=== PATIENT | male | born 1935 | race Caucasian/White ===

== ENCOUNTER 2018-01-20 11:18 | Day surgery (SDC) | payer OTHER ==
[2018-01-13 11:23] LABS: Absolute Lymphocytes (CBC) 0.8 K/uL (0.7-4.9); Absolute Monocytes 0.4 K/uL (0.1-1.3); Absolute Neutrophil 3.4 K/uL (1.8-8.0); Basophils % 1.1 % (0-1.3); Hematocrit 41.6 % (39.6-49.0); Lymphocytes % 16.8 % (15.3-44.8); MCH 29.8 pg (27.0-35.0); MCV 89.5 fL (80-100); MPV 10.2 fL (7.6-11.3); Monocytes % 8.8 % (3.3-12.3); RBC Red Blood Cell Count 4.65 M/uL (4.33-5.43)
[2018-01-13 11:36] LABS: Protime INR 1.69; Urine Appearance CLOUDY; Urine Bilirubin NEGATIVE (NEG); Urine Blood NEGATIVE (NEG); Urine Color YELLOW; Urine Glucose NEGATIVE (NEG); Urine Protein NEGATIVE (NEG); Urine Urobilinogen 0.2 mg/dL (0.2-1.0); Urine pH 7.5 (5.0-7.0)
[2018-01-13 11:42] LABS: Potassium 4.1 mmol/L (3.5-5.1)
--- NOTE | 2018-01-13 11:44 | EKG ---
Test Date: 2018-01-13 Test Time: 11:16:09 Injection Press Operator: DESI MEASUREMENT RESULTS: Intervals: Rate: 60 OH: 132 QRSD: 176 QT: 490 QTc: 490 [place]: P: 75 OH: 132 QRS: -85 T: 74 INTERPRETIVE STATEMENTS: Atrial-Ventricular Dual-Paced rhythmr Abnormal ECG Compared to ECG 12/12/2014 13:46:13 Atrial-sensed ventricular-paced complex(es) or rhythm no longer present Sinus rhythm no longer present Electronically Signed On 01-13-18 11:43:50 TRIPOLER by uLis Paz
[2018-01-13 11:45] LABS: Urine Microscopic Reflex ORDER UMIC
[2018-01-13 12:10] LABS: Urine Bacteria <20 /HPF (NONE SEEN); Urine RBC <5 /HPF (NONE SEEN)
[2018-01-13 12:11] LABS: Urine Amorphous Sediment 2+ /HPF (NONE SEEN); Urine Culture Reflex Order NOT NEEDED
--- NOTE | 2018-01-13 13:24 | RAD REPORT ---
EXAM DESCRIPTION: Barbara Trujillo (2 Views)01/13/2018 11:12 am CLINICAL HISTORY: Coronary artery disease. Preop for prostate surgery. COMPARISON: 2012 FINDINGS: Eventration left hemidiaphragm. Lungs appear clear of acute infiltrate. Lungs are hyperaerated. Pacemaker leads in place. Postsurgica l changes involve the chest. Heart is normal size IMPRESSION: No acute abnormalities displayed
[2018-01-20] MEDS ORDERED: GENTAMICIN 100 MG/100 ML BAG 100 MG/100 ML BAG IV ONE (11:45)
[2018-01-20] MEDS ORDERED: Ringers Lactate 1,000 ML IV ONE (11:45)
[2018-01-20 12:12] LABS: Protime INR 1.34
[2018-01-20] MEDS ORDERED: FENTANYL CITR 100 MCG/2 ML ONE (13:06)
[2018-01-20] MEDS ORDERED: PROPOFOL 200 MG/20 ML VIAL IV ONE (13:07)
[2018-01-20] MEDS ORDERED: MIDAZOLAM HCL 2 MG/2 ML INJ ONE (13:07)
[2018-01-20] MEDS ORDERED: LIDOCAINE 2% MPF 5 ML VIAL ONE (13:07)
[2018-01-20] MEDS ORDERED: EPHEDRINE SULF 50 MG/10 ML SYR ONE (14:22)
[2018-01-20 16:53] VITALS: BP 150/72; TEMP 97.3; O2SAT 97
== END 2018-01-20 16:45 | disposition home or self-care (01) ==
LOC: OR 11:18
PROVIDERS: ATTEND Urology
PROC: 0TCB8ZZ Extirpation of Matter from Bladder, Via Natural or Artificial Opening Endoscopic (ICD-10-PCS; 2018-01-20)
PROC: 0VT08ZZ Resection of Prostate, Via Natural or Artificial Opening Endoscopic (ICD-10-PCS; principal; 2018-01-20 13:00)
DX: N40.0 Benign prostatic hyperplasia without lower urinary tract symptoms (principal); N21.0 Calculus in bladder; I10 Essential (primary) hypertension; I25.10 Atherosclerotic heart disease of native coronary artery without angina pectoris; E78.00 Pure hypercholesterolemia, unspecified; E78.5 Hyperlipidemia, unspecified; Z95.0 Presence of cardiac pacemaker; Z79.01 Long term (current) use of anticoagulants; Z95.1 Presence of aortocoronary bypass graft; Z87.891 Personal history of nicotine dependence
CPT/HCPCS: 36415 ×2; 52318; 52601; 71046; 80048; 82360; 85025; 85610 ×2; 85730 ×2; 87088; 88300; 88305; 93005; J1580; J2704; J3010; 81003; 81015; 87086; J2250

== ENCOUNTER 2018-02-18 15:41 | Observation (INO) | payer OTHER ==
--- OUTSIDE RECORDS SUMMARY | 2018-02-18 15:43 | XMS REPORT ---
:1935 [facility] Address [address] [place] [address] Dr. Chung [address] [place] [id number] Care Team Providers Name Role Phone Unavailable Unavailable Unavailable Problems This patient has no known problems. Allergies, Adverse Reactions, Alerts This patient has no known allergies or adverse reactions. Medications This patient has no known medications.
[2018-02-18 16:27] LABS: Absolute Lymphocytes (CBC) 0.4 K/uL (0.7-4.9); Absolute Monocytes 0.8 K/uL (0.1-1.3); Absolute Neutrophil 6.6 K/uL (1.8-8.0); Basophils % 0.6 % (0-1.3); Eosinophils % 0.9 % (0-4.4); Hematocrit 35.8 % (39.6-49.0); Lymphocytes % 5.6 % (15.3-44.8); MPV 11.3 fL (7.6-11.3); Monocytes % 9.6 % (3.3-12.3); RBC Red Blood Cell Count 4.01 M/uL (4.33-5.43)
[2018-02-18 16:32] LABS: Protime INR 1.99
--- NOTE | 2018-02-18 16:32 | RAD REPORT ---
EXAM DESCRIPTION: CT - Head Brain Wo Cont - 02/18/2018 4:18 pm CLINICAL HISTORY: Alteration of awareness/confusion COMPARISON: June 2016 TECHNIQUE: Computed axial tomography of the head was obtained. IV contrast was not requested. All CT scans are performed using dose optimization technique as appropriate and may include automated exposure control or mA/KV adjustment according to patient size. FINDINGS: An intracranial bleed is not seen . The ventricles are normal in caliber. No extra-axial fluid collection is noted. Mild low-density areas within periventricular, deep and sub cortical white matter likely represent ischemic changes secondary to small vessel disease. Fluid within the sinuses/ mastoids is not seen. IMPRESSION: No acute intracranial abnormality is seen. If patient's symptoms persist MRI of the bra in would be recommended.
--- NOTE | 2018-02-18 16:39 | RAD REPORT ---
EXAM DESCRIPTION: Barbara Single View02/18/2018 4:26 pm CLINICAL HISTORY: Hypertension COMPARISON: December 2017 FINDINGS: Elevation left hemidiaphragm is unchanged Postsurgical changes involve the chest The lungs appear clear of acute infiltrate. The heart is mildly enlarged. Pacemaker leads are in brian ce. IMPRESSION: No acute abnormalities displayed
[2018-02-18 16:48] LABS: Albumin 3.7 g/dL (3.4-5.0); Bilirubin Direct 0.2 mg/dL (0-0.2); Bilirubin Total 0.6 mg/dL (0.2-1.0); Magnesium 2.1 mg/dL (1.8-2.4); Protein, Total 6.8 g/dL (6.4-8.2); Troponin (Emerg Dept Use Only) 0.02 ng/mL (0.0-0.045)
[2018-02-18] MEDS ORDERED: NA CHLORIDE 0.9% 500 ML ONE (16:48)
[2018-02-18 17:21] LABS: Urine Amorphous Sediment 2+ /HPF (NONE SEEN); Urine Bacteria <20 /HPF (NONE SEEN); Urine Culture Reflex Order REFLEXED
--- NOTE | 2018-02-18 19:05 | RAD REPORT ---
EXAM DESCRIPTION: CT - Angio Aorta For Dissection - 02/18/2018 6:39 pm CLINICAL HISTORY: . Chest and abdominal pain. Hypotension COMPARISON: 2014 TECHNIQUE: Computed tomography angiography of the chest, abdomen pelvis were obtained. 100 cc Isovue 370 was administered intravenously. Coronal and sagittal reconstruction were performed. MIP 3D reconstruction was performed All CT scans are performed using dose optimization technique as appropriate and may include automated exposure control or mA/KV adjustment according to patient size. FINDINGS: An aortic dissection is not seen. An aortic aneurysm is not displayed. 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 , SMA and RACHEAL are patent . Chronic elevation left hemidiaphragm. Mild left basilar atelectasis. A pericardial effusion is not se en. A pleural effusion is not noted. A 5 millimeter right middle lobe nodule The liver,spleen, pancreas adrenals kidneys demonstrate no significant abnormality. The appendix is normal. There no evidence diverticulitis. No ascites is noted. Prostate gland markedly enlarged. TURP Gallstones without gallbladder wall thickening Moderate amount of stool is present in the colon IMPRESSION: Negative for an aortic dissection. 5 mm right lung nodule. Per Fleischner guidelines if patient is high risk followup CT in 1 year would be recommended
--- NOTE | 2018-02-18 19:56 | ER ---
Nurse's Notes [facility] Name: Tong Norton Age: 82 yrs Sex: Male : 1935 Arrival Date: 02/18/2018 Time: 15:42 Bed 4 Private MD: Diagnosis: Hypotension;Altered mental status, unspecified Presentation: 02/18 15:42 Presenting complaint: EMS states: Son called EMS for altered mental status, reports pt hb seemed confused after lunch, was talking to people that weren't there, thought he was in a foreign country. Upon arrival pt was AOx2-3. 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 Pt is 6 weeks s/p TURP. Transition of care: patient was not received from another setting of care. Onset of symptoms was February 18, 2018. Risk Assessment: Do you want to hurt yourself or someone else? Patient reports no desire to harm self or others. Care prior to arrival: Medication(s) given: Tylenol, 1000 mg, IV initiated. 20 GA, in the left antecubital area, Glucose check: 131. 15:42 Method Of Arrival: EMS: [facility] hb 15:42 Acuity: DOMENICO 2 hb 16:00 Initial Sepsis Screen: Does the patient meet any 2 criteria? Mean Arterial Pressure jl7 (MAP) < 65. Altered Mental Status. Yes Does the patient have a suspected source of infection? No. Patient's initial sepsis screen is negative. Historical: - Allergies: 15:46 No Known Allergies; hb - Home Meds: 21:23 zinc sulfate 220 (50) mg Oral cap EOD [Active]; copper gluconate 2 mg oral cap daily aa1 [Active]; Flomax 0.4 mg Oral cp24 1 cap once daily [Active]; tramadol 50 mg Oral tab 1 tab every 6 hours [Active]; Vitamin B-12 5000 mcg Oral daily [Active]; Vitamin D3 5,000 unit oral tab EOD [Active]; Lofibra 134 mg oral cap 1 cap once daily [Active]; benzonatate 100 mg oral cap 1 cap 3 times per day [Active]; gabapentin 100 mg oral cap 1 cap in am and 2 caps in pm [Active]; sotalol 80 mg Oral tab 0.5 tab 2 times per day [Active]; Zocor 40 mg Oral tab 1 tab once daily [Active]; Xarelto 20 mg oral tab 1 tab once daily [Active]; - PMHx: 15:46 Gout; Hyperlipidemia; Hypertension; hb - PSHx: 15:46 PACEMAKER; CABG; TURP; hb - Immunization history:: Adult Immunizations up to date. - Social history:: Smoking status: Patient/guardian denies using tobacco. - Ebola Screening: : No symptoms or risks identified at this time. Screenin:47 Abuse screen: Denies threats or abuse. Denies injuries from another. Nutritional hb screening: No deficits noted. Tuberculosis screening: No symptoms or risk factors identified. Fall Risk Total Gómez Fall Scale indicates High Risk Score (45 or more points). Fall prevention measures have been instituted. Side Rails Up X 2 Frequent Obs/Assessments Occuring As available patient and family educated on Fall Prevention Program and Strategies. Assessment: 15:56 General: Appears in no apparent distress. uncomfortable, Behavior is calm, cooperative, jl7 appropriate for age. Pain: Denies pain. Neuro: Level of Consciousness is awake, alert, obeys commands, Oriented to person, place, time, situation, Appropriate for age pt reports "I woke up this morning and was confused. I thought I was going to get my son but he's in [place]. I couldn't find a phone number to call and I just couldn't think straight." . Cardiovascular: Heart tones S1 S2 present Patient's skin is warm and dry. Respiratory: Airway is patent Respiratory effort is even, unlabored, Respiratory pattern is regular, symmetrical, Breath sounds are clear in right upper lobe, left upper lobe, left posterior upper lobe and right posterior upper lobe Breath sounds with crackles in left lower lobe and left posterior lower lobe. GI: No signs and/or symptoms were reported involving the gastrointestinal system. Patient currently denies diarrhea, nausea, vomiting. : No signs and/or symptoms were reported regarding the genitourinary system. Denies burning with urination. EENT: No signs and/or symptoms were reported regarding the EENT system. Derm: Skin is pink, warm \\T\\ dry. Musculoskeletal: No signs and/or symptoms reported regarding the musculoskeletal system. 16:41 Reassessment: ERP notified of decreased BP, ordered 500 mL NS bolus at this time. jl7 17:45 Reassessment: Patient appears in no apparent distress at this time. No changes from jl7 previously documented assessment. Patient and/or family updated on plan of care and expected duration. Pain level reassessed. Patient is alert, oriented x 3, equal unlabored respirations, skin warm/dry/pink. 19:16 Reassessment: Patient appears in no apparent distress at this time. Patient states lp1 feeling better. Patient states symptoms have improved. Neuro: Level of Consciousness is awake, alert, obeys commands, Oriented to person, place, time, situation. Respiratory: Respiratory effort is even, unlabored. Derm: Skin is pink, warm \\T\\ dry. 20:30 Reassessment: Patient appears in no apparent distress at this time. Patient and/or lp1 family updated on plan of care and expected duration. Pain level reassessed. Patient aware of pending admission. 21:30 Reassessment: Patient appears in no apparent distress at this time. No changes from lp1 previously documented assessment. 22:30 Reassessment: Patient appears in no apparent distress at this time. Patient and/or lp1 family updated on plan of care and expected duration. Pain level reassessed. Patient is alert, oriented x 3, equal unlabored respirations, skin warm/dry/pink. Patient denies pain at this time. Vital Signs: 15:47 BP 120 / 70; Pulse 84; Resp 16; Temp 100.2; Pulse Ox 100% on R/A; Pain 0/10; hb 16:37 BP 87 / 61; Pulse 71; Resp 16 S; Pulse Ox 95% on R/A; jl7 17:00 BP 87 / 55; Pulse 63; Resp 16 S; Pulse Ox 94% on R/A; jl7 17:30 BP 89 / 60; Pulse 72; Resp 16 S; Pulse Ox 94% on R/A; jl7 18:20 BP 76 / 51 RA; Pulse 74; Resp 16 S; Pulse Ox 96% on R/A; jl7 18:24 BP 107 / 70 LA; Pulse 68; Resp 16 S; Pulse Ox 96% on R/A; jl7 18:37 Temp 98.7(O); jl7 19:17 BP 101 / 53; Pulse 72; Resp 16; Pulse Ox 96% on R/A; lp1 19:59 BP 100 / 70 LA (man/); lp1 19:59 BP 110 / 65 RA (man/); lp1 20:30 BP 96 / 59; Pulse 72; Resp 21; Pulse Ox 97% on R/A; lp1 21:44 BP 101 / 54; Pulse 74; Resp 20; Temp 98.2(O); Pulse Ox 96% on R/A; lp1 22:30 BP 91 / 57; Pulse 69; Resp 20; Pulse Ox 96% on R/A; lp1 ED Course: 15:42 Patient arrived in ED. hb 15:45 Triage completed. hb 15:45 Arm band placed on. hb 15:47 Patient has correct armband on for positive identification. Placed in gown. Bed in low hb position. Call light in reach. Side rails up X2. under sheriff on. Pulse ox on. NIBP on. 15:49 Rod Oneill PA is PHCP. [facility] 15:49 Alan Orellana MD is Attending Physician. [facility] 15:56 Ismael Vail, ULYSSES is Primary Nurse. jl7 15:56 Maintain EMS IV. Dressing intact. Good blood return noted. Site clean \\T\\ dry. Gauge \\T\\ jl 7 site: 20 L AC. 16:[address] nj 16:06 EKG done, by nurse tech. reviewed by Rod FERNANDEZ. 3 16:17 CT completed. Patient tolerated procedure well. Patient moved back from CT. 2 16:19 CT Head Brain wo Cont In Process Unspecified. EDMS 16:24 XRAY Chest (1 view) In Process Unspecified. EDMS 16:24 Urine collected: clean catch specimen, cloudy. 3 18:[address] nj 18:33 CT completed. Patient tolerated procedure well. Patient moved back from CT. 2 18:39 CT Aorta for Dissection In Process Unspecified. EDMS 19:06 Primary Nurse role handed off by Ismael Vail, ULYSSES jl7 19:15 Caro Porras, ULYSSES is Primary Nurse. 1 19:16 No provider procedures requiring assistance completed. 1 19:55 Kirill Jaime MD is Hospitalizing Provider. [facility] 20:01 Patient admitted, IV remains in place. 1 Administered Medications: 16:45 Drug: NS 0.9% 500 ml Route: IV; Rate: bolus; Site: right forearm; jl7 17:15 Follow up: Response: No adverse reaction; IV Status: Completed infusion 17:45 Drug: NS 0.9% 500 ml Route: IV; Rate: bolus; Site: right forearm; jl7 18:15 Follow up: Response: No adverse reaction; IV Status: Completed infusion 7 Outcome: 19:56 Decision to Hospitalize by Provider. [facility] 20:02 Condition: stable lp1 20:02 Instructed on the need for admit. 22:49 Admitted to Med/surg accompanied by tech, via wheelchair, room 203, with chart, Report lp1 called to ULYSSES Duran 22:57 Patient left the ED. lp1 Signatures: Dispatcher [employer] EDMS Christina Robins RN RN aa1 Rod Oneill PA PA jmm Pena, Laura RN RN lp1 Silvana Gutierrez RN RN hb Jordan, Nathan nj Leal, Jahala, RN RN jl7 Rocio Deras 2 Mimi Hernandez 3 Kerry Reveles 3 Corrections: (The following items were deleted from the chart) 15:46 15:42 Presenting complaint: EMS states: Son called EMS for altered mental status, hb reports pt seemed confused after lunch, was talking to people that weren't there, thought he was in a foreign country. Upon arrival pt was alert and answering questions appropriately. 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 hb 15:47 15:42 Presenting complaint: EMS states: Son called EMS for altered mental status, hb reports pt seemed confused after lunch, was talking to people that weren't there, thought he was in a [place]. Upon arrival pt was AOx2-3. 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 hb 18:26 18:15 Response: No adverse reaction; IV Status: Completed infusion jl7 18:27 18:25 Response: No adverse reaction; IV Status: Completed infusion jl7 18:29 18:15 Response: No adverse reaction; IV Status: Completed infusion jl7 jl7 21:46 21:44 BP 101 / 54; Pulse 74bpm; Resp 20bpm; Pulse Ox 96% RA; lp1 lp1
--- NOTE | 2018-02-18 19:57 | EDPHYS ---
Physician Documentation [facility] Name: Tong Norton Age: 82 yrs Sex: Male : 1935 Arrival Date: 02/18/2018 Time: 15:42 Bed 4 Private MD: ED Physician Alan Orellana HPI: 02/18 16:09 This 82 yrs old Male presents to ER via EMS with complaints of Altered Mental [facility] Status, Fever. 16:09 The patient presents with confusion. Onset: The symptoms/episode began/occurred this jmm morning. Possible causes: unknown. Associated signs and symptoms: Pertinent positives: cough. Current symptoms: In the emergency department the patient's symptoms have resolved. This is an 82 year old male with no chronic medical conditions that presents to the ED with complaints of impaired memory this morning beginning around 0900 according to the patient. Patient also complains of a mild cough. Denies chest pain, shortness of breath, weakness. . Historical: - Allergies: 15:46 No Known Allergies; hb - Home Meds: 21:23 zinc sulfate 220 (50) mg Oral cap EOD [Active]; copper gluconate 2 mg oral cap daily aa1 [Active]; Flomax 0.4 mg Oral cp24 1 cap once daily [Active]; tramadol 50 mg Oral tab 1 tab every 6 hours [Active]; Vitamin B-12 5000 mcg Oral daily [Active]; Vitamin D3 5,000 unit oral tab EOD [Active]; Lofibra 134 mg oral cap 1 cap once daily [Active]; benzonatate 100 mg oral cap 1 cap 3 times per day [Active]; gabapentin 100 mg oral cap 1 cap in am and 2 caps in pm [Active]; sotalol 80 mg Oral tab 0.5 tab 2 times per day [Active]; Zocor 40 mg Oral tab 1 tab once daily [Active]; Xarelto 20 mg oral tab 1 tab once daily [Active]; - PMHx: 15:46 Gout; Hyperlipidemia; Hypertension; hb - PSHx: 15:46 PACEMAKER; CABG; TURP; hb - Immunization history:: Adult Immunizations up to date. - Social history:: Smoking status: Patient/guardian denies using tobacco. - Ebola Screening: : No symptoms or risks identified at this time. ROS: 16:09 Constitutional: Negative for fever, chills, and weight loss, Cardiovascular: Negative jmm for chest pain, palpitations, and edema, Respiratory: Negative for shortness of breath, cough, wheezing, and pleuritic chest pain. 16:09 Neuro: Positive for altered mental status. 16:09 All other systems are negative. Exam: 16:09 Constitutional: This is a well developed, well nourished patient who is awake, alert, jmm and in no acute distress. Head/Face: atraumatic. Eyes: EOMI, no conjunctival erythema appreciated ENT: Moist Mucus Membranes Neck: Trachea midline, Supple Chest/axilla: Normal chest wall appearance and motion. Cardiovascular: Regular rate and rhythm. No edema appreciated Respiratory: Normal respirations, no respiratory distress appreciated Abdomen/GI: Non distended, soft Back: Normal ROM Skin: General appearance color normal MS/ Extremity: Moves all extremities, no obvious deformities appreciated, no edema noted to the lower extremities 16:09 Neuro: Orientation: is normal, Mentation: is normal, Memory: is normal, Cerebellar function: normal finger to nose testing, Motor: is normal, strength is 5/5 in all extremities, Sensation: is normal. 16:09 Psych: Behavior/mood is pleasant, cooperative. Vital Signs: 15:47 BP 120 / 70; Pulse 84; Resp 16; Temp 100.2; Pulse Ox 100% on R/A; Pain 0/10; hb 16:37 BP 87 / 61; Pulse 71; Resp 16 S; Pulse Ox 95% on R/A; jl7 17:00 BP 87 / 55; Pulse 63; Resp 16 S; Pulse Ox 94% on R/A; jl7 17:30 BP 89 / 60; Pulse 72; Resp 16 S; Pulse Ox 94% on R/A; jl7 18:20 BP 76 / 51 RA; Pulse 74; Resp 16 S; Pulse Ox 96% on R/A; jl7 18:24 BP 107 / 70 LA; Pulse 68; Resp 16 S; Pulse Ox 96% on R/A; jl7 18:37 Temp 98.7(O); jl7 19:17 BP 101 / 53; Pulse 72; Resp 16; Pulse Ox 96% on R/A; lp1 19:59 BP 100 / 70 LA (man/); lp1 19:59 BP 110 / 65 RA (man/); lp1 20:30 BP 96 / 59; Pulse 72; Resp 21; Pulse Ox 97% on R/A; lp1 21:44 BP 101 / 54; Pulse 74; Resp 20; Temp 98.2(O); Pulse Ox 96% on R/A; lp1 22:30 BP 91 / 57; Pulse 69; Resp 20; Pulse Ox 96% on R/A; lp1 MDM: 15:50 Patient medically screened. [facility] 19:52 Data reviewed: vital signs, nurses notes. Counseling: I had a detailed discussion with aiden the patient and/or guardian regarding: the historical points, exam findings, and any diagnostic results supporting the discharge/admit diagnosis, lab results, radiology results, the need for further work-up and treatment in the hospital. ED course: I discussed the patient with Dr. Jaime whom accepted admission. . 02/18 16:00 Order name: Basic Metabolic Panel; Complete Time: 16:49 [facility] 02/18 16:00 Order name: CBC with Diff; Complete Time: 16:48 [facility] 02/18 16:00 Order name: LFT's; Complete Time: 16:49 [facility] 02/18 16:00 Order name: Magnesium; Complete Time: 16:49 [facility] 02/18 16:00 Order name: NT PRO-BNP; Complete Time: 16:49 [facility] 02/18 16:00 Order name: PT-INR; Complete Time: 16:48 [facility] 02/18 16:00 Order name: Troponin (emerg Dept Use Only); Complete Time: 16:49 [facility] 02/18 16:00 Order name: Flu; Complete Time: 17:23 [facility] 02/18 16:06 Order name: Blood Culture Adult (2) [facility] 02/18 16:26 Order name: Urine Microscopic Only; Complete Time: 17:23 3 02/18 16:26 Order name: Urine Culture 3 02/18 16:33 Order name: Urine Dipstick--Ancillary (enter results); Complete Time: 21:01 ag 02/18 17:04 Order name: Lactate; Complete Time: 18:30 hb 02/18 17:04 Order name: Procalcitonin; Complete Time: 18:30 hb 02/18 16:00 Order name: XRAY Chest (1 view); Complete Time: 16:48 [facility] 02/18 16:00 Order name: EKG; Complete Time: 16:01 [facility] 02/18 16:00 Order name: Cardiac monitoring; Complete Time: 16:06 [facility] 02/18 16:00 Order name: EKG - Nurse/Tech; Complete Time: 16:06 [facility] 02/18 16:00 Order name: IV Saline Lock; Complete Time: 16:20 [facility] 02/18 16:00 Order name: Labs collected and sent; Complete Time: 16:20 [facility] 02/18 16:00 Order name: O2 Per Protocol; Complete Time: 16:06 [facility] 02/18 16:00 Order name: O2 Sat Monitoring; Complete Time: 16:06 [facility] 02/18 16:01 Order name: Urine Dipstick-Ancillary (obtain specimen); Complete Time: 16:21 [facility] 02/18 16:01 Order name: CT Head Brain wo Cont; Complete Time: 16:48 [facility] 02/18 18:24 Order name: CT Aorta for Dissection; Complete Time: 19:10 [facility] 02/18 18:35 Order name: Diet Soft; Complete Time: 18:36 [facility] Administered Medications: 16:45 Drug: NS 0.9% 500 ml Route: IV; Rate: bolus; Site: right forearm; jl7 17:15 Follow up: Response: No adverse reaction; IV Status: Completed infusion jl7 17:45 Drug: NS 0.9% 500 ml Route: IV; Rate: bolus; Site: right forearm; jl7 18:15 Follow up: Response: No adverse reaction; IV Status: Completed infusion jl7 Disposition: 02/19 07:14 Co-signature as Attending Physician, Alan Orellana MD I agree with the assessment and kdr plan of care. Disposition: 02/18/18 19:56 Hospitalization ordered by Kirill Jaime for Observation. Preliminary diagnosis are Hypotension, Altered mental status, unspecified. - Bed requested for Telemetry/MedSurg (observation). - Status is Observation. lp1 - Condition is Stable. - Problem is new. - Symptoms have improved. UTI on Admission? Yes Signatures: Dispatcher [employer] EDMS Christina Robins RN RN aa1 Alan Orellana MD MD [facility] Rod Oneill PA PA jmm Pena, Laura, RN RN lp1 Tia Davis RN RN Silvana Gutierrez RN RN Ismael Vail RN RN jl7 Corrections: (The following items were deleted from the chart) 02/18 22:15 19:56 Hospitalization Ordered by Kirill Jaime MD for Observation. Preliminary cg diagnosis is Hypotension; Altered mental status, unspecified. Bed requested for Telemetry/MedSurg (observation). Status is Observation. Condition is Stable. Problem is new. Symptoms have improved. UTI on Admission? Yes. [facility] 22:57 22:15 02/18/2018 19:56 Hospitalization Ordered by Kirill Jaime MD for Observation. lp1 Preliminary diagnosis is Hypotension; Altered mental status, unspecified. Bed requested for Telemetry/MedSurg (observation). Status is Observation. Condition is Stable. Problem is new. Symptoms have improved. UTI on Admission? Yes. cg
[2018-02-18 20:49] LABS: Urine Blood 2+ (NEG); Urine Glucose NEGATIVE (NEG); Urine Protein NEGATIVE (NEG); Urine Specific Gravity 1.015 (1.005-1.030); Urine pH 8.5 (5.0-7.0)
--- NOTE | 2018-02-18 21:24 | P.HP ---
Certification for Inpatient Patient admitted to: Observation With expected LOS: <2 Midnights Practitioner: I am a practitioner with admitting privileges, knowledge of patient current condition, hospital course, and medical plan of care. Services: Services provided to patient in accordance with Admission requirements found in Title 42 Section 412.3 of the Code of Federal Regulations Patient History Date of Service: 02/18/18 Reason for admission: acute encephalopathy History of Present Illness: Mr Norton is an 82 years old male with history of HTN, CAD, dyslipidemia, who was talking to the phone with one of his kid when he was noted to start speaking nonsense. He was disoriented and confused. The patient actually remember been confused. He denied any weakness or numbness. No history of fever or chills, however, he is febrile in ED, 100.[address] head shows no acute abnormalities. Lab work remarkable for normal WBC count, normal lactate and procalcitonin. UA is abnormal consistent with UTI. His BP at arrival was 120/70 , however, during his stay in ER, BP drop to 70's/40's. At my encounter the patient was alert and oriented, according to his son, it is almost at his baseline. Allergies No Known Allergies Allergy (Verified 01/13/18 10:44) Home medications list reviewed: Yes Home Medications: Diphenhydramine [Benadryl Tab/Cap] 25 mg PO PRN PRN 12/12/14 Fenofibrate [Tricor] 145 mg PO DAILY 12/12/14 Gabapentin [Neurontin] 100 mg PO DAILY WITH BREAKFAST 12/12/14 Rivaroxaban [Xarelto] 20 mg PO DAILY 12/12/14 Simvastatin [Zocor] 40 mg PO BEDTIME 12/12/14 Sotalol HCl [Betapace] 40 mg PO BID 12/12/14 Tamsulosin [Flomax] 0.4 mg PO BEDTIME 12/12/14 - Past Medical/Surgical History -: gout -: hyperlipidemia -: HTN -: CAD -: pacemaker placement -: CABG -: TURP - Social History Smoking Status: Former smoker Alcohol use: No CD- Drugs: No Place of Residence: Home Review of Systems 10-point ROS is otherwise unremarkable Physical Examination - Physical Exam General: Alert, In no apparent distress, Oriented x3 (at my encounter) HEENT: Atraumatic, PERRLA, Mucous membr. moist/pink, EOMI, Sclerae nonicteric Neck: Supple, 2+ carotid pulse no bruit, No LAD, Without JVD or thyroid abnormality Respiratory: Clear to auscultation bilaterally, Normal air movement Cardiovascular: Regular rate/rhythm, Normal S1 S2 Gastrointestinal: Normal bowel sounds, No tenderness Musculoskeletal: No tenderness Integumentary: No rashes Neurological: Normal speech, Normal strength at 5/5 x4 extr, Normal tone, Normal affect Lymphatics: No axilla or inguinal lymphadenopathy - Studies Laboratory Data (last 24 hrs) 02/18/18 16:15: PT 23.7 H, INR 1.99 02/18/18 16:15: WBC 7.9, Hgb 12.2 L, Hct 35.8 L, Plt Count 108 L 02/18/18 16:15: Sodium 137, Potassium 4.0, BUN 21 H, Creatinine 1.23, Glucose 113 H, Magnesium 2.1, Total Bilirubin 0.6, AST 22, ALT 18, Alkaline Phosphatase 45 Microbiology Data (last 24 hrs): 02/18/18 16:15 Nasopharnyx Influenza Type A Antigen Screen - Final 02/18/18 16:15 Nasopharnyx Influenza Type B Antigen Screen - Final Assessment and Plan - Problems (Diagnosis) (1) Acute encephalopathy Current Visit: Yes Status: Acute (2) HTN (hypertension) Current Visit: Yes Status: Acute Qualifiers: Hypertension type: essential hypertension Qualified Code(s): I10 - Essential (primary) hypertension (3) CAD (coronary artery disease) Current Visit: Yes Status: Acute Qualifiers: Coronary Disease-Associated Artery/Lesion type: bypass graft [place] vs. transplanted heart: [place] heart Associated angina: without angina Qualified Code(s): I25.810 - Atherosclerosis of coronary artery bypass graft(s) without angina pectoris (4) Dyslipidemia Current Visit: Yes Status: Acute (5) UTI (urinary tract infection) Current Visit: Yes Status: Acute Qualifiers: Urinary tract infection type: acute cystitis Hematuria presence: without hematuria Qualified Code(s): N30.00 - Acute cystitis without hematuria - Plan The patient will be admitted to the hospital due to acute encephalopathy. His mentation already came back tho his normal baseline. Differential diagnosis include, TIA, also early sepsis, he is hypotensive, and has UTI. Will order IV fluids, empiric antibiotics. Blood and urine culture in process. No able to do MRI since the patient has a pacemaker. - Advance Directives Does patient have a Living Will: No Does patient have a Durable POA for Healthcare: No - Code Status/Comfort Care Code Status Assessed: Yes Code Status: Full Code
[2018-02-18] MEDS ORDERED: CEFTRIAXONE 1 GM/NS 50 ML 1 GM/50 ML BAG IV SCH (23:00)
[2018-02-18] MEDS ORDERED: ONDANSETRON 4 MG/2 ML VIAL IV PRN (23:17)
[2018-02-18] MEDS ORDERED: ACETAMINOPHEN 500 MG TAB PO PRN (23:17)
[2018-02-18 23:25] VITALS: O2SAT 96
[2018-02-18] MEDS: NA CHLORIDE 0.9% 1,000 ML IV SCH (23:47)
[2018-02-19 00:02] VITALS: BMI 21.7
[2018-02-19] MEDS ORDERED: CEFTRIAXONE/SWI 1gm 1 GM/10 ML SYR ONE (00:08)
[2018-02-19 06:27] LABS: Absolute Lymphocytes (CBC) 0.6 K/uL (0.7-4.9); Absolute Monocytes 0.6 K/uL (0.1-1.3); Absolute Neutrophil 4.7 K/uL (1.8-8.0); Basophils % 0.6 % (0-1.3); Hematocrit 31.3 % (39.6-49.0); Lymphocytes % 10.6 % (15.3-44.8); MPV 11.2 fL (7.6-11.3); Monocytes % 10.6 % (3.3-12.3); RBC Red Blood Cell Count 3.56 M/uL (4.33-5.43)
[2018-02-19 06:47] LABS: Potassium 3.8 mmol/L (3.5-5.1)
--- NOTE | 2018-02-19 07:48 | EKG ---
Test Date: 2018-02-18 Test Time: 15:49:37 Airplane Rental Clerk: ELIZABETH MEASUREMENT RESULTS: Intervals: Rate: 74 [place]: QRSD: 162 QT: 442 QTc: 490 [place]: P: 85 [place]: QRS: -86 T: 77 INTERPRETIVE STATEMENTS: Ventricular-paced rhythm Abnormal ECG Compared to ECG 01/13/2018 11:16:09 AV dual-paced complex(es) or rhythm no longer present Electronically Signed On 02-19-18 07:46:04 MANAGER [employer]MENT[employer] HE[employer] AND SAFETY by Zhen Freemna
[2018-02-19 08:12] VITALS: BP 106/57; TEMP 98.9
[2018-02-19] MEDS: NA CHLORIDE 0.9% 1,000 ML IV SCH (08:53)
[2018-02-19] MEDS ORDERED: CEFTRIAXONE/SWI 1gm 1 GM/10 ML SYR IV SCH (09:00)
[2018-02-19] MEDS ORDERED: POTASSIUM CL SA 10 MEQ TAB PO ONE (09:00)
[2018-02-19] MEDS ORDERED: ENOXAPARIN 40 MG/0.4 ML SQ SCH (09:00)
[2018-02-19] MEDS ORDERED: CEFTRIAXONE 1 GM/NS 50 ML 1 GM/50 ML BAG IV SCH (09:00)
--- NOTE | 2018-02-19 14:29 | P.SSS ---
Patient History Date of Service: 02/19/18 Reason for admission: acute encephalopathy History of Present Illness: Mr Norton is an 82 years old male with history of HTN, CAD, dyslipidemia, who was talking to the phone with one of his kid when he was noted to start speaking nonsense. He was disoriented and confused. The patient actually remember been confused. He denied any weakness or numbness. No history of fever or chills, however, he is febrile in ED, 100.[address] head shows no acute abnormalities. Lab work remarkable for normal WBC count, normal lactate and procalcitonin. UA is abnormal consistent with UTI. His BP at arrival was 120/70 , however, during his stay in ER, BP drop to 70's/40's. At my encounter the patient was alert and oriented, according to his son, it is almost at his baseline. Allergies No Known Allergies Allergy (Verified 01/13/18 10:44) Home Medications: Cephalexin [Keflex*] 500 mg PO Q6HR #28 cap 02/19/18 Cholecalciferol (Vitamin D3) [Vitamin D3] 2,000 unit PO DAILY 02/19/18 Copper Gluconate [Copper] 2 mg PO DAILY 02/19/18 Cyanocobalamin (Vitamin B-12) [Vitamin B-12] 5,000 mcg PO DAILY 02/19/18 Gabapentin 100 mg PO DAILY 02/19/18 Gabapentin 200 mg PO BEDTIME 02/19/18 Pyridoxine HCl [Vitamin B-6] 25 mg PO DAILY 02/19/18 Rivaroxaban [Xarelto] 20 mg PO DAILY 02/19/18 Simvastatin 40 mg PO DAILY 02/19/18 Simvastatin [Zocor] 40 mg PO DAILY 02/19/18 Sotalol HCl [Betapace*] 40 mg PO BID 02/19/18 Tamsulosin HCl 0.4 mg PO DAILY 02/19/18 Tramadol HCl [Ultram] 50 mg PO Q6H PRN 02/19/18 Zinc Sulfate [Zinc Sulfate*] 220 mg PO DIRECTED 02/19/18 - Past Medical/Surgical History Has patient received pneumonia vaccine in the past: Yes Diabetic: No -: gout -: hyperlipidemia -: HTN -: CAD -: pacemaker placement -: CABG -: TURP -: cataract sx - Social History Smoking Status: Former smoker Alcohol use: No CD- Drugs: No Place of Residence: Home Review of Systems 10-point ROS is otherwise unremarkable Physical Examination - Vital Signs Temperature: 98.9 F Blood Pressure: 106/57 Pulse: 60 Respirations: 18 Pulse Ox (%): 96 - Physical Exam General: Alert, In no apparent distress, Oriented x3 HEENT: Atraumatic, PERRLA, Mucous membr. moist/pink, EOMI, Sclerae nonicteric Neck: Supple, 2+ carotid pulse no bruit, No LAD, Without JVD or thyroid abnormality Respiratory: Clear to auscultation bilaterally, Normal air movement Cardiovascular: Regular rate/rhythm, Normal S1 S2 Gastrointestinal: Normal bowel sounds, No tenderness Musculoskeletal: No tenderness Integumentary: No rashes Neurological: Normal gait, Normal speech, Normal strength at 5/5 x4 extr, Normal tone, Normal affect Lymphatics: No axilla or inguinal lymphadenopathy - Studies Laboratory Data (last 24 hrs) 02/18/18 16:15: PT 23.7 H, INR 1.99 02/18/18 16:15: WBC 7.9, Hgb 12.2 L, Hct 35.8 L, Plt Count 108 L 02/18/18 16:15: Sodium 137, Potassium 4.0, BUN 21 H, Creatinine 1.23, Glucose 113 H, Magnesium 2.1, Total Bilirubin 0.6, AST 22, ALT 18, Alkaline Phosphatase 45 Microbiology Data (last 24 hrs): 02/18/18 16:15 Nasopharnyx Influenza Type A Antigen Screen - Final 02/18/18 16:15 Nasopharnyx Influenza Type B Antigen Screen - Final Treatment Summary: The patient will be admitted to the hospital due to acute encephalopathy. His mentation already came back to his normal baseline. Differential diagnosis include, TIA, also early sepsis, he is hypotensive, and has UTI. He was given IV fluids, his blood pressure responded well. His urine culture was negative for bacteria but since patient had a recent prostate surgery, will treat with po antibiotics. We were not able to do MRI because of his pacemaker. At the time of discharge, patient had returned to baseline, Physical exam was normal, Vital signs were stable. He will follow up with his PCP in 1 week and his triple valve tester in 2 weeks. - Disposition Condition: GOOD Patient Discharge Instructions: Please follow up with your primary care physician in 1-2 weeks. Please follow up with your triple valve tester in 2 weeks. New medication: Cephalexin, antibiotic for urinary tract infection. Please return to the Emergency room for worsening symptoms. Diet: AHA Activity: Ad froylan Physician Review: Patient Assessed, Agree with Above Assessment and Plan Time Spent Managing Pts Care (In Minutes): 55
[2018-02-19] MEDS ORDERED: SOTALOL HCL 80 MG TAB PO SCH (21:00)
[2018-02-19] MEDS ORDERED: GABAPENTIN 100 MG CAP PO SCH (21:00)
[2018-02-19] MEDS ORDERED: ATORVASTATIN 20 MG TAB PO SCH (21:00)
[2018-02-20] MEDS ORDERED: HOME MED 1 EA UNK (Simvastatin [Simvastatin] 40 MG) PO SCH (09:00)
[2018-02-20] MEDS ORDERED: CYANOCOBALAMIN 1,000 MCG TAB PO SCH (09:00)
[2018-02-20] MEDS ORDERED: VITAMIN D 1000 UNIT TAB PO SCH (09:00)
[2018-02-20] MEDS ORDERED: ZINC SULFATE 220 MG CAP PO SCH (09:00)
[2018-02-20] MEDS ORDERED: GABAPENTIN 100 MG CAP PO SCH (09:00)
[2018-02-20] MEDS ORDERED: TAMSULOSIN 0.4 MG SR CAP PO SCH (09:00)
[2018-02-20] MEDS ORDERED: COPPER GLUCONATE 2 MG PO SCH (09:00)
[2018-02-20] MEDS ORDERED: PYRIDOXINE (VIT B6) 50 MG TAB PO SCH (09:00)
[2018-02-20] MEDS ORDERED: RIVAROXABAN 20 MG TABLET PO SCH (17:00)
== END 2018-02-19 13:09 | disposition home or self-care (01) ==
LOC: ER 15:41 → ERHOLD 21:20 → 2ND 22:47
PROVIDERS: ADMIT Internal Medicine; ATTEND Internal Medicine
DX: N39.0 Urinary tract infection, site not specified (principal); G93.40 Encephalopathy, unspecified; I25.10 Atherosclerotic heart disease of native coronary artery without angina pectoris; I10 Essential (primary) hypertension; E78.5 Hyperlipidemia, unspecified; Z95.0 Presence of cardiac pacemaker; Z95.1 Presence of aortocoronary bypass graft; Z87.891 Personal history of nicotine dependence
CPT/HCPCS: 36415; 70450; 71045; 71275; 74175; 80048; 80076; 81003; 81015; 83605; 83735; 83880; 84145; 84484; 85025; 85610; 87040; 87086; 87088; 87804; 93005; 96360; 99285; G0378; J0696; J1650; J7030; Q9967

== ENCOUNTER 2019-01-13 06:20 | Emergency (ER) | payer OTHER ==
--- OUTSIDE RECORDS SUMMARY | 2019-01-13 06:22 | XMS REPORT | Summary of Care ---
:1935 Author Organization [facility] Address [address] [place] [id number] Care Team Providers Name Role Phone Loan Camacho MD Primary Care Provider Reason for Visit Reason Comments Refill Request Gabapentin Encounter Details Date Type Department Care Team Description 10/16/2018 Refill [facility] Pediatric Loan Camacho Refill Request and Adult Primary Care- MD Bel (Gabapentin ) [address] [facility] [address] [place] [address] [place] [id number] Allergies No Known Allergiesdocumented as of this encounter (statuses as of 10/20/2018) Medications Medication Sig Dispensed Refills Start Date End Date Status rivaroxaban Take 20 mg by 0 Active (XARELTO) 20 mg Tab mouth every tablet evening. sotalol (BETAPACE) Take 40 mg by 0 11/27/2015 Active 80 mg tablet mouth 2 (two) times daily. cyanocobalamin, Place 5,000 0 Active vitamin B-12, mcg under the (VITAMIN B-12) 5,000 tongue daily. mcg Subl Take daily under the tongue Pyridoxine HCl 200 Take 20 mg by 0 Active mg TbSR mouth daily. Take 20 mg oral daily. Cholecalciferol, Take 1 0 Active Vitamin D3, capsule by (DIALYVITE VITAMIN mouth daily. D) 5,000 unit Take 1 5000 capsule mcg capsule daily traMADOL 50 mg Take 1 tablet 30 tablet 2 09/04/2017 Active tabletIndications: by mouth Chronic midline low every 6 (six) back pain without hours as sciatica needed for Pain (scale 4-6). simvastatin 40 mg Take 1 tablet 180 tablet 1 12/21/2017 Active tabletIndications: by mouth Mixed hyperlipidemia daily. COPPER ORAL Take by 0 Active mouth daily. ZINC ACETATE ORAL Take by 0 Active mouth daily. levothyroxine 25 mcg Take 1 tablet 90 tablet 3 03/25/2018 Active tabletIndications: by mouth Memory loss, short every term morning. FENOFIBRATE TAKE 1 90 capsule 3 06/03/2018 Active MICRONIZED 134 mg CAPSULE DAILY capsuleIndications: Hyperlipidemia TAMSULOSIN 0.4 mg 24 TAKE 1 90 capsule 3 07/14/2018 Active hr CAPSULE DAILY capsuleIndications: Benign prostatic hyperplasia without lower urinary tract symptoms gabapentin 100 mg Take 1 tab po 270 capsule 0 10/20/2018 Active capsuleIndications: qam and 2 Chronic midline low tabs po qpm back pain without sciatica gabapentin 100 mg Take 1 tab po 270 capsule 3 09/04/2017 Discontinued capsuleIndications: qam and 2 9 Chronic midline low tabs po qpm back pain without sciatica documented as of this encounter (statuses as of 10/20/2018) Active Problems Problem Noted Date BPH (benign prostatic hyperplasia) 05/17/2014 Mixed hyperlipidemia 05/15/2014 Peripheral neuropathy 05/15/2014 Vitamin D deficiency 05/15/2014 Overview: ICD10 Diagnosis Term Test Preparation Tutor Utility Neuropathy 05/15/2014 Gout 05/15/2014 Hypertension CAD (coronary artery disease) Pacemaker Diaphragmatic paralysis documented as of this encounter (statuses as of 10/20/2018) Immunizations Name Administration Dates Next Due Influenza High Dose 11/25/2017, 11/17/2016, 01/13/2016 Influenza Virus Vaccine Quad IM 11/20/2014 Multi-dose 6+ MO Pneumococcal 13 Conjugate, PCV13 (Prevnar 09/04/2016 13) Pneumococcal Polysaccharide, PPSV23 11/30/2015 (PNEUMOVAX) Td 11/21/2015 Zoster(Zostavax)(Shingles) 11/12/2010 documented as of this encounter Social History Tobacco Use Types Packs/Day Years Used Date Former Smoker 27 Smokeless Tobacco: Never Used Comments: Quit approx. 40 years ago Alcohol Use Drinks/Week oz/Week Comments Yes 0 Standard drinks or equivalent 0.0 Occasional Drinker Sex Assigned at Date Recorded Not on file Job Start Date Occupation Industry Not on file Not on file Not on file Travel History Travel Start Travel End No recent travel history available. documented as of this encounter Last Filed Vital Signs Not on filedocumented in this encounter Plan of Treatment Date Type Specialty Care Team Description 11/19/2018 Office Visit Internal Medicine Loan Camacho MD [address] [place] [address] Dr Das [address] [place] [phone] 05/09/2019 Office Visit Internal Medicine Loan Camacho MD [address] [place] [address] Dr Das [address] [place] [address] [phone] Health Maintenance Due Date Last Done Comments Medicare Wellness Visit 2001 INFLUENZA VACCINE (#1) 2018 11/25/2017, 11/17/2016, 01/13/2016, Additional history exists Zoster Recombinant Vaccine 12/10/2018 11/12/2010 Postponed from (SHINGRIX) (2 of 3) 01/07/2011 (Insurance / Financial) DTaP,Tdap,and Td Vaccines 12/08/2025 11/21/2015 Postponed from (1 - Tdap) 11/22/2015 (Not Indicated) PNEUMOCOCCAL VACCINES 65+ Completed 09/04/2016, 11/30/2015 documented as of this encounter Implants Implanted Type Area Mobile Equipment Mechanic Device Shelf Model / Serial Identifier Expiration / Lot Date Adc Lens, Murali #[id number] 24.0d - [id number] LENS Right: Murali 2020 [id number] 24.0D / Implanted: Qty: 1 on 12/05/2015 by Jack Helm MD at [facility] Eye [id number] / [id number] Adc Lens, Murali #[id number] 24.0d - [id number] LENS Left: Eye Murali 2019 [id number] 24.0D / Implanted: Qty: 1 on 12/19/2015 by Jack Helm MD at [facility] [id number] / [id number] documented as of this encounter Results Not on filedocumented in this encounter Visit Diagnoses Diagnosis Chronic midline low back pain without sciatica documented in this encounter Insurance Payer Benefit Plan Subscriber ID Effective Phone Address Type / Group Dates MEDICARE MEDICARE PART xxxxxxxxxxx 2001-Christi [phone] Medicare [address] [employer] [id number] [place] [phone] FOR [id number] 2015-Pres Medicare LIFE ent Supplement documented as of this encounter
--- OUTSIDE RECORDS SUMMARY | 2019-01-13 06:22 | XMS REPORT ---
:1935 Author Organization [facility] Address [address] [place] [address] Dr. Chung [address] [place] [id number] Care Team Providers Name Role Phone Unavailable Unavailable Unavailable Problems This patient has no known problems. Allergies, Adverse Reactions, Alerts This patient has no known allergies or adverse reactions. Medications This patient has no known medications.
[2019-01-13 07:25] LABS: Absolute Lymphocytes (CBC) 0.9 K/uL (0.7-4.9); Basophils % 1.2 % (0-1.3); Hematocrit 35.4 % (39.6-49.0); Lymphocytes % 23.3 % (15.3-44.8); MPV 10.2 fL (7.6-11.3); RBC Red Blood Cell Count 3.99 M/uL (4.33-5.43)
[2019-01-13 07:42] LABS: Albumin 3.5 g/dL (3.4-5.0); Bilirubin Direct 0.2 mg/dL (0-0.2); Bilirubin Total 0.4 mg/dL (0.2-1.0); Potassium 3.9 mmol/L (3.5-5.1); Protein, Total 6.4 g/dL (6.4-8.2)
--- NOTE | 2019-01-13 08:35 | RAD REPORT ---
EXAM DESCRIPTION: CT - Abdomen Pelvis W Contrast - 01/13/2019 8:10 am CLINICAL HISTORY: Abdominal pain/hematuria COMPARISON: none. TECHNIQUE: Computed axial tomography of the abdomen pelvis was obtained. 100 cc Isovue-300 was admin istered intravenously. Oral contrast was not requested which limits evaluation of bowel. All CT scans are performed using dose optimization technique as appropriate and may include automated exposure control or mA/KV adjustment according to patient size. FINDINGS: The liver, spleen, pancreas, adrenal and right kidney appear unremarkable. An 18 millimete r left renal cyst is present There is no evidence of diverticulitis. Normal appendix The prostate gland is markedly enlarged. There is a trace amount of free fluid in the pelvis . TURP Mild tree-in-bud opacities right middle lobe. Gallstones without gallbladder wall thickening IMPRESSION: Cholelithiasis Mild tree-in-bud opacities right middle lobe may indicate an atypical infection
--- NOTE | 2019-01-13 09:01 | ER ---
Nurse's Notes [facility] Name: Tong Norton Age: 83 yrs Sex: Male : 1935 Arrival Date: 01/13/2019 Time: 06:23 Bed 8 Private MD: Diagnosis: Hematuria Presentation: 01/13 06:40 Presenting complaint: Patient states: he got up this morning and when he urinated the bb toilet was full of blood. Transition of care: patient was not received from another setting of care. Onset of symptoms was January 13, 2019. Risk Assessment: Do you want to hurt yourself or someone else? Patient reports no desire to harm self or others. Initial Sepsis Screen: Does the patient meet any 2 criteria? No. Patient's initial sepsis screen is negative. Does the patient have a suspected source of infection? No. Patient's initial sepsis screen is negative. Care prior to arrival: None. 06:40 Method Of Arrival: Ambulatory bb 06:40 Acuity: DOMENICO 3 bb Historical: - Allergies: 06:47 No Known Allergies; bb - Home Meds: 06:47 Flomax 0.4 mg Oral cp24 1 cap once daily [Active]; tramadol 50 mg Oral tab 1 tab every bb 6 hours [Active]; Xarelto 20 mg Oral tab 1 tab once daily [Active]; zinc acetate oral oral [Active]; sotalol 80 mg Oral tab 0.5 tab 2 times per day [Active]; Vitamin B-12 Oral [Active]; gabapentin 100 mg Oral cap 1 cap in am and 2 caps in pm [Active]; Dialyvite vit D [Active]; fenofibrate oral 134 mg daily oral [Active]; levothyroxine 25 mcg tab 1 tab once daily [Active]; Pyridium 200 mg Oral tab 1 tab daily [Active]; simvastatin 40 mg Oral tab 1 tab once daily [Active]; - PMHx: 06:47 Gout; Hyperlipidemia; Hypertension; CAD; BPH; bb - PSHx: 06:47 CABG; pacemaker; TURP; bb - Immunization history:: Adult Immunizations up to date, Flu vaccine is up to date. - Social history:: Smoking status: Patient/guardian denies using tobacco. - Ebola Screening: : No symptoms or risks identified at this time. Screenin:02 Abuse screen: Denies threats or abuse. Nutritional screening: No deficits noted. tw2 Tuberculosis screening: No symptoms or risk factors identified. Fall Risk None identified. Assessment: 07:00 Reassessment: report received from Christina RN, Regino RN. pt is drinking water to sg provide a urine sample at this time, awaiting orders, will continue to monitor. 07:08 General: Appears in no apparent distress. slender, well groomed, Behavior is calm, tw2 cooperative, appropriate for age. Pain: Denies pain. Neuro: Level of Consciousness is awake, alert, obeys commands, Oriented to person, place, time, situation. Cardiovascular: Heart tones S1 S2 Patient's skin is warm and dry. Respiratory: Airway is patent Respiratory effort is even, unlabored, Respiratory pattern is regular, symmetrical, Breath sounds are clear bilaterally. GI: No signs and/or symptoms were reported involving the gastrointestinal system. Abdomen is flat, Bowel sounds present X 4 quads. : Reports blood in urine this morning, denies pain. EENT: No signs and/or symptoms were reported regarding the EENT system. Derm: No signs and/or symptoms reported regarding the dermatologic system. Musculoskeletal: Range of motion: intact in all extremities. 07:30 Reassessment: Patient appears in no apparent distress at this time. No changes from tw2 previously documented assessment. Patient is alert, oriented x 3, equal unlabored respirations, skin warm/dry/pink. 08:30 Reassessment: Patient appears in no apparent distress at this time. No changes from tw2 previously documented assessment. Patient is alert, oriented x 3, equal unlabored respirations, skin warm/dry/pink. 09:23 Reassessment: Patient appears in no apparent distress at this time. No changes from tw2 previously documented assessment. Patient is alert, oriented x 3, equal unlabored respirations, skin warm/dry/pink. Vital Signs: 06:47 BP 142 / 85; Pulse 60; Resp 16 S; Temp 97.4(O); Pulse Ox 99% on R/A; Weight 65.32 kg bb (R); Height 5 ft. 8 in. (172.72 cm) (R); Pain 0/10; 07:31 BP 122 / 74; Pulse 60; Resp 17; Pulse Ox 99% on R/A; tw2 08:30 BP 116 / 77; Pulse 62; Resp 17; Pulse Ox 100% on R/A; tw2 09:23 BP 120 / 71; Pulse 60; Resp 16; Pulse Ox 97% on R/A; tw2 06:47 Body Mass Index 21.89 (65.32 kg, 172.72 cm) ED Course: 06:23 Patient arrived in ED. cl3 06:31 Regino Hansen RN is Primary Nurse. tr5 06:37 Adam Aldana PA is PHCP. jr8 06:37 Williams Elkins MD is Attending Physician. jr8 06:41 Triage completed. bb 06:47 Arm band placed on Patient placed in an exam room, on a stretcher, on pulse oximetry. bb 07:02 Primary Nurse role handed off by Regino Hansen RN tw2 07:02 Odette Islas RN is Primary Nurse. tw2 07:02 Call light in reach. tw2 07:08 Inserted saline lock: 22 gauge in right forearm, using aseptic technique. Blood tw2 collected. 08:10 CT completed. Patient tolerated procedure well. Patient moved back from CT. mw3 08:10 CT Abd/Pelvis - IV Contrast Only In Process Unspecified. EDMS 08:45 Urine collected: clean catch specimen, cloudy, blood tinged. jb1 08:50 called and left message with the cardiology answering service to please call Adam mayberry for patient consultation. 09:00 Osvaldo Metzger MD is Referral Physician. jr8 09:00 Luis Paz MD is Referral Physician. jr8 09:24 No provider procedures requiring assistance completed. IV discontinued, intact, tw2 bleeding controlled, No redness/swelling at site. Pressure dressing applied. Administered Medications: No medications were administered Outcome: 09:00 Discharge ordered by . jr8 09:24 Discharged to home ambulatory, with significant other. tw2 09:24 Condition: stable 09:24 Discharge instructions given to patient, significant other, Instructed on discharge instructions, follow up and referral plans. medication usage, Demonstrated understanding of instructions, follow-up care, medications, Prescriptions given X 1. 09:25 Patient left the ED. tw2 Signatures: Dispatcher [employer] EDMS Virgilio Ellis jb1 Eyal Kathleen RN RN Iram Moise RN RN Adam Goldsmith PA PA jr8 Odette Islas RN RN tw2 Loan Ko Michelle mw3 Regino Hansen RN RN tr5 Gurjit Park cl3
--- NOTE | 2019-01-13 09:02 | EDPHYS ---
Physician Documentation [facility] Name: Tong Norton Age: 83 yrs Sex: Male : 1935 Arrival Date: 01/13/2019 Time: 06:23 Bed 8 Private MD: ED Physician Williams Elkins HPI: 01/13 06:56 This 83 yrs old Male presents to ER via Ambulatory with complaints of Urinary jr8 Problem. 06:56 The patient presents with urinary symptoms, hematuria. Onset: The symptoms/episode jr8 began/occurred acutely, this morning, today. Modifying factors: The symptoms are alleviated by nothing, the symptoms are aggravated by nothing. Associated signs and symptoms: The patient has no apparent associated signs or symptoms. Severity of symptoms: At their worst the symptoms were mild, in the emergency department the symptoms have resolved. The patient has not experienced similar symptoms in the past. The patient has not recently seen a physician. 06:56 History of partial prostatectomy in past. Denies any abdominal or back pain. New onset jr8 gross hematuria this AM. Historical: - Allergies: 06:47 No Known Allergies; bb - Home Meds: 06:47 Flomax 0.4 mg Oral cp24 1 cap once daily [Active]; tramadol 50 mg Oral tab 1 tab every bb 6 hours [Active]; Xarelto 20 mg Oral tab 1 tab once daily [Active]; zinc acetate oral oral [Active]; sotalol 80 mg Oral tab 0.5 tab 2 times per day [Active]; Vitamin B-12 Oral [Active]; gabapentin 100 mg Oral cap 1 cap in am and 2 caps in pm [Active]; Dialyvite vit D [Active]; fenofibrate oral 134 mg daily oral [Active]; levothyroxine 25 mcg tab 1 tab once daily [Active]; Pyridium 200 mg Oral tab 1 tab daily [Active]; simvastatin 40 mg Oral tab 1 tab once daily [Active]; - PMHx: 06:47 Gout; Hyperlipidemia; Hypertension; CAD; BPH; bb - PSHx: 06:47 CABG; pacemaker; TURP; bb - Immunization history:: Adult Immunizations up to date, Flu vaccine is up to date. - Social history:: Smoking status: Patient/guardian denies using tobacco. - Ebola Screening: : No symptoms or risks identified at this time. ROS: 06:56 Constitutional: Negative for fever, chills, and weight loss. jr8 06:56 : Positive for hematuria, Negative for flank pain, burning with urination, penile discharge, penile pain, testicular pain 06:56 All other systems are negative. Exam: 06:56 Eyes: Pupils equal round and reactive to light, extra-ocular motions intact. Lids and jr8 lashes normal. Conjunctiva and sclera are non-icteric and not injected. Cornea within normal limits. Periorbital areas with no swelling, redness, or edema. ENT: Nares patent. No nasal discharge, no septal abnormalities noted. Tympanic membranes are normal and external auditory canals are clear. Oropharynx with no redness, swelling, or masses, exudates, or evidence of obstruction, uvula midline. Mucous membranes moist. Neck: Trachea midline, no thyromegaly or masses palpated, and no cervical lymphadenopathy. Supple, full range of motion without nuchal rigidity, or vertebral point tenderness. No Meningismus. Cardiovascular: Regular rate and rhythm with a normal S1 and S2. No gallops, murmurs, or rubs. Normal PMI, no JVD. No pulse deficits. Respiratory: Lungs have equal breath sounds bilaterally, clear to auscultation and percussion. No rales, rhonchi or wheezes noted. No increased work of breathing, no retractions or nasal flaring. Abdomen/GI: Soft, non-tender, with normal bowel sounds. No distension or tympany. No guarding or rebound. No evidence of tenderness throughout. Back: No spinal tenderness. No costovertebral tenderness. Full range of motion. Skin: Warm, dry with normal turgor. Normal color with no rashes, no lesions, and no evidence of cellulitis. MS/ Extremity: Pulses equal, no cyanosis. Neurovascular intact. Full, normal range of motion. Neuro: Awake and alert, GCS 15, oriented to person, place, time, and situation. Cranial nerves II-XII grossly intact. Motor strength 5/5 in all extremities. Sensory grossly intact. Cerebellar exam normal. Normal gait. Vital Signs: 06:47 BP 142 / 85; Pulse 60; Resp 16 S; Temp 97.4(O); Pulse Ox 99% on R/A; Weight 65.32 kg bb (R); Height 5 ft. 8 in. (172.72 cm) (R); Pain 0/10; 07:31 BP 122 / 74; Pulse 60; Resp 17; Pulse Ox 99% on R/A; tw2 08:30 BP 116 / 77; Pulse 62; Resp 17; Pulse Ox 100% on R/A; tw2 09:23 BP 120 / 71; Pulse 60; Resp 16; Pulse Ox 97% on R/A; tw2 06:47 Body Mass Index 21.89 (65.32 kg, 172.72 cm) bb MDM: 06:37 Patient medically screened. jr8 08:59 Data reviewed: vital signs, nurses notes, lab test result(s), radiologic studies, CT jr8 scan. Data interpreted: Pulse oximetry: on room air is 99 %. Interpretation: normal. Counseling: I had a detailed discussion with the patient and/or guardian regarding: the historical points, exam findings, and any diagnostic results supporting the discharge/admit diagnosis, lab results, radiology results, the need for outpatient follow up, a physical aerodynamicist, a urologist, to return to the emergency department if symptoms worsen or persist or if there are any questions or concerns that arise at home. ED course: Discussed with patient that his hematuria is most likely related to prostatic inflammation. Patient on xarelto. Dr. Paz consulted and said it was ok to stop the xarelto for now. Will have him f/u with cardiology and urology after the weekend. If worse to come back to ED . 01/13 06:45 Order name: Urine Microscopic Only; Complete Time: 09:10 01/13 06:58 Order name: Basic Metabolic Panel; Complete Time: 07:43 01/13 06:58 Order name: CBC with Diff; Complete Time: 07:43 01/13 06:58 Order name: Creatinine for Radiology; Complete Time: 07:43 01/13 06:58 Order name: Hepatic Function; Complete Time: 07:43 01/13 08:26 Order name: Urine Dipstick--Ancillary (enter results) eb 01/13 06:45 Order name: Urine Dipstick-Ancillary (obtain specimen); Complete Time: 08:45 01/13 06:58 Order name: IV Saline Lock; Complete Time: 07:12 01/13 06:58 Order name: Labs collected and sent; Complete Time: 07:12 jr8 01/13 07:43 Order name: CT Abd/Pelvis - IV Contrast Only; Complete Time: 08:37 jr8 Administered Medications: No medications were administered Disposition: 01/13/19 09:00 Discharged to Home. Impression: Hematuria. - Condition is Stable. - Discharge Instructions: Hematuria, Adult. - Prescriptions for Augmentin 875- 125 mg Oral Tablet - take 1 tablet by ORAL route every 12 hours for 7 days; 14 tablet. - Medication Reconciliation Form, Thank You Letter, Antibiotic Education, Prescription Opioid Use form. - Follow up: Osvaldo Metzger MD; When: 2 - 3 days; Reason: Recheck today's complaints, Continuance of care, Re-evaluation by your physician. Follow up: Luis Paz MD; When: 2 - 3 days; Reason: Recheck today's complaints, Continuance of care, Re-evaluation by your physician. - Problem is new. - Symptoms have improved. Addendum: 01/17/2019 06:55 Co-signature as Attending Physician, Williams Elkins MD I agree with the assessment and t w4 plan of care. Signatures: Dispatcher [employer] EDMS Iram Keller RN RN bb Adam Aldana PA PA jr8 Odette Islas RN RN tw2 Williams Elkins MD MD tw4 Corrections: (The following items were deleted from the chart) 01/13 09:25 09:00 01/13/2019 09:00 Discharged to Home. Impression: Hematuria. Condition is Stable. tw2 Forms are Medication Reconciliation Form, Thank You Letter, Antibiotic Education, Prescription Opioid Use. Follow up: Osvaldo Metzger; When: 2 - 3 days; Reason: Recheck today's complaints, Continuance of care, Re-evaluation by your physician. Follow up: Luis Paz; When: 2 - 3 days; Reason: Recheck today's complaints, Continuance of care, Re-evaluation by your physician. Problem is new. Symptoms have improved. jr8
[2019-01-13 09:06] LABS: Urine Bacteria 20-50 /HPF (NONE SEEN); Urine Culture Reflex Order REFLEXED; Urine RBC TNTC /HPF (NONE SEEN)
[2019-01-13 09:54] VITALS: TEMP 97.4
[2019-01-13 09:57] VITALS: BP 120/71; O2SAT 97
[2019-01-13 10:20] LABS: Urine Blood 3+ (NEG); Urine Glucose NEGATIVE (NEG); Urine Protein 3+ (NEG); Urine Specific Gravity 1.015 (1.005-1.030); Urine pH 7.5 (5.0-7.0)
== END 2019-01-13 09:25 | disposition home or self-care (01) ==
LOC: ER 06:20
DX: R31.9 Hematuria, unspecified (principal); I10 Essential (primary) hypertension; E78.5 Hyperlipidemia, unspecified; Z95.1 Presence of aortocoronary bypass graft; Z95.0 Presence of cardiac pacemaker; Z79.01 Long term (current) use of anticoagulants
CPT/HCPCS: 87088; 85025; 87086; 80048; 36415; 80076; 74177; 99284; Q9967; 81003; 81015

== ENCOUNTER 2020-07-06 11:36 | Emergency (ER) | payer OTHER ==
--- OUTSIDE RECORDS SUMMARY | 2020-07-06 11:39 | XMS REPORT | Continuity of Care Document ---
:1935 Author Organization [facility] t Address [address] [place] [address] [address] [place] [address] Care Team Providers Name Role Phone Janice VALDERRAMA, A Primary Care Physician Lele VALDERRAMA Attending Clinician Lele VALDERRAMA Attending Clinician Janice VALDERRAMA, A Attending Clinician Shan VALDERRAMA Attending Clinician LELE Admitting Clinician Unavailable Payers Payer Name Policy Type Policy Effective Date Expiration Date Sour ce Number MEDICAREMEDICARE PART [id number] 2001 [place] [employer] AND 00:00:00 Tenriism [id number] 2001[place] [id number] 2020 [place] LIFE MCR 00:00:00 Tenriism [id number] -PaddyMilita ry Problems Condition Condition Condition Status Onset Resolution Last Treating Co mments Source Name Details Category Date Date Treatment Clinician Date Pacemaker Pacemaker Disease Active Ricky ston at end of at end of 4-26 Meth lópez battery battery 00:00: st life life 00 Allergies, Adverse Reactions, Alerts This patient has no known allergies or adverse reactions. Social History Social Habit Start Date Stop Date Quantity Comments Source Exposure to Not sure Andre Metho dist SARS-CoV-2 (event) Alcohol intake 2020-06-22 2020-06-22 Ex-drinker Andre Beverly thodist 00:00:00 00:00:00 (finding) Tobacco use and 2020-06-22 2020-06-22 Former user Powell Tenriism exposure 00:00:00 00:00:00 Sex [birth year] At [birth year] Andre Arciniega ethodist 00:00:00 00:00:00 Smoking Status Start Date Stop Date Source Former smoker 2020-06-22 00:00:00 2020-06-22 00:00:00 Andre Hoffmanist Medications Ordered Filled Start Stop Current Ordering Indication Dosage Frequency Signature Comments Components Source Medication Medication Date Date Medication? Clinician (SIG) Name Name levothyroxi Yes 50ug QD Take 50 Ricky ston ne 4-26 mcg by Methodi (SYNTHROID) 19:09: mouth st 50 mcg 13 daily. tablet sotaloL Yes 40mg Q.5D Take 40 mg [place] (BETAPACE) 4-26 by mouth 2 Met hodi 80 MG 19:09: (two) st tablet 13 times a day. Taking 1/2 tablet twice a day rivaroxaban Yes 20mg QD Take 20 mg Powell (XARELTO) 4-26 by mouth Method i 20 mg 19:09: daily. st tablet 13 fenofibrate Yes 134mg QD Take 134 [place] micronized 4-26 mg by [facility] (LOFIBRA) 19:09: mouth st 134 MG 13 daily capsule before breakfast. cholecalcif Yes 5000U Q2D Take 5,000 Powell red, 4-26 Units by [facility] vitamin D3, 19:09: mouth st 125 mcg 13 every (5,000 other day. unit) tablet simvastatin Yes 40mg QD Take 40 mg Powell (ZOCOR) 40 4-26 by mouth Metho di mg tablet 19:09: nightly. st 13 gabapentin Yes Take by [place] (NEURONTIN) 4-26 mouth. 1 Meth lópez 100 mg 19:09: capsule st capsule 13 each morning and 2 Capsules at bedtime cyanocobala Yes 5000ug QD Take 5,000 Powell min, 4-26 mcg by [facility] vitamin 19:09: mouth st B-12, 13 daily. (VITAMIN B-12 ORAL) copper Yes 1{capsu QD Take 1 [place] gluconate 4-26 le} capsule by Meth lópez (COPPER 19:09: mouth st CAPS) 2 mg 13 daily. capsule pyridoxal Yes 50mg QD Take 50 mg [place] phosphate 4-26 by mouth Method i (VB6 P5P 19:09: daily. st ORAL) 13 prasterone, Yes QD Take by Ricky ston dhea, 4-26 mouth Methodi (DHEA) 25 19:09: daily. st mg capsule 13 traMADoL Yes acute pain 50mg Q6H Take 50 mg Powell (ULTRAM) 50 -26 by mouth Meth lópez mg tablet 19:09: every 6 st 13 (six) hours as needed for moderate pain .acute pain. Will take after procedure minocycline Yes 100mg Q.5D Take 100 [place] (MINOCIN) 4-26 mg by Method[facility] 100 MG 19:09: mouth 2 st capsule 13 (two) times a day. Will take after procedure Vital Signs Vital Name Observation Time Observation Value Comments Source Heart rate 2020-06-11 19:00:00 62 /min Andre Gamez Oxygen saturation in 2020-06-11 19:00:00 97 /min Andre Gamez Arterial blood by Pulse oximetry Respiratory rate 2020-06-11 18:45:00 18 /min Griffin Gamez Systolic blood 2020-06-11 18:30:00 155 mm[Hg] Griffinto n Tenriism pressure Diastolic blood 2020-06-11 18:30:00 76 mm[Hg] Earnest on Tenriism pressure Body temperature 2020-06-11 17:58:00 36.11 Melvi Griffin Gamez Body height 2020-06-11 11:26:00 172.7 cm Andre Gamez Body weight 2020-06-11 11:26:00 60.601 kg Andre Gamez BMI 2020-06-11 11:26:00 20.31 kg/m2 Andre Gamez Procedures Procedure Date / Time Performed Performing Clinician Sour e EP PPI GENERATOR CHANGE 2020-06-11 17:40:00 Espinoza Royal ECG PRE/POST OP 2020-06-11 11:20:08 Lele, Espinoza Andre sales COVID-19 QUALITATIVE PCR 2020-06-07 09:47:00 Lele, Espinoza Ricky paramjose david Gamez PROTHROMBIN TIME WITH INR 2020-06-07 09:47:00 Lele, Espinoza Gamez MAGNESIUM LEVEL 2020-06-07 09:47:00 Lele, Randykathi sales HC COMPLETE BLD COUNT 2020-06-07 09:47:00 Lele, Espinoza Gamez W/AUTO DIFF COMPREHENSIVE METABOLIC 2020-06-07 09:47:00 Lele, Espinoza Gamez PANEL ESTIMATED GFR 2020-06-07 09:47:00 Lele, Randykathi sales Plan of Care Planned Activity Planned Date Details Comments Source Future Scheduled 2020-09-16 INFLUENZA VACCINE Wili Gamez Test 00:00:00 [code = INFLUENZA VACCINE] Future Scheduled 2011-01-12 SHINGLES VACCINES Wili Gamez Test 00:00:00 (#2) [code = SHINGLES VACCINES (#2)] Encounters Start End Encounter Admission Attending Care Care Encounter Source Date/Time Date/Time Type Type Clinicians Facility Department ID 2020-06-11 2020-06-11 Outpatient LELE, [facility] 013 [id number] [place] 00:00:00 00:00:00 NADIM [address] 2020-06-07 2020-06-07 Outpatient LELE, [facility] [id number] [place] 00:00:00 00:00:00 NADIM [address] 2020-05-23 2020-05-23 Refill [facility] [id number] 00:00:00 00:00:00 [facility] [id number] [place] [phone] 2020-03-21 2020-03-21 [facility] [id number] 00:00:00 00:00:00 [facility] [employer] [id number] [place] [id number] Professio [phone] [facility] 044 [facility] 2020-03-21 2020-03-21 Telephone [facility] [id number] 00:00:00 00:00:00 [facility] [employer] [id number] [place] [phone] 2020-03-10 2020-03-10 Refill [facility] [id number] 00:00:00 00:00:00 [employer] [id number] [place] [phone] 2020-03-09 2020-03-09 [facility] [id number] 15:09:42 16:30:34 Visit [place] [facility] [id number] [place] [id number] [facility] [phone] [address] Results Test Description Test Test Results Result Source Time Comments Comments Electrophysiology 2020-06 TITLE OF [place] procedure -06 PROCEDURE:Dual-chamber [facility] 17:43:2 pacemaker generator 8 change out.PREOPERATIVE DIAGNOSES:1. Permanent pacemaker battery exhaustion.2. Complete heart block.3. Remote bypass surgery.POSTOPERATIVE DIAGNOSES:1. Permanent pacemaker battery exhaustion.2. Complete heart block.3. Remote bypass surgery.PROCEDURES PERFORMED:Dual chamber pacemaker generator change out.BRIEF HISTORY AND CLINICAL BACKGROUND:This is an 84-year-old man who has the aforementioned problems. His pacemakerreached elective replacement indicators in mid March. He comes for generatorchange.PROCEDURE :The patient was taken to the EP laboratory in the fasting, nonsedated, drug-freestate. Informed consent was previously obtained and reconfirmed. Intravenousantibiotics were infused as appropriate. The patient was placed supine on thefluoroscopy table and the position of the R2 pads was verified. The preexisting device was interrogated and reprogrammed as needed. The patientwas prepped and draped in the usual sterile fashion. Fluoroscopy was performedto identify the location of the device and the leads respective to one anotherand local anesthesia was achieved with 1% Xylocaine solution. Thereafter, utilizing a sharp knife, cautery, and blunt dissection, thepreexisting device was explanted. Scar tissue was removed from the leads andthe pocket was enlarged and revised as needed. The set screws were loosened and the leads were then tested for chronic pacingand sensing thresholds. After these thresholds were judged to be acceptable,the pocket which was revised as needed, was visually, manually, andradiographically inspected to ensure there were no gauze or sponges in thepocket. It was then washed with copious amounts of antibiotic-impregnatedsal ine. Thereafter, the new device was connected to the leads and the setscrews were tightened and the device was placed back into the pocket. Thepocket was closed in layers using Vicryl. Thereafter, ana and skin adhesivewere used. COMPLICATIONS:None. FINDINGS:1. The explanted pacemaker is a Guidant model S606, serial #[id number], date ofinsertion July 10, 2011.2. The chronic atrial lead is a 4135, serial #[id number]. Measured P-wave 1.7,pacing threshold 1 volt at 0.4, current 1.9 mA, impedance 539 ohms.3. The RV lead is a model 4137, serial #[id number]. Measured R-wave, nointrinsic R waves, pacing threshold 1.1 volt at 0.4 milliseconds, current 2.0mA, impedance 566 ohms.4. The new pacemaker is a [employer] Accolade, model L311, serial#[id number]. CONCLUSIONS:Successful dual-chamber pacemaker change out. RECOMMENDATIONS:Return to AOD recovery and discharge home in several hours when dischargecriteria are met.ESTIMATED BLOOD LOSS:5 mLA Medtronic Tyrx pouch reference [id number], lot [id number] was utilized. ECG Pre/Post Op 2020-06-11 21:48:45 Test Item Value Reference Range Interpretation Comme nts Ventricular rate (test code = 253) 62 Atrial rate (test code = 255) 535 [place] interval (test code = 266) 176 QRSD interval (test code = 260) 174 QT interval (test code = 264) 482 QTC interval (test code = 265) 489 QRS axis 1 (test code = 268) -86 T wave axis (test code = 270) 71 EKG impression (test code = 273) AV dual-paced rhythm-Abnormal ECG- In automated comparison with ECG of 11-JUL-2011 09:23,-No significant change was found- Andre GamezCOVID-19 qualitative [id number] 15:48:51 Test Item Value Reference Range Interpretation Comments Interpretation (test Negative results do code = 0440778) not preclude 2019-nCoV infection and should not be used as the sole basis for treatment or other patient management decisions. Negative results must be combined with clinical observations, patient history, and epidemiological information. COVID-19 qualitative Not-Detected Not-Detected PCR result (test code = 45282-0) COVID-19 qualitative See link below for C ase Number: PCR (test code = PDF Lab Report [id number]) Andre Gamez
--- NOTE | 2020-07-06 11:46 | RAD REPORT ---
EXAM DESCRIPTION: CT - Head Brain Wo Cont - 07/06/2020 11:40 am CLINICAL HISTORY: TRAUMA Trauma, headache, head injury COMPARISON: Head Brain Wo Cont dated 02/18/2018 TECHNIQUE: All CT scans are performed using dose optimization technique as appropriate and may inclu de automated exposure control or mA/KV adjustment according to patient size. FINDINGS: No intracranial hemorrhage, hydrocephalus or extra-axial fluid collection.Mild brain atrop hy.No areas of brain edema or evidence of midline shift. The paranasal sinuses and mastoids are clear. The calvarium is intact. IMPRESSION: No acute intracranial abnormality.
[2020-07-06] MEDS ORDERED: LIDOCAINE 2% MPF 5 ML VIAL ONE (12:05)
[2020-07-06] MEDS ORDERED: SILVER NITRATE 1 APPL TOP ONE (12:13)
--- NOTE | 2020-07-06 12:17 | ER ---
Nurse's Notes [facility] Name: Tong Nortno Age: 85 yrs Sex: Male : 1935 Arrival Date: 07/06/2020 Time: 11:36 Bed 23 Private MD: Diagnosis: Laceration without foreign body of scalp Presentation: 07/06 11:37 Chief complaint: EMS states: Fall from standing onto concrete, denies LOC, denies jl7 dizziness, takes Xarelto. Care prior to arrival: Bleeding of injury controlled. Mechanism of Injury: Fall from standing position. Trauma event details: Injury occurred in the [facility], Injury occurred: at home. Injury occurred: July 06, 2020 Injury occurred at: 11:05. 11:37 Acuity: DOMENICO 2 jl7 11:37 Method Of Arrival: EMS: [facility] jl7 11:43 Coronavirus screen: Client denies travel out of the [place] in the last 14 days. At this jl7 time, the client does not indicate any symptoms associated with coronavirus-19. Ebola Screen: No symptoms or risks identified at this time. Initial Sepsis Screen: Does the patient meet any 2 criteria? No. Patient's initial sepsis screen is negative. Does the patient have a suspected source of infection? No. Patient's initial sepsis screen is negative. Risk Assessment: Do you want to hurt yourself or someone else? Patient reports no desire to harm self or others. Onset of symptoms was July 06, 2020. Trauma Activation: Alert Physician: ED Physician; Name: JIM Aldana; Notified At: 11:30; Arrived At: 11:30 Physician: General Surgeon; Name: ; Notified At: 11:30; Arrived At: Physician: Radiology; Name: Debra; Notified At: 11:30; Arrived At: 11:32 Physician: Respiratory; Name: ; Notified At: 11:30; Arrived At: Physician: Lab; Name: ; Notified At: 11:30; Arrived At: Historical: - Allergies: 11:44 No Known Allergies; jl7 - Home Meds: 11:44 sotalol 80 mg Oral tab 0.5 tab 2 times per day [Active]; Xarelto 20 mg Oral tab 1 tab jl7 once daily [Active]; - PMHx: 11:44 BPH; CAD; Gout; Hyperlipidemia; Hypertension; jl7 - PSHx: 11:44 pacemaker; CABG; TURP; jl7 - Immunization history: Last tetanus immunization: unknown. - Social history:: Smoking status: Patient denies any tobacco usage or history of. Screenin:37 Abuse screen: Denies threats or abuse. Denies injuries from another. Tuberculosis jl7 screening: No symptoms or risk factors identified. 11:55 Nutritional screening: No deficits noted. Fall Risk Fall in past 12 months (25 points). jl7 Total Gómez Fall Scale indicates Low Risk Score (25-44 pts). Fall prevention measures have been instituted. Side Rails Up X 2 Placed close to Nursing Station Frequent Obs/Assesments occuring As available Patient and Family Educated on Fall Prevention Program and strategies. Primary Survey: 11:37 NO uncontrolled hemorrhage observed. Breathing/Chest: Respiratory pattern: regular, jl7 Respiratory effort: spontaneous, unlabored, Breath sounds: clear, Chest inspection: symmetrical rise and fall of the chest. Circulation: Heart tones present. Pulses: palpable right femoral artery, left femoral artery, left carotid pulse and right carotid pulse. Skin color: pink, Skin temperature: warm. Disability Alert. Exposure/Environment: All clothing and personal items were removed. Forensic evidence collection is not deemed to be indicated at this time. Items placed in patient belonging bag. There is no evidence of uncontrolled external bleeding. Obvious injury(ies) are noted at this time: laceration above right eyebrow A warming method has been applied: A warm blanket has been provided to the patient. 12:00 Reassessment Airway Airway Patent Breathing/Chest Respiratory pattern Regular jl7 Respiratory effort Spontaneous Unlabored Chest inspection Symmetrical Circulation Color [place] Disability Alert. Secondary Survey: 11:51 HEENT: Head No injury/deformity Face Other Laceration to above right eyebrown Eyes: No jl7 injury or deformity noted. to bilateral eyes. Ears: clear bilaterally. Nose: clear to bilateral nares. Throat: No injury or deformity noted. Gastrointestinal: No deficits noted. : No deficits noted. Musculoskeletal: No deficits noted. Injury Description: Burn Laceration sustained to forehead is full thickness, 2.6 to 7.5 cm long, was sustained less than 30 minutes ago. Assessment: 11:37 General: Appears in no apparent distress. uncomfortable, Behavior is calm, cooperative, jl7 appropriate for age. Pain: Complains of pain in forehead just above right eye. Neuro: Level of Consciousness is awake, alert, obeys commands, Oriented to person, place, time, situation, Track Laying Supervisor are equal bilaterally Moves all extremities. Full function Speech is normal, Facial symmetry appears normal, Denies weakness blurred vision dizziness, headache. Cardiovascular: Denies chest pain, Patient's skin is warm and dry. Respiratory: Airway is patent Respiratory effort is even, unlabored, Respiratory pattern is regular, symmetrical, Denies shortness of breath. Derm: Skin is pink, warm \T\ dry. Injury Description: Laceration sustained to just above right eyebrow is full thickness, 2.6 to 7.5 cm long, was sustained less than 30 minutes ago. a small amount of bleeding noted at this time. Vital Signs: 11:37 BP 163 / 93; Pulse 60; Resp 15; Temp 98.4; Pulse Ox 99% ; Weight 58.97 kg; Height 5 ft. jl7 8 in. (172.72 cm); Pain 5/10; 12:00 BP 145 / 78; Pulse 60; Resp 17; Pulse Ox 98% ; jl7 11:37 Body Mass Index 19.77 (58.97 kg, 172.72 cm) jl7 Rhina Coma Score: 11:37 Eye Response: spontaneous(4). Verbal Response: oriented(5). Motor Response: obeys jl7 commands(6). Total: 15. 12:00 Eye Response: spontaneous(4). Verbal Response: oriented(5). Motor Response: obeys jl7 commands(6). Total: 15. Trauma Score (Adult): 11:37 Eye Response: spontaneous(1); Verbal Response: oriented(1); Motor Response: obeys jl7 commands(2); Systolic BP: > 89 mm Hg(4); Respiratory Rate: 10 to 29 per min(4); Rhina Score: 15; Trauma Score: 12 ED Course: 11:36 Patient arrived in ED. jl7 11:36 Adam Aldana PA is PHCP. jr8 11:36 Alna Orellana MD is Attending Physician. jr8 11:37 Placed in gown. Bed in low position. Call light in reach. Side rails up X2. jl7 11:37 school lunch monitor on. Pulse ox on. NIBP on. Warm blanket given. jl7 11:37 Patient maintains SpO2 saturation greater than 95% on room air. Thermoregulation: warm jl7 blanket given to patient. 11:38 Triage completed. jl7 11:40 CT Head Brain wo Cont In Process Unspecified. EDMS 11:44 Arm band placed on right wrist. jl7 11:54 Assist provider with laceration repair on forehead that was between 2.6 to 7.5 cm using jl7 sutures. Set up tray. Performed by Adam FERNANDEZ Dressed with Neosporin, Patient tolerated well. 11:56 Ismael Vail, RN is Primary Nurse. jl7 12:20 Patient did not have IV access during this emergency room visit. jl7 Administered Medications: 11:51 Drug: Lidocaine (2 %) Syringe 100 mg {Note: administered by ERP.} Volume: 5 ml; Route: jl7 Infiltration; 11:55 Follow up: Response: No adverse reaction jl7 Intake: 12:27 PO: 0ml; IV: 0ml; Tubes: 0ml (); Total: 0ml. jl7 Output: 12:27 Urine: 0ml; Gastric: 0ml; Stool: 0; EBL: 0ml; Drainage: 0ml; Other: 0; Total: 0ml. jl7 Outcome: 12:16 Discharge ordered by . jr8 12:20 Discharged to home ambulatory, with significant other. jl7 12:20 Condition: stable 12:20 Discharge instructions given to patient, significant other, Instructed on discharge instructions, follow up and referral plans. Demonstrated understanding of instructions, follow-up care. 12:27 Patient's length of stay was not longer than 2 hours. jl7 12:28 Patient left the ED. jl7 Signatures: Dispatcher [employer] Adam Barnes PA PA jr8 Leal, Jahala, RN RN jl7
--- NOTE | 2020-07-06 12:17 | EDPHYS ---
Physician Documentation [facility] Name: Tong Norton Age: 85 yrs Sex: Male : 1935 Arrival Date: 07/06/2020 Time: 11:36 Bed 23 Private MD: ED Physician Alan Orellana HPI: 07/06 12:14 This 85 yrs old Male presents to ER via EMS with complaints of Fall Injury. jr8 12:14 Details of fall: The patient fell from an upright position, while standing. Onset: The jr8 symptoms/episode began/occurred acutely, today. Associated injuries: The patient sustained injury to the head, laceration, 3 cm(s), of the forehead. Severity of symptoms: At their worst the symptoms were moderate, in the emergency department the symptoms have improved. The patient has not experienced similar symptoms in the past. The patient has not recently seen a physician. Stated that he hit a crack in cement causing him to fall and hit head. Denies LOC. Denies pain other then to right side of head. Historical: - Allergies: 11:44 No Known Allergies; jl7 - Home Meds: 11:44 sotalol 80 mg Oral tab 0.5 tab 2 times per day [Active]; Xarelto 20 mg Oral tab 1 tab jl7 once daily [Active]; - PMHx: 11:44 BPH; CAD; Gout; Hyperlipidemia; Hypertension; jl7 - PSHx: 11:44 pacemaker; CABG; TURP; jl7 - Immunization history: Last tetanus immunization: unknown. - Social history:: Smoking status: Patient denies any tobacco usage or history of. ROS: 12:14 Eyes: Negative for injury, pain, redness, and discharge, ENT: Negative for injury, jr8 pain, and discharge, Neck: Negative for injury, pain, and swelling, Cardiovascular: Negative for chest pain, palpitations, and edema, Respiratory: Negative for shortness of breath, cough, wheezing, and pleuritic chest pain, Abdomen/GI: Negative for abdominal pain, nausea, vomiting, diarrhea, and constipation, Back: Negative for injury and pain, MS/Extremity: Negative for injury and deformity, Neuro: Negative for headache, weakness, numbness, tingling, and seizure. 12:14 Skin: Positive for laceration(s), of the forehead. Exam: 12:14 Eyes: Pupils equal round and reactive to light, extra-ocular motions intact. Lids and jr8 lashes normal. Conjunctiva and sclera are non-icteric and not injected. Cornea within normal limits. Periorbital areas with no swelling, redness, or edema. ENT: Nares patent. No nasal discharge, no septal abnormalities noted. Tympanic membranes are normal and external auditory canals are clear. Oropharynx with no redness, swelling, or masses, exudates, or evidence of obstruction, uvula midline. Mucous membranes moist. Neck: Trachea midline, no thyromegaly or masses palpated, and no cervical lymphadenopathy. Supple, full range of motion without nuchal rigidity, or vertebral point tenderness. No Meningismus. Chest/axilla: Normal chest wall appearance and motion. Nontender with no deformity. No lesions are appreciated. Cardiovascular: Regular rate and rhythm with a normal S1 and S2. No gallops, murmurs, or rubs. Normal PMI, no JVD. No pulse deficits. Respiratory: Lungs have equal breath sounds bilaterally, clear to auscultation and percussion. No rales, rhonchi or wheezes noted. No increased work of breathing, no retractions or nasal flaring. Abdomen/GI: Soft, non-tender, with normal bowel sounds. No distension or tympany. No guarding or rebound. No evidence of tenderness throughout. Back: No spinal tenderness. No costovertebral tenderness. Full range of motion. Skin: Warm, dry with normal turgor. Normal color with no rashes, no lesions, and no evidence of cellulitis. MS/ Extremity: Pulses equal, no cyanosis. Neurovascular intact. Full, normal range of motion. Neuro: Awake and alert, GCS 15, oriented to person, place, time, and situation. Cranial nerves II-XII grossly intact. Motor strength 5/5 in all extremities. Sensory grossly intact. 12:14 Head/face: Noted is a laceration(s), that is deep, that is jagged, 3 cm(s), of the right side of forehead . Vital Signs: 11:37 BP 163 / 93; Pulse 60; Resp 15; Temp 98.4; Pulse Ox 99% ; Weight 58.97 kg; Height 5 ft. jl7 8 in. (172.72 cm); Pain 5/10; 12:00 BP 145 / 78; Pulse 60; Resp 17; Pulse Ox 98% ; jl7 11:37 Body Mass Index 19.77 (58.97 kg, 172.72 cm) jl7 Rhina Coma Score: 11:37 Eye Response: spontaneous(4). Verbal Response: oriented(5). Motor Response: obeys jl7 commands(6). Total: 15. 12:00 Eye Response: spontaneous(4). Verbal Response: oriented(5). Motor Response: obeys jl7 commands(6). Total: 15. Trauma Score (Adult): 11:37 Eye Response: spontaneous(1); Verbal Response: oriented(1); Motor Response: obeys jl7 commands(2); Systolic BP: > 89 mm Hg(4); Respiratory Rate: 10 to 29 per min(4); Rhina Score: 15; Trauma Score: 12 Laceration: 12:13 Wound Repair of 3cm ( 1.2in ) subcutaneous laceration to forehead. Irregularly shaped.. jr8 Arterial bleeding noted.. Distal neuro/vascular/tendon intact. Anesthesia: Local anesthetic administered with 3 mls of 1% lidocaine. Wound prep: Extensive cleansing with hibiclenz, Wound irrigation with saline, Wound explored extensively. Artery closed with 1 5-0 chromic using interrupted sutures and sterile technique. Skin closed with 3 4-0 Prolene using interrupted sutures and sterile technique. Patient tolerated well. MDM: 11:36 Patient medically screened. jr8 12:16 Data reviewed: vital signs, nurses notes, radiologic studies, CT scan. Data jr8 interpreted: Pulse oximetry: on room air is 99 %. Interpretation: normal. Counseling: I had a detailed discussion with the patient and/or guardian regarding: the historical points, exam findings, and any diagnostic results supporting the discharge/admit diagnosis, radiology results, the need for outpatient follow up, a family practitioner, to return to the emergency department if symptoms worsen or persist or if there are any questions or concerns that arise at home. 07/06 11:37 Order name: CT Head Brain wo Cont; Complete Time: 12:13 jr8 07/06 11:50 Order name: Prolene, Sutures; Complete Time: 11:50 jl7 07/06 11:50 Order name: Dressing - Wound; Complete Time: 11:50 jl7 07/06 11:50 Order name: Gloves, Sterile; Complete Time: 11:50 jl7 07/06 11:50 Order name: Setup Suture Tray; Complete Time: 11:50 jl7 Administered Medications: 11:51 Drug: Lidocaine (2 %) Syringe 100 mg {Note: administered by ERP.} Volume: 5 ml; Route: jl7 Infiltration; 11:55 Follow up: Response: No adverse reaction jl7 Disposition: 13:07 Co-signature as Attending Physician, Alan Orellana MD I agree with the assessment and kdr plan of care. Chart complete. Disposition: 07/06/20 12:16 Discharged to Home. Impression: Laceration without foreign body of scalp. - Condition is Stable. - Discharge Instructions: Head Injury, Adult, Laceration Care, Adult. - Medication Reconciliation Form, Thank You Letter, Antibiotic Education, Prescription Opioid Use form. - Follow up: Private Physician; When: 1 week; Reason: Wound Recheck, Recheck today's complaints, Continuance of care, Staple/Suture removal, Re-evaluation by your physician. - Problem is new. - Symptoms have improved. Signatures: Dispatcher [employer] EDAR Alan Orellana MD MD [facility] Adam Aldana PA PA jr8 Ismael Vail RN RN jl7 Corrections: (The following items were deleted from the chart) 12:28 12:16 07/06/2020 12:16 Discharged to Home. Impression: Laceration without foreign body jl7 of scalp. Condition is Stable. Forms are Medication Reconciliation Form, Thank You Letter, Antibiotic Education, Prescription Opioid Use. Follow up: Private Physician; When: 1 week; Reason: Wound Recheck, Recheck today's complaints, Continuance of care, Staple/Suture removal, Re-evaluation by your physician. Problem is new. Symptoms have improved. jr8
[2020-07-06 12:38] VITALS: TEMP 98.4
[2020-07-06 12:40] VITALS: BP 145/78; O2SAT 98
== END 2020-07-06 12:28 | disposition home or self-care (01) ==
LOC: ER 11:36
PROC: 0JQ10ZZ Repair Face Subcutaneous Tissue and Fascia, Open Approach (ICD-10-PCS; principal; 2020-07-06)
DX: S01.81XA Laceration without foreign body of other part of head, initial encounter (principal); W18.30XA Fall on same level, unspecified, initial encounter; I10 Essential (primary) hypertension; E78.5 Hyperlipidemia, unspecified; I25.10 Atherosclerotic heart disease of native coronary artery without angina pectoris; Z79.01 Long term (current) use of anticoagulants; Z95.1 Presence of aortocoronary bypass graft; Z95.0 Presence of cardiac pacemaker
CPT/HCPCS: 70450; 99285; G0390

== ENCOUNTER 2020-10-24 21:39 | Emergency (ER) | payer OTHER ==
--- OUTSIDE RECORDS SUMMARY | 2020-10-24 21:42 | XMS REPORT | Continuity of Care Document ---
:1935 Author Organization [facility] t Address [address] [place] [address] Dr. Das. [address] [place] [address] Care Team Providers Name Role Phone Janice VALDERRAMA, A Primary Care Physician [facility] Attending Clinician Unavailable Lele VALDERRAMA Attending Clinician Lele VALDERRAMA Attending Clinician MD LELE Attending Clinician Unavailable Janice VALDERRAMA, A Attending Clinician Shan VALDERRAMA Attending Clinician Bel Camacho Admitting Clinician Unavailable LELE Admitting Clinician Unavailable MD LELE Admitting Clinician Unavailable Payers Payer Name Policy Type Policy Number Effective Date Expiration Date S ource Problems Condition Condition Condition Status Onset Resolution Last Treating Co mments Source Name Details Category Date Date Treatment Clinician Date Pacemaker Pacemaker Disease Active Met hodi at end of at end of 06-11 st battery battery 00:00: Hospita life life 00 l Allergies, Adverse Reactions, Alerts This patient has no known allergies or adverse reactions. Social History Social Habit Start Date Stop Date Quantity Comments Source Alcohol intake 2020-06-22 2020-06-22 Ex-drinker [employer] 00:00:00 00:00:00 (finding) Hospital Tobacco use and 2020-06-22 2020-06-22 Former user [facility] t exposure 00:00:00 00:00:00 Hospital Sex Assigned At [birth year] [employer]ational 00:00:00 00:00:00 Hospital Smoking Status Start Date Stop Date Source Former smoker 2020-06-22 00:00:00 2020-06-22 00:00:00 [facility] Medications Ordered Filled Start Stop Current Ordering Indication Dosage Frequency Signature Comments Components Source Medication Medication Date Date Medication? Clinician (SIG) Name Name levothyroxi Yes 50ug QD Take 50 Met hodi ne 4-[address] (SYNTHROID) 00:09: mouth Hospi ta 50 mcg 13 daily. l tablet sotaloL Yes 40mg Q.5D Take 40 mg Meth lópez (BETAPACE) 4-[address] 80 MG 00:09: (two) Hospita tablet 13 times a l day. Taking 1/2 tablet twice a day rivaroxaban Yes 20mg QD Take 20 mg [facility] (XARELTO) 4-[address] 20 mg 00:09: daily. Hospita tablet 13 l fenofibrate Yes 134mg QD Take 134 M ethodi micronized 4-[address] (LOFIBRA) 00:09: mouth Hospita 134 MG 13 daily l capsule before breakfast. cholecalcif Yes 5000U Q2D Take 5,000 [facility] red, 4-[address] vitamin D3, 00:09: mouth Hospi ta 125 mcg 13 every l (5,000 other day. unit) tablet simvastatin Yes 40mg QD Take 40 mg [facility] (ZOCOR) 40 4-[address] mg tablet 00:09: nightly. Hosp franci 13 l gabapentin Yes Take by Meth lópez (NEURONTIN) 4-[address] 100 mg 00:09: capsule Hospita capsule 13 each l morning and 2 Capsules at bedtime cyanocobala Yes 5000ug QD Take 5,000 [facility] min, 4-[address] vitamin 00:09: mouth Hospita B-12, 13 daily. l (VITAMIN B-12 ORAL) copper Yes 1{capsu QD Take 1 Method i gluconate 4-27 le} capsule by st (COPPER 00:09: mouth Hospita CAPS) 2 mg 13 daily. l capsule pyridoxal Yes 50mg QD Take 50 mg Me thodi phosphate 4-[address] (VB6 P5P 00:09: daily. Hospita ORAL) 13 l prasterone, Yes QD Take by Met hodi dhea, 4-[address] (DHEA) 25 00:09: daily. Hospit a mg capsule 13 [place]AD[place] 36299 50mg Q6H Take 50 mg Me thodi (ULTRAM) 50 4-[address] mg tablet 00:09: every 6 Hospi ta 13 (six) l hours as needed for moderate pain .acute pain. Will take after procedure minocycline Yes 100mg Q.5D Take 100 M ethodi (MINOCIN) 4-[address] 100 MG 00:09: mouth 2 Hospita capsule 13 (two) l times a day. Will take after procedure Vital Signs Vital Name Observation Time Observation Value Comments Source Heart rate 2020-06-12 00:00:00 62 /min [facility] Oxygen saturation in 2020-06-12 00:00:00 97 /min [facility] Arterial blood by Pulse oximetry Respiratory rate 2020-06-11 23:45:00 18 /min [facility] Systolic blood 2020-06-11 23:30:00 155 mm[Hg] Method [facility] pressure Diastolic blood 2020-06-11 23:30:00 76 mm[Hg] [facility] pressure Body temperature 2020-06-11 22:58:00 36.11 Melvi [facility] Body height 2020-06-11 16:26:00 172.7 cm [facility] Body weight 2020-06-11 16:26:00 60.601 kg [facility] BMI 2020-06-11 16:26:00 20.31 kg/m2 [facility] Procedures Procedure Date / Time Performing Clinician Source Performed EP PPI GENERATOR CHANGE 2020-06-11 22:40:00 [facility] ECG PRE/POST OP 2020-06-11 16:20:08 Lele [facility] Ho spital COVID-19 QUALITATIVE 2020-06-07 14:47:00 Lele, [facility] RT-PCR PROTHROMBIN TIME WITH INR 2020-06-07 14:47:00 Lele, Nadim [facility] MAGNESIUM LEVEL 2020-06-07 14:47:00 Lele, Nadim [facility] spital HC COMPLETE BLD COUNT 2020-06-07 14:47:00 [facility] DIFF COMPREHENSIVE METABOLIC 2020-06-07 14:47:00 Lele, Nadim [facility] PANEL ESTIMATED GFR 2020-06-07 14:47:00 Lele, [facility] spital Plan of Care Planned Activity Planned Date Details Comments Source Future Scheduled Test SHINGLES VACCINES (#2) [facility] [code = SHINGLES VACCINES (#2)] Future Scheduled Test INFLUENZA VACCINE [facility] [code = INFLUENZA VACCINE] Encounters Start End Encounter Admission Attending Care Care Encounter Source Date/Time Date/Time Type Type Clinicians Facility Department ID 2020-08-29 Inpatient VIJAY LeonCL OUTD [id number] [facility] 07:30:00 Vega [id number] [facility] 2020-08-27 Inpatient VIJAY LeonCL OUTD [id number] [facility] 10:30:00 Vega [id number] [facility] 2020-06-11 2020-06-11 Hospital Lele, 1.2.840.1 [id number] [facility] 11:01:00 19:08:00 Encounter Espinoza [id number] 3.430.2.7 Hospit a .3.226282 l .8 2020-06-11 2020-06-11 Surgery Lele, 1.2.840.1 [id number] [facility] 15:43:00 17:13:[address] 3.430.2.7 Hospit a .3.848685 l .8 2020-06-11 2020-06-11 Outpatient [facility] [id number] [place] [address] 00:00:00 00:00:00 NADIM [address] 2020-06-11 2020-06-11 Travel 1.2.840.1 1.2.002.290 [id number] [facility] 00:00:00 00:00:[address] 3.430.2.7 0.2.7.3.698 Ho spita .3.169789 084.8 l .8 2020-06-07 2020-06-07 [facility] [place] 1.2.840.1 [id number] [facility] 09:15:23 09:20:23 Lele, Nadim 46215.1.[address] 3.430.2.7 Hospit a .3.241226 l .8 2020-06-07 2020-06-07 Outpatient LELE [facility] [id number] [address] [place] [address] 00:00:00 00:00:00 NADIM [address] 2020-06-07 2020-06-07 [facility] Lele, 1.2.840.1 [id number] [facility] 00:00:00 00:00:00 Orders Nadim 62001.1.[address] 3.430.2.7 Hospit a .3.965222 l .8 2020-06-07 2020-06-07 Travel 1.2.840.1 1.2.864.233 [id number] [facility] 00:00:00 00:00:[address] 3.430.2.7 0.2.7.3.698 Ho spita .3.060636 084.8 l .8 2020-05-23 2020-05-23 [facility] 1.2.840.114 [id number] 00:00:00 00:00:00 [employer] 350.1.13.10 [place] 4.2.7.2.686 Professio [phone] [address] 2020-03-21 2020-03-21 Telephone Janice [facility] 1.2.840.114 [id number] 00:00:00 00:00:00 [employer] 350.1.13.10 [place] 4.2.7.2.686 Professio [phone] 2020-03-21 2020-03-21 [address].840.114 8 [id number] 00:00:00 00:00:00 [employer] 350.1.13.10 [place] 4.2.7.2.686 Professio [phone] [address] 2020-03-10 2020-03-10 [facility] 12.840.114 [id number] 00:00:00 00:00:00 [employer] 350.1.13.10 [place] 4.2.7.2.686 Professio [phone] [address] 2020-03-09 2020-03-09 [place] 926[address].840.114 [id number] 15:09:42 16:30:34 Visit [place] [employer] 350.1.13.10 [place] 4.2.7.2.686 Professio [phone] [address] Results Test Description Test Test Results Result Source Time Comments Comments Electrophysiology 2020-06 TITLE OF Nawaf witt procedure -06 PROCEDURE:Dual-chamber Ho spital 22:43:2 pacemaker generator 8 change out.PREOPERATIVE DIAGNOSES:1. Permanent [...] pacemaker is a Guidant model S606, serial #[id number], date ofinsertion July 10, 2011.2. The chronic atrial lead is a 4135, serial #[id number]. Measured P-wave 1.7,pacing threshold 1 volt at 0.4, current 1.9 mA, impedance 539 ohms.3. The RV lead is a model 4137, serial #[id number]. Measured R-wave, nointrinsic R waves, pacing threshold 1.1 volt at 0.4 milliseconds, current 2.0mA, impedance 566 ohms.4. The new pacemaker is a [employer] Accolade, model L311, serial#[id number]. CONCLUSIONS:Successful dual-chamber pacemaker change out. RECOMMENDATIONS:Return to AOD recovery and discharge home in several hours when dischargecriteria are met.ESTIMATED BLOOD LOSS:5 mLA Titt[employer]onic Tyrx pouch reference [id number], lot [id number] was utilized. ECG Pre/Post Op 2020-06-12 02:48:45 Test Item Value Reference Range Interpretation Comme nts Ventricular rate (test code = 253) Atrial rate (test code = 255) WA interval (test code = 266) QRSD interval (test code = 260) QT interval (test code = 264) QTC interval (test code = 265) QRS axis 1 (test code = 268) T wave axis (test code = 270) EKG impression (test code = 273) AV dual-paced rhythm-Abnormal ECG- In automated comparison with ECG of 11-JUL-2011 09:23,-No significant change was found- Franco RojasCOVID-19 qualitative [id number] 20:48:51 Test Item Value Reference Range Interpretation Comments Interpretation (test Negative results do code = 6804230) not preclude 2019-nCoV infection and should not be used as the sole basis for treatment or other patient management decisions. Negative results must be combined with clinical observations, patient history, and epidemiological information. COVID-19 qualitative Not-Detected Not-Detected RT-PCR result (test code = 03104-6) COVID-19 qualitative See link below for C ase Number: RT-PCR (test code = PDF Lab Report [id number]) Franco WeiARS-CoV-2 (COVID-19) RNA [Presence] in Respiratory specimen by PRAMOD with probe [id number] 15:48:09 Test Item Value Reference Range Interpretation Comments SARS-CoV-2 (COVID-19) RNA Not detected Not-Detected [Presence] in Respiratory specimen by PRAMOD with probe detection (test code = 91999-6) Whether patient is employed in a healthcare setting (test code = 72954-8) Whether the patient has symptoms related to condition of interest (test code = 06499-4) Patient was hospitalized because of this condition (test code = 60528-7) Whether the patient was admitted to intensive care unit (ICU) for condition of interest (test code = 94918-4) Whether patient resides in a congregate care setting (test code = 14970-4)
[2020-10-24] MEDS ORDERED: SILVER NITRATE 1 APPL TOP ONE ×2 (22:57→23:28)
--- NOTE | 2020-10-25 01:03 | ER ---
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 Coronavirus screen: Vaccine status: Patient reports receiving the 2nd dose of the covid vaccine. Date March 30, 2020 Patient reports receiving the 1st dose of the Covid vaccine. Date March 09, 2020 At this time, the client does not indicate any symptoms associated with coronavirus-19. Ebola Screen: No symptoms or risks identified at this time. Initial Sepsis Screen: Does the patient meet any 2 criteria? Does the patient have a suspected source of infection? No. Patient's initial sepsis screen is negative. Risk Assessment: Do you want to hurt yourself or someone else? Patient reports no desire to harm self or others. Onset of symptoms was October 24, 2020. Care prior to arrival: Bleeding of injury controlled. 21:45 Method Of Arrival: EMS: [facility] bs2 21:45 Acuity: DOMENICO 4 bs2 Triage Assessment: 21:45 General: Appears in no apparent distress. slender, Behavior is calm, cooperative, bs2 appropriate for age. Pain: Complains of pain in right ear Pain currently is 3 out of 10 on a pain scale. Historical: - Allergies: 10/25 00:24 No Known Allergies; bs2 - Home Meds: 00:24 tramadol 50 mg Oral tab 1 tab twice a day [Active]; fenofibrate 134 mg daily Oral 1 cap bs2 once daily [Active]; levothyroxine 50 mcg oral tab 1 tab once daily [Active]; simvastatin 40 mg Oral tab 1 tab once daily [Active]; gabapentin 100 mg Oral cap 1 cap 1 cap in am and 2 caps in pm [Active]; copper gluconate oral [Active]; zinc acetate Oral 1 cap daily [Active]; Dialyvite vit D 5,000 unit 1 cap daily [Active]; Vitamin B-12 Oral daily [Active]; pyridoxine (vitamin B6) 200 mg Oral TbER daily [Active]; sotalol 80 mg Oral tab 1 tab 2 times per day [Active]; Xarelto 20 mg Oral tab 1 tab once daily [Active]; - PMHx: 00:24 BPH; CAD; Gout; Hyperlipidemia; Hypertension; bs2 - Immunization history:: Adult Immunizations up to date, . - Social history:: Smoking status: unknown. - Family history:: not pertinent. - Hospitalizations: : No recent hospitalization is reported. Screenin/08 21:45 Abuse screen: Denies threats or abuse. Denies injuries from another. Nutritional bs2 screening: No deficits noted. Tuberculosis screening: No symptoms or risk factors identified. Fall Risk None identified. Assessment: 21:45 General: Appears in no apparent distress. comfortable, slender, Behavior is calm, bs2 cooperative, appropriate for age. Pain: Complains of pain in pinna of right ear Pain currently is 3 out of 10 on a pain scale. Neuro: No deficits noted. Cardiovascular: No deficits noted. Respiratory: No deficits noted. GI: No signs and/or symptoms were reported involving the gastrointestinal system. : No signs and/or symptoms were reported regarding the genitourinary system. EENT: Pinna bleeding from tumor removal sight, stitches present. 23:00 Reassessment: Reassessment: ear started bleeding again Dr kilgore notified and more bs2 surgiseal along with nitrite sticks used to stop bleeding nitrite did not work surgiseal was aplied using pressure and nose bleed clamp. Vital Signs: 21:45 BP 150 / 80 RA Sitting (auto/reg); Pulse 61 MON; Resp 16 S; Temp 98.4(O); Pulse Ox 99% bs2 on R/A; Weight 59.87 kg (R); Height 5 ft. 8 in. (172.72 cm) (R); Pain 3/10; 10/25 07:14 BP 164 / 84; Pulse 62; Resp 16; Temp 97.6; Pulse Ox 100% ; Pain 3/10; bs2 10/24 21:45 Body Mass Index 20.07 (59.87 kg, 172.72 cm) bs2 ED Course: 10/24 21:41 Patient arrived in ED. mw2 21:45 Arm band placed on left wrist. bs2 21:45 Patient has correct armband on for positive identification. Placed in gown. Bed in low bs2 position. Call light in reach. Side rails up X 1. Pulse ox on. NIBP on. Warm blanket given. 21:45 bleeding surgical sight. bs2 21:49 Mark Kilgore MD is Attending Physician. rn 22:14 Lala Frank, RN is Primary Nurse. bs2 10/25 00:24 Triage completed. bs2 07:13 Patient did not have IV access during this emergency room visit. bs2 Administered Medications: No medications were administered Outcome: 01:03 Discharge ordered by . rn 07:13 Discharged to home ambulatory. bs2 07:13 Condition: improved 07:13 Discharge instructions given to patient, Instructed on discharge instructions, follow up and referral plans. medication usage, wound care, Demonstrated understanding of instructions, follow-up care, wound care. 07:17 Patient left the ED. bs2 Signatures: Mark Kilgore MD MD rn [place], MyKena mw2 Lala Frank, RN RN bs2 Corrections: (The following items were deleted from the chart) 00:35 00:24 Immunization history: Adult Immunizations up to date, bs2 bs2 00:35 00:24 Social history: Smoking status: unknown bs2 bs2 00:41 00:38 Reassessment: bs2 bs2
--- NOTE | 2020-10-25 01:03 | EDPHYS ---
Physician Documentation [facility] Name: Tnog Norton Age: 85 yrs Sex: Male : 1935 Arrival Date: 10/24/2020 Time: 21:41 Bed 14 Private MD: ED Physician Mark Kilgore HPI: 10/24 22:21 This 85 yrs old Male presents to ER via Unassigned with complaints of Ear rn bleeding. 22:21 The patient presents with Bleeding. The complaints affect the right ear. Onset: The rn symptoms/episode began/occurred today. Modifying factors: The symptoms are alleviated by nothing, the symptoms are aggravated by nothing. Associated signs and symptoms: Pertinent negatives: fever. Associated signs and symptoms: Pertinent negatives: shortness of breath. Severity of symptoms: At their worst the symptoms were mild in the emergency department the symptoms are unchanged. The patient has not experienced similar symptoms in the past. The patient has been recently seen by a physician:. 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 Takes Xarelto and told did not need to hold it. States after the surgery he began to bleed slowly but not stopping. Denies shortness of breath or lightheadedness.. Historical: - Allergies: 10/25 00:24 No Known Allergies; bs2 - Home Meds: 00:24 tramadol 50 mg Oral tab 1 tab twice a day [Active]; fenofibrate 134 mg daily Oral 1 cap bs2 once daily [Active]; levothyroxine 50 mcg oral tab 1 tab once daily [Active]; simvastatin 40 mg Oral tab 1 tab once daily [Active]; gabapentin 100 mg Oral cap 1 cap 1 cap in am and 2 caps in pm [Active]; copper gluconate oral [Active]; zinc acetate Oral 1 cap daily [Active]; Dialyvite vit D 5,000 unit 1 cap daily [Active]; Vitamin B-12 Oral daily [Active]; pyridoxine (vitamin B6) 200 mg Oral TbER daily [Active]; sotalol 80 mg Oral tab 1 tab 2 times per day [Active]; Xarelto 20 mg Oral tab 1 tab once daily [Active]; - PMHx: 00:24 BPH; CAD; Gout; Hyperlipidemia; Hypertension; bs2 - Immunization history:: Adult Immunizations up to date, . - Social history:: Smoking status: unknown. - Family history:: not pertinent. - Hospitalizations: : No recent hospitalization is reported. ROS: 10/24 22:21 Constitutional: Negative for fever, chills, and weight loss, ENT: Positive for right rn ear bleeding Cardiovascular: Negative for chest pain, palpitations Respiratory: Negative for shortness of breath Exam: 22:21 Constitutional: This is a well developed, well nourished patient who is awake, alert, rn and in no acute distress. Head/Face: Normocephalic, atraumatic. ENT: Right ear with postsurgical changes and suture along superior margin of ear and posterior ear with small amount of venous bleeding. Vital Signs: 21:45 BP 150 / 80 RA Sitting (auto/reg); Pulse 61 MON; Resp 16 S; Temp 98.4(O); Pulse Ox 99% bs2 on R/A; Weight 59.87 kg (R); Height 5 ft. 8 in. (172.72 cm) (R); Pain 3/10; 10/25 07:14 BP 164 / 84; Pulse 62; Resp 16; Temp 97.6; Pulse Ox 100% ; Pain 3/10; bs2 10/24 21:45 Body Mass Index 20.07 (59.87 kg, 172.72 cm) bs2 Procedures: 10/24 23:32 Performed Surgicel applied to the right ear with direct pressure applied for 20 rn minutes, hemostasis achieved with no longer bleeding.. 10/25 00:58 Performed Silver nitrate cauterization. 3 swabs used for cauterization, helped, and in rn combination with surgicel achieved hemostasis. . MDM: 10/24 21:49 Patient medically screened. rn 10/25 00:59 Differential diagnosis: surgical wound bleeding. Data reviewed: vital signs, nurses rn notes, and as a result, I will discharge patient. Counseling: I had a detailed discussion with the patient and/or guardian regarding: the historical points, exam findings, and any diagnostic results supporting the discharge/admit diagnosis, the need for outpatient follow up, to return to the emergency department if symptoms worsen or persist or if there are any questions or concerns that arise at home. Response to treatment: the patient's symptoms have resolved after treatment, and as a result, I will discharge patient. Special discussion: I discussed with the patient/guardian in detail that at this point there is no indication for admission to the hospital. It is understood, however, that if the symptoms persist or worsen the patient needs to return immediately for re-evaluation. ED course: Patient observed in the ER for 3 hours, no longer bleeding, chemical cauterization and Surgicel stopped the bleeding. Stable vital signs. Patient feels fine asking for food. Will DC home with follow-up with his surgeon.. 04:52 ED course: Patient went to bathroom and removed his dressing. Began to bleed again. rn Again cauterized with silver nitrate and Surgicel dressing.. Administered Medications: No medications were administered Disposition Summary: 10/25/20 01:03 Discharge Ordered Location: Home rn Problem: new rn Symptoms: have improved rn Condition: Stable rn Diagnosis - Surgical procedure, unspecified as the cause of abnormal reaction of the patient, rn or of later complication, without mention of misadventure at the time of the procedure - Bleeding from right ear excisional wound Followup: rn - With: Private Physician - When: As needed - Reason: Recheck today's complaints, Re-evaluation by your physician Discharge Instructions: - Discharge Summary Sheet rn - Sutured internship - Uncontrolled Wound Bleeding rn Forms: - Medication Reconciliation Form rn - Thank You Letter rn - Antibiotic horn player - Prescription Opioid Use rn Signatures: Mark Kilgore MD MD rn Smith, Bridget, RN RN bs2 Corrections: (The following items were deleted from the chart) 00:35 00:24 Immunization history: Adult Immunizations up to date, bs2 bs2 00:35 00:24 Social history: Smoking status: unknown bs2 bs2 01:00 00:58 Performed Silver nitrate cauterization. rn rn
[2020-10-25] MEDS ORDERED: SILVER NITRATE 1 APPL TOP ONE (04:49)
[2020-10-25 07:23] VITALS: BP 164/84; TEMP 97.6; O2SAT 100
== END 2020-10-25 07:17 | disposition home or self-care (01) ==
LOC: ER 21:39
PROC: 093K7ZZ Control Bleeding in Nasal Mucosa and Soft Tissue, Via Natural or Artificial Opening (ICD-10-PCS; principal; 2020-10-24)
DX: H95.42 Postprocedural hemorrhage of ear and mastoid process following other procedure (principal); Y83.9 Surgical procedure, unspecified as the cause of abnormal reaction of the patient, or of later complication, without mention of misadventure at the time of the procedure; I10 Essential (primary) hypertension; I25.10 Atherosclerotic heart disease of native coronary artery without angina pectoris; E78.5 Hyperlipidemia, unspecified; M10.9 Gout, unspecified; N40.0 Benign prostatic hyperplasia without lower urinary tract symptoms; Z79.01 Long term (current) use of anticoagulants
CPT/HCPCS: 99283

== ENCOUNTER 2022-06-14 18:24 | Observation (INO) | payer OTHER ==
--- OUTSIDE RECORDS SUMMARY | 2022-06-14 18:28 | XMS REPORT | Continuity of Care Document ---
:1935 Author Organization [facility] t Address [address] [place] [address] [place] [id number] Care Team Providers Name Role Phone Loan Camacho MD Primary Care Physician [phone] [place] Attending Clinician Unavailable Sergio Torrez MD Attending Clinician LOAN CAMACHO Attending Clinician Unavailable Loan Camacho MD Attending Clinician [phone] [facility] Attending Clinician Unavailable Doctor Unassigned, [place] Attending Clinician Unavailable NICANOR CASTRO Attending Clinician Unavailable Sabra New Attending Clinician SABRA ROSS Attending Clinician Unavailable SERGIO TORREZ Attending Clinician Unavailable Bartolome Royal MD Attending Clinician Carrington Royal MD Attending Clinician ELLIS AHUJA Attending Clinician Unavailable Pob, [facility] Attending Clinician Unavailable Loan Camacho Admitting Clinician Unavailable BARTOLOME ROYAL Admitting Clinician Unavailable Payers Payer Name Policy Type Policy Number Effective Date Expiration Date S ource Problems Condition Condition Condition Status Onset Resolution Last Treating Co mments Source Name Details Category Date Date Treatment Clinician Date Pacemaker Pacemaker Disease Active [facility] at end of at end of 06-11 st battery battery 00:00: [facility] life life 00 l Memory Memory Disease Active Univers loss, loss, 03-09 [place] of [place] [facility] Hypothyroi Hypothyroi Disease Active U nivers dism, dism, 03-09 ity of unspecifie [place] type d type 00 [facility] Muscle Muscle Disease Active Univers tightness tightness 03-09 ity of 00:00: [place] 00 [facility] Branch Chronic Chronic Disease Active Univers right right 03-09 ity of shoulder shoulder 00:00: [place] pain pain Medical Branch Chronic Chronic Disease Active Univers midline midline 03-09 ity of low back low back 00:00: [place] pain pain 00 Medical without without Branch sciatica sciatica BPH BPH Disease Active Univers (benign (benign 05-17 ity of prostatic prostatic 00:[place] hyperplasi hyperplasi 00 Me dical a) a) Branch Mixed Mixed Disease Active Univers hyperlipid hyperlipid 3-30 it y of emia emia 00:00: [place] [facility] Peripheral Peripheral Disease Active U nivers neuropathy neuropathy 3-30 it y of 00:00: [place] 00 Medical Branch Neuropathy Neuropathy Disease Active U nivers 3-30 ity of 00:00: [place] 00 Medical Branch Gout Gout Disease Active Univers 3-30 ity of 00:00: [place] 00 Medical Branch CAD CAD Disease Active Univers (coronary (coronary ity of artery artery [place] disease) disease) Medica l Branch Pacemaker Pacemaker Disease Active Uni vers ity of [facility] Branch 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 [facility] [place] Essential Essential Disease Active Uni vers hypertensi hypertensi it y of on on [place] [facility] Allergies, Adverse Reactions, Alerts Allergy Allergy Status Severity Reaction(s) Onset Inactive Treating Comm ents Source Name Type Date Date Clinician NO KNOWN Drug Active Univers ALLERGIE Class ity of [facility] Social History Social Habit Start Date Stop Date Quantity Comments Source History of tobacco Cigarette Smoker University use [facility] Gender identity [facility] Alcohol intake 2020-06-22 2020-06-22 Ex-drinker [facility] (finding[facility] Tobacco use and 2020-06-11 2020-06-11 Former smokeless [facility] exposure 00:00:00 00:00:00 tobacco user Hospital Sex Assigned At [birth year] [facility] Smoking Status Start Date Stop Date Source Ex-smoker 2020-09-06 00:00:00 2020-09[facility] Medications Ordered Filled Start Stop Current Ordering Indication Dosage Frequency Signature Comments Components Source Medication Medication Date Date Medication? Clinician (SIG) Name Name FENOFIBRATE 2021-02 Yes [id number] TAKE 1 Univers MICRONIZED 0-07 CAPSULE ity of 134 mg 00:00: DAILY [place] capsule 00 Medical Branch fenofibrate Yes [id number] 134mg Take 1 Univers micronized 7-06 capsule by ity of 134 mg 00:00: mouth [place] capsule 00 daily. Medical Branch fenofibrate 2021- No [id number] 134mg Take 1 Univers micronized 7-06 10-07 capsule by it y of 134 mg 00:00: 00:00 mouth [place] capsule 00 :00 daily. Medical Branch Pyridoxine 2021- No 20mg Take 20 mg Univers HCl 200 mg -07-29 by mouth ity of TbSR 11:19: 00:00 daily. [place] 43 :00 Take 20 mg Medical oral Branch daily. Pyridoxine 2021- No 20mg Take 20 mg Univers HCl 200 mg -29 07-13 by mouth ity of TbSR 11:19: 00:00 daily. [place] 43 :00 Take 20 mg Medical oral Branch daily. cyanocobala Yes 5000ug Place Uni vers min, 6-13 5,000 mcg ity of vitamin 11:19: under the [place] B-12, 25 tongue Medical (VITAMIN daily. Branch B-12) 5,000 Take daily mcg Subl under the tongue cyanocobala Yes 5000ug Place Uni vers min, 6-13 5,000 mcg ity of vitamin 11:19: under the [place] B-12, 25 tongue Medical (VITAMIN daily. [place] B12) 5,000 Take daily mcg Subl under the tongue cyanocobala Yes 5000ug Place Uni vers min, 6-13 5,000 mcg ity of vitamin 11:19: under the [place] B-, tongue Medical ([facility] daily. [place] [facility] 5,[facility] Take daily mcg Subl under the tongue cyanocobala Yes 5000ug Place Uni vers min, 6-13 5,000 mcg ity of vitamin 11:19: under the [place] B- tongue Medical (VITAMIN daily. [place] [facility] 5,000 Take daily mcg Subl under the tongue Cholecalcif Yes 1{capsu Take 1 U nivers red, 6-13 le} capsule by ity of Vitamin D3, 11:19: mouth [place] (DIALYVITE 24 daily. Medical VITAMIN D) Take 1 Branch 5,000 unit 5000 mcg capsule capsule daily Cholecalcif Yes 1{capsu Take 1 U nivers red, 6-13 le} capsule by ity of Vitamin D3, 11:19: mouth [place] (DIALYVITE 24 daily. Medical VITAMIN D) Take 1 Branch 5,000 unit 5000 mcg capsule capsule daily Cholecalcif 0 Yes 1{capsu Take 1 U nivers red, 6-13 le} capsule by ity of Vitamin D3, 11:19: mouth [place] (DIALYVITE 24 daily. Medical VITAMIN D) Take 1 Branch 5,000 unit 5000 mcg capsule capsule daily Cholecalcif 0 Yes 1{capsu Take 1 U nivers red, 6-13 le} capsule by ity of Vitamin D3, 11:19: mouth [place] (DIALYVITE 24 daily. Medical VITAMIN D) Take 1 Branch 5,000 unit 5000 mcg capsule capsule daily COPPER ORAL Yes Take by Uni vers 6-13 mouth ity of 11:19: daily. [address] ZINC 0 Yes Take by Univers ACETATE 6-13 mouth ity of ORAL 11:19: daily. [place] [address] Medical Branch COPPER ORAL Yes Take by Uni vers 6-13 mouth ity of 11:19: daily. [address] Branch ZINC Yes Take by Univers ACETATE 6-13 mouth ity of ORAL 11:19: daily. [address] Branch COPPER ORAL Yes Take by Uni vers 6-13 mouth ity of 11:19: daily. [address] Branch ZINC Yes Take by Univers ACETATE 6-13 mouth ity of ORAL 11:19: daily. [address] Branch COPPER ORAL Yes Take by Uni vers 6-13 mouth ity of 11:19: daily. [address] Branch ZINC Yes Take by Univers ACETATE 6-13 mouth ity of ORAL 11:19: daily. [address] Branch rivaroxaban Yes 20mg Take 20 mg Univers (XARELTO) 6-13 by mouth ity of 20 mg Tab 11:17: every [place] tablet [address] [facility] Branch rivaroxaban Yes 20mg Take 20 mg Univers (XARELTO) 6-13 by mouth ity of 20 mg Tab 11:17: every [place] tablet [address] [facility] Branch rivaroxaban Yes 20mg Take 20 mg Univers (XARELTO) 6-13 by mouth ity of 20 mg Tab 11:17: every [place] tablet [address] [facility] Branch rivaroxaban Yes 20mg Take 20 mg Univers (XARELTO) 6-13 by mouth ity of 20 mg Tab 11:17: every [place] tablet 13 evening. Medical Branch fenofibrate Yes [id number] TAKE 1 Univers micronized 5-16 CAPSULE ity of 134 mg 00:00: DAILY [place] capsule [address] [facility] Branch fenofibrate 0 Yes [id number] TAKE 1 Univers micronized 5-16 CAPSULE ity of 134 mg 00:00: DAILY [place] capsule 00 Medical Branch fenofibrate 2021- No [id number] TAKE 1 Univers micronized 5-16 07-06 CAPSULE ity o f 134 mg 00:00: 00:00 DAILY [place] capsule 00 :00 Medical Branch traMADoL 50 2020-02 Yes [id number] 50mg Take 1 Univ ers mg tablet 1-29 tablet by ity o f 00:00: mouth 2 [place] 00 (two) Medical times Branch daily as needed (for breakthrou [place].on Xarelto,un abletotake NSAIDs). Indication s: chronic pain simvastatin 2020-02 Yes [id number] 40mg Take 1 Univers 40 mg 1-29 tablet by ity of tablet 00:00: mouth [place] 00 daily. Medical Branch gabapentin 2020-02 Yes [id number] Take 1 tab Univers 100 mg 1-29 po qam and ity of capsule 00:00: 2 tabs po [place] 00 qpm Medical Branch levothyroxi 2020-02 Yes [id number] TAKE 1 Univers ne 50 mcg 1-29 TABLET ity of tablet 00:00: EVERY [place] 00 MORNING, Medical TAKE ON AN Branch EMPTY STOMACH AND WAIT 30 MINUTES BEFORE TAKING MEDICATION S OR EATING traMADoL 50 2020-02 Yes [id number] 50mg Take 1 Univ ers mg tablet 1-29 tablet by ity o f 00:00: mouth 2 [place] 00 (two) Medical times Branch daily as needed (for breakthrou gh lowbackpai n.on Xarelto,un abletotake NSAIDs). Indication s: chronic pain simvastatin 2020-02 Yes [id number] 40mg Take 1 Univers 40 mg 1-29 tablet by ity of tablet 00:00: mouth [place] 00 daily. Medical Branch gabapentin 2020-02 Yes [id number] Take 1 tab Univers 100 mg 1-29 po qam and ity of capsule 00:00: 2 tabs po [place] 00 qpm Medical Branch levothyroxi 2020-02 Yes [id number] TAKE 1 Univers ne 50 mcg 1-29 TABLET ity of tablet 00:00: EVERY [place] 00 MORNING, Medical TAKE ON AN Branch EMPTY STOMACH AND WAIT 30 MINUTES BEFORE TAKING MEDICATION S OR EATING traMADoL 50 2020-02 Yes [id number] 50mg Take 1 Univ ers mg tablet 1-29 tablet by ity o f 00:00: mouth 2 [place] 00 (two) Medical times Branch daily as needed (for breakthrou gh lowbackpai n.on Xarelto,un abletotake NSAIDs). Indication s: chronic pain simvastatin 2020-02 Yes [id number] 40mg Take 1 Univers 40 mg 1-29 tablet by ity of tablet 00:00: mouth [place] 00 daily. Medical Branch gabapentin 2020-02 Yes [id number] Take 1 tab Univers 100 mg 1-29 po qam and ity of capsule 00:00: 2 tabs po 00 qpm Medical Branch levothyroxi 2020-02 Yes [id number] TAKE 1 Univers ne 50 mcg 1-29 TABLET ity of tablet 00:00: EVERY [place] MORNING, Medical TAKE ON AN Branch EMPTY STOMACH AND WAIT 30 MINUTES BEFORE TAKING MEDICATION S OR EATING traMADoL 50 2020-02 Yes [id number] 50mg Take 1 Univ ers mg tablet 1-29 tablet by ity o f 00:00: mouth 2 00 (two) Medical times Branch daily as needed (for breakthrou gh lowbackpai n.on Xarelto,un abletotake NSAIDs). Indication s: chronic pain simvastatin 2020-02 Yes [id number] 40mg Take 1 Univers 40 mg 1-29 tablet by ity of tablet 00:00: mouth 00 daily. Medical Branch gabapentin 2020-02 Yes [id number] Take 1 tab Univers 100 mg 1-29 po qam and ity of capsule 00:00: 2 tabs po 00 qpm Medical Branch levothyroxi 2020-02 Yes [id number] TAKE 1 Univers ne 50 mcg 1-29 TABLET ity of tablet 00:00: EVERY [place] MORNING, Medical TAKE ON AN Branch EMPTY STOMACH AND WAIT 30 MINUTES BEFORE TAKING MEDICATION S OR EATING levothyroxi Yes 50ug QD Take 50 Met [...] QD Take 40 mg Methodi (ZOCOR) 40 -[address] mg tablet 00:09: nightly. Hosp franc[facility] 13 l gabapentin Yes Take by Meth lópez (NEURONTIN) -[address] 100 mg 00:09: capsule Hospita capsule 13 each l morning and 2 Capsules at bedtime cyanocobala Yes 5000ug QD Take 5,000 Methodi min, 4-[address] vitamin 00:09: mouth Hospita B-12, 13 daily. l (VITAMIN B-12 ORAL) copper Yes 1{capsu QD Take 1 Method i gluconate - le} capsule by st (COPPER 00:09: mouth Hospita CAPS) 2 mg 13 daily. l capsule pyridoxal Yes 50mg QD Take 50 mg Me thodi phosphate [address] (VB6 P5P 00:09: daily. Hospita ORAL) 13 l prasterone, Yes QD Take by Met hodi dhea, [address] (DHEA) 25 00:09: daily. Hospit a mg capsule 13 l traMADoL Yes [id number] 50mg Q6H Take 50 mg Me thodi (ULTRAM) 50 -[address] mg tablet 00:09: every 6 Hospi ta 13 (six) l hours as needed for moderate pain .acute pain. Will take after procedure minocycline Yes 100mg Q.5D Take 100 M ethodi (MINOCIN) 4-[address] 100 MG 00:09: mouth 2 Hospita capsule 13 (two) l times a day. Will take after procedure levothyroxi Yes 50ug QD Take 50 Met hodi ne 4-[address] (SYNTHROID) 19:09: mouth Hospi ta 50 mcg 13 daily. l tablet sotaloL Yes 40mg Q.5D Take 40 mg Meth lópez (BETAPACE) 4-[address] 80 MG 19:09: (two) Hospita tablet 13 times a l day. Taking 1/2 tablet twice a day rivaroxaban Yes 20mg QD Take 20 mg Methodi (XARELTO) 4-[address] 20 mg 19:09: daily. Hospita tablet 13 l fenofibrate Yes 134mg QD Take 134 M ethodi micronized 4-[address] (LOFIBRA) 19:09: mouth Hospita 134 MG 13 daily l capsule before breakfast. cholecalcif 0 Yes 5000U Q2D Take 5,000 Methodi red, 4-[address] vitamin D3, 19:09: mouth Hospi ta 125 mcg 13 every l (5,000 other day. unit) tablet simvastatin Yes 40mg QD Take 40 mg Methodi (ZOCOR) 40 4-[address] mg tablet 19:09: nightly. Hosp franci 13 l gabapentin Yes Take by Meth lópez (NEURONTIN) 4-[address] 100 mg 19:09: capsule Hospita capsule 13 each l morning and 2 Capsules at bedtime cyanocobala Yes 5000ug QD Take 5,000 Methodi min, 4-[address] vitamin 19:09: mouth Hospita B-12, 13 daily. l (VITAMIN B-12 ORAL) copper Yes 1{capsu QD Take 1 Method i gluconate -26 le} capsule by st (COPPER 19:09: mouth Hospita CAPS) 2 mg 13 daily. l capsule pyridoxal Yes 50mg QD Take 50 mg Me thodi phosphate 4-[address] (VB6 P5P 19:09: daily. Hospita ORAL) 13 l prasterone, 0 Yes QD Take by Met hodi dhea, 4-[address] (DHEA) 25 19:09: daily. Hospit a mg capsule 13 l traMADoL 0 Yes [id number] 50mg Q6H Take 50 mg Me thodi (ULTRAM) 50 4-[address] mg tablet 19:09: every 6 Hospi ta 13 (six) l hours as needed for moderate pain .acute pain. Will take after procedure minocycline 0 Yes 100mg Q.5D Take 100 M ethodi (MINOCIN) 4-[address] 100 MG 19:09: mouth 2 Hospita capsule 13 (two) l times a day. Will take after procedure traMADoL 2020-0 Yes [id number] 50mg Q6H Take 50 mg Me thodi (ULTRAM) 50 4-[address] mg tablet 19:09: every 6 Hospi ta 13 (six) l hours as needed for moderate pain .acute pain. Will take after procedure minocycline 0 Yes 100mg Q.5D Take 100 M ethodi (MINOCIN) 4-[address] 100 MG 19:09: mouth 2 Hospita capsule 13 (two) l times a day. Will take after procedure levothyroxi 0 Yes 50ug QD Take 50 Met hodi ne 4-[address] (SYNTHROID) 19:09: mouth Hospi ta 50 mcg 13 daily. l tablet sotaloL 0 Yes 40mg Q.5D Take 40 mg Meth lópez (BETAPACE) 4-[address] 80 MG 19:09: (two) Hospita tablet 13 times a l day. Taking 1/2 tablet twice a day rivaroxaban Yes 20mg QD Take 20 mg Methodi (XARELTO) 4-[address] 20 mg 19:09: daily. Hospita tablet 13 l fenofibrate Yes 134mg QD Take 134 M ethodi micronized 4-[address] (LOFIBRA) 19:09: mouth Hospita 134 MG 13 daily l capsule before breakfast. cholecalcif 0 Yes 5000U Q2D Take 5,000 Methodi red, 4-26 Units by vitamin D3, 19:09: mouth Hospi ta 125 mcg 13 every l (5,000 other day. unit) tablet simvastatin Yes 40mg QD Take 40 mg Methodi (ZOCOR) 40 4-[address] mg tablet 19:09: nightly. Hosp franci 13 l gabapentin 0 Yes Take by Meth lópez (NEURONTIN) 4-[address] 100 mg 19:09: capsule Hospita capsule 13 each l morning and 2 Capsules at bedtime cyanocobala 0 Yes 5000ug QD Take 5,000 Methodi min, 4-[address] vitamin 19:09: mouth Hospita B-12, 13 daily. l (VITAMIN B-12 ORAL) copper 0 Yes 1{capsu QD Take 1 Method i gluconate 4-26 le} capsule by (COPPER 19:09: mouth Hospita CAPS) 2 mg 13 daily. l capsule pyridoxal 2021-0 Yes 50mg QD Take 50 mg Me thodi phosphate 4-[address] (VB6 P5P 19:09: daily. Hospita ORAL) 13 l prasterone, 0 Yes QD Take by Met hodi dhea, 4-[address] (DHEA) 25 19:09: daily. Hospit a mg capsule 13 l traMADoL Yes [id number] 50mg Q6H Take 50 mg Me thodi (ULTRAM) 50 4-[address] mg tablet 19:09: every 6 Hospi ta 13 (six) l hours as needed for moderate pain .acute pain. Will take after procedure minocycline Yes 100mg Q.5D Take 100 M ethodi (MINOCIN) 4-[address] 100 MG 19:09: mouth 2 Hospita capsule 13 (two) l times a day. Will take after procedure levothyroxi Yes 50ug QD Take 50 Met hodi ne 4-[address] (SYNTHROID) 19:09: mouth Hospi ta 50 mcg 13 daily. l tablet sotaloL Yes 40mg Q.5D Take 40 mg Meth lópez (BETAPACE) 4-[address] 80 MG 19:09: (two) Hospita tablet 13 times a l day. Taking 1/2 tablet twice a day rivaroxaban Yes 20mg QD Take 20 mg Methodi (XARELTO) 4-[address] 20 mg 19:09: daily. Hospita tablet 13 l fenofibrate Yes 134mg QD Take 134 M ethodi micronized 4-[address] (LOFIBRA) 19:09: mouth Hospita 134 MG 13 daily l capsule before breakfast. cholecalcif Yes 5000U Q2D Take 5,000 Methodi red, 4-[address] vitamin D3, 19:09: mouth Hospi ta 125 mcg 13 every l (5,000 other day. unit) tablet simvastatin Yes 40mg QD Take 40 mg Methodi (ZOCOR) 40 4-[address] mg tablet 19:09: nightly. Hosp franci 13 l gabapentin Yes Take by Meth lópez (NEURONTIN) 4-[address] 100 mg 19:09: capsule Hospita capsule 13 each l morning and 2 Capsules at bedtime cyanocobala Yes 5000ug QD Take 5,000 Methodi min, 4-[address] vitamin 19:09: mouth Hospita B-12, 13 daily. l (VITAMIN B-12 ORAL) copper Yes 1{capsu QD Take 1 Method i gluconate - le} capsule by st (COPPER 19:09: mouth Hospita CAPS) 2 mg 13 daily. l capsule pyridoxal Yes 50mg QD Take 50 mg Me [facility] phosphate [address] (VB6 P5P 19:09: daily. Hospita ORAL) 13 l prasterone, Yes QD Take by Met hodi dhea, - mouth st (DHEA) 25 19:09: daily. Hospit a mg capsule 13 l sotalol 2015-02 Yes 40mg Take 40 mg Univ ers (BETAPACE) 0-11 by mouth 2 ity of 80 mg 00:00: (two) [place] tablet 00 times Medical daily. [place] sotalol 2015-02 Yes 40mg Take 40 mg Univ ers (BETAPACE) 0-11 by mouth 2 ity of 80 mg 00:00: (two) [place] tablet 00 times Medical daily. [place] sotalol 2015-02 Yes 40mg Take 40 mg Univ ers (BETAPACE) 0-11 by mouth 2 ity of 80 mg 00:00: (two) [place] tablet 00 times Medical daily. [place] sotalol 2015-02 Yes 40mg Take 40 mg Univ ers (BETAPACE) 0-11 by mouth 2 ity of 80 mg 00:00: (two) [place] tablet 00 times Medical daily. [place] Immunizations Ordered Filled Immunization Date Status Comments [facility] Immunization Name Name Influenza High Dose 2020-10-31 Completed Unive rsity of 00:00:00 [facility] Influenza High Dose 2020-10-31 Completed Unive rsity of 00:00:00 [facility] Influenza High Dose 2020-10-31 Completed Unive rsity of 00:00:00 [facility] Influenza High Dose 2020-10-31 Completed Unive rsity of 00:00:00 [facility] SARS-COV-2 COVID-19 2020-03-30 Completed Unive rsity of PFIZER VACCINE 00:00:00 [facility] [place] SARS-COV-2 COVID-19 2020-03-30 Completed Unive rsity of PFIZER VACCINE 00:00:00 [facility] [place] SARS-COV-2 COVID-19 2020-03-30 Completed Unive rsity of PFIZER VACCINE 00:00:00 [facility] [place] SARS-COV-2 COVID-19 2020-03-30 Completed Unive rsity of PFIZER VACCINE 00:00:00 [facility] [place] SARS-COV-2 COVID-19 2020-03-09 Completed Unive rsity of PFIZER VACCINE 00:00:00 [facility] [place] SARS-COV-2 COVID-19 2020-03-09 Completed Unive rsity of PFIZER VACCINE 00:00:00 [facility] [place] SARS-COV-2 COVID-19 2020-03-09 Completed Unive rsity of PFIZER VACCINE 00:00:00 [facility] [place] SARS-COV-2 COVID-19 2020-03-09 Completed Unive rsity of PFIZER VACCINE 00:00:00 [facility] [place] Influenza High Dose 2018-11-16 Completed Unive rsity of 00:00:00 [facility] Influenza High Dose 2018-11-16 Completed Unive rsity of 00:00:00 [facility] Influenza High Dose 2018-11-16 Completed Unive rsity of 00:00:00 [facility] Influenza High Dose 2018-11-16 Completed Unive rsity of 00:00:00 [facility] Influenza High Dose 2017-11-25 Completed Unive rsity of 00:00:00 [facility] Influenza High Dose 2017-11-25 Completed Unive rsity of 00:00:00 [facility] Influenza High Dose 2017-11-25 Completed Unive rsity of 00:00:00 [facility] Influenza High Dose 2017-11-25 Completed Unive rsity of 00:00:00 [facility] Influenza High Dose 2016-11-17 Completed Unive rsity of 00:00:00 [facility] Influenza High Dose 2016-11-17 Completed Unive rsity of 00:00:00 [facility] Influenza High Dose 2016-11-17 Completed Unive rsity of 00:00:00 [facility] Influenza High Dose 2016-11-17 Completed Unive rsity of 00:00:00 [facility] Pneumococcal 13 2016-09-04 Completed Universit y of Conjugate, PCV13 00:00:00 [place] Me dical (Prevnar 13) Branch Pneumococcal 13 2016-09-04 Completed Universit y of Conjugate, PCV13 00:00:00 [facility] dical (Prevnar 13) Branch Pneumococcal 13 2016-09-04 Completed Universit y of Conjugate, PCV13 00:00:00 [facility] dical (Prevnar 13) Branch Pneumococcal 13 2016-09-04 Completed Universit y of Conjugate, PCV13 00:00:00 [facility] dical (Prevnar 13) Branch Influenza High Dose 2016-01-13 Completed Unive rsity of 00:00:00 [facility] Influenza High Dose 2016-01-13 Completed Unive rsity of 00:00:00 [facility] Influenza High Dose 2016-01-13 Completed Unive rsity of 00:00:00 [facility] Influenza High Dose 2016-01-13 Completed Unive rsity of 00:00:00 [facility] Pneumococcal 2015-11-30 Completed University o f Polysaccharide, 00:00:00 [place] Med ical PPSV23 (PNEUMOVAX) Branch Pneumococcal 2015-11-30 Completed University o f Polysaccharide, 00:00:00 [place] Med ical PPSV23 (PNEUMOVAX) Branch Pneumococcal 2015-11-30 Completed University o f Polysaccharide, 00:00:00 [place] Med ical PPSV23 (PNEUMOVAX) Branch Pneumococcal 2015-11-30 Completed University o f Polysaccharide, 00:00:00 [place] Med ical PPSV23 (PNEUMOVAX) Branch Td 2015-11-21 Completed University of 00:00:00 [facility] Td 2015-11-21 Completed University of 00:00:00 [facility] Td 2015-11-21 Completed University of 00:00:00 [facility] Td 2015-11-21 Completed University of 00:00:00 [facility] Influenza Virus 2014-11-20 Completed Universit y of Vaccine Quad IM 00:00:00 [place] Med ical Multi-dose 6+ MO Branch Influenza Virus 2014-11-20 Completed Universit y of Vaccine Quad IM 00:00:00 [place] Med ical Multi-dose 6+ MO Branch Influenza Virus 2014-11-20 Completed Universit y of Vaccine Quad IM 00:00:00 [place] Med ical Multi-dose 6+ MO Branch Influenza Virus 2014-11-20 Completed Universit y of Vaccine Quad IM 00:00:00 [place] Med ical Multi-dose 6+ MO Branch Zoster(Zostavax)( 2010-11-12 Completed Unive rsity of ingles) 00:00:00 [facility] Zoster(Zostavax)( 2010-11-12 Completed Unive rsity of ingles) 00:00:00 [facility] Zoster(Zostavax)( 2010-11-12 Completed Unive rsity of ingles) 00:00:00 [facility] Zoster(Zostavax)( 2010-11-12 Completed Unive rsity of ingles) 00:00:00 [facility] Vital Signs Vital Name Observation Time Observation Value Comments Source Systolic blood 2021-07-29 15:09:00 122 mm[Hg] Univer sity of pressure [facility] Diastolic blood 2021-07-29 15:09:00 72 mm[Hg] Unive rsity of pressure [facility] Heart rate 2021-07-29 15:09:00 66 /min [facility] Body temperature 2021-07-29 15:09:00 36.67 Melvi [facility] Respiratory rate 2021-07-29 15:09:00 18 /min [facility] Body height 2021-07-29 15:09:00 172.7 cm [facility] Body weight 2021-07-29 15:09:00 63.504 kg [facility] BMI 2021-07-29 15:09:00 21.29 kg/m2 [facility] Oxygen saturation in 2021-07-29 15:09:00 96 /min [facility] Arterial blood by [facility] Pulse oximetry Branch Heart rate 2020-06-12 00:00:00 62 /min [facility] Oxygen saturation in 2020-06-12 00:00:00 97 /min [facility] Arterial blood by Pulse oximetry Respiratory rate 2020-06-11 23:45:00 18 /min [facility] Systolic blood 2020-06-11 23:30:00 155 mm[Hg] [facility] pressure Diastolic blood 2020-06-11 23:30:00 76 mm[Hg] [facility] pressure Body temperature 2020-06-11 22:58:[address] [facility] Body height 2020-06-11 16:26:[address] [facility] Body weight 2020-06-11 16:26:[address] [facility] BMI 2020-06-11 16:26:00 20.31 kg/m2 [facility] Procedures Procedure Date / Time Performing Clinician Source Performed EP PPI GENERATOR CHANGE 2020-06-11 22:40:00 [facility] ECG PRE/POST OP 2020-06-11 16:20:08 [facility], [facility] spital COVID-19 QUALITATIVE 2020-06-07 14:47:00 [facility] RT-PCR PROTHROMBIN TIME WITH INR 2020-06-07 14:47:00 [facility] MAGNESIUM LEVEL 2020-06-07 14:47:00 [facility], [facility] spital HC COMPLETE BLD COUNT 2020-06-07 14:47:00 [facility] W/AUTO DIFF COMPREHENSIVE METABOLIC 2020-06-07 14:47:00 [facility] PANEL ESTIMATED GFR 2020-06-07 14:47:00 [facility], [facility] spital Plan of Care Planned Activity Planned Date Details Comments Source Future Scheduled 2022-05-21 SHINGLES VACCINES [facility] Test 19:41:01 (2 of 3) [code = SHINGLES VACCINES (2 of 3)] Future Scheduled 2022-05-21 COVID-19 VACCINE (3 [facility] Test 19:41:01 - Booster for Pfizer series) [code = COVID-19 VACCINE (3 - Booster for Pfizer series)] Future Scheduled 2022-05-21 INFLUENZA VACCINE [facility] Test 19:41:01 [code = INFLUENZA VACCINE] Future Scheduled 2022-05-21 SHINGLES VACCINES [facility] Test 19:41:01 (2 of 3) [code = SHINGLES VACCINES (2 of 3)] Future Scheduled 2022-05-21 COVID-19 VACCINE (3 [facility] Test 19:41:01 - Booster for Pfizer series) [code = COVID-19 VACCINE (3 - Booster for Pfizer series)] Future Scheduled 2022-05-21 [facility]ACCINE [facility] 19:41:01 [code = INFLUENZA VACCINE] Future Scheduled 2021-11-06 [facility] Test 19:29:34 VACCINES (1 of 3 - 3-dose series) [code = HEPATITIS B VACCINES (1 of 3 - 3-dose series)] Future Scheduled 2021-11-06 SHINGLES VACCINES [facility] Test 19:29:34 (2 of 3) [code = SHINGLES VACCINES (2 of 3)] Future Scheduled 2021-11-06 COVID-19 VACCINE (3 [facility] Test 19:29:34 - Booster for Pfizer series) [code = COVID-19 VACCINE (3 - Booster for Pfizer series)] Future Scheduled 2021-11-06 INFLUENZA VACCINE [facility] 19:29:34 [code = INFLUENZA VACCINE] Future Scheduled SHINGLES VACCINES [facility] (#2) [code = SHINGLES VACCINES (#2)] Future Scheduled INFLUENZA VACCINE [facility] Test [code = INFLUENZA VACCINE] Encounters Start End Encounter Admission Attending Care Care Encounter Source Date/Time Date/Time Type Type Clinicians Facility Department ID 2020-08-27 Inpatient VIJAY Leon OUTD [id number] [facility] 10:30:00 Vega [facility] 2021-11-22 2021-11-22 [facility] 1.2.840.114 [id number] Univers 00:00:00 00:00:00 Sergio RICHARDSON 350.1.13.10 [facility] 4.2.7.2.686 Donnell PATTERSON [phone] [address] 2021-10-29 2021-10-29 Outpatient R [facility] [id number] Univers 14:20:00 14:20:00 LOAN xiong [facility] 2021-08-20 2021-08-20 Refcorrine [facility] 1.2.840.114 [id number] Univers 00:00:00 00:00:00 Loan RICHARDSON 350.1.13.10 inga [facility] 4.2.7.2.686 [place] PATTERSON [phone] [address] 2021-07-29 2021-07-29 Office [facility] 1.2.840.114 [id number] Univers 10:00:00 11:27:23 Visit Loan RICHARDSON 350.1.13.10 ity of [place] [phone] [address] 2021-07-29 2021-07-29 Outpatient R [facility] [id number] Univers 10:00:00 11:27:23 [facility] 2021-07-29 2021-07-29 Outpatient R [facility] [id number] Univers 10:00:00 10:00:[address] [facility] 2021-07-29 2021-07-29 Outpatient R [facility] [id number] Univers 10:00:00 10:00:[address] [facility] 2021-06-30 2021-06-30 Refill [facility] 1.2.840.114 [id number] [facility] 00:00:00 00:00:00 Loan RICHARDSON 350.1.13.10 ity of [facility] [place] [phone] [address] 2021-03-28 2021-03-28 [facility] 1.2.840.114 [id number] Univers 00:00:00 00:00:00 Loan RICHARDSON 350.1.13.10 ity of [place] [phone] Oh dical [address] 2021-01-14 2021-01-14 Steam Roller Operator 2, Adc Lab [facility] 1.2.840.114 [id number] [facility] 11:17:30 11:32:30 Visit Loan Camacho 350.1. 13.10 it[place] of [place] [phone] Me dical NAL [address] [facility] 2021-01-14 2021-01-14 Outpatient R [facility] [id number] Univers 10:00:00 11:17:[address] [facility] 2021-01-14 2021-01-14 Office [facility] 1.2.840.114 [id number] Univers 10:00:00 11:17:39 Visit Loan RICHARDSON 350.1.13.10 ity of [facility] 4.2.[place] [phone] [facility] [address] [facility] 2021-01-14 2021-01-14 Outpatient [facility] [id number] [facility] 10:00:00 11:17:[address] [facility] 2020-12-25 2020-12-25 Refill [facility] 1.2.840.114 [id number] Univers 00:00:00 00:00:00 Loan RICHARDSON 350.1.13.10 ity of [facility] [place] [phone] [address] 2020-09-06 2020-09-06 Steam Roller Operator 2, Adc Lab [facility] 1.2.840.114 [id number] Univers 10:16:09 10:31:09 Visit Loan Camacho 350.1. 13.10 ity of [place] [phone] Oh dical [address] 2020-09-06 2020-09-06 Office [facility] 1.2.840.114 [id number] Univers 08:34:04 10:10:54 Visit Loan Richardson 350.1.13.10 it[place] of [place] [phone] [address] 2020-09-06 2020-09-06 Outpatient R [facility] [id number] Univers 08:40:00 08:40:00 LONA xiong [facility] 2020-09-06 2020-09-06 Telephone [facility] 1.2.840.114 [id number] Univers 00:00:00 00:00:00 Loan Staples Black 350.1.13.10 ity of [place] [phone] [address] 2020-09-06 2020-09-06 Orders Doctor LAKISHA 1.2.840.114 [id number] Univers 00:00:00 00:00:00 Only Unassigned, AKOSUA 350.1.13.10 ity of [place] [facility] 4.2.7.2.686 Rcistopher as [phone] [address] 2020-08-16 2020-08-16 Outpatient R [facility] [id number] [facility] 09:40:00 09:40:00 NICANOR [facility] 2020-08-08 2020-08-[address] [facility] 1.2.840.114 [id number] [facility] 13:45:03 14:30:34 Visit Sabra Richardson 350.1.13.10 it[place] of [place] [phone] [address] 2020-08-08 2020-08-08 Outpatient R [facility] [id number] Univers 14:00:00 14:00:00 SABRA xiong o f [facility] 2020-08-07 2020-08-07 Outpatient R [facility] [id number] Univers 16:00:00 16:00:00 SERGIO xiong [facility] 2020-07-20 2020-07-20 Office [facility] 1.2.840.114 [id number] Univers 14:28:53 14:29:03 Visit Sergio Richardson 350.1.13.10 i ty of [place] [phone] Oh dic[address] 2020-07-20 2020-07-20 Office [facility] 1.2.840.114 [id number] Univers 12:52:03 14:26:15 Visit Sergio Richardson 350.1.13.10 i ty of [place] [phone] Oh dic[address] 2020-07-20 2020-07-20 Outpatient [facility] [id number] Univers 13:00:00 13:00:00 SERGIO inga [facility] 2020-07-20 2020-07-20 Orders Doctor LAKISHA 1.2.840.114 [id number] Univers 00:00:00 00:00:00 Only Unassigned, AKOSUA 350.1.13.10 ity of [place] [facility] 4.2.7.2.686 Cristopher as [phone] [address] 2020-07-13 2020-07-13 Office [facility] 1.2.840.114 [id number] Univers 08:55:28 09:52:53 Visit Sergio Richardson 350.1.13.10 i ty of [place] [phone] [address] 2020-07-13 2020-07-13 Outpatient R [facility] [id number] Univers 09:20:00 09:20:00 SERGIO xiong [facility] 2020-07-09 2020-07-[address] [facility] 1.2.840.114 [id number] [facility] 10:03:52 11:08:06 Visit Sabra Richardson 350.1.13.10 ity of [place] [phone] [address] 2020-07-09 2020-07-09 Outpatient R [facility] [id number] Univers 10:30:00 10:30:00 SABRA heard [facility] 2020-07-06 2020-07-06 Outpatient R [facility] [id number] [facility] 17:00:00 17:00:00 LOAN itjessica of [facility] 2020-07-06 2020-07-06 Telemedici [facility] 1.2.840.114 [id number] [facility] 15:32:07 15:52:07 ne Visit Loan Richardson 350.1.13.10 ity of [place] [phone] [address] 2020-07-06 2020-07-06 Telephone [facility] 1.2.840.114 [id number] [facility] 00:00:00 00:00:00 Loan Richardson 350.1.13.10 ity of [place] [phone] [address] 2020-06-11 2020-06-11 Hospital Lele, 1.2.840.1 [id number] Methodi 11:01:00 19:08:00 Encounter Nadkathi 38874.1.[address] 3.430.2.7 Hospit a .3.520595 l .8 2020-06-11 2020-06-11 Surgery Lele, 1.2.840.1 [id number] Methodi 15:43:00 17:13:[address] 3.430.2.7 Hospit a .3.115914 l .8 2020-06-11 2020-06-11 Travel 1.2.840.1 1.2.628.307 [id number] Methodi 00:00:00 00:00:[address] 3.430.2.7 0.2.7.3.698 Ho spita .3.015148 084.8 l .8 2020-06-07 2020-06-07 Lab [facility] 1.2.840.1 [id number] Methodi 09:15:23 09:20:23 Lele, Nadim 86252.1.[address] 3.430.2.7 Hospit a .3.951217 l .8 2020-06-07 2020-06-07 Community Lele, 1.2.840.1 [id number] Methodi 00:00:00 00:00:00 Orders Nadim 45998.1.[address] 3.430.2.7 Hospit a .3.595177 l .8 2020-06-07 2020-06-07 Travel 1.2.840.1 1.2.220.717 [id number] Methodi 00:00:00 00:00:[address] 3.430.2.7 0.2.7.3.698 Ho spita .3.401371 084.8 l .8 2020-05-23 2020-05-23 [facility] 1.2.840.114 [id number] Univers 00:00:00 00:00:00 Loan A Lenora 350.1.13.10 ity of [place] [phone] [address] 2020-05-23 2020-05-23 [facility] 1.2.840.114 [id number] 00:00:00 00:00:00 Loan A Lenora 350.1.13.10 [place] 4.2.7.2.686 Professio [phone] [address] 2020-03-30 2020-03-30 Outpatient R [facility] [id number] Univers 09:20:00 09:20:00 ELLIS ity of [facility] 2020-03-21 2020-03-21 [place] [facility] 1.2.840.114 [id number] Univers 00:00:00 00:00:00 Loan A Lenora 350.1.13.10 ity of [place] [phone] [address] 2020-03-21 2020-03-[address] [facility] 1.2.840.114 [id number] Univers 00:00:00 00:00:00 Loan Richardson 350.1.13.10 ity of [place] [phone] [facility] [address] [facility] 2020-03-21 2020-03-21 Telephone [facility] 1.2.840.114 [id number] 00:00:00 00:00:00 Lona Richardson 350.1.13.10 [place] 4.2.7.2.686 Professio [phone] [address] 2020-03-21 2020-03-[address] [facility] 1.2.840.114 [id number] 00:00:00 00:00:00 Loan Richardson 350.1.13.10 [place] 4.2.7.2.686 Professio [phone] [address] 2020-03-10 2020-03-10 Steam Roller Operator Kwame, Josy Lab Main [facility] 1.2.8 40.114 [id number] Univers 08:04:07 08:19:07 Visit Loan Camacho 350.1. 13.10 ity of [place] [phone] [facility] [address] [facility] 2020-03-10 2020-03-10 Outpatient R [facility] [id number] Univers 08:15:00 08:15:00 LOAN ity of [facility] 2020-03-10 2020-03-10 Orders Doctor LAKISHA 1.2.840.114 [id number] Univers 00:00:00 00:00:00 Only Unassigned, AKOSUA 350.1.13.10 ity of [place] [facility] 4.2.7.2.686 Cristopher as [phone] [address] 2020-03-10 2020-03-10 Refill Janice [facility] 1.2.840.114 [id number] Univers 00:00:00 00:00:00 Loan Richardson 350.1.13.10 ity of [place] [phone] [facility] [address] [facility] 2020-03-10 2020-03-10 Refill [facility] 1.2.840.114 [id number] 00:00:00 00:00:00 Loan Richardson 350.1.13.10 [place] 4.2.7.2.686 Professio [phone] [address] 2020-03-09 2020-03-09 Steam Roller Operator Kwame, [facility] Lab Main [facility] 1.2.8 40.114 [id number] Univers 17:20:41 17:35:41 Visit Loan Camacho 350.1. 13.10 ity of [place] [phone] Oh [facility] [address] [facility] 2020-03-09 2020-03-09 Office [facility] 1.2.840.114 [id number] Univers 15:09:42 16:30:34 Visit Sergio Richardson 350.1.13.10 i ty of [place] [phone] Oh [facility] 044 [facility] 2020-03-09 2020-03-09 Office [facility] 1.2.840.114 [id number] 15:09:42 16:30:34 Visit Sergio Richardson 350.1.13.10 [place] 4.2.7.2.686 Professio [phone] [address] 2020-03-09 2020-03-09 Outpatient R [facility] [id number] Univers 15:20:00 15:20:00 SERGIO day [facility] 2019-10-31 2019-10-31 Refill [facility] 1.2.840.114 [id number] Univers 00:00:00 00:00:00 Loan Richardson 350.1.13.10 ity of [place] [phone] [facility] 0[address] [facility] 2019-10-31 2019-10-31 Refill [facility] 1.2.840.114 [id number] Univers 00:00:00 00:00:00 Loan A Lenora 350.1.13.10 ity of [place] [phone] [address] 2019-10-28 2019-10-28 Outpatient R [facility] [id number] Univers 14:20:00 14:20:00 LOAN ity [facility] 2019-10-10 2019[facility]10-10 [facility] 1.2.840.114 [id number] Univers 00:00:00 00:00:00 Loan A Lenora 350.1.13.10 ity of [place] [phone] [address] 2019-09-16 2019-09-16 [facility] [id number] Univers 15:20:00 15:20:00 LONA ity [facility] 2019-09-02 2019-09-02 Outpatient R [facility] [id number] Univers 08:00:00 08:00:00 ity [facility] 2019-08-23 2019-08-23 [facility] 1.2.840.114 [id number] Univers 00:00:00 00:00:00 Loan A Lenora 350.1.13.10 ity of [place] [phone] [facility] [address] [facility] 2019-08-17 2019-08-17 Telephone [facility] 1.2.840.114 [id number] Univers 00:00:00 00:00:00 Loan A Lenora 350.1.13.10 ity of [place] [phone] [address] 2019-08-15 2019-08-15 Office [facility] 1.2.840.114 [id number] [facility] 12:06:38 13:52:58 Visit Loan Cyrus Black 350.1.13.10 ity of [place] [phone] [address] 2019-08-15 2019-08-15 Outpatient R [facility] [id number] [facility] 13:40:00 13:40:00 LOAN ity of [facility] 2019-06-08 2019-06-08 Telephone [facility] 1.2.840.114 [id number] Univers 00:00:00 00:00:00 Loan A PRIMARY 350.1.13.10 ity of [place] [phone] [address] 2019-05-29 2019-05-29 Refill Camacho, [facility] 1.2.840.114 [id number] Univers 00:00:00 00:00:00 Loan Cyrus MoralesLenora 350.1.13.10 ity of [place] [phone] [address] 2019-05-26 2019-05-26 [place] [facility] 1.2.840.114 [id number] Univers 00:00:00 00:00:00 Loan A PRIMARY 350.1.13.10 ity of [place] [phone] [address] 2019-05-23 2019-05-23 [facility] Camacho, [facility] 1.2.840.114 [id number] Univers 00:00:00 00:00:00 Loan A PRIMARY 350.1.13.10 ity of [place] [phone] [address] 2019-04-14 2019-04-14 Office Janice [facility] 1.2.840.114 [id number] Univers 11:40:01 13:05:13 Visit Loan Richardson 350.1.13.10 ity of [place] [phone] [facility] [address] [facility] 2019-04-14 2019-04-14 Outpatient R [facility] [id number] Univers 12:00:00 12:00:00 LOAN xiong [facility] 2019-04-14 2019-04-14 Orders Doctor LAKISHA 1.2.840.114 [id number] Univers 00:00:00 00:00:00 Only Unassigned, AKOSUA 350.1.13.10 ity of [place] [facility] 4.2.7.2.686 Cristopher as [phone] [address] 2019-03-10 2019-03-10 Steam Roller Operator Kwame, Adc Lab Main [facility] 1.2.8 40.114 [id number] Univers 07:11:10 07:26:10 Visit Loan Camacho 350.1. 13.10 ity of [place] [phone] Oh [facility] [address] [facility] 2019-03-10 2019-03-10 Orders Doctor LAKISHA 1.2.840.114 [id number] Univers 00:00:00 00:00:00 Only Unassigned, AKOSUA 350.1.13.10 ity of [place] [facility] 4.2.7.2.686 Cristopher as [phone] [address] 2018-10-16 2018-10-16 Refill [facility] 1.2.840.114 [id number] Univers 00:00:00 00:00:00 Loan Richardson 350.1.13.10 ity of [place] [phone] [facility] [address] [facility] Results Test Description Test Test Results Result [...] pacemaker is a Guidant model S606, serial #[id number], date ofinsertion July 10, 2011.2. The chronic atrial lead is a 4135, serial #[id number]. Measured P-wave 1.7,pacing threshold 1 volt at 0.4, current 1.9 mA, impedance 539 ohms.3. The RV lead is a model 4137, serial #[id number]. Measured R-wave, nointrinsic R waves, pacing threshold 1.1 volt at 0.4 milliseconds, current 2.0mA, impedance 566 ohms.4. The new pacemaker is a [place] [employer] Accolade, model L311, serial#[id number]. CONCLUSIONS:Successful dual-chamber pacemaker change out. RECOMMENDATIONS:Return to AOD recovery and discharge home in several hours when dischargecriteria are met.ESTIMATED BLOOD LOSS:5 mLA Medtronic Tyrx pouch reference [id number], lot [id number] was utilized. ECG Pre/Post Op 2020-06-12 02:48:45 Test Item Value Reference Range Interpretation Comme nts Ventricular rate (test code = 253) Atrial rate (test code = 255) MA interval (test code = 266) QRSD interval (test code = 260) QT interval (test code = 264) QTC interval (test code = 265) QRS axis 1 (test code = 268) T wave axis (test code = 270) EKG impression (test code = 273) AV dual-paced rhythm-Abnormal ECG- In automated comparison with ECG of 11-JUL-2011 09:23,-No significant change was found- [facility] [id number] 20:48:51 Test Item Value Reference Range Interpretation Comments Interpretation (test Negative results do code = 8752558) not preclude 2019-nCoV infection and should not be used as the sole basis for treatment or other patient management decisions. Negative results must be combined with clinical observations, patient history, and epidemiological information. COVID-19 qualitative Not-Detected Not-Detected RT-PCR result (test code = 00245-4) COVID-19 qualitative See link below for C ase Number: RT-PCR (test code = PDF Lab Report [id number]) [facility]
[2022-06-14 19:16] LABS: Protime INR 2.69
[2022-06-14 19:21] LABS: Absolute Lymphocytes (CBC) 0.9 K/uL (0.7-4.9); Hematocrit 36.9 % (39.6-49.0); Lymphocytes % 25.4 % (15.3-44.8); MCV 85.2 fL (80-100); MPV 10.2 fL (7.6-11.3); RBC Red Blood Cell Count 4.33 M/uL (4.33-5.43)
[2022-06-14 19:26] LABS: ALT/SGPT 31 U/L (16-61); AST/SGOT 36 U/L (15-37); Albumin 3.5 g/dL (3.4-5.0); Alkaline Phosphatase 44 U/L (45-117); BUN Blood Urea Nitrogen 26 mg/dL (7-18); Bicarbonate 27 mEq/L (21-32); Bilirubin Direct 0.2 mg/dL (0-0.2); Bilirubin Total 0.3 mg/dL (0.2-1.0); Glomerular Filtration Rate 60 ml/min (=/>90); Glucose Level 99 mg/dL (74-106); Protein, Total 6.8 g/dL (6.4-8.2); Sodium Level 142 mEq/L (136-145)
[2022-06-14 19:39] LABS: SARS-CoV-2 Antigen Rapid Res Negative (Negative)
--- NOTE | 2022-06-14 20:58 | RAD REPORT ---
EXAM DESCRIPTION: CT - CTHCSPWOC - 06/14/2022 8:38 pm CLINICAL HISTORY: fall COMPARISON: Head Brain Wo Cont dated 11/22/2021 TECHNIQUE: Axial thin cut noncontrast CT images of the head were obtained. Axial thin cut noncontrast CT images of the cervical spine were obtained. Multiplanar reformatted images were generated and reviewed. All CT scans are performed using dose optimization technique as appropriate and may include automated exposure control or mA/KV adjustment according to patient size. FINDINGS: CT HEAD WITHOUT CONTRAST: No acute hemorrhage, hydrocephalus or extra-axial collection is identified.Mild diffuse parenchymal v olume loss. Ventricular caliber stable. Mild periventricular white matter hypodensities, nonspecific, most suggestive of chronic small vessel ischemic changes. Partially empty sella again noted.No areas of brain edema or midline shift. The paranasal show mild scattered inflammatory mucosal thickening. Mastoid air cells are clear. The c alvarium is intact. CT CERVICAL SPINE WITHOUT CONTRAST: No fracture or subluxation.No prevertebral soft tissues swelling is identified. Stable multilevel de generative changes with degrees of disc height loss and neural foraminal stenosis, generally worse on the left. IMPRESSION: No acute traumatic intracranial or cervical spine findings. Stable chronic findings as above.
[2022-06-14] MEDS ORDERED: WATER FOR INJ,STERILE 10 ML ONE (21:14)
[2022-06-14] MEDS ORDERED: ZIPRASIDONE MESYLA 20 MG/VIAL IM ONE (21:14)
[2022-06-14] MEDS ORDERED: LORazepam 2 MG/ML VIAL ONE (22:15)
--- NOTE | 2022-06-14 23:31 | P.CNS ---
Date of Consult: 06/14/22 Reason for Consult: Medical management Requesting Physician: Jas Gay Chief Complaint: Possible accidental overdose History of Present Illness: 86-year-old male with history of atrial fibrillation on chronic anticoagulation, dementia, hypothyroidism, GERD presents to the emergency department with chief complaint of possible medication overdoseaccidental. Family reports they refilled his pill container in the morning for 3 days and when they checked it again later in the day the pills were gone, cannot be confirmed whether he took the medications. Dosages listed in EMR but the medications are as follows famotidine, gabapentin, levothyroxine, Xarelto, sotalol. He presented to the emergency department at 1825, latest ingestion possible would have been 1800, no family currently at bedside for interview patient is oriented x1-2 at baseline therefore not a good historian. He was evaluated in the emergency department his labs were significant for negative acetaminophen level platelets 114 INR 2.[address] head/C-spine which was negative for acute findings. I personally discussed the case with poison control [facility] Case #[id number], they suggested the patient should be observed for 12 hours from ingestion, the latest this could possibly be is 6 AM on 06/15/2022, patient asymptomatic at this time his INR was similarly elevated earlier this month, EKG is the same/slightly improved in regards to QRS duration, QT/QTc from EKG on 05/23/2022. Patient is agitated in ED, received Tessie Thompson. Plan is for observation in ED overnight with discharge at 6 AM assuming patient is asymptomatic. We will continue to monitor closely, hospitalist team consulting for now. Allergies No Known Allergies Allergy (Verified 01/13/18 10:44) Home Medications: Cephalexin [Keflex*] 500 mg PO Q6HR #28 cap 02/19/18 Cholecalciferol (Vitamin D3) [Vitamin D3] 2,000 unit PO DAILY 02/19/18 Copper Gluconate [Copper] 2 mg PO DAILY 02/19/18 Cyanocobalamin (Vitamin B-12) [Vitamin B-12] 5,000 mcg PO DAILY 02/19/18 Gabapentin 100 mg PO DAILY 02/19/18 Gabapentin 200 mg PO BEDTIME 02/19/18 Pyridoxine HCl [Vitamin B-6] 25 mg PO DAILY 02/19/18 Rivaroxaban [Xarelto] 20 mg PO DAILY 02/19/18 Simvastatin 40 mg PO DAILY 02/19/18 Simvastatin [Zocor] 40 mg PO DAILY 02/19/18 Sotalol HCl [Betapace*] 40 mg PO BID 02/19/18 Tamsulosin HCl 0.4 mg PO DAILY 02/19/18 Tramadol HCl [Ultram] 50 mg PO Q6H PRN 02/19/18 Zinc Sulfate [Zinc Sulfate*] 220 mg PO DIRECTED 02/19/18 - Past Medical/Surgical History Diabetic: No -: gout -: hyperlipidemia -: HTN -: CAD -: A-fib on chronic anticoagulation -: Hypothyroidism -: pacemaker placement -: CABG -: TURP -: cataract sx Psychosocial/ Personal History: Lives at home with family - Social History Smoking Status: Unknown if ever smoked Alcohol use: No CD- Drugs: No Place of Residence: Home Review of Systems is unable to be obtained Physical Examination General: Alert, In no apparent distress, Oriented x2 HEENT: Atraumatic, PERRLA, Mucous membr. moist/pink, EOMI, Sclerae nonicteric Neck: Supple, 2+ carotid pulse no bruit, No LAD, Without JVD or thyroid abnormality Respiratory: Clear to auscultation bilaterally, Normal air movement Cardiovascular: Regular rate/rhythm, Normal S1 S2 Gastrointestinal: Normal bowel sounds, No tenderness Musculoskeletal: No tenderness Integumentary: No rashes Neurological: Normal gait, Normal speech, Normal tone, Normal affect Lymphatics: No axilla or inguinal lymphadenopathy Laboratory Data (last 24 hrs) 06/14/22 18:37: PT 29.6 H, INR 2.69, APTT 51.6 H 06/14/22 18:37: WBC 3.60 L, Hgb 12.3 L, Hct 36.9 L, Plt Count 114 L 06/14/22 18:37: Sodium 142, Potassium 4.0, BUN 26 H, Creatinine 1.19, Glucose 99, Total Bilirubin 0.3, AST 36, ALT 31, Alkaline Phosphatase 44 L Conclusions/Impression: Assessment: Possible accidental overdose Atrial fibrillation on chronic anticoagulation Hypothyroidism GERD Hyperlipidemia Plan: Possible accidental overdose Atrial fibrillation on chronic anticoagulation Hypothyroidism GERD Hyperlipidemia Case was discussed with poison control recommend 12-hour observation post ingestion, the latest possible ingestion was 1800 therefore patient is asymptomatic he can be discharged the morning of 06/15/2022 at 6 AM. We will hold his home medications given he may have taken 3 days worth of them last night. Primary concerns in regards to this ingestion would be prolonged QT/QTc/QRS given sotalol ingestion. DVT PPX: Lovenox Code status: Full Critical Care: No Time Spent Managing Pts care (In Minutes): 35
--- NOTE | 2022-06-15 00:42 | EDPHYS ---
Physician Documentation [facility] Name: Tong Norton Age: 86 yrs Sex: Male : 1935 Arrival Date: 06/14/2022 Time: 18:24 Bed 5 Private MD: ED Physician Jas Gay HPI: 06/14 20:08 This 86 yrs old Male presents to ER via Ambulatory with complaints of Possible Overdose.ms3 20:08 86-year-old male with past medical history of dementia and atrial fibrillation presents ms3 via [facility] for possible overdose. Patient possibly took 3 days worth of medication. EMS states on Thursday patient was noticed to be restless. EMS notes patient had a fall on . Patient denies pain or symptoms at this time. Historical: - Home Meds: 18:50 famotidine 40 mg Oral tablet once [Active]; fenofibrate oral 134mg once [Active]; aa5 gabapentin 100 mg oral capsule take 2 capsules every morning and 1 capsule at bedtime [Active]; levothyroxine 50 mcg tablet once [Active]; Namenda 5 mg oral tablet 2 times per day [Active]; ondansetron HCl 4 mg Oral tablet 2 times per day [Active]; Sotalol 40mg Oral 2 times per day [Active]; tadalafil 5 mg oral tablet daily [Active]; Xarelto 20 mg oral tablet daily [Active]; - PMHx: 18:25 Dementia; aa5 18:50 Atrial fibrillation; aa5 - Immunization history:: Adult Immunizations unknown. - Social history:: Smoking status: unknown. - Family history:: not pertinent. ROS: 20:08 Constitutional: Negative for fever, and chills. ENT: Negative for injury, pain, and ms3 discharge, Neck: Negative for injury, pain, and swelling, Cardiovascular: Negative for chest pain, and palpitations. Respiratory: Negative for shortness of breath, cough, wheezing, and pleuritic chest pain, Abdomen/GI: Negative for abdominal pain, nausea, vomiting, diarrhea, and constipation, : Negative for injury, bleeding, discharge, and swelling, MS/Extremity: Negative for injury and deformity, Skin: Negative for injury, rash, and discoloration. 20:08 All other systems are negative. Exam: 20:08 Constitutional: This is a well developed, well nourished patient who is awake, alert, ms3 and in no acute distress. Head/Face: Normocephalic, atraumatic. ENT: Nares patent. No nasal discharge, no septal abnormalities noted. Tympanic membranes are normal and external auditory canals are clear. Oropharynx with no redness, swelling, or masses, exudates, or evidence of obstruction, uvula midline. Mucous membranes moist. Neck: Trachea midline, no cervical lymphadenopathy. Supple, full range of motion without nuchal rigidity, or vertebral point tenderness. No Meningismus. Chest/axilla: Normal chest wall appearance and motion. Nontender with no deformity. Cardiovascular: Regular rate and rhythm with a normal S1 and S2. No gallops, murmurs, or rubs. Normal PMI, no JVD. No pulse deficits. Respiratory: Lungs have equal breath sounds bilaterally, clear to auscultation and percussion. No rales, rhonchi or wheezes noted. No increased work of breathing, no retractions or nasal flaring. Abdomen/GI: Soft, non-tender, with normal bowel sounds. No distension or tympany. No guarding or rebound. No evidence of tenderness throughout. Skin: Warm, dry with normal turgor. Normal color with no rashes, no lesions, and no evidence of cellulitis. MS/ Extremity: Pulses equal, no cyanosis. Neurovascular intact. Full, normal range of motion. 20:21 ECG was reviewed by the Attending Physician. EKG time 1917 , a paced rhythm at the sp4 rate of 60, ventricular paced rhythm Vital Signs: 18:25 BP 157 / 72; Pulse 59; Resp 16 S; Temp 98(TE); Pulse Ox 97% on R/A; aa5 19:00 BP 116 / 72; Pulse 60; Resp 20; Temp 98; Pulse Ox 98% on R/A; Pain 0/10; pf1 20:00 BP 113 / 69; Pulse 62; Resp 18; Pulse Ox 99% on R/A; pf1 21:00 BP 116 / 71; Pulse 60; Resp 16; Pulse Ox 99% on R/A; pf1 22:00 BP 115 / 70; Pulse 61; Resp 16; Pulse Ox 99% on 2 lpm NC; pf1 23:00 BP 118 / 69; Pulse 63; Resp 16; Pulse Ox 99% on 3 lpm NC; Pain 0/10; pf1 06/15 00:00 BP 118 / 64; Pulse 66; Resp 17; Pulse Ox 99% on 2 lpm NC; jb4 01:00 BP 119 / 68; Pulse 61; Resp 16; Pulse Ox 99% on 2 lpm NC; Pain 0/10; pf1 19:00 Pain Scale: Adult pf1 23:00 Pain Scale: Adult pf1 01:00 Pain Scale: Adult pf1 MDM: 06/14 18:26 Patient medically screened. ms3 19:07 Transition of care: After a detail discussion of the patient's case, care is ms3 transferred to Jas Gay MD. 20:08 Differential diagnosis: over medication, closed head injury, intracranial hemorrhage. ms3 20:21 Data reviewed: vital signs, nurses notes, EMS record, old medical records, lab test sp4 result(s), EKG, radiologic studies, CT scan. ED course: Patient's care assumed from daytime provider at 7 PM. Patient is very pleasant 86-year-old male with baseline dementia who presents with EMS after he reportedly took 3 days worth of his medication at home. . 20:21 ED course: At home patient takes fenofibrate, gabapentin, Xarelto 20 mg p.o. daily, sp4 simvastatin, sotalol 40 mg p.o. twice daily, tamsulosin, Synthroid, Namenda, Tadafil and he has history of atrial fibrillation, coronary artery disease, hypertension, dyslipidemia. Patient himself could not tell me why he is in the hospital or how much medicine he took at home. Vital signs are stable at this time, chemistry panel essentially normal, CBC reveals mild leukopenia with a white cell 3.6 otherwise normal, alcohol screen is negative, acetaminophen screen is negative, PT 29.6, INR 2.69 consistent with Xarelto, PTT 51.6 and COVID screen is negative. Vital signs are stable patient presumably needs a monitor for the next 24 hours secondary to unknown ingestion of home medications at unknown time. . 20:30 ED course: Patient has exhibited some restlessness in ER family requested patient sp4 receive something to help him sleep and relax, at this time will order Geodon intramuscular to help patient relax and get some sleep. . 21:48 ED course: Discussed case with poison control [facility] case number [id number]. Provided medications/doses including maximum possible amount of three days of each med including xarelto, sotalol, levothyroxine, gabapentin. Labs and EKG reviewed. Patient had EKG and labs performed on 05/23/2022 without significant change in QT/QTC/QRS duration, INR also similar. Poison control recommends 12 hour observation from time of possible ingestion which will be at 0600 on 06/15/2022. Patient will be observed in the ED overnight. . 21:52 ED course: CT head without contrast revealed no acute hemorrhage, hydrocephalus, or sp4 extra-axial collection normal ventricles, partially empty sella, no area of brain edema midline shift. No acute intracranial abnormality. CT cervical spine revealed no acute traumatic intracranial or cervical spine findings, stable chronic findings as above.. 22:41 Consideration of Admission/Observation Patient was admitted/placed on observation. sp4 Escalation of care including admission/observation considered. ED course: Poison control advised monitoring until 6 AM, patient developed some psychomotor agitation and had to be given IV Ativan for psychomotor agitation associated with dementia. ED course: This time we will continue monitoring in the emergency department until 6 AM and then will reevaluate the patient. . 22:42 ED course: CT head and cervical spine revealed no acute traumatic intracranial or sp4 cervical spine findings, stable chronic findings as above. 06/14 18:27 Order name: Acetaminophen; Complete Time: 20:09 3 06/14 18:27 Order name: BMP; Complete Time: 20:09 ms3 06/14 18:27 Order name: CBC with Diff; Complete Time: 20:09 3 06/14 18:27 Order name: Ethanol; Complete Time: 20:09 ms3 06/14 18:27 Order name: Hepatic Function; Complete Time: 20:09 ms3 06/14 18:27 Order name: Protime (+inr); Complete Time: 20:09 ms3 06/14 18:27 Order name: Ptt, Activated; Complete Time: 20: ms3 06/14 18:27 Order name: SARS-COV-2 Antigen Rapid; Complete Time: 20:09 ms3 06/14 18:27 Order name: Salicylate; Complete Time: 20:30 ms3 06/14 18:27 Order name: Urine Drug Screen 06/15 00:49 Order name: Basic Metabolic Panel EDMS 06/15 00:49 Order name: Basic Metabolic Panel; Complete Time: 13:53 EDMS 06/15 00:49 Order name: CBC with Automated Diff EDMS 06/15 00:49 Order name: CBC with Automated Diff; Complete Time: 13:53 EDMS 06/15 00:49 Order name: Magnesium EDMS 06/15 00:49 Order name: Magnesium; Complete Time: 13:53 EDMS 06/15 00:49 Order name: Protime (+INR) EDMS 06/15 00:49 Order name: Protime (+INR); Complete Time: 13:53 EDMS 06/14 20:09 Order name: CT Head C Spine; Complete Time: 21:32 ms3 06/14 18:27 Order name: EKG; Complete Time: 18:28 ms3 06/15 00:49 Order name: Heart Healthy EDMS 06/15 00:49 Order name: EKG Electrocardiogram EDMS 06/14 18:27 Order name: EKG - Nurse/Tech; Complete Time: 20:03 ms3 06/14 18:27 Order name: IV Saline Lock; Complete Time: 18:58 ms3 06/14 18:27 Order name: Labs collected and sent; Complete Time: 18:58 ms3 06/14 18:27 Order name: O2 Per Protocol; Complete Time: 18:58 ms3 06/14 18:27 Order name: O2 Sat Monitoring; Complete Time: 18:58 ms3 EC:21 Rate is 60 beats/min. Rhythm is regular, Paced. sp4 Administered Medications: 21:25 Drug: Geodon IM 20 mg Route: IM; Site: right gluteus; pf1 22:44 Drug: Ativan IVP 2 mg {Note: Administered by Samantha, RN.} Route: IVP; Site: right forearm; jb4 22:45 Not Given (Duplicate Order): LORazepam IM 2 mg IM once jb4 06/15 03:57 Drug: Ativan IVP 1 mg Route: IVP; Site: right forearm; kl Disposition: 00:39 Co-signature as Attending Physician, Jas Gay MD I agree with the assessment sp4 and plan of care. Disposition Summary: 06/15/22 00:42 Hospitalization Ordered Hospitalization Status: Observation sp4 Provider: Micah Kilgore sp4 Condition: Stable sp4 Problem: new sp4 Symptoms: have improved sp4 Bed/Room Type: Standard sp4 Location: [facility] ER HOLD(06/15/22 01:13) cg Room Assignment: ERHOLD-(06/15/22 01:13) cg Diagnosis - Overdose sotalol. Acute medication overdose, agitation requiring sedation sp4 Forms: - Medication Reconciliation Form sp4 - SBAR form sp4 Signatures: Dispatcher [employer] EDMckenna Gutierrez RN RN Constanza Barrientos RN RN aa5 Shyam Menendez, RETORT SETTER-C RETORT SETTER-Cla1 Tia Davis RN RN cg Papo Galloway RN RN jb4 Dayne Mandel DO DO ms3 Teo Goddard MD MD [id number] Alisa suggs RN RN pf1 Jas Gay MD MD sp4 Corrections: (The following items were deleted from the chart) 06/14 18:59 18:27 Suicide Screening ([place]) ordered. ms3 aa5 19:16 18:25 Allergies: Unable to obtain; aa5 aa5 06/15 01:13 00:42 Telemetry/MedSurg (observation) sp4 cg 01:13 00:42 sp4 cg
--- NOTE | 2022-06-15 00:42 | ER ---
Nurse's Notes [facility] Name: Tong Norton Age: 86 yrs Sex: Male : 1935 Arrival Date: 06/14/2022 Time: 18:24 Bed 5 Private MD: Diagnosis: Overdose sotalol. Acute medication overdose, agitation requiring sedation Presentation: 06/14 18:25 Chief complaint: EMS states: sent here for possible accidental overdose, missing 3 day aa5 worth of home medications (Xarelto, pepcid, gabapentin, levothyroxine). Pt states "I just feel like my top half is coming apart from my bottom half, my legs were shaking earlier". Pt has hx of Dementia and is currently A\\T\\O x person and time. EMS also reports family reported restlessness since Thursday and witnessed fall on without head injury. 18:25 Coronavirus screen: At this time, the client does not indicate any symptoms associated aa5 with coronavirus-19. Ebola Screen: Patient denies travel to an Ebola-affected area in the 21 days before illness onset. Initial Sepsis Screen: Does the patient meet any 2 criteria? No. Patient's initial sepsis screen is negative. Does the patient have a suspected source of infection? No. Patient's initial sepsis screen is negative. Risk Assessment: Do you want to hurt yourself or someone else? Unable to obtain. Onset of symptoms was June 14, 2022. 18:25 Acuity: DOMENICO 3 aa5 18:25 Method Of Arrival: Ambulatory aa5 18:25 Care prior to arrival: IV initiated. 20 GA, in the right forearm. aa5 Historical: - Home Meds: 18:50 famotidine 40 mg Oral tablet once [Active]; fenofibrate oral 134mg once [Active]; aa5 gabapentin 100 mg oral capsule take 2 capsules every morning and 1 capsule at bedtime [Active]; levothyroxine 50 mcg tablet once [Active]; Namenda 5 mg oral tablet 2 times per day [Active]; ondansetron HCl 4 mg Oral tablet 2 times per day [Active]; Sotalol 40mg Oral 2 times per day [Active]; tadalafil 5 mg oral tablet daily [Active]; Xarelto 20 mg oral tablet daily [Active]; - PMHx: 18:25 Dementia; aa5 18:50 Atrial fibrillation; aa5 - Immunization history:: Adult Immunizations unknown. - Social history:: Smoking status: unknown. - Family history:: not pertinent. Screenin:00 [facility] ED Fall Risk Assessment (Adult) History of falling in the last 3 months, jb4 including since admission No falls in past 3 months (0 pts) Confusion or Disorientation Yes (5 pts) Score/Fall Risk Level 3 or more points = High Risk Oriented to surroundings, Maintained a safe environment, Educated pt \\T\\ family on fall prevention, incl call for assistance when getting out of bed, Assessed \\T\\ reinforced patient's understanding of fall precautions. Abuse screen: Denies threats or abuse. Nutritional screening: No deficits noted. Tuberculosis screening: No symptoms or risk factors identified. Assessment: 18:25 General: Appears comfortable, Behavior is calm, cooperative. Pain: Denies pain. Neuro: aa5 Level of Consciousness is awake, obeys commands, confused, Oriented to person, time, Interactive Media Marketing Strategist are equal bilaterally Moves all extremities. Speech is normal, Facial symmetry appears normal. Cardiovascular: Patient's skin is warm and dry. Respiratory: Airway is patent Respiratory effort is even, unlabored, Respiratory pattern is regular, symmetrical. GI: Abdomen is round non-distended, Bowel sounds present X 4 quads. Abd is soft and non tender X 4 quads. Patient currently denies nausea, vomiting. : No signs and/or symptoms were reported regarding the genitourinary system. EENT: Eyes with exudate noted from left eye Sclera/Cornea are reddened in left eye. Derm: Skin is pink, warm \\T\\ dry. Musculoskeletal: Range of motion: intact in all extremities. 18:40 Reassessment: Pt's family at bedside. Pt's family states "he's not been sleeping at all aa5 and today I refilled his pill container this morning for 3 days and when I checked it again all the pills were gone so I am not sure if he took them" . 19:45 Reassessment: Pt is trying to pull out his IV. Pt assisted back to bed. jb4 20:30 Reassessment: Patient appears in no apparent distress at this time. No changes from pf1 previously documented assessment. Patient and/or family updated on plan of care and expected duration. Pain level reassessed. Patient states symptoms have improved. 21:30 Reassessment: Patient appears in no apparent distress at this time. No changes from pf1 previously documented assessment. Patient and/or family updated on plan of care and expected duration. Pain level reassessed. Patient states symptoms have improved. 22:30 Reassessment: Patient appears in no apparent distress at this time. No changes from pf1 previously documented assessment. Patient and/or family updated on plan of care and expected duration. Pain level reassessed. Patient states symptoms have improved. 23:30 Reassessment: Patient appears in no apparent distress at this time. No changes from pf1 previously documented assessment. 06/15 00:08 Reassessment: Patient appears in no apparent distress at this time. Patient and/or jb4 family updated on plan of care and expected duration. Pain level reassessed. Pt is resting in bed with eyes closed, respirations are even and unlabored with no s/s of pain or distress noted. 00:30 Reassessment: Patient appears in no apparent distress at this time. No changes from pf1 previously documented assessment. Patient denies pain at this time. 01:00 Reassessment: Patient appears in no apparent distress at this time. No changes from jb4 previously documented assessment. Patient and/or family updated on plan of care and expected duration. Pain level reassessed. 02:00 Reassessment: Patient appears in no apparent distress at this time. No changes from jb4 previously documented assessment. Patient and/or family updated on plan of care and expected duration. Pain level reassessed. Vital Signs: 06/14 18:25 BP 157 / 72; Pulse 59; Resp 16 S; Temp 98(TE); Pulse Ox 97% on R/A; aa5 19:00 BP 116 / 72; Pulse 60; Resp 20; Temp 98; Pulse Ox 98% on R/A; Pain 0/10; pf1 20:00 BP 113 / 69; Pulse 62; Resp 18; Pulse Ox 99% on R/A; pf1 21:00 BP 116 / 71; Pulse 60; Resp 16; Pulse Ox 99% on R/A; pf1 22:00 BP 115 / 70; Pulse 61; Resp 16; Pulse Ox 99% on 2 lpm NC; pf1 23:00 BP 118 / 69; Pulse 63; Resp 16; Pulse Ox 99% on 3 lpm NC; Pain 0/10; pf1 0430 00:00 BP 118 / 64; Pulse 66; Resp 17; Pulse Ox 99% on 2 lpm NC; jb4 01:00 BP 119 / 68; Pulse 61; Resp 16; Pulse Ox 99% on 2 lpm NC; Pain 0/10; pf1 19:00 Pain Scale: Adult pf1 23:00 Pain Scale: Adult pf1 01:00 Pain Scale: Adult pf1 ED Course: 06/14 18:25 Patient arrived in ED. eb 18:25 Arm band placed on. aa5 18:25 Patient has correct armband on for positive identification. Bed in low position. Call aa5 light in reach. Side rails up X 1. 18:26 Dayne Mandel DO is Attending Physician. ms3 18:37 Initial lab(s) drawn, by me, sent to lab. aa5 18:58 Constanza Barrientos RN is Primary Nurse. aa5 19:04 Attending Physician role handed off by Dayne Mandel DO sp4 19:04 Jas Gay MD is Attending Physician. sp4 19:05 Report given to ULYSSES Singh. aa5 19:20 Triage completed. aa5 20:40 CT Head C Spine In Process Unspecified. EDMS 22:30 Inserted saline lock: 22 gauge in right forearm, using aseptic technique. By GEORGE Paula Chandan tech'. 06/15 00:40 Micah Kilgore MD is Hospitalizing Provider. sp4 01:00 No provider procedures requiring assistance completed. pf1 01:13 Patient admitted, IV remains in place. pf1 Administered Medications: 06/14 21:25 Drug: Geodon IM 20 mg Route: IM; Site: right gluteus; pf1 22:44 Drug: Ativan IVP 2 mg {Note: Administered by ULYSSES Singh.} Route: IVP; Site: right forearm; jb4 22:45 Not Given (Duplicate Order): LORazepam IM 2 mg IM once jb4 06/15 03:57 Drug: Ativan IVP 1 mg Route: IVP; Site: right forearm; kl Medication: 01:13 VIS not applicable for this client. pf1 Outcome: 00:42 Decision to Hospitalize by Provider. sp4 01:13 Admitted to ER Hold. Please see [facility] for further documentation. pf1 01:13 Condition: stable pf1 01:13 Instructed on the need for admit, Demonstrated understanding of instructions. 17:44 Patient left the ED. bp Signatures: Dispatcher [employer] EDMckenna Gutierrez, RN RN Constanza Marrero RN RN aa5 Papo Galloway RN RN jb4 Cristian Leo RN RN Loan Earl Marcus, DO DO ms3 Alisa suggs RN RN pf1 Jas Gay MD MD sp4 Corrections: (The following items were deleted from the chart) 06/14 19:16 18:25 Allergies: Unable to obtain; aa5 aa5
[2022-06-15 03:03] LABS: Absolute Lymphocytes (CBC) 0.7 K/uL (0.7-4.9); Hematocrit 40.3 % (39.6-49.0); Lymphocytes % 17.7 % (15.3-44.8); MCV 86.1 fL (80-100); MPV 9.6 fL (7.6-11.3); RBC Red Blood Cell Count 4.68 M/uL (4.33-5.43)
[2022-06-15] MEDS: NA CHLORIDE 0.9% 1,000 ML IV SCH ×2 (03:04→11:00)
[2022-06-15 03:07] LABS: Protime INR 1.65
[2022-06-15 03:19] LABS: Potassium 4.1 mEq/L (3.5-5.1)
[2022-06-15] MEDS ORDERED: NA CHLORIDE 0.9% 1,000 ML ONE (03:21)
[2022-06-15] MEDS ORDERED: LORazepam 2 MG/ML VIAL ONE (04:00)
[2022-06-15 06:11] VITALS: BMI 22.5
[2022-06-15 06:16] VITALS: TEMP 98.2
[2022-06-15 08:25] VITALS: BP 118/78
[2022-06-15 17:52] LABS: Barbiturates NEGATIVE (NEGATIVE); Benzodiazepines NEGATIVE (NEGATIVE); Cocaine NEGATIVE (NEGATIVE); METHAMPHETAM NEGATIVE (NEGATIVE); Methadone NEGATIVE (NEGATIVE); Opiates NEGATIVE (NEGATIVE); Phencyclidine NEGATIVE (NEGATIVE); THC Cannibis NEGATIVE (NEGATIVE)
[2022-06-15 18:08] VITALS: O2SAT 99
--- NOTE | 2022-06-16 06:57 | P.DS ---
Admission Date: 06/15/22 Discharge Date: 06/15/22 Disposition: ROUTINE DISCHARGE Discharge Condition: GOOD Reason for Admission: Possible accidental overdose Brief History of Present Illness: 86yo M, PMH: atrial fibrillation on chronic anticoagulation, dementia, hypothyroidism, GERD Patient presents to the emergency department with chief complaint of possible medication overdoseaccidental. Family reports they refilled his pill container in the morning for 3 days and when they checked it again later in the day the pills were gone, cannot be confirmed whether he took the medications. Dosages listed in EMR but the medications are as follows famotidine, gabapentin, levothyroxine, Xarelto, sotalol. He presented to the emergency department at 1825, latest ingestion possible would have been 1800, no family currently at bedside for interview patient is oriented x1-2 at baseline therefore not a good historian. He was evaluated in the emergency department his labs were significant for negative acetaminophen level platelets 114 INR 2.[address] head/C-spine which was negative for acute findings. I personally discussed the case with poison control [place] location Case #[id number], they suggested the patient should be observed for 12 hours from ingestion, the latest this could possibly be is 6 AM on 06/15/2022, patient asymptomatic at this time his INR was similarly elevated earlier this month, EKG is the same/slightly improved in regards to QRS duration, QT/QTc from EKG on 05/23/2022. Patient is agitated in ED, received Tessie Thompson. Plan is for observation in ED overnight with discharge at 6 AM assuming patient is asymptomatic. We will continue to monitor closely, hospitalist team consulting for now. Hospital Course: Problem List: Possible accidental overdose Atrial fibrillation on chronic anticoagulation Hypothyroidism GERD Hyperlipidemia Physical Exam: GEN: Alert, oriented, NAD HEENT: Normal conjunctiva, sclera anicteric CV: Regular rate and rhythm, no edema Pulm: Nonlabored respirations on room air ABD: Soft, nontender, nondistended MSK: No joint tenderness Integumentary: No rashes Neuro: Normal speech, normal affect Vital Signs/Physical Exam: Temp Pulse Resp BP Pulse Ox 98.2 F 60 16 118/78 98 06/15/22 04:00 06/15/22 08:00 06/15/22 08:00 06/15/22 08:00 06/15/22 08:00 Laboratory Data at Discharge: WBC 4.20 thou/uL (4.3-10.9) L 06/15/22 02:50 Hgb 13.2 g/dL (13.6-17.9) L 06/15/22 02:50 Hct 40.3 % (39.6-49.0) 06/15/22 02:50 Plt Count 113 thou/uL (152-406) L 06/15/22 02:50 PT 18.2 SECONDS (9.5-12.5) H 06/15/22 02:50 INR 1.65 06/15/22 02:50 APTT 51.6 SECONDS (24.3-36.9) H 06/14/22 18:37 Sodium 142 mEq/L (136-145) 06/15/22 02:50 Potassium 4.1 mEq/L (3.5-5.1) 06/15/22 02:50 BUN 25 mg/dL (7-18) H 06/15/22 02:50 Creatinine 1.25 mg/dL (0.70-1.30) 06/15/22 02:50 Glucose 107 mg/dL (74-106) H 06/15/22 02:50 Magnesium 2.0 mg/dL (1.6-2.4) 06/15/22 02:50 Total Bilirubin 0.3 mg/dL (0.2-1.0) 06/14/22 18:37 AST 36 U/L (15-37) 06/14/22 18:37 ALT 31 U/L (16-61) 06/14/22 18:37 Alkaline Phosphatase 44 U/L (45-117) L 06/14/22 18:37 Home Medications: Cephalexin [Keflex*] 500 mg PO Q6HR #28 cap 02/19/18 Cholecalciferol (Vitamin D3) [Vitamin D3] 2,000 unit PO DAILY 02/19/18 Copper Gluconate [Copper] 2 mg PO DAILY 02/19/18 Cyanocobalamin (Vitamin B-12) [Vitamin B-12] 5,000 mcg PO DAILY 02/19/18 Gabapentin 100 mg PO DAILY 02/19/18 Gabapentin 200 mg PO BEDTIME 02/19/18 Pyridoxine HCl [Vitamin B-6] 25 mg PO DAILY 02/19/18 Rivaroxaban [Xarelto] 20 mg PO DAILY 02/19/18 Simvastatin 40 mg PO DAILY 02/19/18 Simvastatin [Zocor] 40 mg PO DAILY 02/19/18 Sotalol HCl [Betapace*] 40 mg PO BID 02/19/18 Tamsulosin HCl 0.4 mg PO DAILY 02/19/18 Tramadol HCl [Ultram] 50 mg PO Q6H PRN 02/19/18 Zinc Sulfate [Zinc Sulfate*] 220 mg PO DIRECTED 02/19/18 Time spent managing pt's care (in minutes): 45
--- NOTE | 2022-06-16 12:41 | EKG ---
Test Date: 2022-06-14 Test Time: 19:18:16 Acid Washer Operator: MEASUREMENT RESULTS: Intervals: Rate: 60 SC: QRSD: 180 QT: 518 QTc: 518 [place]: P: SC: QRS: -85 T: 78 INTERPRETIVE STATEMENTS: Wide QRS rhythm Left axis deviation Right bundle branch block Inferior infarct, age undetermined Abnormal ECG Compared to ECG 05/23/2022 20:36:23 Uncertain supraventricular rhythm now present Left-axis deviation now present Sinus rhythm no longer present Myocardial infarct finding still present Electronically Signed On 06-16-22 12:37:26 CDT by Zhen Freeman
--- NOTE | 2022-06-17 08:13 | EKG ---
Test Date: 2022-06-15 Test Time: 05:30:58 Bottom Steep Tender: ROHAN MEASUREMENT RESULTS: Intervals: Rate: 61 CA: 184 QRSD: 174 QT: 498 QTc: 501 [place]: P: 61 CA: 184 QRS: -88 T: 79 INTERPRETIVE STATEMENTS: AV dual-paced rhythm Abnormal ECG Compared to ECG 06/14/2022 19:18:16 Uncertain supraventricular rhythm no longer present Left-axis deviation no longer present Right bundle-branch block no longer present Myocardial infarct finding no longer present Electronically Signed On 06-17-22 08:11:08 CDT by Zhen Freeman
== END 2022-06-15 17:44 | disposition home or self-care (01) ==
LOC: ER 18:24 → ERHOLD 06-15 00:45
PROVIDERS: ADMIT Hospitalist; ATTEND Hospitalist
DX: T45.511A Poisoning by anticoagulants, accidental (unintentional), initial encounter (principal); T42.6X1A Poisoning by other antiepileptic and sedative-hypnotic drugs, accidental (unintentional), initial encounter; T38.1X1A Poisoning by thyroid hormones and substitutes, accidental (unintentional), initial encounter; T47.0X1A Poisoning by histamine H2-receptor blockers, accidental (unintentional), initial encounter; Y92.019 Unspecified place in single-family (private) house as the place of occurrence of the external cause; I48.11 Longstanding persistent atrial fibrillation; Z79.01 Long term (current) use of anticoagulants; E03.9 Hypothyroidism, unspecified; K21.9 Gastro-esophageal reflux disease without esophagitis; E78.5 Hyperlipidemia, unspecified; Z20.822 Contact with and (suspected) exposure to COVID-19
CPT/HCPCS: 93005 ×2; 85025 ×2; 80048 ×2; 36415; 83735; 85610 ×2; 80076; 85730; 80307; 70450; 72125; 96372; 96374; 99285; 87811; J3486; J7030; G0378 ×2; G0480 ×3

== ENCOUNTER 2022-07-11 08:44 | Emergency (ER) | payer OTHER ==
--- OUTSIDE RECORDS SUMMARY | 2022-07-11 08:51 | XMS REPORT | Continuity of Care Document ---
:1935 Author Organization [facility] t Address [address] [place] [address] [place] [id number] Care Team Providers Name Role Phone Loan Camacho MD Primary Care Physician [phone] Vega Villegas Attending Clinician Unavailable Maite Mackenzie RN Attending Clinician Unavailable AVTAR GALLO Attending Clinician Unavailable Jack Mancilla MD Attending Clinician Doroteo Pendleton MD Attending Clinician Abrahan John MD Attending Clinician Avtar Gallo DO Attending Clinician Sergio Torrez MD Attending Clinician LOAN CAMACHO Attending Clinician Unavailable Loan Camacho MD Attending Clinician [phone], [facility] Attending Clinician Unavailable Doctor Unassigned, [place] Attending Clinician Unavailable NICANOR CASTRO Attending Clinician Unavailable Sabra New Attending Clinician SABRA ROSS Attending Clinician Unavailable SERGIO TORREZ Attending Clinician Unavailable Bartolome Royal MD Attending Clinician Carrington Royal MD Attending Clinician ELLIS AHUJA Attending Clinician Unavailable Pob, [facility] Main Attending Clinician Unavailable Loan Camacho Admitting Clinician Unavailable ATVAR GALLO Admitting Clinician Unavailable Avtar Gallo DO Admitting Clinician BARTOLOME ROYAL Admitting Clinician Unavailable Payers Payer Name Policy Type Policy Number Effective Date Expiration Date [place] kate MEDICARE PART A [id number] 2001 AND B 00:00:00 Problems Condition Condition Condition Status Onset Resolution Last Treating Co mments Source Name Details Category Date Date Treatment Clinician Date Altered Altered Disease Active Univers mental mental 30 ity of status, status, 00:00: [place] unspecifie unspecifie 00 Me dical d altered d altered Bran ch mental mental status status type type Pacemaker Pacemaker Disease Active Met hodi at end of at end of 06-11 st battery battery 00:00: [facility] life life 00 l Memory Memory Disease Active Univers loss, loss, 03-09 ity of short term [place] term 00:00: [place] 00 [place] Branch Hypothyroi Hypothyroi Disease Active U nivers dism, dism, - ity of unspecifie unspecifie 00:[place] d type d type 00 Medical Branch Muscle Muscle Disease Active Univers tightness tightness - ity of 00:00: [place] 00 Medical Branch Chronic Chronic Disease Active Univers right right - ity of shoulder shoulder 00:00: [place] pain pain 00 Medical Branch Chronic Chronic Disease Active Univers midline midline - ity of low back low back 00:00: [place] pain pain 00 Medical without without Branch sciatica sciatica BPH BPH Disease Active Univers (benign (benign 05-17 ity of prostatic prostatic 00:00: [place] hyperplasi hyperplasi 00 Me dical a) a) Branch Mixed Mixed Disease Active Univers hyperlipid hyperlipid 3-30 it y of emia emia 00:00: [place] 00 Medical Branch Peripheral Peripheral Disease Active U nivers neuropathy neuropathy 3-30 it y of 00:00: [place] [facility] Neuropathy Neuropathy Disease Active U nivers 3-30 ity of 00:00: [place] 00 Medical Branch Gout Gout Disease Active Univers 3-30 ity of 00:00: [place] 00 Medical Branch CAD CAD Disease Active Univers (coronary (coronary ity of artery artery [place] disease) disease) Medica l Branch Pacemaker Pacemaker Disease Active Uni vers ity of [facility] Branch 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 [facility] Medical Branch Essential Essential Disease Active Uni vers hypertensi hypertensi it y of on on [facility] Branch Allergies, Adverse Reactions, Alerts Allergy Allergy Status Severity Reaction(s) Onset Inactive Treating Comm ents Source Name Type Date Date Clinician NO KNOWN Drug Active Univers ALLERGIE Class ity of S [place] [facility] Social History Social Habit Start Date Stop Date Quantity Comments Source History of tobacco Cigarette Smoker University of use [place] [facility] History SDOH University o f Alcohol Std Drinks [place] [facility] History SDOH University o f Alcohol Binge [place] Medic al Branch History SDOH Social Unive rsity of Connections Get [place] Med ical Together Branch History SDOH Social Unive rsity of Connections [facility] Medical Branch History SDOH Social Unive rsity of Connections [place] Medical Membership Branch History SDOH Social Unive rsity of Connections [place] Medical Meetings Branch Sexual orientation [facility] Exposure to 2022-06-07 2022-06-17 Unable to assess Univers ity of SARS-CoV-2 (event) 00:00:00 21:34:00 [place] [facility] History SDOH 2022-06-16 2022-06-16 1 University o f Alcohol Frequency 00:00:00 00:00:00 [facility] edical Branch History SDOH Social 2022-06-16 2022-06-16 1 Unive rsity of Connections Phone 00:00:00 00:00:00 [place] M edical Branch History SDOH Social 2022-06-16 2022-06-16 4 Unive rsity of Connections Living 00:00:00 00:00:00 [place] [facility] History SDOH 2022-06-16 2022-06-16 0 University o f Physical Activity 00:00:00 00:00:00 [place] M edical DPW Branch History SDNH 2022-06-16 2022-06-16 0 University o f Physical Activity 00:00:00 00:00:00 [place] M edical MPS Branch History SDOH 2022-06-16 2022-06-16 5 University o f Financial 00:00:00 00:00:00 [place] [facility] History SDOH Food 2022-06-16 2022-06-16 1 Univers ity of Worry 00:00:00 00:00:00 [place] [facility] History SDOH Food 2022-06-16 2022-06-16 1 Univers ity of Scarcity 00:00:00 00:00:00 [place] [facility] History SDOH 2022-06-16 2022-06-16 2 University o f Transport Med 00:00:00 00:00:00 [place] Medic al Branch History SDOH 2022-06-16 2022-06-16 2 University o f Transport Non-Med 00:00:00 00:00:00 [place] M edical Branch History SDOH 2022-06-16 2022-06-16 2 University o f Housing Unable to 00:00:00 00:00:00 [place] M edical Pay Branch History SDNH 2022-06-16 2022-06-16 1 University o f Housing Places 00:00:00 00:00:00 [place] Medi maritza Lived Branch History SDOH 2022-06-16 2022-06-16 2 University o f Housing Homeless 00:00:00 00:00:00 [facility] dical Last Year Branch Alcohol intake 2020-06-22 2020-06-22 Ex-drinker [facility] 00:00:00 00:00:00 (finding) Hospital History of Social 2020-06-22 2020-06-[address] function 00:00:00 00:00:00 Hospital Tobacco use and 2020-06-11 2020-06-11 Former smokeless Met hodist exposure 00:00:00 00:00:00 tobacco user Hospital Sex Assigned At [birth year] [facility] 00:00:00 00:00:00 Hospital Smoking Status Start Date Stop Date Source Ex-smoker 2020-09-06 00:00:00 2020-09-06 00:00:00 [facility] Medical Branch Medications Ordered Filled Start Stop Current Ordering Indication Dosage Frequency Signature Comments Components Source Medication Medication Date Date Medication? Clinician (SIG) Name Name risperiDONE 2022- Yes [id number] 1mg Take 1 Univers 1 mg tablet 5-16 06-16 tablet by it y of 00:00: 04:59 mouth [place] 00 :00 every Medical morning Branch for 30 days. risperiDONE 2022- Yes [id number] 1mg Take 1 Univers 1 mg tablet 5-16 -16 tablet by it y of 00:00: 04:59 mouth [place] 00 :00 every Medical morning Branch for [address] Yes [address] Uni vers min, 5-15 5,000 mcg ity of vitamin 18:38: under the [place] [id number], 30 tongue Medical ([facility]. [facility] 5,000 Take daily mcg Subl under the tongue Cholecalcif Yes 1{capsu Take 1 U nivers red, 5-15 le} capsule by ity of Vitamin D3, 18:38: mouth [place] (DIALYVITE 30 daily. Medical VITAMIN D) Take 1 Branch 5,000 unit 5000 mcg capsule capsule daily COPPER ORAL Yes Take by Uni vers 5-15 mouth ity of 18:38: daily. [address] cyanocobala Yes 5000[address] Place Uni vers min, 5-15 5,000 mcg ity of vitamin 18:38: under the [place] B-12, 30 tongue Medical (VITAMIN daily. Branch B-12) 5,000 Take daily mcg Subl under the tongue Cholecalcif Yes 1{capsu Take 1 U nivers red, 5-15 le} capsule by ity of Vitamin D3, 18:38: mouth [place] (DIALYVITE 30 daily. Medical VITAMIN D) Take 1 Branch 5,000 unit 5000 mcg capsule capsule daily COPPER ORAL Yes Take by Uni vers 5-15 mouth ity of 18:38: daily. [address] risperiDONE 2022- Yes [id number] 3mg Take 1 Univers 3 mg tablet 5-15 06-15 tablet by it y of 00:00: 04:59 mouth [place] 00 :00 every Medical evening Branch for 30 days. risperiDONE 2022- Yes [id number] 3mg Take 1 Univers 3 mg tablet 06-30 06-15 tablet by it y of 00:00: 04:59 mouth [place] 00 :00 every Medical evening Branch for 30 days. OLANZapine 2022-0 Yes 5mg 5 mg, Univer s (ZYPREXA) 5-14 Intramuscu ity of injection 5 18:49: lar, [place] mg 03 BIDPRN, Medical Starting Branch on Thu06/29/22 at 1349, Until Discontinu ed, Routine, severe agitation KCL 20 2022-0 Yes 40meq 40 mEq, Univers mEq/15 mL 5-14 Oral, ity of solution 40 00:00: DAILY, [place] mEq 00 First dose Medical (after Branch last modificati on) on Thu06/28/22 at 1900, Until Discontinu ed, Routine OLANZapine 2022- No 10mg 10 mg, Univ ers (ZYPREXA) 06-28-13 Intramuscu ity of injection 04:45: 03:59 lar, ONCE, [place] 10 mg 00 :00 1 dose, On Medical Fri Branch 06/27/22 at 2345, Routine risperiDONE 2022-0 Yes 3mg 3 mg, Unive rs (RISPERDAL) 5-12 Oral, QPM, it y of tablet 3 mg 22:00: First dose 00 (after Medical last Branch modificati on) on Thu06/27/22 at 1700, Until Discontinu ed, Routine risperiDONE 2022-0 Yes 1mg 1 mg, Unive rs (RISPERDAL) 5-12 Oral, QAM, it y of tablet 1 mg 14:00: First dose [place] 00 (after Medical last Branch modificati on) on Thu06/27/22 at 0900, Until Discontinu ed, Routine OLANZapine 0 2022- No 5mg 5 mg, Unive rs (ZYPREXA) 06-27-12 Intramuscu ity of injection 5 09:00: 08:18 lar, ONCE, [place] mg 00 :00 1 dose, On Medical Fri Branch 06/27/22 at 0400, Routine haloperidol 2022-0 2022- No 5mg 5 mg, Univ ers lactate 06-27-12 Intramuscu ity o f (HALDOL) 09:00: 08:18 lar, ONCE, [place] injection 5 00 :00 1 dose, On Me dical mg Fri Branch 06/27/22 at 0400, Routine OLANZapine 2022- No 5mg 5 mg, Unive rs (ZYPREXA) 06-27 Intramuscu ity of injection 5 06:30: 05:46 lar, ONCE, [place] mg 00 :00 1 dose, On [facility] 06/27/22 at 0130, Routine risperiDONE 2022- No 1mg 1 mg, Univ ers (RISPERDAL) 06-27 Oral, ity of tablet 1 mg 03:00: 02:07 ONCE, 1 [place] 00 :00 dose, On [facility] 06/26/22 at 2200, Routine risperiDONE 2022- No 2mg 2 mg, Univ ers (RISPERDAL) 06-26 Oral, QPM, i ty of tablet 2 mg 22:00: 01:48 First dose [place] 00 :41 on [facility] 06/26/22 at Branch 1700, Until Discontinu ed, Routine risperiDONE 2022- No 2mg 2 mg, Univ ers (RISPERDAL) 06-26 Oral, QAM, i ty of tablet 2 mg 14:00: 01:48 First dose [place] 00 :41 (after Medical last Branch modificati on) on [facility] 06/26/22 at 0900, Until Discontinu ed, Routine OLANZapine 2022- No 2.5mg 2.5 mg, Un jordon (ZYPREXA) 06-26 Intramuscu ity of injection 11:15: 10:36 lar, ONCE, [place] 2.5 mg 00 :00 1 dose, On [facility] 06/26/22 at 0615, Routine haloperidol 2022- No 5mg 5 mg, Univ ers lactate 06-26 Intramuscu ity o f (HALDOL) 10:21: 05:23 lar, PRN, Cristopher as injection 5 16 :00 1 dose, Medic al mg Starting Branch on [facility] 06/26/22 at 0521, Until Discontinu ed, Routine, Psychosis OLANZapine 2023-0 2023- No 2.5mg 2.5 mg, Un jordon (ZYPREXA) 06-26 Intramuscu ity of injection 05:52: 10:22 lar, PRN, [place] 2.5 mg 54 :30 2 doses, Medical Starting Branch on Thu06/26/22 at 0052, Until Thu06/26/22 at 0522, Routine, agitation OLANZapine 2022- No 5mg 5 mg, Unive rs (ZYPREXA) 06-25 Intramuscu ity of injection 5 06:08: 04:41 lar, [place] mg 29 :00 Q1HPRN, 1 Medical dose, Branch Starting on Thu06/25/22 at 0108, Until Discontinu ed, Routine, agitation haloperidol 2022- No 5mg 5 mg, Univ ers lactate 06-25 Intramuscu ity o f (HALDOL) 05:49: 06:01 lar, PRN, [place] as injection 5 06 :00 1 dose, Medic al mg Starting Branch on Thu06/25/22 at 0049, Until Discontinu ed, Routine, Psychosis OLANZapine 2022- No 2.5mg 2.5 mg, Un jordon (ZYPREXA) 06-25 Intramuscu ity of injection 05:48: 06:00 lar, PRN, [place] 2.5 mg 05 :00 2 doses, Medical Starting Branch on Thu06/25/22 at 0048, Until Discontinu ed, Routine, agitation NaCl 0.9% 2022- No 500mL at 999 Univ ers (NS) bolus 06-24-09 mL/hr, 500 it y of infusion 21:45: 23:16 mL, IV [place] 500 mL 00 :00 Piggyback, Medical ONCE, 1 Branch dose, On Thu06/24/22 at 1645, STAT haloperidol 2022- No 5mg 5 mg, Univ ers lactate 06-24 Intramuscu ity o f (HALDOL) 20:15: 05:03 lar, ONCE, [place] injection 5 00 :00 1 dose, On Me dical mg Thu06/24/22 Branch at 1515, Routine NaCl 0.9% 2022- No 500mL at 999 Univ ers (NS) bolus 06-24- mL/hr, 500 it y of infusion 18:00: 20:02 mL, IV [place] 500 mL 00 :00 [facility] ONCE, 1 Branch dose, On Thu06/24/22 at 1300, STAT levothyroxi 2022- Yes [id number] 75ug Take 1 Univers ne 75 mcg 06-24 tablet by ity of tablet 00:00: 04:59 mouth [place] 00 :00 every Medical morning Branch for 30 days. levothyroxi 0 2022- Yes [id number] 75ug Take 1 Univers ne 75 mcg 06-24- tablet by ity of tablet 00:00: 04:59 mouth [place] 00 :00 every Medical morning Branch for 30 days. rivaroxaban 2022-0 2022- No 20mg Take 20 mg Univers (XARELTO) 06-23 05-08 by mouth ity o f 20 mg Tab 10:49: 00:00 every [place] tablet 51 :00 evening. Medical Branch ZINC 0 2022- No Take by Univers ACETATE 06-23 05-08 mouth ity of ORAL 10:49: 00:00 daily. [place] 51 :00 Medical Branch aspirin 81 2022-0 Yes [id number] 81mg Take 1 U nivers mg chewable 5-08 tablet by ity of tablet 00:00: mouth in [place] 00 the Medical morning. Branch docusate Yes [id number] 100mg Take 1 Un jordon 100 mg 5-08 capsule by ity of capsule 00:00: mouth in [place] 00 the Medical morning Branch and 1 capsule in the evening. erythromyci 0 Yes .5[in_u Place 0.5 Univers n 5 mg/gram 5-08 s] Inches in ity of (0.5 %) 00:00: both eyes [place] ophthalmic 00 4 (four) Medic al ointment times Branch daily. KCL 20 mEq 0 Yes 40meq Take 2 Univ ers tablet 5-08 tablets by ity of 00:00: mouth in [place] 00 the Medical morning. Branch melatonin 3 0 Yes [id number] 3mg Take 1 Univers mg tablet 5-08 tablet by ity o f 00:00: mouth at [place] 00 bedtime. Medical Branch polyethylen 2023-0 Yes 17g Take 1 Univ ers e glycol 5-08 Packet by ity of 3350 17 00:00: mouth in [place] gram powder 00 the Medical morning. Branch aspirin 81 2022-0 Yes [id number] 81mg Take 1 U nivers mg chewable 5-08 tablet by ity of tablet 00:00: mouth in [place] 00 the Medical morning. Branch docusate 2022-0 Yes [id number] 100mg Take 1 Un jordon 100 mg 5-08 capsule by ity of capsule 00:00: mouth in [place] 00 the Medical morning Branch and 1 capsule in the evening. erythromyci 2022-0 Yes .5[in_u Place 0.5 Univers n 5 mg/gram 5-08 s] Inches in ity of (0.5 %) 00:00: both eyes [place] ophthalmic 00 4 (four) Medic al ointment times Branch daily. KCL 20 mEq 0 Yes 40meq Take 2 Univ ers tablet 5-08 tablets by ity of 00:00: mouth in [place] 00 the Medical morning. Branch melatonin 3 0 Yes [id number] 3mg Take 1 Univers mg tablet 5-08 tablet by ity o f 00:00: mouth at [place] 00 bedtime. Medical Branch polyethylen 0 Yes 17g Take 1 Univ ers e glycol 5-08 Packet by ity of 3350 17 00:00: mouth in [place] gram powder 00 the morning. Branch amLODIPine 2022-0 2022- Yes [id number] 10mg Take 1 Univers 10 mg 5-08 06-08 tablet by ity of tablet 00:00: 04:59 mouth in [place] 00 :00 the Medical morning Branch for 30 days. donepeziL 5 2022-2022- Yes [id number] 5mg Take 1 Univers mg tablet 5-08 06-08 tablet by ity of 00:00: 04:59 mouth in [place] 00 :00 the Medical morning Branch for 30 days. lisinopriL 2022-0 2022- Yes [id number] 5mg Take 1 Univers 5 mg tablet 5-08 06-08 tablet by it y of 00:00: 04:59 mouth in [place] 00 :00 the Medical morning Branch and 1 tablet in the evening. Do all this for 30 days. memantine 5 2022-0 2022- Yes [id number] 5mg Take 1 Univers mg tablet 06-23-08 tablet by ity of 00:00: 04:59 mouth in [place] 00 :00 the Medical morning Branch for 30 days. tamsulosin 2022- Yes [id number] .4mg Take 1 Univers 0.4 mg 24 06-23- capsule by ity of hr capsule 00:00: 04:59 mouth in [facility] 00 :00 the Medical morning Branch for 30 days. amLODIPine 2022- Yes [id number] 10mg Take 1 Univers 10 mg 06-23- tablet by ity of tablet 00:00: 04:59 mouth in [place] 00 :00 the Medical morning Branch for 30 days. donepeziL 5 2022- Yes [id number] 5mg Take 1 Univers mg tablet 06-23- tablet by ity of 00:00: 04:59 mouth in [place] 00 :00 the Medical morning Branch for 30 days. lisinopriL 2022- Yes [id number] 5mg Take 1 Univers 5 mg tablet 06-23-08 tablet by it y of 00:00: 04:59 mouth in [place] 00 :00 the Medical morning Branch and 1 tablet in the evening. Do all this for 30 days. memantine 5 2022- Yes [id number] 5mg Take 1 Univers mg tablet 06-23- tablet by ity of 00:00: 04:59 mouth in [place] 00 :00 the Medical morning Branch for 30 days. tamsulosin 2022- Yes [id number] .4mg Take 1 Univers 0.4 mg 24 06-23 capsule by ity of hr capsule 00:00: 04:59 mouth [place] 00 :00 the Medical morning Branch for 30 days. risperiDONE 2022- No 2mg Take 1 Uni vers 2 mg tablet 06-23 tablet by it y of 00:00: 00:00 mouth in [place] 00 :00 the Medical morning Branch and 1 tablet in the evening. KCL 20 2022- No 40meq 40 mEq, Univer s mEq/15 mL 06-22- Oral, ity of solution 40 18:45: 23:48 DAILY, Crist[place] as mEq 00 :51 First dose Medical on [facility] 06/22/22 at 1345, Until Discontinu ed, Routine LORazepam 2022-0 202- No .5mg 0.5 mg, Univ ers (ATIVAN) 06-22 Intravenou ity of injection 08:30: 08:24 s, ONCE, 1 [place] 0.5 mg 00 :00 dose, On [facility] 06/22/22 Branch at 0330, Routine docusate 0 Yes 100mg 100 mg, Unive rs (COLACE) 06-22 Oral, BID, ity o f capsule 100 01:00: First dose [place] mg 00 on [facility] 06/21/22 at Branch 1999, Until Discontinu ed, Routine lisinopriL 0 Yes 5mg 5 mg, Univer s (PRINIVIL,Z 06-22 Oral, BID, it y of ESTRIL) 01:00: First dose [place] tablet 5 mg 00 (after Medica l last Branch modificati on) on [facility] 06/21/22 at 1999, Until Discontinu ed, Routine risperiDONE 2022- No 2mg 2 mg, Univ ers (RISPERDAL) 06-22 Oral, BID, i ty of tablet 2 mg 01:00: 10:25 First dose [place] 00 :45 on [facility] 06/21/22 at Branch 1999, Until Discontinu ed, Routine polyethylen 0 Yes 17g 17 g, Unive rs e glycol 06-22 Oral, ity of 3350 powder 00:15: DAILY, [place] 17 g 00 First dose Medical on [facility] 06/21/22 at 1915, Until Discontinu ed, Routine lactulose 0 Yes 30mL 30 mL, Univer s (CEPHULAC) 06-22 Oral, ity of solution 30 00:07: BIDPRN, [place] as mL 04 Starting Medical on [facility] 06/21/22 at 1907, Until Discontinu ed, Routine, Constipati on memantine 2022-0 Yes 5mg 5 mg, Univers (NAMENDA) 06-21 Oral, ity of tablet 5 mg 18:15: DAILY, [place] 00 First dose Medical on [facility] 06/21/22 at 1315, Until Discontinu ed, Routine
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 Restricted medication : ABRAHAN JOHN donepeziL Yes 5mg 5 mg, Univers (ARICEPT) 06-21 Oral, ity of tablet 5 mg 18:15: DAILY, [place] 00 First dose Medical on [facility] Branch 06/21/22 at 1315, Until Discontinu ed, Routine haloperidoL 2022- No 2mg 2 mg, Univ ers (HALDOL) 06-2106 Oral, BID, ity of tablet 2 mg 01:00: 18:01 First dose [place] 00 :05 on Thu [facility] 06/20/22 at Branch 2000, Until Discontinu ed, Routine KCL 20 2022- No 40meq 40 mEq, Univer s mEq/15 mL 06-20 Oral, ity of solution 40 15:45: 16:15 ONCE, 1 [place] mEq 00 :00 dose, On Medical Thu06/20/22 Branch at 1045, Routine sennosides- 2022- No 1{tbl} 1 tablet, [facility] docusate 06-20 Oral, ity of sodium 14:00: 00:07 DAILY, [place] (SENOKOT-S) 00 :37 First dose Me dical 8.6-50 mg on Thu Branch per tablet 06/20/22 at 1 tablet 0900, Until Discontinu ed, Routine melatonin Yes 3mg 3 mg, Univers (MELATIN) 06-20 Oral, QHS, ity of tablet 3 mg 02:00: First dose [place] 00 on [facility] 06/19/22 at Branch 2100, Until Discontinu ed, Routine amLODIPine Yes 10mg 10 mg, Unive rs (NORVASC) 06-19 Oral, ity of tablet 10 19:30: DAILY, [place] mg 00 First dose Medical on [facility] 06/19/22 at 1430, Until Discontinu ed, Routine erythromyci Yes .5[in_u 0.5 Inch, Univers n 06-19 s] Both Eyes, ity of (ILOTYCIN) 17:00: QID, First [place] 5 mg/gram 00 dose on Medical (0.5 %) [facility] 06/19/22 Branch ophthalmic at 1200, ointment Until 0.5 Inch Discontinu ed, Routine OLANZapine 2022- No 5mg 5 mg, Unive rs (ZyPREXA) 06-19 Oral, BID, ity of tablet 5 mg 13:00: 15:51 First dose [place] 00 :20 on [facility] 06/19/22 at Branch 0800, Until Discontinu ed, Routine rivaroxaban 2022- No 20mg 20 mg, Uni vers (XARELTO) 06-19 Oral, QAM ity of tablet 20 13:00: 14:49 WITH [place] mg 00 :08 BREAKFAST, Medical First dose Branch on Thu06/19/22 at 0800, Until Discontinu ed, Routine LORazepam 2022- No 1mg 1 mg, Slow U nivers (ATIVAN) 06-19 IV Push, ity of injection 1 04:30: 04:13 ONCE, 1 [place] mg 00 :00 dose, On Thu06/18/22 Branch at 2330, Routine OLANZapine 2022- No 5mg 5 mg, Unive rs (ZyPREXA) 06-18 Oral, ity of tablet 5 mg 22:30: 21:49 ONCE, 1 [place] 00 :00 dose, On Medical Thu06/18/22 Branch at 1730, Routine OLANZapine 2022- No 10mg 10 mg, Univ ers (ZYPREXA) 06-18-05 Intramuscu ity of injection 21:15: 15:51 lar, [place] 10 mg 00 :20 BIDPRN, Medical Starting Branch on Thu06/18/22 at 1615, Until Thu06/20/22 at 1051, Routine, Agitation OLANZapine 2022- No 10mg 10 mg, Univ ers (ZYPREXA) 06-18- Intramuscu ity of injection 16:30: 21:16 lar, BID, [place] 10 mg 00 :14 First dose Medical on Thu Branch 06/18/22 at 1130, Until Discontinu ed, Routine LORazepam 2022- No 1mg 1 mg, Slow U nivers (ATIVAN) 06-18 IV Push, ity of injection 1 12:45: 11:51 ONCE, 1 [place] mg 00 :00 dose, On Medical Thu06/18/22 Branch at 0745, Routine QUEtiapine 2022- No 50mg 50 mg, Univ ers (SEROQUEL) 06-18 05-03 Oral, QHS, it y of tablet 50 02:00: 16:22 First dose [place] mg 00 :06 (after Medical last Branch modificati on) on Thu06/17/22 at 2100, Until Discontinu ed, Routine acetaminoph Yes 650mg 650 mg, Un jordon en 03 Oral, TID, ity of (TYLENOL) 01:00: First dose [place] tablet 650 00 on Thu Medical mg 06/17/22 at Branch 2000, Until Discontinu ed, Routine D5W 0.9% 2022- No 1000mL at 50 Univ rs NaCl (NS) 06-17 05-14 mL/hr, ity of IV infusion 21:30: 00:29 1,000 mL, [place] 1,000 mL 00 :30 IV Medical Infusion, Branch CONTINUOUS , Starting on Thu06/17/22 at 1630, Until 06/28/22 at 1929, Routine NaCl 0.9% 2022- No 500mL at 999 [facility] ers (NS) bolus 06-17 05-02 mL/hr, 500 it y of infusion 14:15: 15:41 mL, IV [place] 500 mL 00 :00 Piggyback, Medical ONCE, 1 Branch dose, On Thu06/17/22 at 0915, STAT aspirin Yes 81mg 81 mg, Univers chewable 06-17 Oral, ity of tablet 81 14:00: DAILY, [place] mg 00 First dose Medical on Thu06/17/22 at 0900, Until Discontinu ed, Routine simvastatin 0 2022- No 40mg 40 mg, Uni vers (ZOCOR) 06-17-03 Oral, ity of tablet 40 14:00: 21:27 DAILY, [place] mg 00 :17 First dose Medical on Thu06/17/22 at 0900, Until Discontinu ed, Routine levothyroxi Yes 75ug 75 mcg, Uni vers ne 06-17 Oral, ity of (SYNTHROID) 11:00: QAM-0600, [place] tablet 75 00 First dose Medi maritza mcg on Thu06/17/22 at 0600, Until Discontinu ed, Routine sotaloL Yes 40mg 40 mg, Univers (BETAPACE) 06-17 Oral, BID, ity of tablet 40 01:00: First dose [place] mg 00 on Thu [facility] 06/16/22 at [place] 1999, Until Discontinu ed, Routine
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 Restricted medication : MEGANY QUEtiapine 2022- No 25mg 25 mg, Univ ers (SEROQUEL) 06-17 05 Oral, BID, it y of tablet 25 01:00: 19:46 First dose [place] mg 00 :04 on [facility] 06/16/22 at [place] 1999, Until Discontinu ed, Routine dexMEDEtomi 2022- No .2ug/kg 0.2-1.5 Univers dine 400 06-16 05-05 /h mcg/kg/hr ity o f mcg in 0.9 23:04: 13:41 ?68 kg [place] % NaCl 100 20 :41 (3.4-25.5 Medi maritza mL mL/hr), IV Branch (PRECEDEX) Infusion, RTU IV TITRATE, infusion Starting on Thu06/16/22 at 1804, Until Thu06/20/22 at 0841, Routine NaCl 0.9% No 250mL at 999 Univ ers (NS) bolus 06-16 05 mL/hr, 250 it y of infusion 21:45: 22:20 mL, IV [place] 250 mL 00 :38 Piggyback, Medical ONCE, 1 Branch dose, On Thu06/16/22 at 1645, STAT dexMEDEtomi 2022- No .2ug/kg 0.2-1.5 Univers dine 200 06-16 05-01 /h mcg/kg/hr ity o f mcg in 0.9 20:35: 22:06 ?68 kg [place] % NaCl 50 12 :14 (3.4-25.5 Medic al mL mL/hr), IV Branch (PRECEDEX) Infusion, RTU IV TITRATE, infusion Sedation-R ASS score (0 to -1), Starting on Thu06/16/22 at 1535
In itiate infusion at 0.2 mcg/kg/hr and titrate by 0.1 mcg/kg/hr every 30 minutes to goal sedation score. Maximum dose = 1.5 mcg/kg/hr. If goal not maintained at maximum allowed dose, contact prescriber .
tamsulosin Yes .4mg 0.4 mg, [facility] ers (FLOMAX) 06-16 Oral, ity of capsule 0.4 19:45: DAILY, [place] 00 First dose Medical on Thu Branch 06/16/22 at 1445, Until Discontinu ed, Routine ziprasidone 2022- No 10mg 10 mg, Uni vers (GEODON) 06-16 Intramuscu ity of injection 17:00: 16:31 lar, ONCE, [place] 10 mg 00 :00 1 dose, On Medical Thu06/16/22 Branch at 1200, Routine nitroglycer Yes .4mg 0.4 mg, Uni vers in 06-16 Sublingual ity of (NITROSTAT) 16:17: , Q5MIN Cristopher as sublingual 03 PRN, Medical tablet 0.4 Starting Branc h mg on Thu06/16/22 at 1117, Until Discontinu ed, Routine, Chest pain enoxaparin 2022- No 1mg/kg 70 mg Uni vers (LOVENOX) 06-16 (rounded ity o f injection 13:00: 21:19 from 68 mg [place] 70 mg 00 :00 = 1 mg/kg Medical ?68 kg), Branch [facility], Q12H, First dose on Thu06/16/22 at 0800, Until Discontinu ed, Routine OLANZapine 2022- No 10mg 10 mg, [facility] ers (ZYPREXA) 06-16 Intramuscu ity of injection 12:30: 14:01 lar, ONCE, [place] 10 mg 00 :00 1 dose, On Medical Thu06/16/22 Branch at 0730, Routine LORazepam 2022- No 2mg 2 mg, Slow U nivers (ATIVAN) 06-16 IV Push, ity of injection 2 09:15: 08:26 ONCE, 1 [place] mg 00 :00 dose, On Medical Thu06/16/22 Branch at 0415, Routine haloperidol No 5mg 5 mg, Univ ers lactate 06-16 Intramuscu ity o f (HALDOL) 09:15: 08:30 [place], ONCE, [place] injection 5 00 :00 1 dose, On Me dical mg [facility] 06/16/22 Branch at 0415, Routine hydralAZINE No 10mg 10 mg, Uni vers (APRESOLINE 06-16 Slow IV ity of ) injection 08:38: 18:40 Push, [place] 10 mg 04 :40 Q4HPRN, Medical Starting Branch on [facility] 06/16/22 at 0338, Until Thu06/22/22 at 1340, Routine, DBP=&g t;100; SBP=>180 haloperidol No 2.5mg 2.5 mg, U nivers lactate 06-16 Intravenou ity o f (HALDOL) 04:30: 04:01 s, ONCE, 1 [place] injection 00 :00 dose, On Medica l 2.5 mg [facility] 06/15/22 at 2330, STAT haloperidol No 2.5mg 2.5 mg, U nivers lactate 06-16 Intravenou ity o f (HALDOL) 04:00: 03:47 s, ONCE, 1 [place] injection 00 :00 dose, On Medica l 2.5 mg [facility] 06/15/22 at 2300, STAT ondansetron Yes 4mg 4 mg, Slow Univers (ZOFRAN 06-16 IV Push, ity of (PF)) 03:32: Q6HPRN, [place] injection 4 27 Starting Medi maritza mg on [facility] 06/15/22 at 2232, Until Discontinu ed, Routine, Nausea and Vomiting (N/V) acetaminoph No 650mg 650 mg, U nivers en 06-16 Oral, ity of (TYLENOL) 03:32: 20:10 Q6HPRN, [place] tablet 650 18 :15 Starting Medic al mg on [facility] 06/15/22 at 2232, Until Tu06/17/22 at 1510, Routine, Pain (scale 1-3), Temp > 38 C FENOFIBRATE 2021-02 Yes [id number] TAKE 1 Univers MICRONIZED 0-07 CAPSULE ity of 134 mg 00:00: DAILY [place] capsule 00 Medical Branch FENOFIBRATE 2021-02- No [id number] TAKE 1 Univers MICRONIZED 0-07 05-08 CAPSULE ity o f 134 mg 00:00: 00:00 DAILY [place] capsule 00 :00 Medical Branch fenofibrate Yes [id number] 134mg Take 1 Univers micronized 7-06 capsule by ity of 134 mg 00:00: mouth [place] capsule 00 daily. Medical Branch fenofibrate 2021- No [id number] 134mg Take 1 Univers micronized 7-06 10-07 capsule by it y of 134 mg 00:00: 00:00 mouth [place] capsule 00 :00 daily. Medical Branch Pyridoxine 2021- No 20mg Take 20 mg Univers HCl 200 mg 07-29-13 by mouth ity of TbSR 11:19: 00:00 daily. [place] 43 :00 Take 20 mg Medical oral Branch daily. Pyridoxine 2021- No 20mg Take 20 mg Univers HCl 200 mg 07-29-13 by mouth ity of TbSR 11:19: 00:00 daily. [place] 43 :00 Take 20 mg Medical oral Branch daily. cyanocobala Yes 5000ug Place Uni vers min, 6-13 5,000 mcg ity of vitamin 11:19: under the [place] B-12, 25 tongue Medical (VITAMIN daily. Branch B-12) 5,000 Take daily mcg Subl under the tongue cyanocobala Yes 5000ug Place Uni vers min, 6-13 5,000 mcg ity of vitamin 11:19: under the [place] B-12, 25 tongue Medical (VITAMIN daily. Branch B-12) 5,000 Take daily mcg Subl under the tongue cyanocobala Yes 5000ug Place Uni vers min, 6-13 5,000 mcg ity of vitamin 11:19: under the [place] B-12, 25 tongue Medical (VITAMIN daily. Branch B-12) 5,000 Take daily mcg Subl under the tongue cyanocobala Yes 5000ug Place Uni vers min, 6-13 5,000 mcg ity of vitamin 11:19: under the [place] B-12, 25 tongue Medical (VITAMIN daily. Branch B-12) 5,000 Take daily mcg Subl under the tongue Cholecalcif 0 Yes 1{capsu Take 1 U [...] vers 6-13 mouth ity of 11:19: daily. [address] ZINC Yes Take by Univers ACETATE 6-13 mouth ity of ORAL 11:19: daily. [address] COPPER ORAL Yes Take by Uni vers 6-13 mouth ity of 11:19: daily. [address] ZINC 0 Yes Take by Univers ACETATE 6-13 mouth ity of ORAL 11:19: daily. [address] COPPER ORAL 0 Yes Take by Uni vers 6-13 mouth ity of 11:19: daily. [address] ZINC 0 Yes Take by Univers ACETATE 6-13 mouth ity of ORAL 11:19: daily. [address] COPPER ORAL 0 Yes Take by Uni vers 6-13 mouth ity of 11:19: daily. [address] ZINC 0 Yes Take by Univers ACETATE 6-13 mouth ity of ORAL 11:19: daily. [place] 14 Medical Branch rivaroxaban Yes 20mg Take 20 mg Univers (XARELTO) 6-13 by mouth ity of 20 mg Tab 11:17: every [place] tablet 13 evening. Medical Branch rivaroxaban Yes 20mg Take 20 mg Univers (XARELTO) 6-13 by mouth ity of 20 mg Tab 11:17: every [place] tablet 13 evening. Medical Branch rivaroxaban Yes 20mg Take 20 mg Univers (XARELTO) 6-13 by mouth ity of 20 mg Tab 11:17: every [place] tablet 13 evening. Medical Branch rivaroxaban Yes 20mg Take 20 mg Univers (XARELTO) 6-13 by mouth ity of 20 mg Tab 11:17: every [place] tablet 13 evening. Medical Branch fenofibrate Yes [id number] TAKE 1 Univers micronized 5-16 CAPSULE ity of 134 mg 00:00: DAILY [place] capsule 00 Medical Branch fenofibrate Yes [id number] TAKE 1 Univers micronized 5-16 CAPSULE ity of 134 mg 00:00: DAILY [place] capsule 00 Medical Branch fenofibrate 2021- No [id number] TAKE 1 Univers micronized 5-16 07-06 CAPSULE ity o f 134 mg 00:00: 00:00 DAILY [place] capsule 00 :00 Medical Branch traMADoL 50 2020-02 Yes [id number] 50mg Take 1 Univ ers mg tablet 1-29 tablet by ity o f 00:00: mouth 2 [place] 00 (two) Medical times Branch daily as needed (for yeimy patel nMarianaon Xarelto,un abletotake NSAIDs). Indication s: chronic pain simvastatin 2020-02 Yes [id number] 40mg Take 1 Univers 40 mg 1-29 tablet by ity of tablet 00:00: mouth [place] 00 daily. Medical Branch gabapentin 2020-02 Yes [id number] Take 1 tab Univers 100 mg 1-29 po qam and ity of capsule 00:00: 2 tabs po [place] 00 qpm Medical Branch levothyroxi 2020-02 Yes [id number] TAKE 1 Univers ne 50 mcg 1-29 TABLET ity of tablet 00:00: EVERY [place] 00 MORNING, Medical TAKE ON AN Branch EMPTY STOMACH AND WAIT 30 MINUTES BEFORE TAKING MEDICATION S OR EATING traMADoL 50 2020-02 Yes [id number] 50mg Take 1 Univ ers mg tablet 1-29 tablet by ity o f 00:00: mouth 2 (two) Medical times Branch daily as needed (for breakthrou gh lowbackpai n.on Xarelto,un abletotake NSAIDs). Indication s: chronic pain simvastatin 2020-02 Yes [id number] 40mg Take 1 Univers 40 mg 1-29 tablet by ity of tablet 00:00: mouth [place] 00 daily. Medical Branch gabapentin 2020-02 Yes [id number] Take 1 tab Univers 100 mg 1-29 po qam and ity of capsule 00:00: 2 tabs po [place] 00 qpm Medical Branch levothyroxi 2020-02 Yes [id number] TAKE 1 Univers ne 50 mcg 1-29 TABLET ity of tablet 00:00: EVERY [place] 00 MORNING, Medical TAKE ON AN Branch EMPTY STOMACH AND WAIT 30 MINUTES BEFORE TAKING MEDICATION S OR EATING traMADoL 50 2020-02 Yes [id number] 50mg Take 1 Univ ers mg tablet 1-29 tablet by ity o f 00:00: mouth 2 (two) Medical times Branch daily as needed (for breakthrou gh lowbackpai n.on Xarelto,un abletotake NSAIDs). Indication s: chronic pain simvastatin 2020-02 Yes [id number] 40mg Take 1 Univers 40 mg 1-29 tablet by ity of tablet 00:00: mouth [place] 00 daily. Medical Branch gabapentin 2020-02 Yes [id number] Take 1 tab Univers 100 mg 1-29 po qam and ity of capsule 00:00: 2 tabs po [place] 00 qpm Medical Branch levothyroxi 2020-02 Yes [id number] TAKE 1 Univers ne 50 mcg 1-29 TABLET ity of tablet 00:00: EVERY [place] 00 MORNING, Medical TAKE ON AN Branch EMPTY STOMACH AND WAIT 30 MINUTES BEFORE TAKING MEDICATION S OR EATING traMADoL 50 2020-02 Yes [id number] 50mg Take 1 Univ ers mg tablet 1-29 tablet by ity o f 00:00: mouth 2 (two) Medical times Branch daily as needed (for breakthrou gh lowbackpai n.on Xarelto,un abletotake NSAIDs). Indication s: chronic pain simvastatin 2020-02 Yes [id number] 40mg Take 1 Univers 40 mg 1-29 tablet by ity of tablet 00:00: mouth [place] 00 daily. Medical Branch gabapentin 2020-02 Yes [id number] Take 1 tab Univers 100 mg 03-16 po qam and ity of capsule 00:00: 2 tabs po [place] 00 qpm Medical Branch levothyroxi 2020-02 Yes [id number] TAKE 1 Univers ne 50 mcg 03-16 TABLET ity of tablet 00:00: EVERY 00 MORNING, Medical TAKE ON AN Branch EMPTY STOMACH AND WAIT 30 MINUTES BEFORE TAKING MEDICATION S OR EATING traMADoL 50 2020-02- No [id number] 50mg Take 1 Uni vers mg tablet 03-1608 tablet by ity of 00:00: 00:00 mouth 2 [place] 00 :00 (two) Medical times Branch daily as needed (for yeimy patel nMarianaon Xarelto,un abletotake NSAIDs). Indication s: chronic pain simvastatin 2020-02- No [id number] 40mg Take 1 Univers 40 mg 03-16- tablet by ity of tablet 00:00: 00:00 mouth [place] 00 :00 daily. Medical Branch gabapentin 2020-02- No [id number] Take 1 tab Univers 100 mg 03-16-08 po qam and ity of capsule 00:00: 00:00 2 tabs po [place] 00 :00 qpm Medical Branch levothyroxi 2020-02- No [id number] TAKE 1 Univers ne 50 mcg 03-16-08 TABLET ity of tablet 00:00: 00:00 EVERY [place] 00 :00 MORNING, Medical TAKE ON AN Branch EMPTY [...] a mg capsule 13 l traMADoL [place] [id number] 50mg Q6H Take 50 mg Me thodi [...] Will take after procedure traMADoL 2020-0 Yes [id number] 50mg Q6H Take 50 mg Me thodi [...] 19:09: daily. Hospita ORAL) 13 l prasterone, 2020-0 Yes QD Take by Met hodi dhea, 4-[address] (DHEA) 25 19:09: daily. Hospit a mg capsule 13 l traMADoL Yes [id number] 50mg Q6H Take 50 mg Me thodi [...] Method i gluconate 4-26 le} capsule by st (COPPER 19:09: mouth Hospita CAPS) 2 mg 13 daily. l capsule pyridoxal Yes 50mg QD Take 50 mg Me thodi phosphate 4-[address] (VB6 P5P 19:09: daily. Hospita ORAL) 13 l prasterone, 0 Yes QD Take by Met hodi dhea, 4-[address] (DHEA) 25 19:09: daily. Hospit a mg capsule 13 l traMADoL Yes [id number] 50mg Q6H Take 50 mg Me thodi (ULTRAM) 50 4-[address] mg tablet 19:09: every 6 Hospi ta 13 (six) l hours as needed for moderate pain .acute pain. Will take after procedure levothyroxi Yes 50ug QD Take 50 Met hodi ne 4-[address] (SYNTHROID) 19:09: mouth Hospi ta 50 mcg 13 daily. l tablet sotaloL Yes 40mg Q.5D Take 40 mg Meth lópez (BETAPACE) 4-[address] 80 MG 19:09: (two) Hospita tablet 13 times a l day. Taking 1/2 tablet twice a day minocycline Yes 100mg Q.5D Take 100 M ethodi (MINOCIN) 4-[address] 100 MG 19:09: mouth 2 Hospita capsule 13 (two) l times a day. Will take after procedure rivaroxaban Yes 20mg QD Take 20 mg [...] QD Take 40 mg Methodi (ZOCOR) 40 -[address] mg tablet 19:09: nightly. [...] QD Take 50 mg Me thodi phosphate -[address] (VB6 P5P 19:09: daily. Hospita ORAL) 13 l prasterone, Yes QD Take by Met hodi dhea, -[address] (DHEA) 25 19:09: daily. Hospit a mg capsule 13 l traMADoL Yes [id number] 50mg Q6H Take 50 mg Me thodi (ULTRAM) 50 -[address] mg tablet 19:09: every 6 Hospi ta 13 (six) l hours as needed for moderate pain .acute pain. Will take after procedure levothyroxi Yes 50ug QD Take 50 Met hodi ne 4-[address] (SYNTHROID) 19:09: mouth Hospi ta 50 mcg 13 daily. l tablet minocycline Yes 100mg Q.5D Take 100 M ethodi (MINOCIN) 4-[address] 100 MG 19:09: mouth 2 Hospita capsule 13 (two) l times a day. Will take after procedure sotaloL Yes 40mg Q.5D Take 40 mg [...] QD Take 40 mg Methodi (ZOCOR) 40 -[address] mg tablet 19:09: nightly. Hosp franci 13 l gabapentin Yes Take by Meth lópez (NEURONTIN) [address] 100 mg 19:09: capsule [...] QD Take 50 mg Me thodi phosphate -[address] (VB6 P5P 19:09: daily. Hospita ORAL) 13 l prasterone, Yes QD Take by Met suma dhea, -[address] (DHEA) 25 19:09: daily. Hospit a mg capsule 13 l sotalol 2015-02 Yes 40mg Take 40 mg Univ ers (BETAPACE) 0-11 by mouth 2 ity of 80 mg 00:00: (two) [place] tablet 00 times Medical daily. Branch sotalol 2015-02 Yes 40mg Take 40 mg Univ ers (BETAPACE) 0-11 by mouth 2 ity of 80 mg 00:00: (two) [place] tablet 00 times Medical daily. Branch sotalol 2015-02 Yes 40mg Take 40 mg Univ ers (BETAPACE) 0-11 by mouth 2 ity of 80 mg 00:00: (two) [place] tablet 00 times Medical daily. Branch sotalol 2015-02 Yes 40mg Take 40 mg Univ ers (BETAPACE) 0-11 by mouth 2 ity of 80 mg 00:00: (two) [place] tablet 00 times Medical daily. Branch sotalol 2015-02 Yes 40mg Take 40 mg Univ ers (BETAPACE) 0-11 by mouth 2 ity of 80 mg 00:00: (two) [place] tablet 00 times Medical daily. Branch sotalol 2015-02 Yes 40mg Take 40 mg Univ ers (BETAPACE) 0-11 by mouth 2 ity of 80 mg 00:00: (two) [place] tablet 00 times Medical daily. Branch Immunizations Ordered Filled Immunization Date Status Comments [facility] e Immunization Name Name Influenza High Dose 2020-10-31 Completed Unive rsity of 00:00:00 [facility] Influenza High Dose 2020-10-31 Completed Unive rsity of 00:00:00 [facility] Influenza High Dose 2020-10-31 Completed Unive rsity of 00:00:00 [facility] Influenza High Dose 2020-10-31 Completed Unive rsity of 00:00:00 [facility] Influenza High Dose 2020-10-31 Completed Unive rsity of 00:00:00 [facility] Influenza High Dose 2020-10-31 Completed Unive rsity of 00:00:00 [facility] SARS-COV-2 COVID-19 2020-03-30 Completed Unive rsity of PFIZER VACCINE 00:00:00 [facility] SARS-COV-2 COVID-19 2020-03-30 Completed Unive rsity of PFIZER VACCINE 00:00:00 [facility] SARS-COV-2 COVID-19 2020-03-30 Completed Unive rsity of PFIZER VACCINE 00:00:00 [facility] SARS-COV-2 COVID-19 2020-03-30 Completed Unive rsity of PFIZER VACCINE 00:00:00 [facility] SARS-COV-2 COVID-19 2020-03-30 Completed Unive rsity of PFIZER VACCINE 00:00:00 [facility] SARS-COV-2 COVID-19 2020-03-30 Completed Unive rsity of PFIZER VACCINE 00:00:00 [facility] SARS-COV-2 COVID-19 2020-03-09 Completed Unive rsity of PFIZER VACCINE 00:00:00 [facility] SARS-COV-2 COVID-19 2020-03-09 Completed Unive rsity of PFIZER VACCINE 00:00:00 [facility] SARS-COV-2 COVID-19 2020-03-09 Completed Unive rsity of PFIZER VACCINE 00:00:00 [facility] SARS-COV-2 COVID-19 2020-03-09 Completed Unive rsity of PFIZER VACCINE 00:00:00 [facility] SARS-COV-2 COVID-19 2020-03-09 Completed Unive rsity of PFIZER VACCINE 00:00:00 [facility] SARS-COV-2 COVID-19 2020-03-09 Completed Unive rsity of PFIZER VACCINE 00:00:00 [facility] Influenza High Dose 2018-11-16 Completed Unive rsity of 00:00:00 [facility] Influenza High Dose 2018-11-16 Completed Unive rsity of 00:00:00 [facility] Influenza High Dose 2018-11-16 Completed Unive rsity of 00:00:00 [facility] Influenza High Dose 2018-11-16 Completed Unive rsity of 00:00:00 [facility] Influenza High Dose 2018-11-16 Completed Unive rsity of 00:00:00 [facility] Influenza High Dose 2018-11-16 Completed Unive rsity of 00:00:00 [facility] Influenza High Dose 2017-11-25 Completed Unive rsity of 00:00:00 [facility] Influenza High Dose 2017-11-25 Completed Unive rsity of 00:00:00 [facility] Influenza High Dose 2017-11-25 Completed Unive rsity of 00:00:00 [facility] Influenza High Dose 2017-11-25 Completed Unive rsity of 00:00:00 [facility] Influenza High Dose 2017-11-25 Completed Unive rsity of 00:00:00 [facility] Influenza High Dose 2017-11-25 Completed Unive rsity of 00:00:00 [facility] Influenza High Dose 2016-11-17 Completed Unive rsity of 00:00:00 [facility] Influenza High Dose 2016-11-17 Completed Unive rsity of 00:00:00 [facility] Influenza High Dose 2016-11-17 Completed Unive rsity of 00:00:00 [facility] Influenza High Dose 2016-11-17 Completed Unive rsity of 00:00:00 [facility] Influenza High Dose 2016-11-17 Completed Unive rsity of 00:00:00 [facility] Influenza High Dose 2016-11-17 Completed Unive rsity of 00:00:00 [facility] Pneumococcal 13 2016-09-04 Completed Universit y of Conjugate, PCV13 00:00:00 [place] Me dical (Prevnar 13) Branch Pneumococcal 13 2016-09-04 Completed Universit y of Conjugate, PCV13 00:00:00 [place] Me dical (Prevnar 13) Branch Pneumococcal 13 2016-09-04 Completed Universit y of Conjugate, PCV13 00:00:00 [place] Me dical (Prevnar 13) Branch Pneumococcal 13 2016-09-04 Completed Universit y of Conjugate, PCV13 00:00:00 [place] Me dical (Prevnar 13) Branch Pneumococcal 13 2016-09-04 Completed Universit y of Conjugate, PCV13 00:00:00 [place] Me dical (Prevnar 13) Branch Pneumococcal 13 2016-09-04 Completed Universit y of Conjugate, PCV13 00:00:00 [facility] dical (Prevnar 13) Branch Influenza High Dose 2016-01-13 Completed Unive rsity of 00:00:00 [facility] Influenza High Dose 2016-01-13 Completed Unive rsity of 00:00:00 [facility] Influenza High Dose 2016-01-13 Completed Unive rsity of 00:00:00 [facility] Influenza High Dose 2016-01-13 Completed Unive rsity of 00:00:00 [facility] Influenza High Dose 2016-01-13 Completed Unive rsity of 00:00:00 [facility] Influenza High Dose 2016-01-13 Completed Unive rsity of 00:00:00 [facility] Pneumococcal 2015-11-30 Completed University o f Polysaccharide, 00:00:00 [place] Med ical PPSV23 (PNEUMOVAX) Branch Pneumococcal 2015-11-30 Completed University o f Polysaccharide, 00:00:00 [place] Med ical PPSV23 (PNEUMOVAX) Branch Pneumococcal 2015-11-30 Completed University o f Polysaccharide, 00:00:00 [place] Med ical PPSV23 (PNEUMOVAX) Branch Pneumococcal 2015-11-30 Completed University o f Polysaccharide, 00:00:00 [place] Med ical PPSV23 (PNEUMOVAX) Branch Pneumococcal 2015-11-30 Completed University o f Polysaccharide, 00:00:00 [facility] ical PPSV23 (PNEUMOVAX) Branch Pneumococcal 2015-11-30 Completed University o f Polysaccharide, 00:00:00 [facility] ical PPSV23 (PNEUMOVAX) Branch Td 2015-11-21 Completed University of 00:00:00 [facility] Td 2015-11-21 Completed University of 00:00:00 [facility] Branch Td 2015-11-21 Completed University of 00:00:00 [facility] Td 2015-11-21 Completed University of 00:00:00 [facility] TD, NOS 2015-11-21 Completed University of 00:00:00 [facility] TD, NOS 2015-11-21 Completed University of 00:00:00 [facility] Influenza Virus 2014-11-20 Completed Universit y of Vaccine Quad IM 00:00:00 [place] Med ical Multi-dose 6+ MO Branch Influenza Virus 2014-11-20 Completed Universit y of Vaccine Quad IM 00:00:00 [place] Med ical Multi-dose 6+ MO Branch Influenza Virus 2014-11-20 Completed Universit y of Vaccine Quad IM 00:00:00 [place] Med ical Multi-dose 6+ MO Branch Influenza Virus 2014-11-20 Completed Universit y of Vaccine Quad IM 00:00:00 [place] Med ical Multi-dose 6+ MO Branch Influenza Virus 2014-11-20 Completed Universit y of Vaccine Quad IM 00:00:00 [place] Med ical Multi-dose 6+ MO Branch Influenza Virus 2014-11-20 Completed Universit y of Vaccine Quad IM 00:00:00 [facility] ical Multi-dose 6+ MO Branch Zoster(Zostavax)( 2010-11-12 Completed Unive rsity of ingles) 00:00:00 [facility] Zoster(Zostavax)( 2010-11-12 Completed Unive rsity of ingles) 00:00:00 [facility] Zoster(Zostavax)( 2010-11-12 Completed Unive rsity of ingles) 00:00:00 [facility] Zoster(Zostavax)( 2010-11-12 Completed Unive rsity of ingles) 00:00:00 [facility] Zoster(Zostavax)( 2010-11-12 Completed Unive rsity of ingles) 00:00:00 [facility] Zoster(Zostavax)( 2010-11-12 Completed Unive rsity of ingles) 00:00:00 [facility] Vital Signs Vital Name Observation Time Observation Value Comments Source Systolic blood 2022-06-30 20:11:00 109 mm[Hg] Univer sity of pressure [facility] Diastolic blood 2022-06-30 20:11:00 64 mm[Hg] Unive rsity of pressure [facility] Heart rate 2022-06-30 20:11:00 70 /min Universi ty of [facility] Body temperature 2022-06-30 20:11:00 36.28 Melvi Univ ersity of [facility] Respiratory rate 2022-06-30 20:11:00 18 /min Univ ersity of [facility] Oxygen saturation in 2022-06-30 20:11:00 96 /min [facility] Arterial blood by [facility] Pulse oximetry Branch Body weight 2022-06-19 09:01:00 71.986 kg Universi ty of [facility] BMI 2022-06-19 09:01:00 24.86 kg/m2 Universi ty of [facility] Body height 2022-06-16 00:48:00 170.2 cm Universi ty of [facility] Branch Systolic blood 2021-07-29 15:09:00 122 mm[Hg] Univer sity of pressure [facility] Diastolic blood 2021-07-29 15:09:00 72 mm[Hg] Unive rsity of pressure [facility] Heart rate 2021-07-29 15:09:00 66 /min Universi ty of [facility] Body temperature 2021-07-29 15:09:00 36.67 Melvi Univ ersity of [facility] Branch Respiratory rate 2021-07-29 15:09:00 18 /min Univ ersity of [place] [facility] Body height 2021-07-29 15:09:00 172.7 cm [facility]i ty of [place] [facility] [place] Body weight 2021-07-29 15:09:00 63.504 kg Universi ty of [place] [facility] [place] BMI 2021-07-29 15:09:00 21.29 kg/m2 Universi ty of [facility] Oxygen saturation in 2021-07-29 15:09:00 96 /min University Arterial blood by [facility] Pulse oximetry Branch Heart rate 2020-06-12 00:00:00 62 /min [facility] Oxygen saturation in 2020-06-12 00:00:00 97 /min [facility] Arterial blood by Pulse oximetry Respiratory rate 2020-06-11 23:45:00 18 /min [facility] Systolic blood 2020-06-11 23:30:00 155 mm[Hg] [facility] pressure Diastolic blood 2020-06-11 23:30:00 76 mm[Hg] [facility] pressure Body temperature 2020-06-11 22:58:00 36.11 Melvi [facility] Body height 2020-06-11 16:26:00 172.7 cm [facility] Body weight 2020-06-11 16:26:00 60.601 kg [facility] BMI 2020-06-11 16:26:00 20.31 kg/m2 [facility] Procedures Procedure Date / Time Performing Clinician Source Performed COVID-19 (ID NOW RAPID 2022-06-30 18:55:00 Avtar Gallo [facility] TESTING) [facility] Branch MAGNESIUM 2022-06-29 10:41:00 Avtar Gallo [facility] BASIC METABOLIC PANEL 2022-06-29 10:41:00 Avtar Gallo [facility] (NA, K, CL, CO2, GLUCOSE, Medica l Branch BUN, CREATININE, CA) CBC WITH DIFF 2022-06-29 10:41:00 Avtar Gallo [facility] BASIC METABOLIC PANEL 2022-06-28 08:26:00 Avtar Gallo [facility] (NA, K, CL, CO2, GLUCOSE, Medica l Branch BUN, CREATININE, CA) CBC WITH DIFF 2022-06-28 08:26:00 Avtar Gallo [facility] BASIC METABOLIC PANEL 2022-06-27 08:26:00 Aida Aden [facility] (NA, K, CL, CO2, GLUCOSE, Medica l Branch BUN, CREATININE, CA) CBC WITH DIFF 2022-06-27 08:26:00 Aida Aden [facility] CBC WITH DIFF 2022-06-25 15:08:00 Aida Aden [facility] BASIC METABOLIC PANEL 2022-06-25 11:22:00 Aida Aden [facility] (NA, K, CL, CO2, GLUCOSE, Medica l Branch BUN, CREATININE, CA) MAGNESIUM 2022-06-24 10:04:00 Ovbev [facility] BASIC METABOLIC PANEL 2022-06-24 10:04:[address] [facility] (NA, K, CL, CO2, GLUCOSE, Medica l Branch BUN, CREATININE, CA) MAGNESIUM 2022-06-22 08:37:00 Ovbev, [facility] BASIC METABOLIC PANEL 2022-06-22 08:37:[address] [facility] (NA, K, CL, CO2, GLUCOSE, Medica l Branch BUN, CREATININE, CA) XR ABDOMEN 1 VW 2022-06-22 01:12:12 Dora [facility] COVID-19 (MOLECULAR 2022-06-21 11:46:[address] [facility] TESTING Medical Branch NUCLEIC ACID AMPLIFICATION) LAB ONLY COVID 2022-06-21 11:46:[address] [facility] MAGNESIUM 2022-06-21 09:40:00 Dora [facility] BASIC METABOLIC PANEL 2022-06-21 09:40:[address] [facility] (NA, K, CL, CO2, GLUCOSE, Medica l Branch BUN, CREATININE, CA) CBC WITH DIFF 2022-06-21 09:40:00 Dora [facility] MAGNESIUM 2022-06-20 11:33:00 Ovbev [facility] BASIC METABOLIC PANEL 2022-06-20 11:33:00 Avtar Gallo [facility] (NA, K, CL, CO2, GLUCOSE, Medica l Branch BUN, CREATININE, CA) CBC WITH DIFF 2022-06-19 20:13:00 Avtar Gallo [facility] COVID-19 (ID NOW RAPID 2022-06-19 16:03:00 Avtar Gallo [facility] TESTING) Medical [place] LAB ONLY COVID 2022-06-19 16:03:[address] [facility] BASIC METABOLIC PANEL 2022-06-18 09:21:00 Avtar Gallo [facility] (NA, K, CL, CO2, GLUCOSE, Medica l Branch BUN, CREATININE, CA) CBC WITH DIFF 2022-06-18 09:21:00 Avtar Gallo [facility] HB ECG ROUTINE & RHYTHM 2022-06-17 20:52:24 Avtar Gallo [facility] BASIC METABOLIC PANEL 2022-06-17 20:45:00 Avtar Gallo [facility] (NA, K, CL, CO2, GLUCOSE, Medica l Branch BUN, CREATININE, CA) ADC OR DONNIE ONLY - RPR 2022-06-17 20:45:00 Avtar Gallo [facility] LACTIC ACID WHOLE BLOOD 2022-06-17 15:26:00 Avtar Gallo [facility] MAGNESIUM 2022-06-17 10:10:00 [facility] TROPONIN I 2022-06-17 10:10:00 [facility] BASIC METABOLIC PANEL 2022-06-17 10:10:00 Avtar Gallo [facility] (NA, K, CL, CO2, GLUCOSE, Medica l Branch BUN, CREATININE, CA) TROPONIN I 2022-06-16 23:02:00 Avtar Gallo [facility] HB ECG ROUTINE & RHYTHM 2022-06-16 18:56:30 Avtar Gallo [facility] VITAMIN B12, LEVEL 2022-06-16 08:58:00 [facility] 2022-06-16 08:58:00 Avtar Gallo [facility] BASIC METABOLIC PANEL 2022-06-16 08:58:[address] [facility] (NA, K, CL, CO2, GLUCOSE, Medica l Branch BUN, CREATININE, CA) CBC WITH DIFF 2022-06-16 08:58:00 Dora [facility] CT HEAD WO CONTRAST 2022-06-16 02:08:28 Doroteo Pendleton [facility] XR CHEST 1 VW 2022-06-16 02:08:11 Doroteo Pendleton [facility] ACUTE CARE ARTERIAL BLOOD 2022-06-16 01:41:00 [facility] URINE DRUG (IMMUNOASSAY) 2022-06-16 01:28:00 [facility] SCREEN URINALYSIS 2022-06-16 01:28:00 Doroteo Pendleton [facility] MAGNESIUM 2022-06-16 01:22:00 Doroteo Pendleton [facility] AMMONIA, PLASMA 2022-06-16 01:22:00 Doroteo Pendleton [facility] TROPONIN I 2022-06-16 01:22:00 Doroteo Pendleton [facility] FREE T4 2022-06-16 01:22:00 Dora [facility] THYROID STIMULATING 2022-06-16 01:22:00 Doroteo Pendleton [facility] HORMONE [facility] COMP. METABOLIC PANEL 2022-06-16 01:22:00 Doroteo Pendleton [facility] ([id number]) [facility] ETHANOL 2022-06-16 01:22:00 Doroteo Pendleton [facility] CBC WITH DIFF 2022-06-16 01:22:00 Doroteo Pendleton [facility] FREE T3 2022-06-16 01:22:00 [facility]OUTINE & RHYTHM 2022-06-16 01:00:44 Doroteo Pendleton [facility] [place] HOSPITAL ADMISSION MISC - 2022-06-15 05:01:00 Doctor Unassigned, [facility] MEDICARE PATIENTS RIGHTS [facility] IMPORTANT MESSAGE EP PPI GENERATOR CHANGE 2020-06-11 22:40:00 Bartolome Royal [facility] ECG PRE/POST OP 2020-06-11 16:20:08 Bartolome Royal spital COVID-19 QUALITATIVE 2020-06-07 14:47:00 Lele, [facility] RT-PCR PROTHROMBIN TIME WITH INR 2020-06-07 14:47:00 Lele, [facility] MAGNESIUM LEVEL 2020-06-07 14:47:00 Lele, Nadim [facility] sp[facility] HC COMPLETE BLD COUNT 2020-06-07 14:47:00 Lele, [facility] Method [facility] Hospital W/AUTO DIFF COMPREHENSIVE METABOLIC 2020-06-07 14:47:00 Lele, [facility] PANEL ESTIMATED GFR 2020-06-07 14:47:00 Lele, [facility] spital Plan of Care Planned Activity Planned Date Details Comments Source Future Scheduled 2022-07-01 SHINGLES VACCINES Method [facility] Test 10:12:58 (2 of 3) [code = SHINGLES VACCINES (2 of 3)] Future Scheduled 2022-07-01 COVID-19 VACCINE (3 [facility] Test 10:12:58 - Booster for Pfizer series) [code = COVID-19 VACCINE (3 - Booster for Pfizer series)] Future Scheduled 2022-07-01 INFLUENZA VACCINE Method [facility] Hospital Test 10:12:58 [code = INFLUENZA VACCINE] Future Scheduled 2022-05-21 SHINGLES VACCINES Method [facility] Hospital Test 19:41:01 (2 of 3) [code = SHINGLES VACCINES (2 of 3)] Future Scheduled 2022-05-21 COVID-19 VACCINE (3 [facility] Test 19:41:01 - Booster for Pfizer series) [code = COVID-19 VACCINE (3 - Booster for Pfizer series)] Future Scheduled 2022-05-21 INFLUENZA VACCINE Method [facility] Hospital Test 19:41:01 [code = INFLUENZA VACCINE] Future Scheduled 2022-05-21 SHINGLES VACCINES Method [facility] Hospital Test 19:41:01 (2 of 3) [code = SHINGLES VACCINES (2 of 3)] Future Scheduled 2022-05-21 COVID-19 VACCINE (3 [facility] Test 19:41:01 - Booster for Pfizer series) [code = COVID-19 VACCINE (3 - Booster for Pfizer series)] Future Scheduled 2022-05-21 INFLUENZA VACCINE Method [facility] Hospital Test 19:41:01 [code = INFLUENZA VACCINE] Future Scheduled 2021-11-06 HEPATITIS B [facility] Test 19:29:34 VACCINES (1 of [...] Date/Time Type Type Clinicians Facility Department ID 2022-06-23 [facility] 1.2.840.1 [id number] Methodi 00:00:[id number] 3.430.2.7 Hospit a .3.707471 l .8 2022-06-20 Outpatient [facility] [id number] [place] 05:29:40 [id number] [facility] 2020-08-27 [id number] [facility] 10:30:00 Vega [facility] 2022-07-01 2022-07-01 Transition MARGI Mackenzie 1.2.840.114 [id number] Univers 00:00:00 00:00:00 of Care Maite LAUGHLINY 350.1.13.10 it y of [place] 4[place]2.7.2.686 [place] [phone] [address] 2022-06-15 2022-06-30 Inpatient Chula GALLO MIMALATHI [facility] [id number] Univers 19:42:00 18:20:00 AVTAR xiong [facility] 2022-06-15 2022-06-30 Hospital Jack Mancilla [facility] 1.2.840.11 [id number] Univers 19:42:00 18:20:00 Encounter Doroteo Pendleton DYLAN 350.1.13.1 0 ity of Abrahan John 4.2.7.2.686 [facility] [phone] [address] 2021-11-22 2021-11-22 [facility]idarrellloan[facility] 1.2.840.114 [id number] Univers 00:00:00 00:00:00 Sergio RICHARDSON 350.1.13.10 i ty of [place] [phone] [address] 2021-10-29 2021-10-29 [facility] [id number] Univers 14:20:00 14:20:00 LOAN xiong [facility] 2021-08-20 2021-08-20 Refill Camacho, [facility] 1.2.840.114 [id number] Univers 00:00:00 00:00:00 Loan RICHARDSON 350.1.13.10 ity of [facility] [place] [phone] [address] 2021-07-29 2021-07-29 Office Camacho, [facility] 1.2.840.114 [id number] Univers 10:00:00 11:27:23 Visit Loan RICHARDSON 350.1.13.10 ity of [facility] [place] [phone] [address] 2021-07-29 2021-07-29 Outpatient R JANICE [facility] [id number] Univers 10:00:00 11:27:23 LOAN xiong [facility] 2021-07-29 2021-07-29 [facility] [id number] Univers 10:00:00 10:00:00 LOAN xiong [facility] 2021-07-29 2021-07-29 Outpatient R JANICE [facility] [id number] Univers 10:00:00 10:00:00 LOAN xiong [facility] 2021-06-30 2021-06-30 Refill [facility] 1.2.840.114 [id number] Univers 00:00:00 00:00:00 Loan MARISCALTON 350.1.13.10 ity of [facility] 4[place].2.[place] [phone] [address] 2021-03-28 2021-03-28 Refill [facility] 1.2.840.114 [id number] Univers 00:00:00 00:00:00 Loan MARISCALTON 350.1.13.10 ity of [facility] 4[place] [phone] [address] 2021-01-14 2021-01-14 Media Relations Associate 2, Adc Lab [facility] 1.2.840.114 [id number] Univers 11:17:30 11:32:30 Visit Loan Camacho 350.1. 13.10 ity of [facility] 4.2.[place] [phone] [address] 2021-01-14 2021-01-14 Outpatient R JANICE [facility] [id number] Univers 10:00:00 11:17:39 LOAN xiong [facility] 2021-01-14 2021-01-14 Office [facility] .2.840.114 [id number] Univers 10:00:00 11:17:39 Visit Loan RICHARDSON 350.1.13.10 ity of [facility] 4.2.7.2.[place] [phone] [address] 2021-01-14 2021-01-14 Outpatient R JANICE [facility] [id number] Univers 10:00:00 11:17:39 LOAN xiong [facility] 2020-12-252020-12-25 Refill [facility] 1.2.840.114 [id number] Univers 00:00:00 00:00:00 Loan RICHARDSON 350.1.13.10 ity of [place].7.2.[place] [phone] Sd dical NAL 231 [facility] 2020-09-06 2020-09-06 Media Relations Associate 2, Adc Lab [facility] 1.2.840.114 [id number] Univers 10:16:09 10:31:09 Visit Loan Camacho 350.1. 13.10 ity of [place].2.[place] [phone] [facility] 2020-09-06 2020-09-06 Office [facility] 1.2.840.114 [id number] Univers 08:34:04 10:10:54 Visit Loan Richardson 350.1.13.10 it[place] of [place].2.[place] [phone] [facility] 231 [facility] 2020-09-06 2020-09-06 Outpatient R JANICE [facility] [id number] Univers 08:40:00 08:40:00 LOAN ity of [facility] 2020-09-06 2020-09-06 Telephone Janice [facility] 1.2.840.114 [id number] Univers 00:00:00 00:00:00 Loan Richardson 350.1.13.10 it[place] of [place] [phone] Sd dictx nal 044 [facility] 2020-09-06 2020-09-06 Orders Doctor BANUELOS 1.2.840.114 [id number] Univers 00:00:00 00:00:00 Only Unassigned, AKOSAU 350.1.13.10 ity of [place] [facility] 4.2.7.2.686 Cristopher as [phone] [address] 2020-08-16 2020-08-16 Outpatient [facility] [id number] Univers 09:40:00 09:40:00 NICANOR xiong [facility] 2020-08-08 2020-08-08 Office [facility] 1.2.840.114 [id number] Univers 13:45:03 14:30:34 Visit Sabra Richardson 350.1.13.10 it[place] of [place] [phone] Sd dical nal [address] [place] [address] 2020-08-08 2020-08-08 Outpatient [facility] [id number] Univers 14:00:00 14:00:00 SABRA xiong o f [facility] 2020-08-07 2020-08-07 Outpatient [facility] [id number] Univers 16:00:00 16:00:00 SERGIO xiong [facility] 2020-07-20 2020-07-20 [facility] 1.2.840.114 [id number] Univers 14:28:53 14:29:03 Visit Sergio Richardson 350.1.13.10 i ty [place] [phone] Sd dical nal [address] [place] [address] 2020-07-20 2020-07-20 Office [facility] 1.2.840.114 [id number] Univers 12:52:03 14:26:15 Visit Sergio Richardson 350.1.13.10 i ty [place] 4[place].2.[place] [phone] Sd dical nal 044 [facility] 2020-07-20 2020-07-20 Outpatient [facility] [id number] Univers 13:00:00 13:00:00 SERGIO michaeljessica [facility] 2020-07-20 2020-07-20 Orders Doctor BANUELOS 1.2.840.114 [id number] Univers 00:00:00 00:00:00 Only Unassigned, AKOSUA 350.1.13.10 ity of [place] [facility] 4.2.7.2.686 Cristopher as [phone] [address] 2020-07-13 2020-07-13 Office [facility]PRES[facility] 1.2.840.114 [id number] [facility] 08:55:28 09:52:53 Visit Sergio Richardson 350.1.13.10 i ty of [place] 4[place] [phone] Sd dical nal 044 [facility] 2020-07-13 2020-07-13 Outpatient [facility] [id number] Univers 09:20:00 09:20:00 SERGIO xiong [facility] 2020-07-09 2020-07-09 Office [facility] 1.2.840.114 [id number] [facility] 10:03:52 11:08:06 Visit Sabra Richardson 350.1.13.10 it[place] of [place] [phone] Sd dical [address] 2020-07-09 2020-07-09 Outpatient [facility] [id number] [facility] 10:30:00 10:30:00 SABRA xiong o f [facility] 2020-07-06 2020-07-06 Outpatient [facility] [id number] Univers 17:00:00 17:00:00 LOAN xiong [facility] 2020-07-06 2020-07-06 Telemedici [facility] 1.2.840.114 [id number] Univers 15:32:07 15:52:07 ne Visit Loan Richardson 350.1.13.10 it[place] of [place].2.[place] [phone] Sd dical [facility] 231 [facility] 2020-07-06 2020-07-06 Telephone [facility] 1.2.840.114 [id number] Univers 00:00:00 00:00:00 Loan Richardson 350.1.13.10 it[place] [phone] [address] 2020-06-11 2020-06-11 Hospital Lele, 1.2.840.1 [id number] Methodi 11:01:00 19:08:00 Encounter Nadim 11899.1.[address] 3.430.2.7 Hospit a .3.686669 l .8 2020-06-11 2020-06-11 Surgery Lele, 1.2.840.1 [id number] Methodi 15:43:00 17:13:[address] 3.430.2.7 Hospit a .3.077442 l .8 2020-06-11 2020-06-11 Travel 1.2.840.1 1.2.496.735 [id number] Methodi 00:00:00 00:00:[address] 3.430.2.7 0.2.7.3.698 Ho spita .3.462132 084.8 l .8 2020-06-07 2020-06-07 [facility] Carrington Royal 1.2.840.1 [id number] Methodi 09:15:23 09:20:23 Lele, Bartolome 47525.1.[address] 3.430.2.7 Hospit a .3.073126 l .8 2020-06-07 2020-06-07 [facility] Lele, 1.2.840.1 [id number] Methodi 00:00:00 00:00:00 Orders Nadim 91090.1.[address] 3.430.2.7 Hospit a .3.966293 l .8 2020-06-07 2020-06-07 Travel 1.2.840.1 1.2.768.142 [id number] Methodi 00:00:00 00:00:[address] 3.430.2.7 0.2.7.3.698 Ho spita .3.931246 084.8 l .8 2020-05-23 2020-05-23 Refill [facility] 1.2.840.114 [id number] Univers 00:00:00 00:00:00 Loan A Addison 350.1.13.10 it[place] [phone] [address] 2020-05-23 2020-05-23 Refill [facility] 1.2.840.114 [id number] 00:00:00 00:00:00 Loan A Addison 350.1.13.10 [place] 4.2.7.2.686 Professio [phone] [address] 2020-03-30 2020-03-30 Outpatient [facility] [id number] Univers 09:20:00 09:20:00 ELLIS ity of [facility] 2020-03-21 2020-03-21 Telephone [facility] 1.2.840.114 [id number] [facility] 00:00:00 00:00:00 Loan A Addison 350.1.13.10 [place] [phone] [address] 2020-03-21 2020-03-21 Telephone [facility] 1.2.840.114 [id number] [facility] 00:00:00 00:00:00 Loan A Addison 350.1.13.10 it[place] of [place] [phone] [address] 2020-03-21 2020-03-21 Telephone [facility] 1.2.840.114 [id number] 00:00:00 00:00:00 Loan A Addison 350.1.13.10 [place] 4.2.7.2.686 Professio [phone] [address] 2020-03-21 2020-03-21 Telephone [facility] 1.2.840.114 [id number] 00:00:00 00:00:00 Loan Richardson 350.1.13.10 [place] 4.2.7.2.686 Professio [phone] [address] 2020-03-10 2020-03-10 Media Relations Associate Kwame, Adc Lab Main [facility] 1.2.8 40.114 [id number] Univers 08:04:07 08:19:07 Visit Loan Camacho 350.1. 13.10 it[place] [phone] [address] 2020-03-10 2020-03-10 Outpatient R JANICE [facility] [id number] [facility] 08:15:00 08:15:00 LOAN ity [facility] 2020-03-10 2020-03-10 Orders Doctor LAKISHA 1.2.840.114 [id number] Univers 00:00:00 00:00:00 Only Unassigned, AKOSUA 350.1.13.10 ity of [place] [facility] 4.2.7.2.686 Cristopher as [phone] [address] 2020-03-10 2020-03-10 Refill [facility] 1.2.840.114 [id number] [facility] 00:00:00 00:00:00 Loan Richardson 350.1.13.10 ity [facility] 4[place]2.7.2.[place] [phone] [address] 2020-03-10 2020-03-10 Refill [facility] 1.2.840.114 [id number] 00:00:00 00:00:00 Loan Richardson 350.1.13.10 [place] 4.2.7.2.686 Professio [phone] [address] 2020-03-09 2020-03-09 Media Relations Associate Kwame, Adc Lab Main [facility] 1.2.8 40.114 [id number] Univers 17:20:41 17:35:41 Visit Loan Camacho 350.1. 13.10 it[place] of [place] [phone] [facility] 353 [facility] 2020-03-09 2020-03-09 Office [facility] 1.2.840.114 [id number] Univers 15:09:42 16:30:34 Visit Sergio Dylan 350.1.13.10 i ty of [place] 4[place].2.[place] [phone] [address] 2020-03-09 2020-03-09 Office [facility] 1.2.840.114 [id number] 15:09:42 16:30:34 Visit Sergio Dylan 350.1.13.10 [place] 4.2.7.2.686 Professio [phone] [address] 2020-03-09 2020-03-09 Outpatient [facility] [id number] Univers 15:20:00 15:20:00 SERGIO xiong [facility] 2019-10-31 2019-10-[address] [facility] Camacho, [facility] 1.2.840.114 [id number] Univers 00:00:00 00:00:00 Loan Richardson 350.1.13.10 it[place] [phone] [address] 2019-10-31 2019-10-31 [facility] 1.2.840.114 [id number] Univers 00:00:00 00:00:00 Loan Richardson 350.1.13.10 it[place] [phone] [address] 2019-10-28 2019-10-28 Outpatient [facility] [id number] Univers 14:20:00 14:20:00 LOAN xiong [facility] 2019-10-10 2019-10-10 Refcorrine [facility]PRES[facility] 1.2.840.114 [id number] Univers 00:00:00 00:00:00 Loan A Addison 350.1.13.10 it[place] [phone] [facility] 0[address] [facility] 2019-09-16 2019-09-16 Outpatient [facility] [id number] Univers 15:20:00 15:20:00 LOAN ity [facility] 2019-09-02 2019-09-02 Outpatient R [facility] [id number] Univers 08:00:00 08:00:00 ity [facility] 2019-08-23 2019-08-23 [facility] 1.2.840.114 [id number] Univers 00:00:00 00:00:00 Loan A Addison 350.1.13.10 [place] [phone] [address] 2019-08-17 2019-08-17 Telephone [facility] 1.2.840.114 [id number] Univers 00:00:00 00:00:00 Loan A Addison 350.1.13.10 [place] [phone] [address] 2019-08-15 2019-08-15 Office [facility] 1.2.840.114 [id number] Univers 12:06:38 13:52:58 Visit Loan A Addison 350.1.13.10 it[place] of [place]2.[place] [phone] [address] 2019-08-15 2019-08-15 [facility] [id number] Univers 13:40:00 13:40:00 LOAN ity [facility] 2019-06-08 2019-06-08 Telephone [facility] 1.2.840.114 [id number] Univers 00:00:00 00:00:00 Loan A PRIMARY 350.1.13.10 it[place] of [place] [phone] [address] 2019-05-29 2019-05-29 Refill [facility] 1.2.840.114 [id number] Univers 00:00:00 00:00:00 Loan A Addison 350.1.13.10 it[place] of [place] [phone] [address] 2019-05-26 2019-05-26 Telephone [facility] 1.2.840.114 [id number] Univers 00:00:00 00:00:00 Loan A PRIMARY 350.1.13.10 it[place] of [place] [phone] [address] 2019-05-23 2019-05-23 [facility] 1.2.840.114 [id number] Univers 00:00:00 00:00:00 Loan A PRIMARY [id number] [id number] [phone] [address] 2019-04-14 2019-04-14 Office [facility] 1.2.840.114 [id number] Univers 11:40:01 13:05:13 Visit Loan [place] [id number] [id number] [phone] [address] 2019-04-14 2019-04-14 Outpatient R [facility] [id number] Univers 12:00:00 12:00:00 LOAN ity of [facility] 2019-04-14 2019-04-14 Orders Doctor BANUELOS 1.2.840.114 [id number] Univers 00:00:00 00:00:00 Only Unassigned, AKOSUA [id number] ity of [place] [facility] [id number] Cristopher as [phone] [address] 2019-03-10 2019-03-10 Media Relations Associate Josy [facility] 1.2.8 40.114 [id number] Univers 07:11:10 07:26:10 Visit Camacho Loan [place] 350.1. 13.10 [id number] [phone] Sd dical nal [address] [facility] 2019-03-10 2019-03-10 Orders Doctor LAKISHA 1.2.840.114 [id number] Univers 00:00:00 00:00:00 Only Unassigned, AKOSUA [id number] ity of [place] [facility] 4.2.7.2.686 Cristopher as [phone] [address] 2018-10-16 2018-10-16 Refill Janice [facility] 1.2.840.114 [id number] Univers 00:00:00 00:00:00 Loan [place] [id number] [id number] [phone] Sd dical nal 231 [facility] Results Test Description Test Time Test Comments Results Result Comments Source BASIC METABOLIC PANEL (NA, K, CL, CO2, GLUCOSE, BUN, 2022-06 13:01:13 CREATININE, [place]) Test Item Value Reference Range Interpretation Comme nts NA (test code = 0762875974) 136 mmol/L 135-145 K (test code = 7358843713) 3.9 mmol/L 3.5-5.0 CL (test code = [id number]) 108 mmol/L 98-108 CO2 TOTAL (test code = 2361745692) 24 mmol/L 23-31 AGAP (test code = 0862468370) 4 2-16 BUN (test code = 2731679927) 12 mg/dL 7-23 GLUCOSE (test code = 1715114591) 93 mg/dL 70-110 CREATININE (test code = 0.77 mg/dL 0.60-1.25 9732388525) CALCIUM (test code = 4833158347) 8.5 mg/dL 8.6-10.6 L eGFR (test code = 0630425440) 96.0 mL/min/1.73m2 ANNA (test code = ANNA) Association of Glomerular Filtration Rate (GFR) and Staging of Kidney Disease* + +-------- + ------+| GFR (mL/min/1.73 m2) ?| With Kidney Damage ?| ?Without Kidney Damage+ +-- + +| ?>90 ?| ?Stage one ?| ? Normal ?+ +------- + -------+| ?60-89 ?| ?Stage two ?| ? Decreased GFR ? + +-------- + ------+| ?30-59 ?| ?Stage three ?| ? Stage three ? + +-------- + ------+| ?15-29 ?| ?Stage four ? | ? Stage four ?+ +------- + -------+| ?<15 (or dialysis) ? ?| ?Stage five ? | ? Stage five ?+ +------- + -------+ *Each stage assumes the associated GFR level has been in effect for at least three months. ?Stages 1 to 5, with or without kidney disease, indicate chronic kidney disease. Notes: Determination of stages one and two (with eGFR >59mL/min/1.73 m2) requires estimation of kidney damage for at least three months as defined by structural or functional abnormalities of the kidney, manifested by either:Pathological abnormalities or Markers of kidney damage (including abnormalities in the composition of the blood or urine or abnormalities in imaging tests). Lab Interpretation (test code = Abnormal 03444-1) [facility]:01:13 Test Item Value Reference Range Interpretation Comments MAGNESIUM (test code = 1964681775) 1.8 mg/dL 1.7-2.4 Lab Interpretation (test code = Normal 11209-1) [facility] WITH [id number] 12:35:30 Test Item Value Reference Range Interpretation Comments WBC (test code = 6.57 See_Comment [Automated 6994-2) message] The sy stem which generated this result transmitted reference range : 4.20 - 10.70 10*3/?L. The reference range was not used to interpret this result as normal/abnormal . RBC (test code = 3.37 See_Comment L [Automated 947-7) message] The sy stem which generated this result transmitted reference range : 4.26 - 5.52 10*6/?L. The reference range was not used to interpret this result as normal/abnormal . HGB (test code = 9.4 g/dL 12.2-16.4 L 718-7) HCT (test code = 29.1 % 38.4-49.3 L 4544-3) MCV (test code = 86.4 fL 81.7-95.6 787-2) MCH (test code = 27.9 pg 26.1-32.7 785-6) MCHC (test code = 32.3 g/dL 31.2-35.0 786-4) RDW-SD (test code = 47.0 fL 38.5-51.6 39088-6) RDW-CV (test code = 14.9 % 12.1-15.4 788-0) PLT (test code = 204 See_Comment [Automated 777-3) message] The sy stem which generated this result transmitted reference range : 150 - 328 10*3/ ?L. The reference r reyna was not used to interpret this result as normal/abnormal . MPV (test code = 12.3 fL 9.8-13.0 84501-8) NRBC/100 WBC (test 0.0 See_Comment [Automat ed code = 8836042560) message] The system which generated this result transmitted reference range : 0.0 - 10.0 /100 WBCs. The refer ence range was not u sed to interpret th is result as normal/abnormal . NRBC x10^3 (test code See_Comment [Auto mated = 6209705914) message] The s ystem which generated this result transmitted reference range : 10*3/?L. The reference range was not used to interpret this result as normal/abnormal . GRAN MAT (NEUT) % 73.7 % (test code = 770-8) IMM GRAN % (test code 1.20 % = 5303376800) LYMPH % (test code = 13.4 % 736-9) MONO % (test code = 8.8 % 5905-5) EOS % (test code = 2.3 % 713-8) BASO % (test code = 0.6 % 706-2) GRAN MAT x10^3(ANC) 4.84 10*3/uL 1.99-6.95 (test code = 5799885028) IMM GRAN x10^3 (test 0.08 10*3/uL 0.00-0.06 H code = 0560728793) LYMPH x10^3 (test code 0.88 10*3/uL 1.09-3.23 L = 731-0) MONO x10^3 (test code 0.58 10*3/uL 0.36-1.02 = 742-7) EOS x10^3 (test code = 0.15 10*3/uL 0.06-0.53 711-2) BASO x10^3 (test code 0.04 10*3/uL 0.01-0.09 = 704-7) Lab Interpretation Abnormal (test code = 94252-8) [facility] METABOLIC PANEL (NA, K, CL, CO2, GLUCOSE, BUN, CREATININE, CA)2022-06-28 09:28:34 Test Item Value Reference Range Interpretation Comments NA (test code = 137 mmol/L 135-145 4993778867) K (test code = 3.3 mmol/L 3.5-5.0 L 9234852628) CL (test code = 106 mmol/L 98-108 9587346212) CO2 TOTAL (test code = 26 mmol/L 23-31 3559809960) AGAP (test code = 5 2-16 3981672257) BUN (test code = 17 mg/dL 7-23 9466657331) GLUCOSE (test code = 97 mg/dL 70-110 0382537383) CREATININE (test code = 0.72 mg/dL 0.60-1.25 8736754673) CALCIUM (test code = 8.2 mg/dL 8.6-10.6 L 4524836562) eGFR (test code = 103.8 mL/min/1.73m2 6025437295) ANNA (test code = ANNA) Association of Glomerular Filtration Rate (GFR) and Staging of Kidney Disease* + --+ --+ ------+| GFR (mL/min/1.73 m2) ?| With Kidney Damage ?| ?Without Kidney Damage+ --------+ --------+ +| ?>90 ?| ?Stage one ?| ? Normal ?+ ---+ ---+ -------+| ?60-89 ?| ?Stage two ?| ? Decreased GFR ? + --+ --+ ------+| ?30-59 ?| ?Stage three ?| ? Stage three ? + --+ --+ ------+| ?15-29 ?| ?Stage four ? | ? Stage four ?+ ---+ ---+ -------+| ?<15 (or dialysis) ? ?| ?Stage five ? | ? Stage five ?+ ---+ ---+ -------+ *Each stage assumes the associated GFR level has been in effect for at least three months. ?Stages 1 to 5, with or without kidney disease, indicate chronic kidney disease. Notes: Determination of stages one and two (with eGFR >59mL/min/1.73 m2) requires estimation of kidney damage for at least three months as defined by structural or functional abnormalities of the kidney, manifested by either:Pathological abnormalities or Markers of kidney damage (including abnormalities in the composition of the blood or urine or abnormalities in imaging tests). Lab Interpretation Abnormal (test code = 41344-7) [facility] WITH [id number] 08:59:33 Test Item Value Reference Range Interpretation Comments WBC (test code = 6.45 See_Comment [Automated 5908-2) message] The sy stem which generated this result transmitted reference range : 4.20 - 10.70 10*3/?L. The reference range was not used to interpret this result as normal/abnormal . RBC (test code = 3.57 See_Comment L [Automated 752-8) message] The sy stem which generated this result transmitted reference range : 4.26 - 5.52 10*6/?L. The reference range was not used to interpret this result as normal/abnormal . HGB (test code = 10.0 g/dL 12.2-16.4 L 718-7) HCT (test code = 30.7 % 38.4-49.3 L 4544-3) MCV (test code = 86.0 fL 81.7-95.6 787-2) MCH (test code = 28.0 pg 26.1-32.7 785-6) MCHC (test code = 32.6 g/dL 31.2-35.0 786-4) RDW-SD (test code = 46.3 fL 38.5-51.6 64843-6) RDW-CV (test code = 14.6 % 12.1-15.4 788-0) PLT (test code = 198 See_Comment [Automated 777-3) message] The sy stem which generated this result transmitted reference range : 150 - 328 10*3/ ?L. The reference r reyna was not used to interpret this result as normal/abnormal . MPV (test code = 11.5 fL 9.8-13.0 56127-5) NRBC/100 WBC (test 0.0 See_Comment [Automat ed code = 8468367774) message] The system which generated this result transmitted reference range : 0.0 - 10.0 /100 WBCs. The refer ence range was not u sed to interpret th is result as normal/abnormal . NRBC x10^3 (test code See_Comment [Auto mated = 8583938138) message] The s ystem which generated this result transmitted reference range : 10*3/?L. The reference range was not used to interpret this result as normal/abnormal . GRAN MAT (NEUT) % 71.4 % (test code = 770-8) IMM GRAN % (test code 1.70 % = 9483783094) LYMPH % (test code = 15.3 % 736-9) MONO % (test code = 9.1 % 5905-5) EOS % (test code = 2.0 % 713-8) BASO % (test code = 0.5 % 706-2) GRAN MAT x10^3(ANC) 4.60 10*3/uL 1.99-6.95 (test code = 8789247750) IMM GRAN x10^3 (test 0.11 10*3/uL 0.00-0.06 H code = 7324178731) LYMPH x10^3 (test code 0.99 10*3/uL 1.09-3.23 L = 731-0) MONO x10^3 (test code 0.59 10*3/uL 0.36-1.02 = 742-7) EOS x10^3 (test code = 0.13 10*3/uL 0.06-0.53 711-2) BASO x10^3 (test code 0.03 10*3/uL 0.01-0.09 = 704-7) Lab Interpretation Abnormal (test code = 95194-5) [facility] METABOLIC PANEL (NA, K, CL, CO2, GLUCOSE, BUN, CREATININE, CA)2022-06-27 09:26:31 Test Item Value Reference Range Interpretation Comments NA (test code = 137 mmol/L 135-145 9261556694) K (test code = 4.0 mmol/L 3.5-5.0 6576548434) CL (test code = 109 mmol/L 98-108 H 8549931047) CO2 TOTAL (test code = 23 mmol/L 23-31 2832742329) AGAP (test code = 5 2-16 1017982708) BUN (test code = 20 mg/dL 7-23 8003811968) GLUCOSE (test code = 104 mg/dL 70-110 2583111763) CREATININE (test code = 0.72 mg/dL 0.60-1.25 5164809922) CALCIUM (test code = 8.2 mg/dL 8.6-10.6 L 4574378995) eGFR (test code = 103.8 mL/min/1.73m2 7747607467) ANNA (test code = ANNA) Association of Glomerular Filtration Rate (GFR) and Staging of Kidney Disease* + --+ --+ ------+| GFR (mL/min/1.73 m2) ?| With Kidney Damage ?| ?Without Kidney Damage+ --------+ --------+ +| ?>90 ?| ?Stage one ?| ? Normal ?+ ---+ ---+ -------+| ?60-89 ?| ?Stage two ?| ? Decreased GFR ? + --+ --+ ------+| ?30-59 ?| ?Stage three ?| ? Stage three ? + --+ --+ ------+| ?15-29 ?| ?Stage four ? | ? Stage four ?+ ---+ ---+ -------+| ?<15 (or dialysis) ? ?| ?Stage five ? | ? Stage five ?+ ---+ ---+ -------+ *Each stage assumes the associated GFR level has been in effect for at least three months. ?Stages 1 to 5, with or without kidney disease, indicate chronic kidney disease. Notes: Determination of stages one and two (with eGFR >59mL/min/1.73 m2) requires estimation of kidney damage for at least three months as defined by structural or functional abnormalities of the kidney, manifested by either:Pathological abnormalities or Markers of kidney damage (including abnormalities in the composition of the blood or urine or abnormalities in imaging tests). Lab Interpretation Abnormal (test code = 59623-7) [facility] WITH [id number] 09:11:50 Test Item Value Reference Range Interpretation Comments WBC (test code = 5.62 See_Comment [Automated 6690-2) message] The sy stem which generated this result transmitted reference range : 4.20 - 10.70 10*3/?L. The reference range was not used to interpret this result as normal/abnormal . RBC (test code = 3.67 See_Comment L [Automated 789-8) message] The sy stem which generated this result transmitted reference range : 4.26 - 5.52 10*6/?L. The reference range was not used to interpret this result as normal/abnormal . HGB (test code = 10.3 g/dL 12.2-16.4 L 718-7) HCT (test code = 31.5 % 38.4-49.3 L 4544-3) MCV (test code = 85.8 fL 81.7-95.6 787-2) MCH (test code = 28.1 pg 26.1-32.7 785-6) MCHC (test code = 32.7 g/dL 31.2-35.0 786-4) RDW-SD (test code = 45.7 fL 38.5-51.6 98882-4) RDW-CV (test code = 14.6 % 12.1-15.4 788-0) PLT (test code = 176 See_Comment [Automated 777-3) message] The sy stem which generated this result transmitted reference range : 150 - 328 10*3/ ?L. The reference r reyna was not used to interpret this result as normal/abnormal . MPV (test code = 11.7 fL 9.8-13.0 95719-8) NRBC/100 WBC (test 0.0 See_Comment [Automat ed code = 2545754139) message] The system which generated this result transmitted reference range : 0.0 - 10.0 /100 WBCs. The refer ence range was not u sed to interpret th is result as normal/abnormal . NRBC x10^3 (test code See_Comment [Auto mated = 6150015628) message] The s ystem which generated this result transmitted reference range : 10*3/?L. The reference range was not used to interpret this result as normal/abnormal . GRAN MAT (NEUT) % 66.6 % (test code = 770-8) IMM GRAN % (test code 1.40 % = 9149659455) LYMPH % (test code = 17.4 % 736-9) MONO % (test code = 12.1 % 5905-5) EOS % (test code = 2.0 % 713-8) BASO % (test code = 0.5 % 706-2) GRAN MAT x10^3(ANC) 3.74 10*3/uL 1.99-6.95 (test code = 6932838968) IMM GRAN x10^3 (test 0.08 10*3/uL 0.00-0.06 H code = 1438722775) LYMPH x10^3 (test code 0.98 10*3/uL 1.09-3.23 L = 731-0) MONO x10^3 (test code 0.68 10*3/uL 0.36-1.02 = 742-7) EOS x10^3 (test code = 0.11 10*3/uL 0.06-0.53 711-2) BASO x10^3 (test code 0.03 10*3/uL 0.01-0.09 = 704-7) Lab Interpretation Abnormal (test code = 47922-3) [facility] [id number] 14:04:27COVID DMT InterpretationInterpretation/Recommendations: Molecular NAAT Tests for Active Infection with the SARS-CoV-2 Virus: The patient has currently tested negative for the SARS-CoV-2 virus that causes COVID-19 illness. This most likely indicates that the patient does not have an active infection with the SARS-CoV-2 virus. However, infection is not completely ruled out as the false negative rate for molecular NAAT testing using a nasopharyngeal sample can be up to 30%, mostly dependent on the timing of sample collection in relation to illness onset and any deficiencies in sampling techniques. If the patient has symptoms concerning for COVID-19 illness, a repeat NAAT test (PCR, Rapid ID Now, etc.) should be performed, at which time the SARS-CoV-2 virus - if present - may have reached a detectable viral load (usually peaking by the end of the first week of symptoms). ? Tests for IgM and/or IgG Antibodies to the SARS-CoV-2 Virus: If the patient develops COVID-19 illness in the future, testing for IgM and IgG antibodies approximately 3 weeks after illness onset will likely indicate if the patient has produced antibodies to the SARS-CoV-2 virus. However, some patients may take longer to develop detectable antibodies, while some patients who were infected with SARS-CoV-2 may never develop antibodies. While antibodies to SARS-CoV-2 may provide some degree of immunity, at this time the strength and duration of the antibody response is unknown. Interpretation Result Comments:These interpretation comments are based upon the following COVID-19 tests the patient has had at [facility]: molecular nucleic acid amplification tests (NAAT) (specifically PCR testing and Rapid ID Now testing) and antibody tests. It does not take into account antigen testing or any additional testing that a patient may have had outside of the [facility] medical record. 06/23/2022 9:04 AM [facility] SERVICESCOVID [id number] NAAT (no units) ? ? Date ? Value ? 06/21/2022 ? Not Detected ? SARS-CoV-2 Rapid ID NOW (no units) ? ? Date ? Value ? 06/19/2022 ? Not Detected ? 06/23/2022 9:04 AM [facility] 10:21:24 Test Item Value Reference Range Interpretation Comments MAGNESIUM (test code = 9696005748) 1.8 mg/dL 1.7-2.4 Lab Interpretation (test code = Normal 39022-2) [facility] (NA, K, CL, CO2, GLUCOSE, BUN, CREATININE, CA)2022-06-22 10:21:08 Test Item Value Reference Range Interpretation Comments NA (test code = 145 mmol/L 135-145 6389193943) K (test code = 3.3 mmol/L 3.5-5.0 L 0619229641) CL (test code = 111 mmol/L 98-108 H 5427986905) CO2 TOTAL (test code = 25 mmol/L 23-31 2135018648) AGAP (test code = 9 2-16 1722057147) BUN (test code = 20 mg/dL 7-23 9750304919) GLUCOSE (test code = 95 mg/dL 70-110 8391909667) CREATININE (test code = 0.68 mg/dL 0.60-1.25 9232478673) CALCIUM (test code = 8.7 mg/dL 8.6-10.6 1554388066) eGFR (test code = 110.8 mL/min/1.73m2 6840711997) ANNA (test code = ANNA) Association of Glomerular Filtration Rate (GFR) and Staging of Kidney Disease* + --+ --+ ------+| GFR (mL/min/1.73 m2) ?| With Kidney Damage ?| ?Without Kidney Damage+ --------+ --------+ +| ?>90 ?| ?Stage one ?| ? Normal ?+ ---+ ---+ -------+| ?60-89 ?| ?Stage two ?| ? Decreased GFR ? + --+ --+ ------+| ?30-59 ?| ?Stage three ?| ? Stage three ? + --+ --+ ------+| ?15-29 ?| ?Stage four ? | ? Stage four ?+ ---+ ---+ -------+| ?<15 (or dialysis) ? ?| ?Stage five ? | ? Stage five ?+ ---+ ---+ -------+ *Each stage assumes the associated GFR level has been in effect for at least three months. ?Stages 1 to 5, with or without kidney disease, indicate chronic kidney disease. Notes: Determination of stages one and two (with eGFR >59mL/min/1.73 m2) requires estimation of kidney damage for at least three months as defined by structural or functional abnormalities of the kidney, manifested by either:Pathological abnormalities or Markers of kidney damage (including abnormalities in the composition of the blood or urine or abnormalities in imaging tests). Lab Interpretation Abnormal (test code = 75587-2) [facility] WITH [id number] 20:34:14 Test Item Value Reference Range Interpretation Comments WBC (test code = 7.55 See_Comment [Automated 6990-2) message] The sy stem which generated this result transmitted reference range : 4.20 - 10.70 10*3/?L. The reference range was not used to interpret this result as normal/abnormal . RBC (test code = 4.74 See_Comment [Automated 843-8) message] The sy stem which generated this result transmitted reference range : 4.26 - 5.52 10*6/?L. The reference range was not used to interpret this result as normal/abnormal . HGB (test code = 13.3 g/dL 12.2-16.4 718-7) HCT (test code = 40.3 % 38.4-49.3 4544-3) MCV (test code = 85.0 fL 81.7-95.6 787-2) MCH (test code = 28.1 pg 26.1-32.7 785-6) MCHC (test code = 33.0 g/dL 31.2-35.0 786-4) RDW-SD (test code = 45.0 fL 38.5-51.6 67592-5) RDW-CV (test code = 14.5 % 12.1-15.4 788-0) PLT (test code = 137 See_Comment L [Automated 287-3) message] The sy stem which generated this result transmitted reference range : 150 - 328 10*3/ ?L. The reference r reyna was not used to interpret this result as normal/abnormal . MPV (test code = 12.1 fL 9.8-13.0 16875-3) NRBC/100 WBC (test 0.0 See_Comment [Automat ed code = 7600734413) message] The system which generated this result transmitted reference range : 0.0 - 10.0 /100 WBCs. The refer ence range was not u sed to interpret th is result as normal/abnormal . NRBC x10^3 (test code See_Comment [Auto mated = 4033397207) message] The s ystem which generated this result transmitted reference range : 10*3/?L. The reference range was not used to interpret this result as normal/abnormal . GRAN MAT (NEUT) % 77.9 % (test code = 770-8) IMM GRAN % (test code 0.30 % = 7191322147) LYMPH % (test code = 9.4 % 736-9) MONO % (test code = 11.4 % 5905-5) EOS % (test code = 0.7 % 713-8) BASO % (test code = 0.3 % 706-2) GRAN MAT x10^3(ANC) 5.89 10*3/uL 1.99-6.95 (test code = 1749259136) IMM GRAN x10^3 (test 0.00-0.06 code = 1934400645) LYMPH x10^3 (test code 0.71 10*3/uL 1.09-3.23 L = 731-0) MONO x10^3 (test code 0.86 10*3/uL 0.36-1.02 = 742-7) EOS x10^3 (test code = 0.05 10*3/uL 0.06-0.53 L 711-2) BASO x10^3 (test code 0.01-0.09 = 704-7) Lab Interpretation Abnormal (test code = 20457-8) [facility]2022-06-19 16:37:55 Test Item Value Reference Range Interpretation Comments SARS-CoV-2 Rapid ID NOW Not Detected Not Detected (test code = 97638-7) ANNA (test code = ANNA) ID NOW COVID-19 Assay is an isothermal nucleic acid amplification test intended for the qualitative detection of nucleic acid from SARS-CoV-2 viral RNA in nasopharyngeal ([employer]ATE [employer]) specimens. It is used under Emergency Use Authorization (EUA) by FDA. The limit of detection (LOD) of the assay is 125 Genome Equivalents/mL. Please note that a new specimen is requested for testing, if clinically indicated, on tests performed past validated specimen stability time. A positive result is indicative of the presence of SARS-CoV-2 RNA. ?Clinical correlation with patient history and other diagnostic information is necessary to determine patient infection status. A negative (Not Detected) result does not preclude SARS-CoV-2 infection. In patients with a high suspicion of SARS-CoV-2 infection, negative results should be treated as presumptive negative and a new specimen should be tested with alternative nucleic acid amplification molecular test. Invalid: Please collect a new specimen for repeat patient testing if clinically indicated. Lab Interpretation Normal (test code = 19691-2) [facility] CenterTR[facility]IN [id number] 13:29:01 Test Item Value Reference Range Interpretation Comments TROPONIN I (test code = 0.030 ng/mL <=0.034 9031987061) ANNA (test code = ANNA) Reference (Normal) Range (defined by the 99th percentile reference limit): <= 0.034 ng/mL Note: Cardiac troponin begins to rise 3-4 hours after the onset of ischemia. Repeat in 4-6 hours if the sample was drawn within 3-4 hours of the onset of the symptom and found normal. Diagnosis of myocardial injury is made with acute changes in cTn concentrations with at least one serial sample above the 99th percentile upper reference limit (URL), taken together with the patient's clinical presentation. Biotin has been reported to cause a negative bias, interpret results relative to patient's use of biotin. Lab Interpretation Normal (test code = 13312-4) [facility]20[facility] 11:05:51 Test Item Value Reference Range Interpretation Comments MAGNESIUM (test code = 3943247849) 1.9 mg/dL 1.7-2.4 Lab Interpretation (test code = Normal 18478-8) [facility] (NA, K, CL, CO2, GLUCOSE, BUN, CREATININE, CA)2022-06-17 11:05:50 Test Item Value Reference Range Interpretation Comments NA (test code = 145 mmol/L 135-145 0086728997) K (test code = 3.7 mmol/L 3.5-5.0 5081280224) CL (test code = 111 mmol/L 98-108 H 9679437742) CO2 TOTAL (test code = 16 mmol/L 23-31 L 8443807559) AGAP (test code = 18 2-16 H 7212451265) BUN (test code = 26 mg/dL 7-23 H 0049916417) GLUCOSE (test code = 133 mg/dL 70-110 H 4927322982) CREATININE (test code = 1.07 mg/dL 0.60-1.25 1811959489) CALCIUM (test code = 8.7 mg/dL 8.6-10.6 3877531507) eGFR (test code = 65.7 mL/min/1.73m2 1132868357) ANNA (test code = ANNA) Association of Glomerular Filtration Rate (GFR) and Staging of Kidney Disease* + --+ --+ ------+| GFR (mL/min/1.73 m2) ?| With Kidney Damage ?| ?Without Kidney Damage+ --------+ --------+ +| ?>90 ?| ?Stage one ?| ? Normal ?+ ---+ ---+ -------+| ?60-89 ?| ?Stage two ?| ? Decreased GFR ? + --+ --+ ------+| ?30-59 ?| ?Stage three ?| ? Stage three ? + --+ --+ ------+| ?15-29 ?| ?Stage four ? | ? Stage four ?+ ---+ ---+ -------+| ?<15 (or dialysis) ? ?| ?Stage five ? | ? Stage five ?+ ---+ ---+ -------+ *Each stage assumes the associated GFR level has been in effect for at least three months. ?Stages 1 to 5, with or without kidney disease, indicate chronic kidney disease. Notes: Determination of stages one and two (with eGFR >59mL/min/1.73 m2) requires estimation of kidney damage for at least three months as defined by structural or functional abnormalities of the kidney, manifested by either:Pathological abnormalities or Markers of kidney damage (including abnormalities in the composition of the blood or urine or abnormalities in imaging tests). Lab Interpretation Abnormal (test code = 52425-6) [facility] [id number] 04:36:28 Test Item Value Reference Range Interpretation Comments FREE T4 (test code = 1.15 See_Comment [Autom ated message] [id number]) The system [employer] generated this result transmitted ref erence range: 0.78 - 2 .20 ng/dL:. The ref erence range was not u sed to interpret this result as normal/abnor mal. Lab Interpretation (test Normal code = 07877-1) [facility] [id number] 04:36:28 Test Item Value Reference Range Interpretation Comments FREE T3 (test code = 8946732736) 3.32 pg/mL 2.77-5.27 Lab Interpretation (test code = Normal 26379-8) [facility] CenterTHYROID STIMULATING [id number] 02:43:42 Test Item Value Reference Range Interpretation Comments TSH (test code = 9.37 See_Comment H [Automated message] 5007398128) The system [employer] generated this result transmitted ref erence range: 0.45 - 4 .70 mIU/L. The refe rence range was not u sed to interpret this result as normal/abnor mal. Lab Interpretation (test Abnormal code = 69185-9) [facility]TR[facility] [id number] 02:25:04 Test Item Value Reference Range Interpretation Comments TROPONIN I (test code = 0.015 ng/mL <=0.034 [id number]) ANNA (test code = ANNA) Reference (Normal) Range (defined by the 99th percentile reference limit): <= 0.034 ng/mL Note: Cardiac troponin begins to rise 3-4 hours after the onset of ischemia. Repeat in 4-6 hours if the sample was drawn within 3-4 hours of the onset of the symptom and found normal. Diagnosis of myocardial injury is made with acute changes in cTn concentrations with at least one serial sample above the 99th percentile upper reference limit (URL), taken together with the patient's clinical presentation. Biotin has been reported to cause a negative bias, interpret results relative to patient's use of biotin. Lab Interpretation Normal (test code = 52454-0) [facility], [id number] 02:14:22 Test Item Value Reference Range Interpretation Comments AMMONIA (test code = 4259534781) 9-33 L Lab Interpretation (test code = Abnormal 86913-0) [facility]ETHANOL[facility] 02:14:16 ALCOHOL<10mg/dL06/15/2022 9:14 PM [facility]10 Akruncbp31-558 Toxic>100 Depression of [employer]>400 Fatalities [facility]ortedUnU[facility] HospitalMAGNESIUM2023-05-01 02:13:01 Test Item Value Reference Range Interpretation Comments MAGNESIUM (test code = 3596535148) 1.9 mg/dL 1.7-2.4 Lab Interpretation (test code = Normal 82109-2) [facility] CenterCOMP. METABOLIC PANEL (00688)2022-06-16 02:12:41 Test Item Value Reference Range Interpretation Comments NA (test code = 145 mmol/L 135-145 4185512661) K (test code = 3.9 mmol/L 3.5-5.0 6724389981) CL (test code = 112 mmol/L 98-108 H 6026665643) CO2 TOTAL (test code = 28 mmol/L 23-31 5660395811) AGAP (test code = 5 2-16 8563135594) BUN (test code = 22 mg/dL 7-23 8750120951) GLUCOSE (test code = 77 mg/dL 70-110 0151908536) CREATININE (test code = 1.08 mg/dL 0.60-1.25 5338998105) TOTAL BILI (test code = 0.8 mg/dL 0.1-1.3 4679246944) CALCIUM (test code = 9.1 mg/dL 8.6-10.6 8944418784) T PROTEIN (test code = 6.6 g/dL 6.3-8.2 9407849631) ALBUMIN (test code = 4.0 g/dL 3.5-5.0 8726433168) ALK PHOS (test code = 39 U/L 34-122 5754743530) ALTv (test code = 26 U/L 5-50 1742-6) AST(SGOT) (test code = 39 U/L 13- 8108918138) eGFR (test code = 65.0 mL/min/1.73m2 8641220356) ANNA (test code = ANNA) Association of Glomerular Filtration Rate (GFR) and Staging of Kidney Disease* + --+ --+ ------+| GFR (mL/min/1.73 m2) ?| With Kidney Damage ?| ?Without Kidney Damage+ --------+ --------+ +| ?>90 ?| ?Stage one ?| ? Normal ?+ ---+ ---+ -------+| ?60-89 ?| ?Stage two ?| ? Decreased GFR ? + --+ --+ ------+| ?30-59 ?| ?Stage three ?| ? Stage three ? + --+ --+ ------+| ?15-29 ?| ?Stage four ? | ? Stage four ?+ ---+ ---+ -------+| ?<15 (or dialysis) ? ?| ?Stage five ? | ? Stage five ?+ ---+ ---+ -------+ *Each stage assumes the associated GFR level has been in effect for at least three months. ?Stages 1 to 5, with or without kidney disease, indicate chronic kidney disease. Notes: Determination of stages one and two (with eGFR >59mL/min/1.73 m2) requires estimation of kidney damage for at least three months as defined by structural or functional abnormalities of the kidney, manifested by either:Pathological abnormalities or Markers of kidney damage (including abnormalities in the composition of the blood or urine or abnormalities in imaging tests). Lab Interpretation Abnormal (test code = 43855-9) [facility] WITH [id number] 02:05:19 Test Item Value Reference Range Interpretation Comments WBC (test code = 4.53 See_Comment [Automated 9005-2) message] The sy stem which generated this result transmitted reference range : 4.20 - 10.70 10*3/?L. The reference range was not used to interpret this result as normal/abnormal . RBC (test code = 4.77 See_Comment [Automated 231-1) message] The sy stem which generated this result transmitted reference range : 4.26 - 5.52 10*6/?L. The reference range was not used to interpret this result as normal/abnormal . HGB (test code = 13.2 g/dL 12.2-16.4 718-7) HCT (test code = 41.6 % 38.4-49.3 4544-3) MCV (test code = 87.2 fL 81.7-95.6 787-2) MCH (test code = 27.7 pg 26.1-32.7 785-6) MCHC (test code = 31.7 g/dL 31.2-35.0 786-4) RDW-SD (test code = 46.4 fL 38.5-51.6 18447-1) RDW-CV (test code = 14.6 % 12.1-15.4 788-0) PLT (test code = 127 See_Comment L [Automated 777-3) message] The sy stem which generated this result transmitted reference range : 150 - 328 10*3/ ?L. The reference r reyna was not used to interpret this result as normal/abnormal . MPV (test code = 12.0 fL 9.8-13.0 13170-8) NRBC/100 WBC (test 0.0 See_Comment [Automat ed code = 7673690710) message] The system which generated this result transmitted reference range : 0.0 - 10.0 /100 WBCs. The refer ence range was not u sed to interpret th is result as normal/abnormal . NRBC x10^3 (test code See_Comment [Auto mated = 5308427141) message] The s ystem which generated this result transmitted reference range : 10*3/?L. The reference range was not used to interpret this result as normal/abnormal . GRAN MAT (NEUT) % 71.7 % (test code = 770-8) IMM GRAN % (test code 0.40 % = 5356006138) LYMPH % (test code = 15.5 % 736-9) MONO % (test code = 9.9 % 5905-5) EOS % (test code = 1.8 % 713-8) BASO % (test code = 0.7 % 706-2) GRAN MAT x10^3(ANC) 3.25 10*3/uL 1.99-6.95 (test code = 6351101684) IMM GRAN x10^3 (test 0.00-0.06 code = 7959252939) LYMPH x10^3 (test code 0.70 10*3/uL 1.09-3.23 L = 731-0) MONO x10^3 (test code 0.45 10*3/uL 0.36-1.02 = 742-7) EOS x10^3 (test code = 0.08 10*3/uL 0.06-0.53 711-2) BASO x10^3 (test code 0.03 10*3/uL 0.01-0.09 = 704-7) Lab Interpretation Abnormal (test code = 06339-1) [facility] CenterElectrophysiology [id number] 22:43:28 TITLE OF PROCEDURE:Dual-chamber pacemaker generator change out.PREOPERATIVE DIAGNOSES:1. Permanent pacemaker battery exhaustion.2. Complete heart block.3. Remote bypass surgery.POSTOPERATIVE DIAGNOSES:1. Permanent pacemaker battery exhaustion.2. Complete heart block.3. Remote bypass surgery.PROCEDURES PERFORMED:Dual chamber pacemaker generator change out.BRIEF HISTORY AND CLINICAL BACKGROUND:This is an 84-year-old man who has the aforementioned problems. His pacemakerreached elective replacement indicators in mid March. He comes for generatorchange.PROCEDURE:The patient was taken to the EP laboratory in the fasting, nonsedated, drug-freestate. Informed consent was previously obtained and reconfirmed. Intravenousantibiotics were infused as appropriate. The patient was placed supine on thefluoroscopy table and the position of the R2 pads was verified. The preexisting device was interrogated andreprogrammed as needed. The patientwas prepped and draped in the usual sterile fashion. Fluoroscopy was performedto identify the location of the device and the leads respective to one anotherand local anesthesia was achieved with 1% Xylocaine solution. Thereafter, utilizing a sharp knife, cautery, andblunt dissection, thepreexisting device was explanted. Scar tissue was removed from the leads andthepocket was enlarged and revised as needed. The set screws were loosened and the leads were then tested for chronic pacingand sensing thresholds. After these thresholds were judged to be acceptable,the pocket which was revised as needed, was visually, manually, andradiographically inspected to ensure there were no gauze or sponges in thepocket. It was then washed with copious amounts of antibiotic-impr egnatedsaline. Thereafter, the new device was connected to the leads and the setscrews were tightened and the device was placed back into the pocket. Thepocket was closed in layers using Vicryl. Thereafter, ana and skin adhesivewere used. COMPLICATIONS:None. FINDINGS:1. The explanted pacemaker is a Guidant model S606, serial #[id number], date ofinsertion July 10, 2011.2. The chronic atrial lead is a 4135, serial #[id number]. Measured P-wave 1.7,pacing threshold 1 volt at 0.4, current 1.9 mA, impedance 539 ohms.3. The RV lead is a model 4137, serial #[id number]. Measured R-wave, nointrinsic R waves, pacing threshold 1.1 volt at 0.4 milliseconds, current 2.0mA, impedance 566 ohms.4. The new pacemaker is a [employer] Accolade, model L311, serial#[id number]. CONCLUSIONS:Successful dual-chamber pacemaker change out. RECOMMENDATIONS:Return to AOD recovery and discharge home in several hours when dischargecriteria are met.ESTIMATED BLOOD LOSS:5 mLA Medtronic Tyrx pouch reference [id number], lot [id number] was utilized.[facility] Pre/Post [id number] 02:48:45 Test Item Value Reference Range Interpretation Comments Ventricular rate (test code = 253) Atrial rate (test code = 255) TX interval (test code = 266) QRSD interval (test code = 260) QT interval (test code = 264) QTC interval (test code = 265) QRS axis 1 (test code = 268) T wave axis (test code = 270) EKG impression (test AV dual-paced code = 273) rhythm-Abnormal ECG-In automated comparison with ECG of 11-JUL-2011 09:23,-No significant change was found- [facility]ismSaint [facility] at DoverCOVID-19 qualitative [id number] 20:48:51 Test Item Value Reference Range Interpretation Comments Interpretation (test Negative results do code = 5189516) not preclude 2019-nCoV infection and should not be used as the sole basis for treatment or other patient management decisions. Negative results must be combined with clinical observations, patient history, and epidemiological information. COVID-19 qualitative Not-Detected Not-Detected RT-PCR result (test code = 87151-8) COVID-19 qualitative See link below for C ase Number: RT-PCR (test code = PDF Lab Report [id number]) [facility]"
--- NOTE | 2022-07-11 09:12 | RAD REPORT ---
EXAM DESCRIPTION: CT - Head Brain Wo Cont - 07/11/2022 9:04 am CLINICAL HISTORY: Alteration of awareness/confusion/dementia/weakness COMPARISON: May 2019. TECHNIQUE: Computed axial tomography of the head was obtained. IV contrast was not requested. All CT scans are performed using dose optimization technique as appropriate and may include automated exposure control or mA/KV adjustment according to patient size. FINDINGS: An intracranial bleed is not seen The ventricles are normal in caliber No extra-axial fluid collection is noted. Mild low-density areas within periventricular, deep and subcortical white matter likely represent isc hemic changes secondary to small vessel disease. Fluid within the sinuses/ mastoids is not seen. IMPRESSION: No acute intracranial abnormality is seen If patient's symptoms persist MRI of the brain would be recommended
--- NOTE | 2022-07-11 09:54 | RAD REPORT ---
EXAM DESCRIPTION: Barbara Single View07/11/2022 9:26 am CLINICAL HISTORY: Hypoxia COMPARISON: 2021 FINDINGS: Postsurgical changes involve chest. Heart is mildly enlarged. Pacemaker leads place Chronic elevation left hemidiaphragm. Left base is mildly hazy. Right lung appears clear IMPRESSION: Left base is mildly hazy which may indicate a mild pneumonia
[2022-07-11 09:55] LABS: Absolute Lymphocytes (CBC) 0.6 K/uL (0.7-4.9); Hematocrit 15.1 % (39.6-49.0); Lymphocytes % 14.4 % (15.3-44.8); MCV 89.4 fL (80-100); MPV 9.6 fL (7.6-11.3); RBC Red Blood Cell Count 1.69 M/uL (4.33-5.43)
[2022-07-11 09:58] LABS: Protime INR 1.43
[2022-07-11 10:06] LABS: SARS-CoV-2 Antigen Rapid Res Negative (Negative)
[2022-07-11 10:13] LABS: ALT/SGPT 14 U/L (16-61); AST/SGOT 12 U/L (15-37); Albumin 1.9 g/dL (3.4-5.0); Alkaline Phosphatase 38 U/L (45-117); BUN Blood Urea Nitrogen 54 mg/dL (7-18); Bicarbonate 22 mEq/L (21-32); Bilirubin Total 0.2 mg/dL (0.2-1.0); Glomerular Filtration Rate 86 ml/min (=/>90); Glucose Level 96 mg/dL (74-106); Magnesium 1.6 mg/dL (1.6-2.4); NT PRO-BNP 634 pg/mL (<450); Potassium 4.4 mEq/L (3.5-5.1); Protein, Total 4.1 g/dL (6.4-8.2); Sodium Level 141 mEq/L (136-145); Troponin High Sensitivity 20.9 pg/mL (<58.9)
[2022-07-11 10:15] LABS: Bilirubin Direct < 0.1 mg/dL (0-0.2); Bilirubin Indirect, Calculated ND mg/dL (0.2-0.8)
[2022-07-11] MEDS ORDERED: PANTOPRAZOLE 40 MG INJ ONE (10:15)
[2022-07-11] MEDS ORDERED: NA CHLORIDE 0.9% 1,000 ML ONE (10:28)
[2022-07-11] MEDS ORDERED: PANTOPRAZOLE INJ 80 MG in NA CHLORIDE 0.9% 250 ML IV ONE (10:30)
--- NOTE | 2022-07-11 10:32 | EDPHYS ---
Physician Documentation [facility] Name: Tong Norton Age: 87 yrs Sex: Male : 1935 Arrival Date: 07/11/2022 Time: 08:44 Bed 5 Private MD: ED Physician Mark Kilgore HPI: 07/11 08:54 This 87 yrs old Male presents to ER via EMS with complaints of Weakness. jmm 08:54 Is an 87-year-old male with history of atrial fibrillation, dementia, hyperlipidemia jmm presents emerged department with complaints of weakness per detention. skilled nursing states that patient normally will get up out of bed and walk around. Patient looked more pale to them. EMS states that oxygen dropped below 90% in route.. Historical: - Allergies: 09:11 No Known Allergies; ld1 - PMHx: 09:11 Atrial fibrillation; Dementia; Hypercholesterolemia; Gout; insomnia; Pacemaker; ld1 Hypertensive disorder; - Immunization history:: Adult Immunizations up to date, Client reports receiving the 2nd dose of the Covid vaccine. - Social history:: Smoking status: Patient denies any tobacco usage or history of. Patient/guardian denies using alcohol. ROS: 10:28 Cardiovascular: Negative for chest pain, palpitations, and edema, Respiratory: Negative [facility] for shortness of breath, cough, wheezing, and pleuritic chest pain, Abdomen/GI: Negative for abdominal pain, nausea, vomiting, diarrhea, and constipation. 10:28 Constitutional: Positive for fatigue. 10:28 All other systems are negative. Exam: 10:28 Head/Face: atraumatic. Eyes: EOMI, no conjunctival erythema appreciated ENT: Moist jmm Mucus Membranes Neck: Trachea midline, Supple Chest/axilla: Normal chest wall appearance and motion. Cardiovascular: Regular rate and rhythm. No edema appreciated Respiratory: Normal respirations, no respiratory distress appreciated Abdomen/GI: Non distended Back: Normal ROM 10:28 MS/ Extremity: Moves all extremities, no obvious deformities appreciated, no edema noted to the lower extremities Neuro: Awake and alert Psych: Behavior is normal, Mood is normal, Patient is cooperative and pleasant 10:28 Constitutional: The patient appears alert, awake, pale. 10:28 Abdomen/GI: Rectal exam: Stool: black. 10:28 Skin: Ecchymosis noted to the right upper arm. Vital Signs: 09:03 Pulse 83; Resp 18; Temp 97.6(O); Pulse Ox 99% on R/A; Weight 67.59 kg; Height 5 ft. 9 ld1 in. ; Pain 0/10; 09:56 BP 99 / 67; Pulse 75; Resp 18; Pulse Ox 100% on 2 lpm NC; ld1 11:20 BP 121 / 47; Pulse 85; Resp 20; Pulse Ox 98% on R/A; ld1 12:20 BP 103 / 80; Pulse 88; Resp 19; Pulse Ox 96% on R/A; ld1 12:35 BP 120 / 85; Pulse 85; Resp 19; Pulse Ox 100% on R/A; ld1 12:52 BP 100 / 51; Pulse 90; Resp 18; Pulse Ox 100% on R/A; ld1 09:03 Body Mass Index 22.00 (67.59 kg, 175.26 cm) ld1 09:03 Pain Scale: Adult ld1 MDM: 08:54 Patient medically screened. [facility] 10:29 Data reviewed: vital signs, nurses notes. Consideration of Admission/Observation [facility] Escalation of care including admission/observation considered. I considered the following discharge prescriptions or medication management in the emergency department Medications were administered in the Emergency Department. See MAR. Counseling: I had a detailed discussion with the patient and/or guardian regarding: the historical points, exam findings, and any diagnostic results supporting the discharge/admit diagnosis, lab results, the need to transfer to another facility, [facility] does not immediately have the required specialist. 10:43 ED course: PSYCHIATRIC computer system down. Unable to transfer. Will attempt to transfer [facility] to [facility]. 07/11 08:54 Order name: Basic Metabolic Panel; Complete Time: 10: [facility] 07/11 08:54 Order name: CBC with Diff; Complete Time: 09:59 [facility] 07/11 08:54 Order name: LFT's; Complete Time: 10: [facility] 07/11 08:54 Order name: Magnesium; Complete Time: 10: [facility] 07/11 08:54 Order name: NT PRO-BNP; Complete Time: 10:17 [facility] 07/11 08:54 Order name: PT-INR; Complete Time: 09:59 [facility] 07/11 08:54 Order name: Troponin HS; Complete Time: 10:17 [facility] 07/11 08:54 Order name: SARS RAPID; Complete Time: 10:16 [facility] 07/11 08:54 Order name: Influenza Screen (a \T\ B); Complete Time: 10:18 [facility] 07/11 08:55 Order name: Lactate w/ 2H reflex if indic.; Complete Time: 10:18 [facility] 07/11 08:55 Order name: Urinalysis w/ reflexes; Complete Time: 11:46 [facility] 07/11 10:01 Order name: Type And Screen [facility] 07/11 10:37 Order name: Packed RBC Leukored [facility] 07/11 10:59 Order name: ABO/RH no charge; Complete Time: 11:01 [facility] 07/11 08:54 Order name: XRAY Chest (1 view); Complete Time: 09:58 [facility] 07/11 08:55 Order name: CT Head Brain wo Cont; Complete Time: 09:18 [facility] 07/11 08:54 Order name: EKG; Complete Time: 08:55 [facility] 07/11 08:54 Order name: Cardiac monitoring; Complete Time: 09:32 [facility] 07/11 08:54 Order name: EKG - Nurse/Tech; Complete Time: 09:56 [facility] 07/11 08:54 Order name: IV Saline Lock; Complete Time: 09:32 [facility] 07/11 08:54 Order name: Labs collected and sent; Complete Time: 09:56 [facility] 07/11 08:54 Order name: O2 Per Protocol; Complete Time: 09:32 [facility] 07/11 08:54 Order name: O2 Sat Monitoring; Complete Time: 09:32 [facility] Administered Medications: 10:14 Drug: Pantoprazole IVP 40 mg Route: IVP; Site: right antecubital; hb 10:22 Drug: NS 0.9% IV 1000 ml Route: IV; Rate: 1 bolus; Site: right antecubital; ld1 10:34 Drug: Rocephin IV 1 grams Route: IV; Rate: calculated rate; Site: right antecubital; ld1 10:56 Drug: Pantoprazole IV 8 mg/hr Route: IV; Rate: 25 ml/hr; Site: right wrist; ld1 Disposition: 16:48 Co-signature as Attending Physician, Mark Kilgore MD I reviewed the patient's care rn provided by the Advanced Practice Provider and agree with the diagnosis and treatment plan. Disposition Summary: 07/11/22 10:31 Transfer Ordered Reason: Higher level of care jmm Condition: Stable jmm Problem: new jmm Symptoms: are unchanged jmm Transfer Location: [facility](07/11/22 13:22) eb Accepting Physician: Dr. Soliz [facility](07/11/22 15:38) ld1 Diagnosis - GI Bleed/ Gastrointestinal hemorrhage, unspecified jmm - Anemia, unspecified jmm - Pneumonia, unspecified organism jmm Forms: - Medication Reconciliation Form jmm - SBAR form jmm Signatures: Dispatcher [employer] EDMS Rod Oneill PA PA m Mark Kilgore MD MD rn Baxter, Heather, RN RN hb Botello, Elizabeth eb Sims, Lauren, RN RN ld1 Corrections: (The following items were deleted from the chart) 10:44 10:31 Internal medicine [facility] 10:44 10:31 [facility] 12:53 10:44 Internal medicine [facility] 12:53 10:44 [facility] 13:22 12:53 Internal medicine [facility] 13:22 12:53 Other Acute Care Facility [facility] 15:38 13:[address] [facility] eb ld1
--- NOTE | 2022-07-11 10:32 | ER ---
Nurse's Notes [facility] Name: Tong Norton Age: 87 yrs Sex: Male : 1935 Arrival Date: 07/11/2022 Time: 08:44 Bed 5 Private MD: Diagnosis: GI Bleed/ Gastrointestinal hemorrhage, unspecified;Anemia, unspecified;Pneumonia, unspecified organism Presentation: 07/11 09:03 Chief complaint: EMS states: [facility] Staff reports patient ld1 experiencing weakness, pale, "not himself this morning." Pt denies pain or discomfort. Coronavirus screen: At this time, the client does not indicate any symptoms associated with coronavirus-19. Ebola Screen: No symptoms or risks identified at this time. Initial Sepsis Screen: Does the patient meet any 2 criteria? No. Patient's initial sepsis screen is negative. Does the patient have a suspected source of infection? No. Patient's initial sepsis screen is negative. Risk Assessment: Do you want to hurt yourself or someone else? Patient reports no desire to harm self or others. Onset of symptoms was July 11, 2022 at 09:11. 09:03 Method Of Arrival: EMS: [facility] ld1 09:03 Acuity: DOMENICO 3 ld1 Triage Assessment: 09:11 General: Appears in no apparent distress. comfortable, Behavior is calm, cooperative, ld1 appropriate for age. Pain: Denies pain. EENT: No signs and/or symptoms were reported regarding the EENT system. Neuro: Level of Consciousness is awake, alert, obeys commands, Oriented to person, place, time, situation. Cardiovascular: Capillary refill < 3 seconds Patient's skin is warm and dry. Rhythm is Respiratory: Airway is patent Respiratory effort is even, unlabored. GI: Abdomen is flat, non-distended. : No signs and/or symptoms were reported regarding the genitourinary system. Derm: No signs and/or symptoms reported regarding the dermatologic system. Musculoskeletal: No signs and/or symptoms reported regarding the musculoskeletal system. Historical: - Allergies: 09:11 No Known Allergies; ld1 - PMHx: 09:11 Atrial fibrillation; Dementia; Hypercholesterolemia; Gout; insomnia; Pacemaker; ld1 Hypertensive disorder; - Immunization history:: Adult Immunizations up to date, Client reports receiving the 2nd dose of the Covid vaccine. - Social history:: Smoking status: Patient denies any tobacco usage or history of. Patient/guardian denies using alcohol. Screenin:13 [facility] ED Fall Risk Assessment (Adult) History of falling in the last 3 months, ld1 including since admission No falls in past 3 months (0 pts). Abuse screen: Denies threats or abuse. Denies injuries from another. Nutritional screening: No deficits noted. Tuberculosis screening: No symptoms or risk factors identified. Assessment: 09:13 Reassessment: See triage assessment. ld1 12:25 Reassessment: Patient appears in no apparent distress at this time. No changes from ld1 previously documented assessment. Patient and/or family updated on plan of care and expected duration. Pain level reassessed. Patient is alert, oriented x 3, equal unlabored respirations, skin warm/dry/pink. Blood transfusion started at 1225 Patient denies pain at this time. Vital Signs: 09:03 Pulse 83; Resp 18; Temp 97.6(O); Pulse Ox 99% on R/A; Weight 67.59 kg; Height 5 ft. 9 ld1 in. ; Pain 0/10; 09:56 BP 99 / 67; Pulse 75; Resp 18; Pulse Ox 100% on 2 lpm NC; ld1 11:20 BP 121 / 47; Pulse 85; Resp 20; Pulse Ox 98% on R/A; ld1 12:20 BP 103 / 80; Pulse 88; Resp 19; Pulse Ox 96% on R/A; ld1 12:35 BP 120 / 85; Pulse 85; Resp 19; Pulse Ox 100% on R/A; ld1 12:52 BP 100 / 51; Pulse 90; Resp 18; Pulse Ox 100% on R/A; ld1 09:03 Body Mass Index 22.00 (67.59 kg, 175.26 cm) ld1 09:03 Pain Scale: Adult ld1 ED Course: 08:52 Patient arrived in ED. eb 08:53 Rod Oneill PA is PHCP. jmm 08:54 Mark Kiglore MD is Attending Physician. jmm 09:03 Nicole Mandel, ULYSSES is Primary Nurse. ld1 09:06 CT Head Brain wo Cont In Process Unspecified. EDMS 09:11 Triage completed. ld1 09:11 Arm band placed on right wrist. ld1 09:13 Patient has correct armband on for positive identification. Placed in gown. Bed in low ld1 position. Call light in reach. Side rails up X2. secured entrance monitor on. Pulse ox on. NIBP on. Door closed. Noise minimized. Warm blanket given. 09:13 No provider procedures requiring assistance completed. ld1 09:13 Maintain EMS IV. Dressing intact. Good blood return noted. Site clean \\T\\ dry. Gauge \\T\\ ld 1 site: 20G RW. 09:28 XRAY Chest (1 view) In Process Unspecified. EDMS 09:41 SARS RAPID Sent. hb 09:41 Influenza Screen (a \\T\\ B) Sent. hb 09:41 Lactate w/ 2H reflex if indic. Sent. hb 09:41 Basic Metabolic Panel Sent. hb 09:41 CBC with Diff Sent. hb 09:41 LFT's Sent. hb 09:42 Magnesium Sent. hb 09:42 NT PRO-BNP Sent. hb 09:42 PT-INR Sent. hb 09:42 Troponin HS Sent. hb 10:18 Inserted saline lock: 20 gauge in right antecubital area, using aseptic technique. ld1 10:50 initiated a transfer with Naomi from the [facility]/ unable to eb initiated with [facility] due to their phone and internet systems being down. 11:21 per Naomi at the [facility] they will have to decline the patient eb in transfer at [facility] due to being at ICU saturation/ She will check Jbeddie Rhodes Korin and call us back. 11:30 Urinalysis w/ reflexes Sent. bc6 12:16 per Naomi from the [facility] , [place] [facility] will have eb to decline the patient due to being at capacity. 12:21 initiated a transfer with Cindy from the [facility] Transfer Center/ per Cindy [facility] eb [facility], [facility] and [facility] will have to decline the patient in transfer due to not having GI at any of the facilities. 12:37 initiated a transfer with Liam Paul from the [facility]. eb 12:46 connected the salvage inspector wood parts building construction supervisor for [facility] with Rod Jesus for patient eb transfer consultation. 12:57 connected the hospitalist building construction supervisor for [facility] with Rod Jesus for patient eb transfer consultation. 13:17 administrative approval given by Liam Miller Rn/ patient has been accepted to [facility] [id number]/ Dr. Soliz has accepted the patient in transfer/ report to be called to [phone]. 15:38 Patient transferred, IV remains in place. ld1 Administered Medications: 10:14 Drug: Pantoprazole IVP 40 mg Route: IVP; Site: right antecubital; hb 10:22 Drug: NS 0.9% IV 1000 ml Route: IV; Rate: 1 bolus; Site: right antecubital; ld1 10:34 Drug: Rocephin IV 1 grams Route: IV; Rate: calculated rate; Site: right antecubital; ld1 10:56 Drug: Pantoprazole IV 8 mg/hr Route: IV; Rate: 25 ml/hr; Site: right wrist; ld1 Medication: 15:38 VIS not applicable for this client. ld1 Outcome: 10:31 ER care complete, transfer ordered by MD. maria 15:37 Transferred by ground EMS to [facility]. ld1 15:37 Condition: stable 15:37 Instructed on the need for transfer. 15:38 Patient left the ED. ld1 Signatures: Dispatcher [employer] EDMS Rod Oneill PA PA jmm Baxter, Heather, RN ULYSSES Loan Ko Nicole Mandel RN RN ld1 Anh Kirk 6
[2022-07-11] MEDS ORDERED: CEFTRIAXONE 1000 MG/VIAL ONE (10:40)
[2022-07-11 11:37] LABS: Specific Gravity 1.016 (1.005-1.030); Urine Bilirubin NEGATIVE (Negative); Urine Blood Negative (Negative); Urine Clarity Clear (Clear); Urine Color Colorless (Yellow); Urine Glucose NEGATIVE (Negative); Urine Protein NEGATIVE (Negative); Urine Urobilinogen Normal (Normal)
[2022-07-11] MEDS ORDERED: NA CHLORIDE 0.9% 500 ML ONE (11:49)
[2022-07-11] MEDS ORDERED: NA CHLORIDE 0.9% 250 ML ONE (14:56)
[2022-07-11 15:47] VITALS: TEMP 97.6
[2022-07-11 16:06] VITALS: O2SAT 100
[2022-07-11 16:07] VITALS: BP 100/51
--- NOTE | 2022-07-13 07:31 | EKG ---
Test Date: 2022-07-11 Test Time: 09:59:26 Vice Chairman: DAYANNA MEASUREMENT RESULTS: Intervals: Rate: 74 [place]: QRSD: 160 QT: 460 QTc: 510 [place]: P: WA: QRS: -86 T: 88 INTERPRETIVE STATEMENTS: Ventricular-paced rhythm Abnormal ECG Compared to ECG 06/15/2022 05:30:58 AV dual-paced complex(es) or rhythm no longer present Electronically Signed On 07-13-22 07:25:46 CDT by Zhen Freeman
== END 2022-07-11 15:38 | disposition short-term general hospital (02) ==
LOC: ER 08:44
PROC: 30233N1 Transfusion of Nonautologous Red Blood Cells into Peripheral Vein, Percutaneous Approach (ICD-10-PCS; principal; 2022-07-11)
DX: D64.9 Anemia, unspecified (principal); J18.9 Pneumonia, unspecified organism; I10 Essential (primary) hypertension; I48.91 Unspecified atrial fibrillation; F03.90 Unspecified dementia, unspecified severity, without behavioral disturbance, psychotic disturbance, mood disturbance, and anxiety; Z95.0 Presence of cardiac pacemaker; Z20.822 Contact with and (suspected) exposure to COVID-19
CPT/HCPCS: 93005; 85025; 80048; 36415; 86900; 83735; 86850; 85610; 86901; 80076; 83605; 86920; 81003; 84484; 83880; 87804 ×2; 70450; 71045; 99285; 87811; 36430; C9113 ×2; P9016 ×2; J7050 ×2; J7040; J7030; J0696

== ENCOUNTER 2022-11-27 11:16 | Inpatient (IN) | payer OTHER ==
--- OUTSIDE RECORDS SUMMARY | 2022-11-27 11:24 | XMS REPORT | Continuity of Care Document ---
:1935 Author Organization [facility] t Address [address] [facility] [address] [place] [id number] Care Team Providers Name Role Phone Loan Camacho MD Primary Care Physician [phone] [address] [place] Attending Clinician Unavailable JONAS SOLIZ Attending Clinician Unavailable Jonas Soliz MD Attending Clinician Andrey Bustamante MD Attending Clinician Teo Burgos MD Attending Clinician Vasile Thompson CRNA Attending Clinician [phone] Maite Mackenzie RN Attending Clinician Unavailable AVTAR GALLO Attending Clinician Unavailable Jack Mancilla MD Attending Clinician Doroteo Pendleton MD Attending Clinician Dora VALDERRAMA, Abrahan Attending Clinician Avtar Gallo DO Attending Clinician Sergio Torrez MD Attending Clinician LOAN CAMACHO Attending Clinician Unavailable Loan Camacho MD Attending Clinician [phone], [facility] Attending Clinician Unavailable Doctor Unassigned, [place] Attending Clinician Unavailable NICANOR CASTRO Attending Clinician Unavailable Shanique New Attending Clinician SHANIQUE ROSS Attending Clinician Unavailable SERGIO TORREZ Attending Clinician Unavailable Espinoza Royal MD Attending Clinician Carrington Royal MD Attending Clinician ELLIS AHUJA Attending Clinician Unavailable Pob, [facility] Main Attending Clinician Unavailable Loan Camacho Admitting Clinician Unavailable JONAS SOLIZ Admitting Clinician Unavailable AVTAR GALLO Admitting Clinician Unavailable Avtar Gallo DO Admitting Clinician ESPINOZA ROYAL Admitting Clinician Unavailable Payers Payer Name Policy Type Policy Number Effective Date Expiration Date [place] kate MEDICARE PART A [id number] 2001 AND B 00:00:00 MEDICARE A B [id number] 2001 00:00:00 RETAIL PRO [id number] 2022 00:00:00 Problems Condition Condition Condition Status Onset Resolution Last Treating Co mments Source Name Details Category Date Date Treatment Clinician Date Upper Upper Disease Active [facility] stinal stinal 00:00: Medical bleed bleed 00 Center Altered Altered Disease Active Univers mental mental 4-30 ity of status, status, 00:00: [place] unspecifie [...] tightness tightness 03-09 ity of 00:00: [place] [facility] Chronic Chronic Disease Active Univers right right 03-09 ity of shoulder shoulder 00:00: [place] pain pain 00 Medical Branch Chronic Chronic Disease Active Univers midline midline 03-09 ity of low back low back 00:00: [place] pain pain Medical without without Branch sciatica sciatica BPH BPH Disease Active Univers (benign (benign 05-17 ity of prostatic prostatic 00:00: [facility] s hyperplasi hyperplasi 00 Me dical a) a) Branch Mixed Mixed Disease Active Univers hyperlipid hyperlipid 3-30 it y of emia emia 00:00: Medical Branch Peripheral Peripheral Disease Active U nivers neuropathy neuropathy 3-30 it y of 00:00: [place] [facility] Neuropathy Neuropathy Disease Active U nivers 3-30 ity of 00:00: Medical Branch Gout Gout Disease Active Univers 3-30 ity of 00:00: Medical Branch CAD CAD Disease Active Univers (coronary (coronary ity of artery artery [place] disease) disease) Medica l Branch Pacemaker Pacemaker Disease Active Uni vers ity of [facility] Branch 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 [facility] Branch Essential Essential Disease Active Uni vers hypertensi hypertensi it y of on on [facility] Branch Allergies, Adverse Reactions, Alerts Allergy Allergy Status Severity Reaction(s) Onset Inactive Treating Comm ents Source Name Type Date Date Clinician NO KNOWN Drug Active Univers ALLERGIE Class ity of S [facility] NO KNOWN Allergy Active [facility] Social History Social Habit Start Date Stop Date Quantity Comments Source History of tobacco Cigarette Smoker University of use [place] [facility] History SDOH University o f Alcohol Std Drinks [place] [facility] History SDOH University o f Alcohol Binge [place] [facility] al [facility] History SDOH Social Unive rsity of Connections Get [place] Med ical Together Branch History SDOH Social Unive rsity of Connections [facility] [place] [facility] History SDOH Social Unive rsity of Connections [place] [facility] Membership Branch History SDOH Social Unive rsity of Connections [place] [facility] Meetings Branch Gender identity [facility] Sexual orientation Method ist Hospital History SDOH [facility] Alcohol intake 2022-07-15 2022-07-[address] [facility] 00:00:00 00:00:00 non-drinker Medical Cente r (finding) History SDRI 2022-07-11 2022-07-[address] [facility] Unable to 00:00:00 00:00:00 Medical Center Pay History SDRI 2022-07-11 2022-07-[address] [facility] Places 00:00:00 00:00:00 Medical Ce nter Lived History [facility] 2022-07-11 2022-07-[address] [facility] Homeless 00:00:00 00:00:00 Medical Center Last Year Tobacco use and 2022-07-11 2022-07-[address] [facility] exposure 00:00:00 00:00:00 tobacco non-user Medical Center History [facility] 2022-07-11 2022-07-[address] [facility] Transport Med 00:00:00 00:00:[address] Exposure to 2022-06-07 2022-06-17 Unable to assess Univers ity of SARS-CoV-2 (event) 00:00:00 21:34:00 [place] [facility] History SDRI 2022-06-16 2022-06-16 1 University o f Alcohol Frequency 00:00:00 00:00:00 [place] M edical Branch History SDOH Social 2022-06-16 2022-06-16 1 Unive rsity of Connections Phone 00:00:00 00:00:00 [place] M edical Branch History SDOH Social 2022-06-16 2022-06-16 4 Unive rsity of Connections Living 00:00:00 00:00:00 [place] [facility] History SDOH 2022-06-16 2022-06-16 0 University o f Physical Activity 00:00:00 00:00:00 [place] M edical DPW Branch History SDOH 2022-06-16 2022-06-16 0 University o f Physical Activity 00:00:00 00:00:00 [facility] edical MPS Branch History SDOH 2022-06-16 2022-06-16 5 University o f Financial 00:00:00 00:00:00 [place] [facility] [place] History SDOH Food 2022-06-16 2022-06-16 1 Univers ity of Worry 00:00:00 00:00:00 [facility] History SDOH Food 2022-06-16 2022-06-16 1 Univers ity of Scarcity 00:00:00 00:00:00 [facility] History of Social 2020-06-22 2020-06-[address] function 00:00:00 00:00:00 Hospital Sex Assigned At [birth year] [facility] [address] [facility] 00:00:00 00:00:00 Medical Center Smoking Status Start Date Stop Date Source Never smoked tobacco [facility] Ex-smoker 2020-09-06 00:00:00 2020-09-06 00:00:00 [facility] Medications Ordered Filled Start Stop Current Ordering Indication Dosage Frequency Signature Comments Components Source Medication Medication Date Date Medication? Clinician (SIG) Name Name pantoprazol Yes 40mg Q.5D Take [address] [facility] 5-30 tablet (40 [facility] (PROTONIX) 00:00: mg total) Me dical 40 MG 00 by mouth Center tablet in the morning and 1 tablet (40 mg total) before bedtime. senna-docus Yes 1{tbl} QD Take [address] ate 5-30 tablet by Sisi (SENOKOT S) 00:00: mouth Medic al 8.6-50 mg 00 nightly. Center per tablet amoxicillin 2022- No 1{tbl} Q.5D Take [address] -clavulanat 5-30 -05 tablet by [place] tello e 00:00: 23:59 mouth in Medical (AUGMENTIN) 00 :00 the Center 875-125 mg morning per tablet and 1 tablet before bedtime. Do all this for 6 days. risperiDONE Yes 3mg QD Take [address] (RisperDAL) 5-16 tablets (3 [place] [facility] 1 MG tablet 00:00: mg total) mariajose 00 by mouth Center in the morning. sotalol 40 0 Yes .5{tbl} Q.5D Take 0.[address] MG halftab 5-16 tablets by Sarah es half tablet 00:00: mouth in Mo dical 00 the Center morning and 0.5 tablets before bedtime. risperiDONE 2022-0 3- No [id number] 1mg Take 1 Univers 1 mg tablet 5-16 06-16 tablet by it y of 00:00: 04:59 mouth [place] 00 :00 every Medical morning Branch for 30 days. risperiDONE 2022-0 2022- No [id number] 1mg Take 1 Univers 1 mg tablet 5-16 06-16 tablet by it y of 00:00: 04:59 mouth [place] 00 :00 every Medical morning Branch for 30 days. aspirin 2022-0 2022- No 81mg QD Take [address] (Gladys Low 5-16 05-30 tablet (81 [place] [facility] Dose 00:00: 00:00 mg total) Medical Aspirin) 81 00 :00 by mouth Cent er MG EC in the tablet morning. cyanocobala [address] Uni vers min, 5-15 5,000 mcg ity of vitamin 18:38: under the [place] B-, 30 tongue Medical (VITAMIN daily. Branch B-12) 5,000 Take daily mcg Subl under the tongue Cholecalcif 0 Yes 1{capsu Take 1 U nivers red, 5-15 le} capsule by ity of Vitamin D3, 18:38: mouth [place] (DIALYVITE 30 daily. Medical VITAMIN D) Take 1 Branch 5,000 unit 5000 mcg capsule capsule daily COPPER ORAL 0 Yes Take by Uni vers 5-15 mouth ity of 18:38: daily. [place] 30 Medical Branch cyanocobala 2022-[address] Uni vers min, 5-15 5,000 mcg ity of vitamin 18:38: under the [place] B-12, 30 tongue Medical (VITAMIN daily. Branch B-12) 5,000 Take daily mcg Subl under the tongue Cholecalcif 2022-0 Yes 1{capsu Take 1 U nivers red, 5-15 le} capsule by ity of Vitamin D3, 18:38: mouth [place] (DIALYVITE 30 daily. Medical VITAMIN D) Take 1 Branch 5,000 unit 5000 mcg capsule capsule daily COPPER ORAL Yes Take by Uni vers 5-15 mouth ity of 18:38: daily. [place] 30 Medical Branch risperiDONE 2022- No [id number] 3mg Take 1 Univers 3 mg tablet 15 -15 tablet by it y of 00:00: 04:59 mouth [place] 00 :00 every Medical evening Branch for 30 days. risperiDONE 2022- No [id number] 3mg Take 1 Univers 3 mg tablet 15 -15 tablet by it y of 00:00: 04:59 mouth [place] 00 :00 every Medical evening Branch for 30 days. OLANZapine Yes 5mg 5 mg, Univer s (ZYPREXA) 5-14 Intramuscu ity of injection 5 18:49: lar, [place] mg 03 BIDPRN, Medical Starting Branch on Thu06/29/22 at 1349, Until Discontinu ed, Routine, severe agitation KCL 20 Yes 40meq 40 mEq, Univers mEq/15 mL -14 Oral, ity of solution 40 00:00: DAILY, [place] mEq 00 First dose Medical (after Branch last modificati on) on Thu06/28/22 at 1900, Until Discontinu ed, Routine OLANZapine 2022- No 10mg 10 mg, Univ ers (ZYPREXA) 06-28 05-13 Intramuscu ity of injection 04:45: 03:59 lar, ONCE, [place] 10 mg 00 :00 1 dose, On Medical Fri Branch 06/27/22 at 2345, Routine risperiDONE Yes 3mg 3 mg, Unive rs (RISPERDAL) 5-12 Oral, QPM, it y of tablet 3 mg 22:00: First dose [place] 00 (after Medical last Branch modificati on) on Thu06/27/22 at 1700, Until Discontinu ed, Routine risperiDONE Yes 1mg 1 mg, Unive rs (RISPERDAL) 5-12 Oral, QAM, it y of tablet 1 mg 14:00: First dose [place] 00 (after Medical last Branch modificati on) on Thu06/27/22 at 0900, Until Discontinu ed, Routine OLANZapine 2022- No 5mg 5 mg, Unive rs (ZYPREXA) 06-27 Intramuscu ity of injection 5 09:00: 08:18 lar, ONCE, [place] mg 00 :00 1 dose, On [facility] Branch 06/27/22 at 0400, Routine haloperidol 2022-0 2022- No 5mg 5 mg, Univ ers lactate 06-27 Intramuscu ity o f (HALDOL) 09:00: 08:18 lar, ONCE, [place] injection 5 00 :00 1 dose, On Mo dical mg Fri Branch 06/27/22 at 0400, Routine OLANZapine 2022-2022- No 5mg 5 mg, Unive rs (ZYPREXA) 06-27 Intramuscu ity of injection 5 06:30: 05:46 lar, ONCE, [place] mg 00 :00 1 dose, On [facility] 06/27/22 at 0130, Routine risperiDONE 2022- No 1mg 1 mg, Univ ers (RISPERDAL) 06-27 Oral, ity of tablet 1 mg 03:00: 02:07 ONCE, 1 [place] 00 :00 dose, On [facility] 06/26/22 at 2200, Routine risperiDONE 2022-2022- No 2mg 2 mg, Univ ers (RISPERDAL) 06-26 Oral, QPM, i ty of tablet 2 mg 22:00: 01:48 First dose [place] 00 :41 on [facility] 06/26/22 at Branch 1700, Until Discontinu ed, Routine risperiDONE 2022- No 2mg 2 mg, Univ ers (RISPERDAL) 06-26 Oral, QAM, i ty of tablet 2 mg 14:00: 01:48 First dose [place] 00 :41 (after Medical last Branch modificati on) on [facility] 06/26/22 at 0900, Until Discontinu ed, Routine OLANZapine 2022- No 2.5mg 2.5 mg, Un jordon (ZYPREXA) 06-26 Intramuscu ity of injection 11:15: 10:36 lar, ONCE, [place] 2.5 mg 00 :00 1 dose, On [facility] 06/26/22 at 0615, Routine haloperidol 2022- No 5mg 5 mg, Univ ers lactate 06-2612 Intramuscu ity o f (HALDOL) 10:21: 05:23 lar, PRN, Cristopher as injection 5 16 :00 1 dose, Medic al mg Starting Branch on Thu06/26/22 at 0521, Until Discontinu ed, Routine, Psychosis OLANZapine 2022- [...] 500mL at 999 Univ ers (NS) bolus 06-24 05-09 mL/hr, 500 it y of infusion 21:45: 23:16 mL, IV [place] 500 mL 00 :00 Piggyback, Medical ONCE, 1 Branch dose, On Thu06/24/22 at 1645, STAT haloperidol 2022- No 5mg 5 mg, Univ ers lactate 06-24 05-10 Intramuscu ity o f (HALDOL) 20:15: 05:03 [...] dose, On Thu06/24/22 at 1300, STAT levothyroxi Yes 75ug QD Take [address] ne 06-24 tablet (75 [facility] (Synthroid) 00:00: mcg total) Medical 75 MCG 00 by mouth Center tablet in the morning. levothyroxi 2022-0 2022- No [id number] 75ug Take 1 Univers ne 75 mcg 06-24- tablet by ity of tablet 00:00: 04:59 mouth [place] 00 :00 every Medical morning Branch for 30 days. levothyroxi 2022-0 2022- No [id number] 75ug Take 1 Univers ne 75 mcg 06-24-09 tablet by ity of tablet 00:00: 04:59 mouth [place] 00 :00 every Medical morning Branch for 30 days. rivaroxaban 2022-0 2022- No 20mg Take 20 mg Univers (XARELTO) 06-23-08 by mouth ity o f 20 mg Tab 10:49: 00:00 every [place] tablet 51 :00 evening. Medical Branch ZINC 2022-0 2022- No Take by Univers ACETATE 06-23-08 mouth ity of ORAL 10:49: 00:00 daily. [place] 51 :00 Medical Branch aspirin 81 2022-0 Yes [id number] 81mg Take 1 U nivers mg chewable 5-08 tablet by ity of tablet 00:00: mouth in [place] 00 the Medical morning. Branch docusate 2022-0 Yes [id number] 100mg Take 1 Un ojrdon 100 mg 5-08 capsule by ity of capsule 00:00: mouth in [place] 00 the Medical morning Branch and 1 capsule in the evening. erythromyci 2023-0 Yes .5[in_u Place 0.5 Univers n 5 mg/gram 5-08 s] Inches in ity of (0.5 %) 00:00: both eyes [place] ophthalmic 00 4 (four) Medic al ointment times Branch daily. KCL 20 mEq 2022-0 Yes 40meq Take 2 Univ ers tablet 5-08 tablets by ity of 00:00: mouth in [place] the Medical morning. Branch melatonin 3 2022-0 Yes [id number] 3mg Take 1 Univers mg tablet 5-08 tablet by ity o f 00:00: mouth at [place] [address] bedtime. Medical Branch polyethylen 2022-0 Yes 17g Take 1 Univ ers e glycol 5-08 Packet by ity of 3350 17 00:00: mouth in [place] gram powder 00 the Medical morning. Branch aspirin 81 3-0 Yes [id number] 81mg Take 1 U nivers mg chewable 5-08 tablet by ity of tablet 00:00: mouth in [place] 00 the Medical morning. Branch docusate 2022-0 Yes [id number] 100mg Take 1 Un jordon 100 mg 5-08 capsule by ity of capsule 00:00: mouth in [place] 00 the Medical morning Branch and 1 capsule in the evening. erythromyci 2022-0 Yes .5[in_u Place 0.5 Univers n 5 mg/gram 5-08 s] Inches in ity of (0.5 %) 00:00: both eyes [place] ophthalmic 00 4 (four) Medic al ointment times Branch daily. KCL 20 mEq 2022-0 Yes 40meq Take 2 Univ ers tablet 5-08 tablets by ity of 00:00: mouth in [place] 00 the Medical morning. Branch melatonin 3 2022-0 Yes [id number] 3mg Take 1 Univers mg tablet 5-08 tablet by ity o f 00:00: mouth at [place] [address] bedtime. Medical Branch polyethylen 2022-0 Yes 17g Take 1 Univ ers e glycol 5-08 Packet by ity of 3350 17 00:00: mouth in [place] gram powder 00 the Medical morning. Branch amLODIPine 2022-0 Yes 10mg QD Take 1 [facility] (NORVASC) 5-08 tablet (10 Luke s 10 MG 00:00: mg total) Medical tablet 00 by mouth Center in the morning. donepeziL 2023-0 Yes 5mg QD Take [address] (Aricept) 5 5-08 tablet (5 Sarah es MG tablet 00:00: mg total) Med ical 00 by mouth Center in the morning. lisinopriL 2023-0 Yes 5mg QD Take 1 [facility] t (PRINIVIL,Z 5-08 tablet (5 Sarah es ESTRIL) 5 00:00: mg total) Med ical MG tablet 00 by mouth Center in the morning. memantine 2023-0 Yes 5mg QD Take [address] (NAMENDA) 5 5-08 tablet (5 Sarah es MG tablet 00:00: mg total) Med ical 00 by mouth Center in the morning. amLODIPine 2022-0 2022- No [id number] 10mg Take 1 Univers 10 mg 06-23-08 tablet by ity of tablet 00:00: 04:59 mouth in [place] 00 :00 [facility] for 30 days. donepeziL 5 2022-0 2022- No [id number] 5mg Take 1 Univers mg tablet 06-23-08 tablet by ity of 00:00: 04:59 mouth in [place] 00 :00 [facility] for 30 days. lisinopriL 2022-0 2022- No [id number] 5mg Take 1 Univers 5 mg tablet 06-23-08 tablet by it y of 00:00: 04:59 mouth in [place] 00 :00 [facility] and 1 tablet in the evening. Do all this for 30 days. memantine 5 2022-0 2022- No [id number] 5mg Take 1 Univers mg tablet 06-23-08 tablet by ity of 00:00: 04:59 mouth in [place] 00 :00 [facility] for 30 days. tamsulosin 2022-0 2022- No [id number] .4mg Take 1 Univers 0.4 mg 24 06-23-08 capsule by ity of hr capsule 00:00: 04:59 mouth in [facility] 00 :00 [facility] for 30 days. amLODIPine 3-0 2022- No [id number] 10mg Take 1 Univers 10 mg 06-23-08 tablet by ity of tablet 00:00: 04:59 mouth in [place] 00 :00 [facility] for 30 days. donepeziL 5 2022- No [id number] 5mg Take 1 Univers mg tablet 06-23- tablet by ity of 00:00: 04:59 mouth in [place] 00 :00 [facility] for 30 days. lisinopriL 2022- No [id number] 5mg Take 1 Univers 5 mg tablet 06-23- tablet by it y of 00:00: 04:59 mouth in [place] 00 :00 the [facility] and 1 tablet in the evening. Do all this for 30 days. memantine 5 2022- No [id number] 5mg Take 1 Univers mg tablet 06-23 tablet by ity of 00:00: 04:59 mouth in [place] 00 :00 [facility] for 30 days. tamsulosin 2022- No [id number] .4mg Take 1 Univers 0.4 mg 24 06-23 capsule by ity of hr capsule 00:00: 04:59 mouth in [facility] 00 :00 [facility] for 30 days. risperiDONE 2022- No 2mg Take 1 Uni vers 2 mg tablet 06-23 tablet by it y of 00:00: 00:00 mouth in [place] 00 :00 [facility] and 1 tablet in the evening. KCL 20 2022- No 40meq 40 mEq, Univer s mEq/15 mL 06-22-13 Oral, ity of solution 40 18:45: 23:48 DAILY, Cristopher as mEq 00 :51 First dose Medical on [facility] 06/22/22 at 1345, Until Discontinu ed, Routine LORazepam 2022- No .5mg 0.5 mg, Univ ers (ATIVAN) 06-22 05-07 Intravenou ity of injection 08:30: 08:24 s, ONCE, 1 [place] 0.5 mg 00 :00 dose, On [facility] 06/22/22 Branch at 0330, Routine docusate Yes 100mg 100 mg, Unive rs (COLACE) 5-07 Oral, BID, ity o f capsule 100 01:00: First dose [place] mg 00 on [facility] 06/21/22 at Branch 2000, Until Discontinu ed, Routine lisinopriL 2023-0 Yes 5mg 5 mg, Univer s (PRINIVIL,Z 06-22 Oral, BID, it y of ESTRIL) 01:00: First dose [place] tablet 5 mg 00 (after Medica l last Branch modificati on) on [facility] 06/21/22 at 1999, Until Discontinu ed, Routine risperiDONE 2022-0 2022- No 2mg 2 mg, Univ ers (RISPERDAL) 06-22 05-11 Oral, BID, i ty of tablet 2 mg 01:00: 10:25 First dose [place] 00 :45 on [facility] 06/21/22 at Branch 1999, Until Discontinu ed, Routine polyethylen 0 Yes 17g 17 g, Unive rs e glycol 06-22 Oral, ity of 3350 powder 00:15: DAILY, [place] 17 g 00 First dose Medical on [facility] 06/21/22 at 1915, Until Discontinu ed, Routine lactulose 0 Yes 30mL 30 mL, Univer s (CEPHULAC) 06-22 Oral, ity of solution 30 00:07: BIDPRN, [place] as mL 04 Starting Medical on [facility] 06/21/22 at 1907, Until Discontinu ed, Routine, Constipati on memantine 0 Yes 5mg 5 mg, Univers (NAMENDA) 06-21 Oral, ity of tablet 5 mg 18:15: DAILY, [place] 00 First dose Medical on [facility] 06/21/22 at 1315, Until Discontinu ed, Routine
clergy member approving Restricted medication : ABRAHAN JOHN donepeziL 0 Yes 5mg 5 mg, Univers (ARICEPT) 06-21 Oral, ity of tablet 5 mg 18:15: DAILY, [place] 00 First dose Medical on [facility] 06/21/22 at 1315, Until Discontinu ed, Routine haloperidoL 2022-0 2022- No 2mg 2 mg, Univ ers (HALDOL) 06-21-06 Oral, BID, ity of tablet 2 mg 01:00: 18:01 First dose [place] 00 :05 on [facility] 06/20/22 at Branch 1999, Until Discontinu ed, Routine KCL 20 2022-0 202- No 40meq 40 mEq, Univer s mEq/15 mL 06-20 Oral, ity of solution 40 15:45: 16:15 ONCE, 1 [place] mEq 00 :00 dose, On Medical Thu06/20/22 Branch at 1045, Routine sennosides- 2022-2022- No 1{tbl} 1 tablet, [facility] docusate 06-20 Oral, ity of sodium 14:00: 00:07 DAILY, [place] (SENOKOT-S) 00 :37 First dose Me dical 8.6-50 mg on Thu Branch per tablet 06/20/22 at 1 tablet 0900, Until Discontinu ed, Routine melatonin Yes 3mg 3 mg, Univers (MELATIN) 06-20 Oral, QHS, ity of tablet 3 mg 02:00: First dose [place] 00 on [facility] 06/19/22 at Branch 2100, Until Discontinu ed, Routine amLODIPine Yes 10mg 10 mg, Unive rs (NORVASC) 06-19 Oral, ity of tablet 10 19:30: DAILY, [place] mg 00 First dose Medical on [facility] 06/19/22 at 1430, Until Discontinu ed, Routine erythromyci Yes .5[in_u 0.5 Inch, Univers n 06-19 s] Both Eyes, ity of (ILOTYCIN) 17:00: QID, First [place] 5 mg/gram 00 dose on [facility] (0.5 %) [facility] 06/19/22 Branch ophthalmic at 1200, ointment Until 0.5 Inch Discontinu ed, Routine OLANZapine 2022- No 5mg 5 mg, Unive rs (ZyPREXA) 06-19 Oral, BID, ity of tablet 5 mg 13:00: 15:51 First dose [place] 00 :20 on [facility] 06/19/22 at Branch 0800, Until Discontinu ed, Routine rivaroxaban 2022- No 20mg 20 mg, Uni vers (XARELTO) 06-19 Oral, QAM ity of tablet 20 13:00: 14:49 WITH [place] mg 00 :08 BREAKFAST, Medical First dose Branch on [facility] 06/19/22 at 0800, Until Discontinu ed, Routine LORazepam 2023-0 2023- No 1mg 1 mg, Slow U nivers (ATIVAN) 06-19 IV Push, ity of injection 1 04:30: 04:13 ONCE, 1 [place] mg 00 :00 dose, On Thu06/18/22 Branch at 2330, Routine OLANZapine 2022- No 5mg 5 mg, Unive rs (ZyPREXA) 06-18 Oral, ity of tablet 5 mg 22:30: 21:49 ONCE, 1 [place] 00 :00 dose, On Thu06/18/22 Branch at 1730, Routine OLANZapine 2022- No 10mg 10 mg, Univ ers (ZYPREXA) 06-18 Intramuscu ity of injection 21:15: 15:51 lar, [place] 10 mg 00 :20 BIDPRN, Medical Starting Branch on Thu06/18/22 at 1615, Until Thu06/20/22 at 1051, Routine, Agitation OLANZapine 2022- No 10mg 10 mg, Univ ers (ZYPREXA) 06-18 Intramuscu ity of injection 16:30: 21:16 lar, BID, [place] 10 mg 00 :14 First dose Medical on Thu Branch 06/18/22 at 1130, Until Discontinu ed, Routine LORazepam 2022- No 1mg 1 mg, Slow U nivers (ATIVAN) 06-18 IV Push, ity of injection 1 12:45: 11:51 ONCE, 1 [place] mg 00 :00 dose, On Thu06/18/22 Branch at 0745, Routine QUEtiapine 2022- No 50mg 50 mg, Univ ers (SEROQUEL) 06-18 Oral, QHS, it y of tablet 50 02:00: 16:22 First dose [place] mg 00 :06 (after Medical last Branch modificati on) on Thu06/17/22 at 2100, Until Discontinu ed, Routine acetaminoph Yes 650mg 650 mg, Un jordon en 06-18 Oral, TID, ity of (TYLENOL) 01:00: First dose [place] tablet 650 00 on Thu06/17/22 at Branch 2000, Until Discontinu ed, Routine D5W 0.9% 2022- No 1000mL at 50 Univ rs NaCl (NS) 06-17 05-14 mL/hr, ity of IV infusion 21:30: 00:29 1,000 mL, [place] 1,000 mL 00 :30 IV Medical Infusion, Branch CONTINUOUS , Starting on Thu06/17/22 at 1630, Until 06/28/22 at 1929, Routine NaCl 0.9% 2022- No 500mL at 999 Univ ers (NS) bolus 06-1702 mL/hr, 500 it y of infusion 14:15: 15:41 mL, IV [place] 500 mL 00 :00 Piggyback, Medical ONCE, 1 Branch dose, On Thu06/17/22 at 0915, STAT aspirin Yes 81mg 81 mg, Univers chewable 06-17 Oral, ity of tablet 81 14:00: DAILY, [place] mg 00 First dose Medical on [facility] 06/17/22 at 0900, Until Discontinu ed, Routine simvastatin No 40mg 40 mg, Uni vers (ZOCOR) 06-17 Oral, ity of tablet 40 14:00: 21:27 DAILY, [place] mg 00 :17 First dose Medical on [facility] 06/17/22 at 0900, Until Discontinu ed, Routine levothyroxi Yes 75ug 75 mcg, Uni vers ne 06-17 Oral, ity of (SYNTHROID) 11:00: QAM-0600, [place] tablet 75 00 First dose Medi maritza mcg on [facility] 06/17/22 at 0600, Until Discontinu ed, Routine sotaloL Yes 40mg 40 mg, Univers (BETAPACE) 06-17 Oral, BID, ity of tablet 40 01:00: [place] dose [place] 00 on [facility] 06/16/22 at Branch 1999, Until Discontinu ed, Routine
clergy member approving Restricted medication : MEGAMN QUEtiapine No 25mg 25 mg, Univ ers (SEROQUEL) 06-17- Oral, BID, it y of tablet 25 01:00: 19:46 First dose [place] mg 00 :04 on [facility] 06/16/22 at Branch 2000, Until Discontinu ed, Routine dexMEDEtomi 2022- No .2ug/kg 0.2-1.5 Univers dine 400 06-16 0505 /h mcg/kg/hr ity o f mcg in 0.9 23:04: 13:41 ?68 [place] % NaCl 100 20 :41 (3.4-25.5 Medi maritza mL mL/hr), IV Branch (PRECEDEX) Infusion, RTU IV TITRATE, infusion Starting on Thu06/16/22 at 1804, Until Thu06/20/22 at 0841, Routine NaCl 0.9% 2022- No 250mL at 999 Univ ers (NS) bolus 06-16 mL/hr, 250 it y of infusion 21:45: 22:20 mL, IV [place] 250 mL 00 :38 Piggyback, Medical ONCE, 1 Branch dose, On Thu06/16/22 at 1645, STAT dexMEDEtomi 2022- No .2ug/kg 0.2-1.5 Univers dine 200 06-16 05 /h mcg/kg/hr ity o f mcg in [...] prescriber .
tamsulosin Yes .4mg 0.4 mg, Univ ers (FLOMAX) 06-16 Oral, ity of capsule 0.4 19:45: DAILY, [place] mg 00 First dose Medical on Thu06/16/22 at 1445, Until Discontinu ed, Routine ziprasidone [...] = 1 mg/kg Medical ?68 kg), Branch [facility], Q12H, First dose on Thu06/16/22 at 0800, Until Discontinu ed, Routine OLANZapine 2022- No 10mg 10 mg, Univ ers (ZYPREXA) 06-16 Intramuscu ity of injection 12:30: 14:01 lar, ONCE, [place] 10 mg 00 :00 1 dose, On Medical Thu06/16/22 Branch at 0730, Routine LORazepam 2022- No 2mg 2 mg, Slow U nivers (ATIVAN) 06-16 IV Push, ity of injection 2 09:15: 08:26 ONCE, 1 [place] mg 00 :00 dose, On Medical Thu06/16/22 Branch at 0415, Routine haloperidol 2022- No 5mg 5 mg, Univ ers lactate 06-16 Intramuscu ity o f (HALDOL) 09:15: 08:30 lar, ONCE, [place] injection 5 00 :00 1 dose, On Me dical mg Thu06/16/22 Branch at 0415, Routine hydralAZINE 2022- No 10mg 10 mg, Uni vers (APRESOLINE 06-16 Slow IV ity of ) injection 08:38: 18:40 Push, [place] 10 mg 04 :40 Q4HPRN, Medical Starting Branch on Thu06/16/22 at 0338, Until 06/22/22 at 1340, Routine, DBP=&g t;100; SBP=>180 haloperidol 0 2022- No 2.5mg 2.5 mg, U nivers lactate 06-16 Intravenou ity o f (HALDOL) 04:30: 04:01 s, ONCE, 1 [place] injection 00 :00 dose, On Medica l 2.5 mg [facility] 06/15/22 at 2330, STAT haloperidol 0 2022- No 2.5mg 2.5 mg, U nivers lactate 06-16 Intravenou ity o f (HALDOL) 04:00: 03:47 s, ONCE, 1 [place] injection 00 :00 dose, On Medica l 2.5 mg [facility] 06/15/22 at 2300, STAT ondansetron Yes 4mg 4 mg, Slow Univers (ZOFRAN 06-16 IV Push, ity of (PF)) 03:32: Q6HPRN, [place] injection 4 27 Starting Medi maritza mg on [facility] 06/15/22 at 2232, Until Discontinu ed, Routine, Nausea and Vomiting (N/V) acetaminoph 2022- No 650mg 650 mg, U nivers en 06-16 05 Oral, ity of (TYLENOL) 03:32: 20:10 Q6HPRN, [place] tablet 650 18 :15 Starting Medic al mg on [facility] 06/15/22 at 2232, Until 06/17/22 at 1510, Routine, Pain (scale 1-3), Temp > 38 C fenofibrate Yes 134mg QD Take [address] [facility] micronized 3-14 capsule [facility] (LOFIBRA) 00:00: (134 mg Medic al 134 MG 00 total) by Center capsule mouth in the morning. gabapentin Yes 100mg Q.[id number] Take [address] [facility] (NEURONTIN) 3-07 [id number] capsule [facility] 100 MG 00:00: 3D (100 mg Medical capsule 00 total) by Center mouth in the morning and 1 capsule (100 mg total) at noon and 1 capsule (100 mg total) in the evening. FENOFIBRATE 2021-02 Yes [id number] TAKE 1 Univers MICRONIZED 0-07 CAPSULE ity of 134 mg 00:00: DAILY [place] capsule 00 Medical Branch FENOFIBRATE 2021-02- No [id number] TAKE 1 Univers MICRONIZED 0-07 05-08 CAPSULE ity o f 134 mg 00:00: 00:00 DAILY [place] capsule 00 :00 Medical Branch fenofibrate 0 Yes [id number] 134mg Take 1 Univers micronized 7-06 capsule by ity of 134 mg 00:00: mouth [place] capsule 00 daily. Medical Branch fenofibrate 2021- No [id number] 134mg Take 1 Univers micronized 7-06 10-07 [...] Take 20 mg Univers HCl 200 mg 07-2913 by mouth ity of TbSR 11:19: 00:00 daily. [place] 43 :00 Take 20 mg Medical oral Branch daily. cyanocobala Yes 5000ug Place Uni vers min, 6-13 5,000 mcg ity of vitamin 11:19: under the [place] B-12, 25 tongue Medical (VITAMIN daily. Branch B-12) 5,000 Take daily mcg Subl under the tongue cyanocobala Yes 5000ug Place Uni vers min, 6-13 5,000 mcg ity of vitamin 11:19: under the [place] B-12, 25 tongue Medical (VITAMIN daily. Branch B-12) 5,000 Take daily mcg Subl under the tongue cyanocobala Yes 5000ug Place Uni vers min, 6-13 5,000 mcg ity of vitamin 11:19: under the [place] B-12, 25 tongue Medical (VITAMIN daily. Branch B-12) 5,000 Take daily mcg Subl under the tongue cyanocobala Yes 5000ug Place Uni vers min, 6-13 5,000 mcg ity of vitamin 11:19: under the [place] B-12, 25 tongue Medical (VITAMIN daily. Branch [...] vers 6-13 mouth ity of 11:19: daily. [address] ZINC Yes Take by Univers ACETATE 6-13 mouth ity of ORAL 11:19: daily. [address] COPPER ORAL Yes Take by Uni vers 6-13 mouth ity of 11:19: daily. [address] ZINC 0 Yes Take by Univers ACETATE 6-13 mouth ity of ORAL 11:19: daily. [address] COPPER ORAL Yes Take by Un jordon 6-13 mouth ity of 11:19: daily. [address] ZINC 0 Yes Take by Univers ACETATE 6-13 mouth ity of ORAL 11:19: daily. [address] COPPER ORAL 0 Yes Take by Uni vers 6-13 mouth ity of 11:19: daily. [address] ZINC 0 Yes Take by Univers ACETATE 6-13 mouth ity of ORAL 11:19: daily. [address] rivaroxaban Yes 20mg Take 20 mg Univers [...] tablet 13 evening. Medical Branch fenofibrate Yes [id number] TAKE 1 [facility] micronized 5-16 CAPSULE ity of 134 mg 00:00: DAILY [place] capsule 00 Medical Branch fenofibrate Yes [id number] TAKE 1 Univers micronized 5-16 CAPSULE ity of 134 mg 00:00: DAILY [place] capsule 00 Medical Branch fenofibrate 2021- No [id number] TAKE 1 Univers micronized 5-16 07-06 CAPSULE ity o f 134 mg 00:00: 00:00 DAILY [place] capsule 00 :00 Medical Branch traMADoL 50 2020-02 Yes [id number] 50mg Take 1 Univ ers mg tablet 1-29 tablet by ity o f 00:00: mouth 2 [place] 00 (two) Medical times Branch daily as needed (for breakthrou gh amanda n.on Xarelto,un abletotake NSAIDs). Indication s: chronic pain simvastatin 2020-02 Yes [id number] 40mg Take 1 Univers 40 mg 1-29 tablet by ity of tablet 00:00: mouth [place] 00 daily. Medical Branch gabapentin 2020-02 Yes [id number] Take 1 tab Univers 100 mg 1-29 po qam and ity of capsule 00:00: 2 tabs po [place] 00 qpm Medical Branch levothyroxi 2020-02 Yes [id number] TAKE 1 Univers ne 50 mcg 1-29 TABLET ity of tablet 00:00: EVERY 00 [...] Indication s: chronic pain simvastatin 2020-02 Yes [id number] 40mg Take 1 Univers 40 mg 1-29 tablet by ity of tablet 00:00: mouth [place] 00 daily. Medical Branch gabapentin 2020-02 Yes [id number] Take 1 tab Univers 100 mg 1-29 po qam and ity of capsule 00:00: 2 tabs po [place] 00 qpm Medical Branch levothyroxi 2020-02 Yes [id number] TAKE 1 Univers ne 50 mcg 1-29 [...] Indication s: chronic pain simvastatin 2020-02 Yes [id number] 40mg Take 1 [facility] 40 mg 1-29 tablet by ity of tablet 00:00: mouth [place] 00 daily. Medical Branch gabapentin 2020-02 Yes [id number] Take 1 tab Univers 100 mg 1-29 po qam and ity of capsule 00:00: 2 tabs po [place] 00 qpm Medical Branch levothyroxi 2020-02 Yes [id number] TAKE 1 Univers ne 50 mcg 1-29 TABLET ity of tablet 00:00: EVERY [place] 00 MORNING, Medical TAKE ON AN Branch EMPTY STOMACH AND WAIT 30 MINUTES BEFORE TAKING MEDICATION S OR EATING traMADoL 50 2020-02 Yes [id number] 50mg Take 1 Univ ers mg tablet 1-29 tablet by ity o f 00:00: mouth 2 [place] (two) Medical times Branch daily as needed (for breakthrou gh lowbackpai n.on Xarelto,un abletotake NSAIDs). Indication s: chronic pain simvastatin 2020-02 Yes [id number] 40mg Take 1 Univers 40 mg 1-29 tablet by ity of tablet 00:00: mouth [place] 00 daily. Medical Branch gabapentin 2020-02 Yes [id number] Take 1 tab Univers 100 mg 03-16 po qam and ity of capsule 00:00: 2 tabs po [place] 00 qpm Medical Branch levothyroxi 2020-02 Yes [id number] TAKE 1 Univers ne 50 mcg 03-16 TABLET ity of tablet 00:00: EVERY [place] 00 MORNING, Medical TAKE ON AN Branch EMPTY STOMACH AND WAIT 30 MINUTES BEFORE TAKING MEDICATION S OR EATING traMADoL 50 2020-02- No [id number] 50mg Take 1 Uni vers mg tablet 03-1608 tablet by ity of 00:00: 00:00 mouth 2 [place] 00 :00 (two) Medical times Branch daily as needed (for breakthrou gh [place] n.on Xarelto,un abletotake NSAIDs). Indication s: chronic pain simvastatin 2020-02- No [id number] 40mg Take 1 Univers 40 mg 03-16 tablet by ity of tablet 00:00: 00:00 mouth [place] 00 :00 daily. Medical Branch gabapentin 2020-02- No [id number] Take 1 tab [facility] 100 mg 03-16 po qam and ity of capsule 00:00: 00:00 2 tabs po [place] 00 :00 qpm Medical Branch levothyroxi 2020-02- No [id number] TAKE 1 Univers ne 50 mcg 03-16 TABLET ity of tablet 00:00: 00:00 EVERY [...] QD Take 50 mg Me [facility] phosphate -[address] (VB6 P5P 00:09: daily. Hospita ORAL) 13 l prasterone, Yes QD Take by Met hodi dhea, -[address] (DHEA) 25 00:09: daily. Hospit a mg capsule 13 l traMADoL [place] [id number] 50mg Q6H Take 50 mg Me thodi [...] a day. Will take after procedure traMADoL Yes [id number] 50mg Q6H Take 50 mg Me thodi (ULTRAM) 50 4-[address] mg tablet 19:09: every 6 Hospi ta 13 (six) l hours as needed for moderate pain .acute pain. Will take after procedure minocycline 2021-0 Yes 100mg Q.5D Take 100 M ethodi [...] a mg capsule 13 l traMADoL [place] [id number] 50mg Q6H Take 50 mg Me thodi [...] a mg capsule 13 l traMADoL Yes [id number] 50mg Q6H Take 50 mg Me thodi [...] gabapentin Yes Take by Meth lópez (NEURONTIN) -[address] 100 mg 19:09: capsule [...] a mg capsule 13 l tra[place]ADoL [place] [id number] 50mg Q6H Take 50 mg Me thodi [...] 19:09: daily. Hospita tablet 13 l fenofibrate 2021-0 Yes 134mg QD Take 134 M ethodi micronized 4-[address] (LOFIBRA) 19:09: mouth Hospita 134 MG 13 daily l capsule before breakfast. cholecalcif 0 Yes 5000U Q2D Take 5,000 Methodi red, 4-[address] vitamin D3, 19:09: mouth Hospi ta 125 mcg 13 every l (5,000 other day. unit) tablet simvastatin 0 Yes 40mg QD Take 40 mg Methodi [...] daily. Hospit a mg capsule 13 l levothyroxi 0 Yes 50ug QD Take 50 Met hodi ne 4-[address] (SYNTHROID) 19:09: mouth Hospi ta 50 mcg 13 daily. l tablet sotaloL 0 Yes 40mg Q.5D Take 40 mg Meth lópez (BETAPACE) 4-[address] 80 MG 19:09: (two) Hospita tablet 13 times a l day. Taking 1/2 tablet twice a day rivaroxaban 0 Yes 20mg QD Take 20 mg Methodi (XARELTO) 4-[address] 20 mg 19:09: daily. Hospita tablet 13 l fenofibrate 0 Yes 134mg QD Take 134 M ethodi [...] a mg capsule 13 l traMADoL Yes [id number] 50mg Q6H Take 50 mg Me thodi [...] times a day. Will take after procedure sotalol 2015-02 Yes 40mg Take 40 mg [...] [place] tablet 00 times Medical daily. Branch Vital Signs Vital Name Observation Time Observation Value Comments Source HEIGHT 2022-07-11 17:00:00 160 cm WEIGHT 2022-07-11 17:00:00 67.9 kg HEIGHT 2022-07-11 17:00:00 160 cm WEIGHT 2022-07-11 17:00:00 67.9 kg HEIGHT 2022-07-11 17:00:00 160 cm WEIGHT 2022-07-11 17:00:00 67.9 kg Systolic blood 2022-06-30 20:11:00 109 mm[Hg] Univer sity of pressure [facility] Diastolic blood 2022-06-30 20:11:00 64 mm[Hg] Unive rsity of pressure [facility] Heart rate 2022-06-30 20:11:00 70 /min [facility] Body temperature 2022-06-30 20:11:00 36.28 Melvi [facility] ersity [facility] Respiratory rate 2022-06-30 20:11:00 18 /min [facility] [place] [facility] saturation in 2022-06-30 20:11:00 96 /min [facility] Arterial blood by [facility] Pulse oximetry Branch Body weight 2022-06-19 09:01:00 71.986 kg [facility] BMI 2022-06-19 09:01:00 24.86 kg/m2 Universi ty [facility] Body height 2022-06-16 00:48:00 170.2 cm Universi ty [facility] Systolic blood 2021-07-29 15:09:00 122 mm[Hg] Univer sity of pressure [facility] Diastolic blood 2021-07-29 15:09:00 72 mm[Hg] Unive rsity of [facility] Heart rate 2021-07-29 15:09:00 66 /min Universi ty [facility] Body temperature 2021-07-29 15:09:00 36.67 Melvi Univ ersity [facility] Respiratory rate 2021-07-29 15:09:00 18 /min Univ ersity [facility] Body height 2021-07-29 15:09:00 172.7 cm Universi ty [facility] Body weight 2021-07-29 15:09:00 63.504 kg Universi [facility] BMI 2021-07-29 15:09:00 21.29 kg/m2 [facility] Oxygen saturation in 2021-07-29 15:09:00 96 /min [facility] Arterial blood by [facility] Pulse oximetry [place] Systolic blood 2022-07-15 07:30:00 152 mm[Hg] [facility] Diastolic blood 2022-07-15 07:30:00 75 mm[Hg] [facility] S [facility] Heart rate 2022-07-15 07:30:00 68 /min [facility] Body temperature 2022-07-15 07:30:00 36.72 Melvi [facility] Respiratory rate 2022-07-15 07:30:00 148 /min [facility] Oxygen saturation in 2022-07-15 07:30:00 100 /min [facility] Arterial blood by Medical nter Pulse oximetry Body height 2022-07-11 17:00:00 160 cm [facility] Body weight 2022-07-11 17:00:00 67.9 kg [facility] BMI 2022-07-11 17:00:00 26.52 kg/m2 [facility] Heart rate 2020-06-12 00:00:00 62 /[facility] O[facility] in 2020-06-12 00:00:00 97 /min [facility] Arterial blood by Pulse oximetry Respiratory rate 2020-06-11 23:45:00 18 /min [facility] Systolic blood 2020-06-11 23:30:00 155 mm[Hg] [facility] pressure Diastolic blood 2020-06-11 23:30:00 76 mm[Hg] [facility] pressure Body temperature 2020-06-11 22:58:00 36.11 Melvi [facility] Body height 2020-06-11 16:26:00 172.7 cm [facility] Body weight 2020-06-11 16:26:00 60.601 kg [facility] BMI 2020-06-11 16:26:00 20.31 kg/m2 [facility] Procedures Procedure Date / Time Performing Clinician Source Performed PREPARE LEUKO-REDUCED RBC 2022-07-15 23:54:00 [facility] POTASSIUM 2022-07-15 09:43:00 [facility] BASIC METABOLIC PANEL 2022-07-15 05:08:00 [facility] MAGNESIUM 2022-07-15 05:08:00 [facility] Center PHOSPHORUS 2022-07-15 05:08:00 [facility] CBC W/PLT COUNT & AUTO 2022-07-15 05:08:00 [facility] DIFFERENTIAL [facility] Center CBC W/PLT COUNT & AUTO 2022-07-15 05:08:00 [facility] DIFFERENTIAL P[facility] Center TRANSFUSE LEUKO-REDUCED 2022-07-14 11:26:00 [facility] RED BLOOD CELLS Pis An Center BASIC METABOLIC PANEL 2022-07-14 04:30:00 [facility] MAGNESIUM 2022-07-14 04:30:00 [facility] Center PHOSPHORUS 2022-07-14 04:30:00 [facility] Center CBC W/PLT COUNT & AUTO 2022-07-14 04:30:00 [facility] DIFFERENTIAL P[facility] Center CBC W/PLT COUNT & AUTO 2022-07-14 04:30:00 [facility] DIFFERENTIAL [facility] Center PREPARE LEUKO-REDUCED RBC 2022-07-13 23:54:00 Afaq, [facility] BASIC METABOLIC PANEL 2022-07-13 05:48:00 [facility] Center MAGNESIUM 2022-07-13 05:48:00 [facility] An Center PHOSPHORUS 2022-07-13 05:48:00 [facility] Center CBC W/PLT COUNT & AUTO 2022-07-13 05:48:00 [facility] DIFFERENTIAL P[facility] An Center CBC W/PLT COUNT & AUTO 2022-07-13 05:48:00 [facility] DIFFERENTIAL P[facility] An Center EGD, WITH HEMORRHAGE 2022-07-12 07:35:00 Andrey Bustamante [facility] CONTROL Center TRANSFUSE LEUKO-REDUCED 2022-07-12 07:23:00 Af, [facility] RED BLOOD CELLS [facility] BASIC METABOLIC PANEL 2022-07-12 05:13:00 [facility] P[facility] Center MAGNESIUM 2022-07-12 05:13:00 [facility] Pis An Center PHOSPHORUS 2022-07-12 05:13:00 [facility] Pis An Center CBC W/PLT COUNT & AUTO 2022-07-12 05:13:00 [facility] DIFFERENTIAL Pis An Center PROCALCITONIN 2022-07-12 05:13:00 [facility] Pis An Center CBC W/PLT COUNT & AUTO 2022-07-12 05:13:00 Futalan, [facility] DIFFERENTIAL Pis An Center XR CHEST 1 VIEW PORTABLE 2022-07-12 04:54:00 Darrenoh [facility] Medical / BEDSIDE Pis An Center ABORH, MANUAL 2022-07-11 22:30:00 Tish Littlejohn [facility] Center SPUTUM CULTURE + GRAM 2022-07-11 19:07:00 [facility], [facility] STAIN Pis An Center BASIC METABOLIC PANEL 2022-07-11 19:07:00 [facility], [facility] Pis An Center MAGNESIUM 2022-07-11 19:07:00 [facility] Pis An Center PHOSPHORUS 2022-07-11 19:07:00 [facility], [facility] Pis An Center HEPATIC FUNCTION PANEL 2022-07-11 19:07:00 [facility], [facility] Pis An Center CBC W/PLT COUNT & AUTO 2022-07-11 19:07:00 [facility], [facility] DIFFERENTIAL Pis An Center LACTIC ACID, VENOUS 2022-07-11 19:07:00 [facility] Pis An Center TYPE AND SCREEN, 2022-07-11 19:07:00 [facility] AUTOMATED Pis An Center CBC W/PLT COUNT & AUTO 2022-07-11 19:07:00 [facility] COVID-19 (ID NOW RAPID 2022-06-30 18:55:00 Avtar Gallo [facility] TESTING) Medical Branch MAGNESIUM 2022-06-29 10:41:00 Avtar Gallo [facility] BASIC METABOLIC PANEL 2022-06-29 10:41:00 Avtar Gallo [facility] (NA, K, CL, CO2, GLUCOSE, Medica l Branch BUN, CREATININE, CA) CBC WITH DIFF 2022-06-29 10:41:00 Avtar Gallo [facility] BASIC METABOLIC PANEL 2022-06-28 08:26:00 Avtar Gallo [facility] (NA, K, CL, CO2, GLUCOSE, Medica l Branch BUN, CREATININE, CA) CBC WITH DIFF 2022-06-28 08:26:00 [facility] BASIC METABOLIC PANEL 2022-06-27 08:26:00 Aida Aden Lyudmila [facility] (NA, K, CL, CO2, GLUCOSE, Medica l Branch BUN, CREATININE, CA) CBC WITH DIFF 2022-06-27 08:26:00 Markie [facility] CBC WITH DIFF 2022-06-25 15:08:00 Markie [facility] BASIC METABOLIC PANEL 2022-06-25 11:22:00 Aida Aden [facility] (NA, K, CL, CO2, GLUCOSE, Medica l Branch BUN, CREATININE, CA) MAGNESIUM 2022-06-24 10:04:00 Dora [facility] BASIC METABOLIC PANEL 2022-06-24 10:04:00 Dora [facility] (NA, K, CL, CO2, GLUCOSE, Medica l Branch BUN, CREATININE, CA) MAGNESIUM 2022-06-22 08:37:00 Dora [facility] BASIC METABOLIC PANEL 2022-06-22 08:37:00 Dora [facility] (NA, K, CL, CO2, GLUCOSE, Medica l Branch BUN, CREATININE, CA) XR ABDOMEN 1 VW 2022-06-22 01:12:12 Dora [facility] COVID-19 (MOLECULAR 2022-06-21 11:46:00 Dora [facility] NUCLEIC ACID AMPLIFICATION) LAB ONLY COVID 2022-06-21 11:46:00 Dora [facility] INTERPRETATION [facility] MAGNESIUM 2022-06-21 09:40:00 Dora [facility] BASIC METABOLIC PANEL 2022-06-21 09:40:00 Dora [facility] (NA, K, CL, CO2, GLUCOSE, Medica l Branch BUN, CREATININE, CA) CBC WITH DIFF 2022-06-21 09:40:00 [place], [facility] Branch MAGNESIUM 2022-06-20 11:33:00 Abrahan [facility] BASIC METABOLIC PANEL 2022-06-20 11:33:00 Avtar Gallo [facility] (NA, K, CL, CO2, GLUCOSE, Medica l Branch BUN, CREATININE, CA) CBC WITH DIFF 2022-06-19 20:13:00 Avtar Gallo [facility] COVID-19 (ID NOW RAPID 2022-06-19 16:03:00 Avtar Gallo [facility] TESTING) Medical Branch LAB ONLY COVID 2022-06-19 16:03:00 Avtar Gallo [facility] BASIC METABOLIC PANEL 2022-06-18 09:21:00 Avtar Gallo [facility] (NA, K, CL, CO2, GLUCOSE, Medica l Branch BUN, CREATININE, CA) CBC WITH DIFF 2022-06-18 09:21:00 Avtar Gallo [facility] HB ECG ROUTINE & RHYTHM 2022-06-17 20:52:24 Avtar Gallo [facility] BASIC METABOLIC PANEL 2022-06-17 20:45:00 Avtar Gallo [facility] (NA, K, CL, CO2, GLUCOSE, Medica l Branch BUN, CREATININE, CA) ADC OR DONNIE ONLY - RPR 2022-06-17 20:45:00 Avtar Gallo [facility] LACTIC ACID WHOLE BLOOD 2022-06-17 15:26:00 Avtar Gallo [facility] MAGNESIUM 2022-06-17 10:10:00 Avtar Gallo [facility] TROPONIN I 2022-06-17 10:10:00 Avtar Gallo [facility] BASIC METABOLIC PANEL 2022-06-17 10:10:00 Avtar Gallo [facility] (NA, K, CL, CO2, GLUCOSE, Medica l Branch BUN, CREATININE, CA) TROPONIN I 2022-06-16 23:02:00 Avtar Gallo [facility] HB ECG ROUTINE & RHYTHM 2022-06-16 18:56:30 Avtar Gallo [facility] VITAMIN B12, LEVEL 2022-06-16 08:58:00 Abrahan [facility] TROPONIN I 2022-06-16 08:58:00 Avtar Gallo [facility] BASIC METABOLIC PANEL 2022-06-16 08:58:00 Abrahan John [facility] (NA, K, CL, CO2, GLUCOSE, Medica l Branch BUN, CREATININE, CA) CBC WITH DIFF 2022-06-16 08:58:00 [facility] 2022-06-16 02:08:28 Doroteo Pendleton [facility] XR CHEST 1 VW 2022-06-16 02:08:[address] [facility] ACUTE CARE ARTERIAL BLOOD 2022-06-16 01:41:00 Doroteo Pendleton [facility] GAS [facility] URINE DRUG (IMMUNOASSAY) 2022-06-16 01:28:00 [facility] Medical [facility] SCREEN URINALYSIS 2022-06-16 01:28:[address] [facility] MAGNESIUM 2022-06-16 01:22:[address] [facility] AMMONIA, PLASMA 2022-06-16 01:22:[address] [facility] TROPONIN I 2022-06-16 01:22:[address] [facility] FREE T4 2022-06-16 01:22:00 Abrahan [facility] THYROID STIMULATING 2022-06-16 01:22:00 Doroteo Pendleton [facility] HORMONE [facility] COMP. METABOLIC PANEL 2022-06-16 01:22:00 Doroteo Pendleton [facility] ([id number]) Medical Branch ETHANOL 2022-06-16 01:22:[address] [facility] CBC WITH DIFF 2022-06-16 01:22:[address] [facility] FREE T3 2022-06-16 01:22:00 [place], Abrahan [facility] Branch HB ECG ROUTINE & RHYTHM 2022-06-16 01:00:44 Doroteo Pendleton [facility] HOSPITAL ADMISSION MISC - 2022-06-15 05:01:00 Doctor Unassigned, [facility] MEDICARE PATIENTS RIGHTS [place] [facility] IMPORTANT MESSAGE EP PPI GENERATOR CHANGE 2020-06-11 22:40:00 [facility] ECG PRE/POST OP 2020-06-11 16:20:08 Lele, [facility] COVID-19 QUALITATIVE 2020-06-07 14:47:00 [facility], [facility] RT-PCR PROTHROMBIN TIME WITH INR 2020-06-07 14:47:00 [facility] MAGNESIUM LEVEL 2020-06-07 14:47:00 Lele, [facility] HC COMPLETE BLD COUNT 2020-06-07 14:47:00 [facility] W/AUTO DIFF COMPREHENSIVE METABOLIC 2020-06-07 14:47:00 [facility], [facility] PANEL ESTIMATED GFR 2020-06-07 14:47:00 Lele, [facility] Plan of Care Planned Activity Planned Date Details Comments Source Future Scheduled 2022-10-18 SHINGLES VACCINES (2 [facility] Test 14:48:47 of 3) [code = SHINGLES VACCINES (2 of 3)] Future Scheduled 2022-10-18 COVID-19 VACCINE (3 [facility] Test 14:48:47 - Pfizer series) [code = COVID-19 VACCINE (3 - Pfizer series)] Future Scheduled 2022-10-18 INFLUENZA VACCINE [facility] Test 14:48:47 (#1) [code = INFLUENZA VACCINE (#1)] Future Scheduled 2022-10-[address] [facility] Test 00:00:00 (#1) [code = [facility] Influenza Vaccine (#1)] Future Scheduled 2022-07-01 SHINGLES VACCINES (2 [facility] Test 10:12:58 of 3) [code = SHINGLES VACCINES (2 of 3)] Future Scheduled 2022-07-01 COVID-19 VACCINE (3 [facility] Test 10:12:58 - Booster for Pfizer series) [code = COVID-19 VACCINE (3 - Booster for Pfizer series)] Future Scheduled 2022-07-01 INFLUENZA VACCINE [facility] 10:12:58 [code = INFLUENZA VACCINE] Future Scheduled 2022-05-21 SHINGLES VACCINES (2 [facility] 19:41:01 of 3) [code = SHINGLES VACCINES (2 of 3)] Future Scheduled 2022-05-21 COVID-19 VACCINE (3 [facility] Test 19:41:01 - Booster for Pfizer series) [code = COVID-19 VACCINE (3 - Booster for Pfizer series)] Future Scheduled 2022-05-21 INFLUENZA VACCINE [facility] 19:41:01 [code = INFLUENZA VACCINE] Future Scheduled 2022-05-21 SHINGLES VACCINES (2 [facility] 19:41:01 of 3) [code = SHINGLES VACCINES (2 of 3)] Future Scheduled 2022-05-21 COVID-19 VACCINE (3 [facility] Test 19:41:01 - Booster for Pfizer series) [code = COVID-19 VACCINE (3 - Booster for Pfizer series)] Future Scheduled 2022-05-21 INFLUENZA VACCINE [facility] Test 19:41:01 [code = INFLUENZA VACCINE] Future Scheduled 2022-02-[address] [facility] Test 00:00:00 (12+) [code = [facility] DEPRESSION SCREENING (12+)] Future Scheduled 2021-11-06 HEPATITIS B VACCINES [facility] Test 19:29:34 (1 of 3 - 3-dose series) [code = HEPATITIS B VACCINES (1 of 3 - 3-dose series)] Future Scheduled 2021-11-06 SHINGLES VACCINES (2 [facility] Test 19:29:34 of 3) [code = SHINGLES VACCINES (2 of 3)] Future Scheduled 2021-11-06 COVID-19 VACCINE (3 [facility] Test 19:29:34 - Booster for Pfizer series) [code = COVID-19 VACCINE (3 - Booster for Pfizer series)] Future Scheduled 2021-11-06 INFLUENZA VACCINE [facility] Test 19:29:34 [code = INFLUENZA VACCINE] Future Scheduled 2020-05-25 COVID-19 VACCINE ([address] [facility] Test 00:00:00 - Booster for Pfizer Medical Center series) [code = COVID-19 VACCINE (3 - Booster for Pfizer series)] Future Scheduled 2011-01-07 SHINGLES VACCINES ([address] [facility] Test 00:00:00 of 3) [code = Medical Center SHINGLES VACCINES (2 of 3)] Future Scheduled 2002-06-[address] [facility] Test 00:00:00 WELLNESS (YEAR 2 or Medical Center FIRST YEAR if no IPPE) [code = MEDICARE ANNUAL WELLNESS (YEAR 2 or FIRST YEAR if no IPPE)] Future Scheduled 1955-07-03 DTAP/TDAP/TD [facility] Test 00:[facility]:00 VACCINES (1 - Tdap) [facility] [code = DTAP/TDAP/TD VACCINES (1 - Tdap)] Future Scheduled [address] [facility] Test 00:00:00 [facility] r Screening (12+) [code = Tobacco Cessation Counseling and Screening (12+)] Future Scheduled SHINGLES VACCINES [facility] (#2) [code = SHINGLES VACCINES (#2)] Future Scheduled INFLUENZA VACCINE [facility] Test [code = INFLUENZA VACCINE] Encounters Start End Encounter Admission Attending Care Care Encounter Source Date/Time Date/Time Type Type Clinicians Facility Department ID 2022-06-23 [facility] 1.2.840.1 [id number] Methodi 00:00:[id number] 3.430.2.7 Hospit a .3.766507 l .8 2022-06-23 [facility] 1.2.840.1 [id number] Methodi 00:00:[id number] 3.430.2.7 Hospit a .3.422616 l .8 2022-06-20 Outpatient [facility] [id number] [place] 05:29:40 [id number] [facility] 2020-08-27 Inpatient FRANCIA Leon RUST [id number] [facility] 10:30:[address] 2022-07-11 2022-07-15 Inpatient GEORGE SOLIZ, DIPESH Gastro [id number] SLSJoshua 16:59:00 13:53:00 JONAS 2022-07-11 2022-07-15 Hospital Heydi, [facility] [id number] 16:59:00 13:53:00 Encounter Jonas [facility] 2022-07-12 2022-07-12 Surgery Robby, [facility] [id number] 07:30:00 08:00:00 Andrey Tapia [facility] 2022-07-12 2022-07-12 Anesthesia Teo Burgos [facility] [id number] 07:36:00 07:55:00 Event Vasile Thompson [facility] 2022-07-11 2022-07-11 Travel [facility] [id number] [facility] 00:[facility] 00:00:00 [facility] 2022-07-01 2022-07-01 Transition MARGI Mackenzie 1.2.840.114 [id number] Univers 00:00:00 00:00:00 of Care Maite ROBERTS 350.1.13.10 [phone] [address] [place] 2022-06-15 2022-06-30 [facility] FABIAN [id number] Univers 19:42:00 18:20:00 AVTAR xiong [facility] 2022-06-15 2022-06-30 [facility] CharoJack [facility] 1.2.840.11 [id number] Univers 19:42:00 18:20:00 Encounter Doroteo Pendleton 350.1.13.1 0 ity Abrahan John 4.2.7.2.686 [facility] [id number] Medical 1 Branch 2021-11-22 2021-11-22 [facility] 1.2.840.114 [id number] Univers 00:00:00 00:00:00 Sergio RICHARDSON 350.1.13.10 i ty of [place] [phone] Mo dical [address] 2021-10-29 2021-10-29 Outpatient R JANICE [facility] [id number] Univers 14:20:00 14:20:00 LOAN xiong [facility] 2021-08-20 2021-08-20 [facility]ill [facility] 1.2.840.114 [id number] Univers 00:00:00 00:00:00 Loan RICHARDSON 350.1.13.10 ity of [place] [phone] [address] 2021-07-29 2021-07-29 Office [facility] 1.2.840.114 [id number] Univers 10:00:00 11:27:23 Visit Loan RICHARDSON 350.1.13.10 ity of [place] [phone] [address] 2021-07-29 2021-07-29 Outpatient R JANICE [facility] [id number] Univers 10:00:00 11:27:23 LOAN [facility] 2021-07-29 2021-07-29 Outpatient R JANICE [facility] [id number] Univers 10:00:00 10:00:00 LOAN [facility] 2021-07-29 2021-07-29 Outpatient R JANICE [facility] [id number] Univers 10:00:00 10:00:00 LOAN [facility] 2021-06-30 2021-06-30 Refill [facility] .2.840.114 [id number] Univers 00:00:00 00:00:00 Laon RICHARDSON 350.1.13.10 ity of [place] [phone] [address] 2021-03-28 2021-03-28 [facility] 1.2.840.114 [id number] Univers 00:00:00 00:00:00 Loan RICHARDSON 350.1.13.10 ity of [place] [phone] [facility] [address] [facility] 2021-01-14 2021-01-14 Body Worker 2, Adc Lab [facility] 1.2.840.114 [id number] Univers 11:17:30 11:32:30 Visit Loan Camacho 350.1. 13.10 ity of [place] [phone] [facility] 353 [facility] 2021-01-14 2021-01-14 Outpatient R JANICE [facility] [id number] Univers 10:00:00 11:17:39 LOAN ity [facility] 2021-01-14 2021-01-14 Office Janice [facility] 1.2.840.114 [id number] Univers 10:00:00 11:17:39 Visit Loan RICHARDSON 350.1.13.10 ity of [facility] [place] [phone] [address] 2021-01-14 2021-01-14 Outpatient R JANICE [facility] [id number] Univers 10:00:00 11:17:39 LOAN ity [facility] 2020-12-25 2020-12-25 Refill Janice [facility] 1.2.840.114 [id number] Univers 00:00:00 00:00:00 Loan RICHARDSON 350.1.13.10 ity of [place] [phone] [address] 2020-09-06 2020-09-06 Body Worker 2, Adc Lab [facility] 1.2.840.114 [id number] Univers 10:16:09 10:31:09 Visit Loan Camacho 350.1. 13.10 ity of [place] [phone] Mo dical [facility] 353 [facility] 2020-09-06 2020-09-06 Office Janice [facility] 1.2.840.114 [id number] Univers 08:34:04 10:10:54 Visit Loan Richardson 350.1.13.10 ity of [place] [phone] Mo dical nal 231 [facility] 2020-09-06 2020-09-06 Outpatient R JANICE [facility] [id number] [facility] 08:40:00 08:40:00 LOAN xiong [facility] 2020-09-06 2020-09-06 Telephone [facility] 1.2.840.114 [id number] Univers 00:00:00 00:00:00 Loan Richardson 350.1.13.10 it[place] of [place] [phone] [facility] 044 [facility] 2020-09-06 2020-09-06 Orders Doctor LAKISHA 1.2.840.114 [id number] Univers 00:00:00 00:00:00 Only Unassigned, AKOSUA 350.1.13.10 ity of [place] [facility] 4.2.7.2.686 Cristopher as [phone] [address] 2020-08-16 2020-08-16 Outpatient R GLORIA [facility] [id number] Univers 09:40:00 09:40:00 NICANOR xiong [facility] 2020-08-08 2020-08-08 Office [facility] 1.2.840.114 [id number] [facility] 13:45:03 14:30:34 Visit Shanique Richardson 350.1.13.10 it[place] of [place] [phone] [facility] 044 [facility] 2020-08-08 2020-08-08 [facility] [id number] Univers 14:00:00 14:00:00 SHANIQUE xiong o f [facility] 2020-08-07 2020-08-07 Outpatient [facility] [id number] Univers 16:00:00 16:00:00 SERGIO xiong [facility] 2020-07-20 2020-07-20 [facility] 1.2.840.114 [id number] Univers 14:28:53 14:29:03 Visit Sergio Richardson 350.1.13.10 i ty of [place] [phone] [facility] 044 [facility] 2020-07-20 2020-07-20 [facility] 1.2.840.114 [id number] Univers 12:52:03 14:26:15 Visit Sergio Richardson 350.1.13.10 i ty of [place] [phone] Mo dic[address] 2020-07-20 2020-07-20 Outpatient [facility] [id number] Univers 13:00:00 13:00:00 SERGIO xiong [facility] 2020-07-20 2020-07-20 Orders Doctor LAKISHA 1.2.840.114 [id number] Univers 00:00:00 00:00:00 Only Unassigned, AKOSUA 350.1.13.10 ity of [place] [facility] 4.2.7.2.686 Cristopher as [phone] [address] 2020-07-13 2020-07-13 Office [facility] 1.2.840.114 [id number] Univers 08:55:28 09:52:53 Visit Sergio Richardson 350.1.13.10 i ty of [place] [phone] [address] 2020-07-13 2020-07-13 Outpatient [facility] [id number] Univers 09:20:00 09:20:00 SERGIO inga [facility] 2020-07-09 2020-07-09 Office [facility] 1.2.840.114 [id number] Univers 10:03:52 11:08:06 Visit Shanique Richardson 350.1.13.10 it[place] of [place] [phone] Mo dical nal 044 [facility] 2020-07-09 2020-07-09 Outpatient [facility] [id number] Univers 10:30:00 10:30:00 SHANIQUE xiong o f [facility] 2020-07-06 2020-07-06 Outpatient [facility] [id number] Univers 17:00:00 17:00:00 LOAN xiong of [facility] 2020-07-06 2020-07-06 Telemedici [facility] 1.2.840.114 [id number] Univers 15:32:07 15:52:07 ne Visit Loan Richardson 350.1.13.10 it[place] of [place] [phone] Mo jesus [facility] 231 [facility] 2020-07-06 2020-07-06 Telephone [facility] 1.2.840.114 [id number] Univers 00:00:00 00:00:00 Loan Richardson 350.1.13.10 it[place] of [place] [phone] Mo dical nal 231 [facility] 2020-06-11 2020-06-11 Hospital [facility], 1.2.840.1 [id number] Methodi 11:01:00 19:08:00 Encounter Nadim 30807.1.[address] 3.430.2.7 Hospit a .3.991128 l .8 2020-06-11 2020-06-11 Surgery [facility], 1.2.840.1 [id number] Methodi 15:43:00 17:13:[address] 3.430.2.7 Hospit a .3.058878 l .8 2020-06-11 2020-06-11 Travel 1.2.840.1 1.2.353.267 [id number] Methodi 00:00:00 00:00:[address] 3.430.2.7 0.2.7.3.698 Ho spita .3.764820 084.8 l .8 2020-06-07 2020-06-07 [facility] Royal 1.2.840.1 [id number] Methodi 09:15:23 09:20:23 Lele, Nadim 50522.1.[address] 3.430.2.7 Hospit a .3.372476 l .8 2020-06-07 2020-06-07 [facility] Lele, 1.2.840.1 [id number] Methodi 00:00:00 00:00:00 Orders Nadim 14367.1.[address] 3.430.2.7 Hospit a .3.357481 l .8 2020-06-07 2020-06-07 Travel 1.2.840.1 1.2.931.263 [id number] Methodi 00:00:00 00:00:[address] 3.430.2.7 0.2.7.3.698 Ho spita .3.217633 084.8 l .8 2020-05-23 2020-05-23 [facility] 1.2.840.114 00:00:00 00:00:00 Loan Richardson 350.1.13.10 [place] 4.2.7.2.686 Professio [phone] 2020-05-23 2020-05-23 [facility] 1.2.840.114 3 [facility] 00:00:00 00:00:00 Loan Richardson 350.1.13.10 ity of [place] 4.2.7.2.686 Cristophera s Professio [phone] Mo dical nal 231 [facility] 2020-03-30 2020-03-30 Outpatient R LEIGHA [facility] [id number] Univers 09:20:00 09:20:00 ELLIS ity of [facility] 2020-03-21 2020-03-21 Telephone [facility] 1.2.840.114 [id number] [facility] 00:00:00 00:00:00 Loan [place] 350.1.13.10 [place] [phone] [facility] 044 [facility] 2020-03-21 2020-03-21 Telephone [facility] 1.2.840.114 [id number] [facility] 00:00:00 00:00:00 Loan [place] 350.1.13.10 it[place] of [place] [phone] [facility] 231 [facility] 2020-03-21 2020-03-21 [facility] 1.2.840.114 [id number] 00:00:00 00:00:00 Loan [place] 350.1.13.10 [place] 4.2.7.2.686 Professio [phone] [address] 2020-03-21 2020-03-21 [facility] 1.2.840.114 [id number] 00:00:00 00:00:00 Loan [place] 350.1.13.10 [place] 4.2.7.2.686 Professio [phone] [address] 2020-03-10 2020-03-10 Body Worker Kwame, Josy Lab Main [facility] 1.2.8 40.114 [id number] Univers 08:04:07 08:19:07 Visit Loan Camacho 350.1. 13.10 ity of [place] [phone] [facility] 353 [facility] 2020-03-10 2020-03-10 Outpatient [facility] [id number] Univers 08:15:00 08:15:00 LOAN xiong of [facility] 2020-03-10 2020-03-10 Orders Doctor LAKISHA 1.2.840.114 [id number] Univers 00:00:00 00:00:00 Only Unassigned, AKOSUA 350.1.13.10 ity of [place] [facility] 4.2.7.2.686 Cristopher as [phone] [address] 2020-03-10 2020-03-10 Refill [facility] 1.2.840.114 [id number] Univers 00:00:00 00:00:00 Loan Richardson 350.1.13.10 ity of [place] [phone] [facility] 231 [facility] 2020-03-10 2020-03-10 Refill [facility] 1.2.840.114 [id number] 00:00:00 00:00:00 Loan Richardson 350.1.13.10 [place] 4.2.7.2.686 Professio [phone] [address] 2020-03-09 2020-03-09 Body Worker Josy Puente Lab Main [facility] 1.2.8 40.114 [id number] [facility] 17:20:41 17:35:41 Visit Loan Camacoh 350.1. 13.10 ity of [place] [phone] Mo dical [facility] 353 [facility] 2020-03-09 2020-03-09 Office [facility] 1.2.840.114 [id number] Univers 15:09:42 16:30:34 Visit Sergio Richardson 350.1.13.10 i ty of [place] 4[place]2.[place] [phone] Mo dical [facility] 044 [facility] 2020-03-09 2020-03-09 Office [facility] 1.2.840.114 [id number] 15:09:42 16:30:34 Visit Sergio Richardson 350.1.13.10 [place] 4.2.7.2.686 Professio [phone] [address] 2020-03-09 2020-03-09 Outpatient R STEVE [facility] [id number] Univers 15:20:00 15:20:00 [facility] 2019-10-31 2019-10-31 Ref[facility] 1.2.840.114 [id number] Univers 00:00:00 00:00:00 Loan Richardson 350.1.13.10 ity of [place] [phone] [address] 2019-10-31 2019-10-31 [facility] 1.2.840.114 [id number] Univers 00:00:00 00:00:00 Loan Richardson 350.1.13.10 it[place] of [place] [phone] [address] 2019-10-28 2019-10-28 [facility] [id number] Univers 14:20:00 14:20:00 LOAN [facility] 2019-10-10 2019-10-10 Refcorrine [facility] 1.2.840.114 [id number] Univers 00:00:00 00:00:00 Loan Richardson 350.1.13.10 ity of [place] 4[place] [phone] [address] 2019-09-16 2019-09-16 Out[facility] [id number] Univers 15:20:00 15:20:00 LOAN xiong [facility] 2019-09-02 2019-09-02 Outpatient R [facility] [id number] Univers 08:00:00 08:00:00 ity [facility] 2019-08-23 2019-08-23 [facility]ill [facility] 1.2.840.114 [id number] Univers 00:00:00 00:00:00 Loan [place] 350.1.13.10 ity of [place] [phone] [address] 2019-08-17 2019-08-17 Telephone [facility] 1.2.840.114 [id number] Univers 00:00:00 00:00:00 Loan [place] 350.1.13.10 ity of [place] [phone] [address] 2019-08-15 2019-08-15 Office [facility] 12.840.114 [id number] Univers 12:06:38 13:52:58 Visit Loan Richardson 350.1.13.10 ity of [place] [phone] [address] 2019-08-15 2019-08-15 Out[facility] [id number] Univers 13:40:00 13:40:00 LOAN ity of [facility] 2019-06-08 2019-06-08 [facility] 1.2.840.114 [id number] Univers 00:00:00 00:00:00 Loan Staples PRIMARY 350.1.13.10 it[place] of [place] [phone] [address] 2019-05-29 2019-05-29 Refill [facility] 1.2.840.114 [id number] Univers 00:00:00 00:00:00 Loan [place] 350.1.13.10 ity of [place] [phone] [address] 2019-05-26 2019-05-26 Telephone [facility] 1.2.840.114 [id number] Univers 00:00:00 00:00:00 Loan Bel PRIMARY 350.1.13.10 ity of [place].2.[place] [phone] [place] [address] [place] 2019-05-23 2019-05-23 Refill Camacho, [facility] 1.2.840.114 [id number] Univers 00:00:00 00:00:00 Loan A PRIMARY 350.1.13.10 ity of [place] [phone] [address] 2019-04-14 2019-04-14 Office [facility] 1.2.840.114 [id number] Univers 11:40:01 13:05:13 Visit Loan Richardson 350.1.13.10 ity of [place].2.[place] [phone] [facility] 231 [facility] 2019-04-14 2019-04-14 Out[facility] [id number] Univers 12:00:00 12:00:00 LOAN ity of [facility] 2019-04-14 2019-04-14 Orders Doctor LAKISHA 1.2.840.114 [id number] Univers 00:00:00 00:00:00 Only Unassigned, AKOSUA 350.1.13.10 ity of [place] [facility] 4.2.7.2.686 Cristopher as [phone] [address] 2019-03-10 2019-03-10 Body Worker Kwame, Josy Lab Main [facility] 1.2.8 40.114 [id number] Univers 07:11:10 07:26:10 Visit Camacho, Loan Richardson 350.1. 13.10 ity of [place].2.[place] [phone] Mo dical nal 353 [facility] 2019-03-10 2019-03-10 Orders Doctor LAKISHA 1.2.840.114 [id number] Univers 00:00:00 00:00:00 Only Unassigned, AKOSUA 350.1.13.10 ity of [place] [facility] 4.2.7.2.686 Cristopher as [phone] [facility] [address] 2018-10-16 2018-10-16 Linda Camacho [facility] 1.2.840.114 [id number] [facility] 00:00:00 00:00:00 Loan [place] 350.1.13.10 itbanner [place] 4.2.7.2.686 Donnell Correa [phone] Mo dical nal [address] Building Results Test Description Test Time Test Comments Results Result Comments Source Prepare Leuko-Red RBC 2022-07-15 23:54:00 Test Item Value Reference Range Interpretation Comme nts CROSSMATCH (test code = 2264) COMPATIBLE Unit ABO (test code = 4228181) O Pos UNIT NUMBER (test code = 934-0) [id number] Status (test code = 9829899) [place]_TIMEINCHART Blood Bank Product (test code = 2263) RED BLOOD CELLS PRODUCT CODE (test code = 933-2) [id number] [facility]28 Test Item Value Reference Range Interpretation Comments POTASSIUM (BEAKER) (test code = 3.7 meq/L 3.6-5.5 379) Application Tester ID - [id number] ID - [id number] ID - [id number] ID - [id number] 06:32:05 Test Item Value Reference Range Interpretation Comments MAGNESIUM (BEAKER) 1.9 mg/dL 1.5-3.0 Specimen markedly (test code = 627) hemolyzed Application Tester ID - [id number] ID - [id number] ID - [id number] ID - [id number] BASIC METABOLIC [id number] 06:31:47 Test Item Value Reference Range Interpretation Comments SODIUM (BEAKER) 141 meq/L 135-148 (test code = 381) POTASSIUM 5.8 meq/L 3.6-5.5 H Specimen marked ly (BEAKER) (test hemolyzed code = 379) CHLORIDE (BEAKER) 113 meq/L 98-106 H (test code = 382) CO2 (BEAKER) 20 meq/L 20-29 (test code = 355) BLOOD UREA 11 mg/dL 10-26 NITROGEN (BEAKER) (test code = 354) CREATININE 0.74 mg/dL 0.50-1.20 Specimen marked ly (BEAKER) (test hemolyzed code = 358) GLUCOSE RANDOM 81 mg/dL 70-110 (BEAKER) (test code = 652) CALCIUM (BEAKER) 8.1 mg/dL 8.5-10.5 L (test code = 697) EGFR (BEAKER) 88 Interpretatio n of eGFR (test code = mL/min/1.73 values Stage De scription 1092) sq m Result G1 Dorina l or high >=90 G2 Mildly decreased 60-89 G3a Mildl y to moderately 45-5 9 G3b Moderately to s everely 30-44 G4 Severl y decreased 15-29 G5 Kidney failure <15Reported eGF R is based on the CKD-EPI 2020 equation that d oes not use a race coefficientEsti mated GFR is not as accur ate as Creatinine Elena sima in predicting glom erular filtration rate . Estimated GFR is not appl icable for dialysis patien ts Application Tester ID - [id number] ID - UOJW07Vknzngcj ID - ZBHD82Cxowmmmt ID - JREL35Meupesox ID - UZZO10Tvcgjbxw ID - NSUN31Xbtfciqc ID - DYMG27Vriavizy ID - VHKY51Ukscxrgb ID - XOGF58Mtzjwfji ID - [id number] 06:29:19 Test Item Value Reference Range Interpretation Comments PHOSPHORUS (BEAKER) 3.5 mg/dL 2.5-4.5 Specimen markedly (test code = 604) hemolyzed Application Tester ID - [id number] W/PLT COUNT & AUTO [id number] 06:15:25 Test Item Value Reference Range Interpretation Comments WHITE BLOOD CELL COUNT (BEAKER) 3.8 K/ L 4.0-10.0 L (test code = 775) RED BLOOD CELL COUNT (BEAKER) 3.11 M/ L 4.20-5.80 L (test code = 761) HEMOGLOBIN (BEAKER) (test code = 9.5 GM/DL 13.0-16.8 L 410) HEMATOCRIT (BEAKER) (test code = 29.1 % 36.0-50.0 L 411) MEAN CORPUSCULAR VOLUME (BEAKER) 94 fL 82-99 (test code = 753) MEAN CORPUSCULAR HEMOGLOBIN 30.5 pg 27.0-33.0 (BEAKER) (test code = 751) MEAN CORPUSCULAR HEMOGLOBIN CONC 32.6 GM/DL 32.0-36.0 (BEAKER) (test code = 752) RED CELL DISTRIBUTION WIDTH 18.3 % 12.0-15.0 H (BEAKER) (test code = 412) PLATELET COUNT (BEAKER) (test code 95 K/CU MM 150-430 L = 756) MEAN PLATELET VOLUME (BEAKER) 13.3 fL 6.0-11.5 H (test code = 754) NUCLEATED RED BLOOD CELLS (BEAKER) 0 /100 WBC 0-0 (test code = 413) NEUTROPHILS RELATIVE PERCENT 65 % (BEAKER) (test code = 429) LYMPHOCYTES RELATIVE PERCENT 22 % (BEAKER) (test code = 430) MONOCYTES RELATIVE PERCENT 9 % (BEAKER) (test code = 431) EOSINOPHILS RELATIVE PERCENT 3 % (BEAKER) (test code = 432) BASOPHILS RELATIVE PERCENT 1 % (BEAKER) (test code = 437) NEUTROPHILS ABSOLUTE COUNT 2.49 K/ L 1.80-8.00 (BEAKER) (test code = 670) LYMPHOCYTES ABSOLUTE COUNT 0.82 K/ L 1.48-4.50 L (BEAKER) (test code = 414) MONOCYTES ABSOLUTE COUNT (BEAKER) 0.33 K/ L 0.00-1.30 (test code = 415) EOSINOPHILS ABSOLUTE COUNT 0.12 K/ L 0.00-0.50 (BEAKER) (test code = 416) BASOPHILS ABSOLUTE COUNT (BEAKER) 0.03 K/ L 0.00-0.20 (test code = 417) IMMATURE GRANULOCYTES-RELATIVE 0.50 % 0.00-0.00 H PERCENT (BEAKER) (test code = 2801) Sputum Culture + Gram [id number] 12:22:15 Test Item Value Reference Range Interpretation Comments Result (test code = 4+ Normal respiratory 6463-4) mookie present Gram Stain Result <1+ gram negative rods (test code = 1123) [facility] [id number] 12:22:15 Test Item Value Reference Range Interpretation Comments CULTURE (BEAKER) 4+ Normal respiratory (test code = 1095) mookie present GRAM STAIN RESULT 2+ WBCs (BEAKER) (test code = 1123) GRAM STAIN RESULT <1+ epithelial cells (BEAKER) (test code = 47951) GRAM STAIN RESULT 2+ Mixed mookie (BEAKER) (test code = 34122) GRAM STAIN RESULT <1+ gram negative rods (BEAKER) (test code = 084914) BASIC METABOLIC [id number] 06:04:12 Test Item Value Reference Range Interpretation Comments SODIUM (BEAKER) 142 meq/L 135-148 (test code = 381) POTASSIUM 3.7 meq/L 3.6-5.5 (BEAKER) (test code = 379) CHLORIDE (BEAKER) 115 meq/L 98-106 H (test code = 382) CO2 (BEAKER) 20 meq/L 20-29 (test code = 355) BLOOD UREA 14 mg/dL 10-26 NITROGEN (BEAKER) (test code = 354) CREATININE 0.72 mg/dL 0.50-1.20 (BEAKER) (test code = 358) GLUCOSE RANDOM 89 mg/dL 70-110 (BEAKER) (test code = 652) CALCIUM (BEAKER) 7.7 mg/dL 8.5-10.5 L (test code = 697) EGFR (BEAKER) 89 Interpretatio n of eGFR (test code = mL/min/1.73 values Stage De scription 1092) sq m Result G1 Dorina l or high >=90 G2 Mildly decreased 60-89 G3a Mildl y to moderately 45-5 9 G3b Moderately to s everely 30-44 G4 Severl y decreased 15-29 G5 Kidney failure <15Reported eGF R is based on the CKD-EPI 2021 equation that d oes not use a race coefficientEsti mated GFR is not as accur ate as Creatinine Elena sima in predicting glom erular filtration rate . Estimated GFR is not appl icable for dialysis patien ts Application Tester ID - [id number] ID - RNCBQFDAB850Ybgpnzvo ID - UYADYUDEI086Agfhmdfm ID - RUURLREEJ431Ljxugfst ID - SCQSPJAXF438Imhkliff ID - NRDRHJFIH761Bdaefxxp ID - VKLABCWTR390Tucmjlmn ID - OUEKCFXDU179Lbldydwm ID - MLEJGHBWT249Zsnpxgbi ID - [id number] 06:01:27 Test Item Value Reference Range Interpretation Comments MAGNESIUM (BEAKER) (test code = 1.8 mg/dL 1.5-3.0 627) Application Tester ID - [id number] ID - WTBWIJQKI050Tbnsbwvi ID - RQVFGNUEH166Dqzrdhgp ID - XJVTRDHLE274GTK W/PLT COUNT & AUTO DIFFERENTIAL 2022-07-14 05:58:40 Test Item Value Reference Range Interpretation Comments WHITE BLOOD CELL COUNT (BEAKER) 3.3 K/ L 4.0-10.0 L (test code = 775) RED BLOOD CELL COUNT (BEAKER) 2.37 M/ L 4.20-5.80 L (test code = 761) HEMOGLOBIN (BEAKER) (test code = 7.2 GM/DL 13.0-16.8 L 410) HEMATOCRIT (BEAKER) (test code = 21.7 % 36.0-50.0 L 411) MEAN CORPUSCULAR VOLUME (BEAKER) 92 fL 82-99 (test code = 753) MEAN CORPUSCULAR HEMOGLOBIN 30.4 pg 27.0-33.0 (BEAKER) (test code = 751) MEAN CORPUSCULAR HEMOGLOBIN CONC 33.2 GM/DL 32.0-36.0 (BEAKER) (test code = 752) RED CELL DISTRIBUTION WIDTH 17.3 % 12.0-15.0 H (BEAKER) (test code = 412) PLATELET COUNT (BEAKER) (test 101 K/CU MM 150-430 L code = 756) MEAN PLATELET VOLUME (BEAKER) 12.2 fL 6.0-11.5 H (test code = 754) NUCLEATED RED BLOOD CELLS 0 /100 WBC 0-0 (BEAKER) (test code = 413) NEUTROPHILS RELATIVE PERCENT 59 % (BEAKER) (test code = 429) LYMPHOCYTES RELATIVE PERCENT 24 % (BEAKER) (test code = 430) MONOCYTES RELATIVE PERCENT 11 % (BEAKER) (test code = 431) EOSINOPHILS RELATIVE PERCENT 5 % (BEAKER) (test code = 432) BASOPHILS RELATIVE PERCENT 1 % (BEAKER) (test code = 437) NEUTROPHILS ABSOLUTE COUNT 1.95 K/ L 1.80-8.00 (BEAKER) (test code = 670) LYMPHOCYTES ABSOLUTE COUNT 0.80 K/ L 1.48-4.50 L (BEAKER) (test code = 414) MONOCYTES ABSOLUTE COUNT (BEAKER) 0.36 K/ L 0.00-1.30 (test code = 415) EOSINOPHILS ABSOLUTE COUNT 0.15 K/ L 0.00-0.50 (BEAKER) (test code = 416) BASOPHILS ABSOLUTE COUNT (BEAKER) 0.03 K/ L 0.00-0.20 (test code = 417) IMMATURE GRANULOCYTES-RELATIVE 0.60 % 0.00-0.00 H PERCENT (BEAKER) (test code = 2801) [id number] 05:58:39 Test Item Value Reference Range Interpretation Comments PHOSPHORUS (BEAKER) (test code = 3.4 mg/dL 2.5-4.5 604) Application Tester ID - [id number] METABOLIC [id number] 06:28:56 Test Item Value Reference Range Interpretation Comments SODIUM (BEAKER) 142 meq/L 135-148 (test code = 381) POTASSIUM 3.5 meq/L 3.6-5.5 L (BEAKER) (test code = 379) CHLORIDE (BEAKER) 118 meq/L 98-106 H (test code = 382) CO2 (BEAKER) 20 meq/L 20-29 (test code = 355) BLOOD UREA 18 mg/dL 10-26 NITROGEN (BEAKER) (test code = 354) CREATININE 0.68 mg/dL 0.50-1.20 (BEAKER) (test code = 358) GLUCOSE RANDOM 87 mg/dL 70-110 (BEAKER) (test code = 652) CALCIUM (BEAKER) 7.8 mg/dL 8.5-10.5 L (test code = 697) EGFR (BEAKER) 90 Interpretatio n of eGFR (test code = mL/min/1.73 values Stage De scription 1092) sq m Result G1 Dorina l or high >=90 G2 Mildly decreased 60-89 G3a Mildl y to moderately 45-5 9 G3b Moderately to s everely 30-44 G4 Severl y decreased 15-29 G5 Kidney failure <15Reported eGF R is based on the CKD-EPI 2020 equation that d oes not use a race coefficientEsti mated GFR is not as accur ate as Creatinine Elena ago in predicting glom erular filtration rate . Estimated GFR is not appl icable for dialysis patien ts Application Tester ID - LITOOperator ID - LITOOperator ID - LITOOperator ID - LITOOperator ID - LITOOperator ID - LITOOperator ID - LITOOperator ID - LITOOperator ID - LITOOperator ID - [id number] 06:26:22 Test Item Value Reference Range Interpretation Comments MAGNESIUM (BEAKER) (test code = 1.6 mg/dL 1.5-3.0 627) Application Tester ID - LITOOperator ID - LITOOperator ID - LITOOperator ID - BERNABE [id number] 06:23:23 Test Item Value Reference Range Interpretation Comments PHOSPHORUS (BEAKER) (test code = 2.9 mg/dL 2.5-4.5 604) Application Tester ID - LITOCBC W/PLT COUNT & AUTO [id number] 06:03:31 Test Item Value Reference Range Interpretation Comments WHITE BLOOD CELL COUNT (BEAKER) 3.2 K/ L 4.0-10.0 L (test code = 775) RED BLOOD CELL COUNT (BEAKER) 2.50 M/ L 4.20-5.80 L (test code = 761) HEMOGLOBIN (BEAKER) (test code = 7.4 GM/DL 13.0-16.8 L 410) HEMATOCRIT (BEAKER) (test code = 23.2 % 36.0-50.0 L 411) MEAN CORPUSCULAR VOLUME (BEAKER) 93 fL 82-99 (test code = 753) MEAN CORPUSCULAR HEMOGLOBIN 29.6 pg 27.0-33.0 (BEAKER) (test code = 751) MEAN CORPUSCULAR HEMOGLOBIN CONC 31.9 GM/DL 32.0-36.0 L (BEAKER) (test code = 752) RED CELL DISTRIBUTION WIDTH 17.2 % 12.0-15.0 H (BEAKER) (test code = 412) PLATELET COUNT (BEAKER) (test 114 K/CU MM 150-430 L code = 756) MEAN PLATELET VOLUME (BEAKER) 11.6 fL 6.0-11.5 H (test code = 754) NUCLEATED RED BLOOD CELLS 0 /100 WBC 0-0 (BEAKER) (test code = 413) NEUTROPHILS RELATIVE PERCENT 63 % (BEAKER) (test code = 429) LYMPHOCYTES RELATIVE PERCENT 23 % (BEAKER) (test code = 430) MONOCYTES RELATIVE PERCENT 9 % (BEAKER) (test code = 431) EOSINOPHILS RELATIVE PERCENT 4 % (BEAKER) (test code = 432) BASOPHILS RELATIVE PERCENT 1 % (BEAKER) (test code = 437) NEUTROPHILS ABSOLUTE COUNT 2.02 K/ L 1.80-8.00 (BEAKER) (test code = 670) LYMPHOCYTES ABSOLUTE COUNT 0.72 K/ L 1.48-4.50 L (BEAKER) (test code = 414) MONOCYTES ABSOLUTE COUNT (BEAKER) 0.28 K/ L 0.00-1.30 (test code = 415) EOSINOPHILS ABSOLUTE COUNT 0.14 K/ L 0.00-0.50 (BEAKER) (test code = 416) BASOPHILS ABSOLUTE COUNT (BEAKER) 0.02 K/ L 0.00-0.20 (test code = 417) IMMATURE GRANULOCYTES-RELATIVE 0.60 % 0.00-0.00 H PERCENT (BEAKER) (test code = 2801) RAD, CHEST, 1 VIEW, NON [id number] 08:04:00Reason for exam:->Possible pneumoniaShould this be performed at the bedside?->Yes [facility] : 1935 Sex: MFINAL REPORT RAD, CHEST, 1 VIEW, NON DEPT INDICATION: Possible pneumonia COMPARISON: NoneFINDINGS: Portable frontal view of the chest. IMPRESSION: Support Lines: Pacer device. Prior sternotomy. Lungs and pleura: Lungs are clear. No significant pneumothorax. Heart and mediastinum: Normal contours. Additional findings: None. Signed: Debra Umana MDReport Verified Date/Time: 07/12/2022 08:04:50 [id number] 06:01:11 Test Item Value Reference Range Interpretation Comments PROCALCITONIN (BEAKER) (test code = < ng/mL <0.05 3036) SEPSIS RISK (ng/mL)Low: 0.05-0.50Intermediate: 0.51-2.00High: >=2.01MAGNESIUM 2022-07-12 05:52:06 Test Item Value Reference Range Interpretation Comments MAGNESIUM (BEAKER) (test code = 1.6 mg/dL 1.5-3.0 627) Application Tester ID - PMBF96Wmjhuqxd ID - WLRR02Hdkmljjq ID - EKQI57Boumhmzb ID - ZNMP04 BASIC METABOLIC [id number] 05:50:48 Test Item Value Reference Range Interpretation Comments SODIUM (BEAKER) 144 meq/L 135-148 (test code = 381) POTASSIUM 3.7 meq/L 3.6-5.5 (BEAKER) (test code = 379) CHLORIDE (BEAKER) 117 meq/L 98-106 H (test code = 382) CO2 (BEAKER) 21 meq/L 20-29 (test code = 355) BLOOD UREA 40 mg/dL 10-26 H NITROGEN (BEAKER) (test code = 354) CREATININE 0.70 mg/dL 0.50-1.20 (BEAKER) (test code = 358) GLUCOSE RANDOM 83 mg/dL 70-110 (BEAKER) (test code = 652) CALCIUM (BEAKER) 8.0 mg/dL 8.5-10.5 L (test code = 697) EGFR (BEAKER) 89 Interpretatio n of eGFR (test code = mL/min/1.73 values Stage De scription 1092) sq m Result G1 Dorina l or high >=90 G2 Mildly decreased 60-89 G3a Mild ly to moderately 45-5 9 G3b Moderately to s everely 30-44 G4 Severl y decreased 15-29 G5 Kidney failure <15Reported eGF R is based on the CKD-EPI 2020 equation that d oes not use a race coefficientEsti mated GFR is not as accur ate as Creatinine Elena sima in predicting glom erular filtration rate . Estimated GFR is not appl icable for dialysis patien ts Application Tester ID - IHLE54Hxupmuua ID - KJBD57Ubwrdwig ID - ETDH18Gcsbriqq ID - BZLI21Oxuwkshh ID - EQNP85Youlssnn ID - MRQD44Gnqkovkm ID - EUCE11Caalsnco ID - OYZH65Dkcubjvr ID - [id number] 05:49:27 Test Item Value Reference Range Interpretation Comments PHOSPHORUS (BEAKER) (test code = 2.8 mg/dL 2.5-4.5 604) Application Tester ID - [id number] W/PLT COUNT & AUTO [id number] 05:31:56 Test Item Value Reference Range Interpretation Comments WHITE BLOOD CELL COUNT (BEAKER) 4.2 K/ L 4.0-10.0 (test code = 775) RED BLOOD CELL COUNT (BEAKER) 2.25 M/ L 4.20-5.80 L (test code = 761) HEMOGLOBIN (BEAKER) (test code = 6.7 GM/DL 13.0-16.8 L 410) HEMATOCRIT (BEAKER) (test code = 20.5 % 36.0-50.0 LL 411) MEAN CORPUSCULAR VOLUME (BEAKER) 91 fL 82-99 (test code = 753) MEAN CORPUSCULAR HEMOGLOBIN 29.8 pg 27.0-33.0 (BEAKER) (test code = 751) MEAN CORPUSCULAR HEMOGLOBIN CONC 32.7 GM/DL 32.0-36.0 (BEAKER) (test code = 752) RED CELL DISTRIBUTION WIDTH 16.9 % 12.0-15.0 H (BEAKER) (test code = 412) PLATELET COUNT (BEAKER) (test 128 K/CU MM 150-430 L code = 756) MEAN PLATELET VOLUME (BEAKER) 11.7 fL 6.0-11.5 H (test code = 754) NUCLEATED RED BLOOD CELLS 0 /100 WBC 0-0 (BEAKER) (test code = 413) NEUTROPHILS RELATIVE PERCENT 62 % (BEAKER) (test code = 429) LYMPHOCYTES RELATIVE PERCENT 25 % (BEAKER) (test code = 430) MONOCYTES RELATIVE PERCENT 9 % (BEAKER) (test code = 431) EOSINOPHILS RELATIVE PERCENT 3 % (BEAKER) (test code = 432) BASOPHILS RELATIVE PERCENT 1 % (BEAKER) (test code = 437) NEUTROPHILS ABSOLUTE COUNT 2.63 K/ L 1.80-8.00 (BEAKER) (test code = 670) LYMPHOCYTES ABSOLUTE COUNT 1.05 K/ L 1.48-4.50 L (BEAKER) (test code = 414) MONOCYTES ABSOLUTE COUNT (BEAKER) 0.39 K/ L 0.00-1.30 (test code = 415) EOSINOPHILS ABSOLUTE COUNT 0.11 K/ L 0.00-0.50 (BEAKER) (test code = 416) BASOPHILS ABSOLUTE COUNT (BEAKER) 0.02 K/ L 0.00-0.20 (test code = 417) IMMATURE GRANULOCYTES-RELATIVE 0.70 % 0.00-0.00 H PERCENT (BEAKER) (test code = 2801) HEPATIC FUNCTION [id number] 19:39:36 Test Item Value Reference Range Interpretation Comments TOTAL PROTEIN (BEAKER) (test code = 4.3 gm/dL 6.0-8.5 L 770) ALBUMIN (BEAKER) (test code = 1145) 2.4 g/dL 3.5-5.0 L BILIRUBIN TOTAL (BEAKER) (test code 0.7 mg/dL 0.1-1.2 = 377) BILIRUBIN DIRECT (BEAKER) (test 0.3 mg/dL 0.0-0.4 code = 706) ALKALINE PHOSPHATASE (BEAKER) (test 37 U/L 30-115 code = 346) AST (SGOT) (BEAKER) (test code = 15 U/L 5-40 353) ALT (SGPT) (BEAKER) (test code = 11 U/L 5-50 347) Application Tester ID - LEVIOTAOperator ID - LEVIOTAOperator ID - LEVIOTAOperator ID - LEVIOTAOperator ID - LEVIOTAOperator ID - LEVIOTAOperator ID - LEVIOTAMAGNESIUM 2022-07-11 19:36:06 Test Item Value Reference Range Interpretation Comments MAGNESIUM (BEAKER) (test code = 1.5 mg/dL 1.5-3.0 627) Application Tester ID - LEVIOTAOperator ID - LEVIOTAOperator ID - LEVIOTAOperator ID - LEVIOTABASIC METABOLIC [id number] 19:34:34 Test Item Value Reference Range Interpretation Comments SODIUM (BEAKER) 142 meq/L 135-148 (test code = 381) POTASSIUM 4.1 meq/L 3.6-5.5 (BEAKER) (test code = 379) CHLORIDE (BEAKER) 116 meq/L 98-106 H (test code = 382) CO2 (BEAKER) 18 meq/L 20-29 L (test code = 355) BLOOD UREA 49 mg/dL 10-26 H NITROGEN (BEAKER) (test code = 354) CREATININE 0.68 mg/dL 0.50-1.20 (BEAKER) (test code = 358) GLUCOSE RANDOM 106 mg/dL 70-110 (BEAKER) (test code = 652) CALCIUM (BEAKER) 7.7 mg/dL 8.5-10.5 L (test code = 697) EGFR (BEAKER) 90 Interpretatio n of eGFR (test code = mL/min/1.73 values Stage De scription 1092) sq m Result G1 Dorina l or high >=90 G2 Mildly decreased 60-89 G3a Mildl y to moderately 45-5 9 G3b Moderately to s everely 30-44 G4 Severl y decreased 15-29 G5 Kidney failure <15Reported eGF R is based on the CKD-EPI 2020 equation that d oes not use a race coefficientEsti mated GFR is not as accur ate as Creatinine Elena gao in predicting glom erular filtration rate . Estimated GFR is not appl icable for dialysis patien ts Application Tester ID - LEVIOTAOperator ID - LEVIOTAOperator ID - LEVIOTAOperator ID - LEVIOTAOperator ID - LEVIOTAOperator ID - LEVIOTAOperator ID - LEVIOTAOperator ID - LEVIOTAOperator ID - LEVIOTAOperator ID - [id number] 19:32:43 Test Item Value Reference Range Interpretation Comments PHOSPHORUS (BEAKER) (test code = 2.7 mg/dL 2.5-4.5 604) Application Tester ID - LEVIOTALACTIC ACID, [id number] 19:32:27 Test Item Value Reference Range Interpretation Comments LACTATE BLOOD 0.95 mmol/L See_Comment [Automated me ssage] VENOUS (2) (BEAKER) The syst em which (test code = 2872) generated this result transmitted ref erence range: 0.50-<2. 00. The reference range was not used to interpr et this result as normal/abnormal . Application Tester ID - LEVIOTAOperator ID - LEVIOTAOperator ID - LEVIOTAOperator ID - LEVIOTACBC W/PLT COUNT & AUTO [id number] 19:17:32 Test Item Value Reference Range Interpretation Comments WHITE BLOOD CELL COUNT (BEAKER) 6.3 K/ L 4.0-10.0 (test code = 775) RED BLOOD CELL COUNT (BEAKER) 2.35 M/ L 4.20-5.80 L (test code = 761) HEMOGLOBIN (BEAKER) (test code = 7.0 GM/DL 13.0-16.8 L 410) HEMATOCRIT (BEAKER) (test code = 21.6 % 36.0-50.0 L 411) MEAN CORPUSCULAR VOLUME (BEAKER) 92 fL 82-99 (test code = 753) MEAN CORPUSCULAR HEMOGLOBIN 29.8 pg 27.0-33.0 (BEAKER) (test code = 751) MEAN CORPUSCULAR HEMOGLOBIN CONC 32.4 GM/DL 32.0-36.0 (BEAKER) (test code = 752) RED CELL DISTRIBUTION WIDTH 16.3 % 12.0-15.0 H (BEAKER) (test code = 412) PLATELET COUNT (BEAKER) (test 131 K/CU MM 150-430 L code = 756) MEAN PLATELET VOLUME (BEAKER) 11.1 fL 6.0-11.5 (test code = 754) NUCLEATED RED BLOOD CELLS 0 /100 WBC 0-0 (BEAKER) (test code = 413) NEUTROPHILS RELATIVE PERCENT 74 % (BEAKER) (test code = 429) LYMPHOCYTES RELATIVE PERCENT 15 % (BEAKER) (test code = 430) MONOCYTES RELATIVE PERCENT 9 % (BEAKER) (test code = 431) EOSINOPHILS RELATIVE PERCENT 1 % (BEAKER) (test code = 432) BASOPHILS RELATIVE PERCENT 1 % (BEAKER) (test code = 437) NEUTROPHILS ABSOLUTE COUNT 4.65 K/ L 1.80-8.00 (BEAKER) (test code = 670) LYMPHOCYTES ABSOLUTE COUNT 0.96 K/ L 1.48-4.50 L (BEAKER) (test code = 414) MONOCYTES ABSOLUTE COUNT (BEAKER) 0.56 K/ L 0.00-1.30 (test code = 415) EOSINOPHILS ABSOLUTE COUNT 0.06 K/ L 0.00-0.50 (BEAKER) (test code = 416) BASOPHILS ABSOLUTE COUNT (BEAKER) 0.04 K/ L 0.00-0.20 (test code = 417) IMMATURE GRANULOCYTES-RELATIVE 0.60 % 0.00-0.00 H PERCENT (BEAKER) (test code = 2801) BASIC METABOLIC PANEL (NA, K, CL, CO2, GLUCOSE, BUN, CREATININE, CA)2022-06-29 13:01:13 Test Item Value Reference Range Interpretation Comments NA (test code = 136 mmol/L 135-145 0877297734) K (test code = 3.9 mmol/L 3.5-5.0 3954937968) CL (test code = 108 mmol/L 98-108 0966124004) CO2 TOTAL (test code = 24 mmol/L 23-31 1183703656) AGAP (test code = 4 2-16 5384034054) BUN (test code = 12 mg/dL 7-23 6228583520) GLUCOSE (test code = 93 mg/dL 70-110 4873351816) CREATININE (test code = 0.77 mg/dL 0.60-1.25 0608929003) CALCIUM (test code = 8.5 mg/dL 8.6-10.6 L 4809924835) eGFR (test code = 96.0 mL/min/1.73m2 9669732824) ANNA (test code = ANNA) Association of [...] tests). Lab Interpretation Abnormal (test code = 29060-7) [facility]13 Test Item Value Reference Range Interpretation Comments MAGNESIUM (test code = 3501157099) 1.8 mg/dL 1.7-2.4 Lab Interpretation (test code = Normal 25999-3) [facility] WITH [id number] 12:35:30 Test Item Value Reference Range Interpretation Comments WBC (test code = 6.57 See_Comment [Automated 3690-2) message] The sy stem which generated this result transmitted reference range : 4.20 - 10.70 10*3/?L. The reference range was not used to interpret this result as normal/abnormal . RBC (test code = 3.37 See_Comment L [Automated 399-8) message] The sy stem which generated this [...] RDW-SD (test code = 47.0 fL 38.5-51.6 53036-7) RDW-CV (test code = 14.9 % 12.1-15.4 788-0) PLT (test code = 204 See_Comment [Automated 777-3) message] The sy stem which generated this result transmitted reference range : 150 - 328 10*3/ ?L. The reference r reyna was not used to interpret this result as normal/abnormal . MPV (test code = 12.3 fL 9.8-13.0 90502-0) NRBC/100 WBC (test 0.0 See_Comment [Automat ed code = [id number]) message] The system which generated this result transmitted reference range : 0.0 - 10.0 /100 WBCs. The refer ence range was not u sed to interpret th is result as normal/abnormal . NRBC x10^3 (test code See_Comment [Auto mated = [id number]) message] The s ystem which generated this result transmitted reference range : 10*3/?L. The reference range was not used to interpret this result as normal/abnormal . GRAN MAT (NEUT) % 73.7 % (test code = 770-8) IMM GRAN % (test code 1.20 % = 2302497438) LYMPH % (test code = 13.4 % 736-9) MONO % (test code = 8.8 % 5905-5) EOS % (test code = 2.3 % 713-8) BASO % (test code = 0.6 % 706-2) GRAN MAT x10^3(ANC) 4.84 10*3/uL 1.99-6.95 (test code = 4238305812) IMM GRAN x10^3 (test 0.08 10*3/uL 0.00-0.06 H code = [id number]) LYMPH x10^3 (test code 0.88 10*3/uL 1.09-3.23 L = 731-0) MONO x10^3 (test code 0.58 10*3/uL 0.36-1.02 = 742-7) EOS x10^3 (test code = 0.15 10*3/uL 0.06-0.53 711-2) BASO x10^3 (test code 0.04 10*3/uL 0.01-0.09 = 704-7) Lab Interpretation Abnormal (test code = 67171-8) [facility] METABOLIC PANEL (NA, K, CL, CO2, GLUCOSE, BUN, CREATININE, CA)2022-06-28 09:28:34 Test Item Value Reference Range Interpretation Comments NA (test code = 137 mmol/L 135-145 [id number]) K (test code = 3.3 mmol/L 3.5-5.0 L 0425847302) CL (test code = 106 mmol/L 98-108 0902132493) CO2 TOTAL (test code = 26 mmol/L 23-31 2573287899) AGAP (test code = 5 2-16 9796002383) BUN (test code = 17 mg/dL 7-23 7258764372) GLUCOSE (test code = 97 mg/dL 70-110 3700784257) CREATININE (test code = 0.72 mg/dL 0.60-1.25 1465230451) CALCIUM (test code = 8.2 mg/dL 8.6-10.6 L 3264140954) eGFR (test code = 103.8 mL/min/1.73m2 6288833990) ANNA (test code = ANNA) Association of [...] tests). Lab Interpretation Abnormal (test code = 73205-4) [facility] WITH [id number] 08:59:33 Test Item Value Reference Range Interpretation Comments WBC (test code = 6.45 See_Comment [Automated 6690-2) message] The sy stem which generated this result transmitted reference range : 4.20 - 10.70 10*3/?L. The reference range was not used to interpret this result as normal/abnormal . RBC (test code = 3.57 See_Comment L [Automated 789-8) message] The sy [...] RDW-SD (test code = 46.3 fL 38.5-51.6 70620-7) RDW-CV (test code = 14.6 % 12.1-15.4 788-0) PLT (test code = 198 See_Comment [Automated 777-3) message] The sy stem which generated this result transmitted reference range : 150 - 328 10*3/ ?L. The reference r reyna was not used to interpret this result as normal/abnormal . MPV (test code = 11.5 fL 9.8-13.0 51525-6) NRBC/100 WBC (test 0.0 See_Comment [Automat ed code = 2535654241) message] The system which generated this result transmitted reference range : 0.0 - 10.0 /100 WBCs. The refer ence range was not u sed to interpret th is result as normal/abnormal . NRBC x10^3 (test code See_Comment [Auto mated = 5968669258) message] The s ystem which generated this result transmitted reference range : 10*3/?L. The reference range was not used to interpret this result as normal/abnormal . GRAN MAT (NEUT) % 71.4 % (test code = 770-8) IMM GRAN % (test code 1.70 % = 0247058674) LYMPH % (test code = 15.3 % 736-9) MONO % (test code = 9.1 % 5905-5) EOS % (test code = 2.0 % 713-8) BASO % (test code = 0.5 % 706-2) GRAN MAT x10^3(ANC) 4.60 10*3/uL 1.99-6.95 (test code = 9442685512) IMM GRAN x10^3 (test 0.11 10*3/uL 0.00-0.06 H code = 9578638025) LYMPH x10^3 (test code 0.99 10*3/uL 1.09-3.23 L = 731-0) MONO x10^3 (test code 0.59 10*3/uL 0.36-1.02 = 742-7) EOS x10^3 (test code = 0.13 10*3/uL 0.06-0.53 711-2) BASO x10^3 (test code 0.03 10*3/uL 0.01-0.09 = 704-7) Lab Interpretation Abnormal (test code = 08375-8) [facility] METABOLIC PANEL (NA, K, CL, CO2, GLUCOSE, BUN, CREATININE, CA)2022-06-27 09:26:31 Test Item Value Reference Range Interpretation Comments NA (test code = 137 mmol/L 135-145 4868695363) K (test code = 4.0 mmol/L 3.5-5.0 5092612133) CL (test code = 109 mmol/L 98-108 H 2524443205) CO2 TOTAL (test code = 23 mmol/L 23-31 4244190569) AGAP (test code = 5 2-16 6477339205) BUN (test code = 20 mg/dL 7-23 2965275135) GLUCOSE (test code = 104 mg/dL 70-110 2927736883) CREATININE (test code = 0.72 mg/dL 0.60-1.25 0445506214) CALCIUM (test code = 8.2 mg/dL 8.6-10.6 L 1121637668) eGFR (test code = 103.8 mL/min/1.73m2 8354666326) ANNA (test code = ANNA) Association of [...] tests). Lab Interpretation Abnormal (test code = 62017-1) [facility] WITH [id number] 09:11:50 Test Item Value Reference Range Interpretation [...] RDW-SD (test code = 45.7 fL 38.5-51.6 47062-1) RDW-CV (test code = 14.6 % 12.1-15.4 788-0) PLT (test code = 176 See_Comment [Automated 777-3) message] The sy stem which generated this result transmitted reference range : 150 - 328 10*3/ ?L. The reference r reyna was not used to interpret this result as normal/abnormal . MPV (test code = 11.7 fL 9.8-13.0 43125-1) NRBC/100 WBC (test 0.0 See_Comment [Automat ed code = 5929598328) message] The system which generated this result transmitted reference range : 0.0 - 10.0 /100 WBCs. The refer ence range was not u sed to interpret th is result as normal/abnormal . NRBC x10^3 (test code See_Comment [Auto mated = 3540548350) message] The s ystem which generated this result transmitted reference range : 10*3/?L. The reference range was not used to interpret this result as normal/abnormal . GRAN MAT (NEUT) % 66.6 % (test code = 770-8) IMM GRAN % (test code 1.40 % = 2771672160) LYMPH % (test code = 17.4 % 736-9) MONO % (test code = 12.1 % 5905-5) EOS % (test code = 2.0 % 713-8) BASO % (test code = 0.5 % 706-2) GRAN MAT x10^3(ANC) 3.74 10*3/uL 1.99-6.95 (test code = 1115732312) IMM GRAN x10^3 (test 0.08 10*3/uL 0.00-0.06 H code = 7975684120) LYMPH x10^3 (test code 0.98 10*3/uL 1.09-3.23 L = 731-0) MONO x10^3 (test code 0.68 10*3/uL 0.36-1.02 = 742-7) EOS x10^3 (test code = 0.11 10*3/uL 0.06-0.53 711-2) BASO x10^3 (test code 0.03 10*3/uL 0.01-0.09 = 704-7) Lab Interpretation Abnormal (test code = 30854-8) [facility] [id number] 14:04:27COVID DMT InterpretationInterpretation/Recommendations: Molecular NAAT Tests for [...] COVID-19 tests the patient has had at [facility]: molecular nucleic acid amplification tests (NAAT) (specifically PCR testing and Rapid ID Now testing) and antibody tests. It does not take into account antigen testing or any additional testing that a patient may have had outside of the [facility] medical record. 06/23/2022 9:04 AM [facility] SERVICESCOVID KnxxcmiPKJR-LvB-0 NAAT (no units) ? ? Date ? Value ? 06/21/2022 ? Not Detected ? SARS-CoV-2 Rapid ID NOW (no units) ? ? Date ? Value ? 06/19/2022 ? Not Detected ? 06/23/2022 9:04 AM [facility] SERVICESUnH[facility]woodMAGNESIUM2023-05-07 10:21:24 Test Item Value Reference Range Interpretation Comments MAGNESIUM (test code = 6261837915) 1.8 mg/dL 1.7-2.4 Lab Interpretation (test code = Normal 96700-2) [facility] (NA, K, CL, CO2, GLUCOSE, BUN, CREATININE, CA)2022-06-22 10:21:08 Test Item Value Reference Range Interpretation Comments NA (test code = 145 mmol/L 135-145 1421196580) K (test code = 3.3 mmol/L 3.5-5.0 L 9317244153) CL (test code = 111 mmol/L 98-108 H 5357727816) CO2 TOTAL (test code = 25 mmol/L 23-31 5871969930) AGAP (test code = 9 2-16 8173401643) BUN (test code = 20 mg/dL 7-23 4178243854) GLUCOSE (test code = 95 mg/dL 70-110 2816835719) CREATININE (test code = 0.68 mg/dL 0.60-1.25 4990983534) CALCIUM (test code = 8.7 mg/dL 8.6-10.6 9877162503) eGFR (test code = 110.8 mL/min/1.73m2 6392831625) ANNA (test code = ANNA) Association of [...] tests). Lab Interpretation Abnormal (test code = 86085-4) [facility] WITH [id number] 20:34:14 Test Item Value Reference Range Interpretation Comments WBC (test code = 7.55 See_Comment [Automated 6690-2) message] The sy stem which generated this result transmitted reference range : 4.20 - 10.70 10*3/?L. The reference range was not used to interpret this result as normal/abnormal . RBC (test code = 4.74 See_Comment [Automated 789-8) message] The sy stem which [...] RDW-SD (test code = 45.0 fL 38.5-51.6 25682-5) RDW-CV (test code = 14.5 % 12.1-15.4 788-0) PLT (test code = 137 See_Comment L [Automated 777-3) message] The sy stem which generated this result transmitted reference range : 150 - 328 10*3/ ?L. The reference r reyna was not used to interpret this result as normal/abnormal . MPV (test code = 12.1 fL 9.8-13.0 80664-0) NRBC/100 WBC (test 0.0 See_Comment [Automat ed code = 5029297000) message] The system which generated this result transmitted reference range : 0.0 - 10.0 /100 WBCs. The refer ence range was not u sed to interpret th is result as normal/abnormal . NRBC x10^3 (test code See_Comment [Auto mated = 7584307188) message] The s ystem which generated this result transmitted reference range : 10*3/?L. The reference range was not used to interpret this result as normal/abnormal . GRAN MAT (NEUT) % 77.9 % (test code = 770-8) IMM GRAN % (test code 0.30 % = 0294287281) LYMPH % (test code = 9.4 % 736-9) MONO % (test code = 11.4 % 5905-5) EOS % (test code = 0.7 % 713-8) BASO % (test code = 0.3 % 706-2) GRAN MAT x10^3(ANC) 5.89 10*3/uL 1.99-6.95 (test code = 2786600697) IMM GRAN x10^3 (test 0.00-0.06 code = 6534940888) LYMPH x10^3 (test code 0.71 10*3/uL 1.09-3.23 L = 731-0) MONO x10^3 (test code 0.86 10*3/uL 0.36-1.02 = 742-7) EOS x10^3 (test code = 0.05 10*3/uL 0.06-0.53 L 711-2) BASO x10^3 (test code 0.01-0.09 = 704-7) Lab Interpretation Abnormal (test code = 55393-6) [facility] NOW TESTING)2022-06-19 16:37:55 Test Item Value Reference Range Interpretation Comments SARS-CoV-2 Rapid ID NOW Not Detected Not Detected (test code = 86843-1) ANNA (test code = ANNA) ID NOW COVID-19 Assay is an isothermal nucleic acid amplification test intended for the qualitative detection of nucleic acid from SARS-CoV-2 viral RNA in nasopharyngeal (ACCESSIONER) specimens. It is used under Emergency Use [...] indicated. Lab Interpretation Normal (test code = 25630-4) [facility] CenterTR[facility]ONIN [id number] 13:29:01 Test Item Value Reference Range Interpretation Comments TROPONIN I (test code = 0.030 ng/mL <=0.034 3707004425) ANNA (test code = ANNA) Reference (Normal) [...] biotin. Lab Interpretation Normal (test code = 02581-7) [facility] CenterMAGN[facility]UM2023-05-02 11:05:51 Test Item Value Reference Range Interpretation Comments MAGNESIUM (test code = 1545058720) 1.9 mg/dL 1.7-2.4 Lab Interpretation (test code = Normal 66300-4) [facility]OL[facility] (NA, K, CL, CO2, GLUCOSE, BUN, CREATININE, CA)2022-06-17 11:05:50 Test Item Value Reference Range Interpretation Comments NA (test code = 145 mmol/L 135-145 5956799794) K (test code = 3.7 mmol/L 3.5-5.0 3711606342) CL (test code = 111 mmol/L 98-108 H 5244784007) CO2 TOTAL (test code = 16 mmol/L 23-31 L 1077609852) AGAP (test code = 18 2-16 H 9051430882) BUN (test code = 26 mg/dL 7-23 H 8579118416) GLUCOSE (test code = 133 mg/dL 70-110 H 6306987404) CREATININE (test code = 1.07 mg/dL 0.60-1.25 4708104767) CALCIUM (test code = 8.7 mg/dL 8.6-10.6 7748458475) eGFR (test code = 65.7 mL/min/1.73m2 1828267402) ANNA (test code = ANNA) Association of [...] tests). Lab Interpretation Abnormal (test code = 02909-2) [facility] [id number] 04:36:28 Test Item Value Reference Range Interpretation Comments FREE T4 (test code = 1.15 See_Comment [Autom ated message] 0667281264) The system [employer] generated this result transmitted ref erence range: 0.78 - 2 .20 ng/dL:. The ref erence range was not u sed to interpret this result as normal/abnor mal. Lab Interpretation (test Normal code = 18866-7) [facility] [id number] 04:36:28 Test Item Value Reference Range Interpretation Comments FREE T3 (test code = 4414704375) 3.32 pg/mL 2.77-5.27 Lab Interpretation (test code = Normal 01212-5) [facility] CenterTHYROID STIMULATING [id number] 02:43:42 Test Item Value Reference Range Interpretation Comments TSH (test code = 9.37 See_Comment H [Automated message] 7557323747) The system [employer] generated this result transmitted ref erence range: 0.45 - 4 .70 mIU/L. The refe rence range was not u sed to interpret this result as normal/abnor mal. Lab Interpretation (test Abnormal code = 51925-1) [facility] CenterTR[facility] [id number] 02:25:04 Test Item Value Reference Range Interpretation Comments TROPONIN I (test code = 0.015 ng/mL <=0.034 4692310673) ANNA (test code = ANNA) Reference (Normal) [...] biotin. Lab Interpretation Normal (test code = 84070-1) [facility] CenterAMMONIA, [id number] 02:14:22 Test Item Value Reference Range Interpretation Comments AMMONIA (test code = 4189487400) 9-33 L Lab Interpretation (test code = Abnormal 96139-4) 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 METABOLIC PANEL (37023)2022-06-16 02:12:41 Test Item Value Reference Range Interpretation Comments NA (test code = 145 mmol/L 135-145 1149120219) K (test code = 3.9 mmol/L 3.5-5.0 5875644097) CL (test code = 112 mmol/L 98-108 H 3533205705) CO2 TOTAL (test code = 28 mmol/L 23-31 9195616657) AGAP (test code = 5 2-16 1772729193) BUN (test code = 22 mg/dL 7-23 5214225073) GLUCOSE (test code = 77 mg/dL 70-110 2056802095) CREATININE (test code = 1.08 mg/dL 0.60-1.25 4287147865) TOTAL BILI (test code = 0.8 mg/dL 0.1-1.7 8139719732) CALCIUM (test code = 9.1 mg/dL 8.6-10.6 4593082835) T PROTEIN (test code = 6.6 g/dL 6.3-8.2 5459881183) ALBUMIN (test code = 4.0 g/dL 3.5-5.0 7082842694) ALK PHOS (test code = 39 U/L 34-122 2515379034) ALTv (test code = 26 U/L 5-50 1742-6) AST(SGOT) (test code = 39 U/L 13-40 1901346273) eGFR (test code = 65.0 mL/min/1.73m2 7983624941) ANNA (test code = ANNA) Association of [...] tests). Lab Interpretation Abnormal (test code = 23001-5) [facility] WITH [id number] 02:05:19 Test Item Value Reference Range Interpretation Comments WBC (test code = 4.53 See_Comment [Automated 3755-2) message] The sy stem which generated this result transmitted reference range : 4.20 - 10.70 10*3/?L. The reference range was not used to interpret this result as normal/abnormal . RBC (test code = 4.77 See_Comment [Automated 819-8) message] The sy stem which generated this [...] RDW-SD (test code = 46.4 fL 38.5-51.6 79199-5) RDW-CV (test code = 14.6 % 12.1-15.4 788-0) PLT (test code = 127 See_Comment L [Automated 777-3) message] The sy stem which generated this result transmitted reference range : 150 - 328 10*3/ ?L. The reference r reyna was not used to interpret this result as normal/abnormal . MPV (test code = 12.0 fL 9.8-13.0 20031-9) NRBC/100 WBC (test 0.0 See_Comment [Automat ed code = 0933716354) message] The system which generated this result transmitted reference range : 0.0 - 10.0 /100 WBCs. The refer ence range was not u sed to interpret th is result as normal/abnormal . NRBC x10^3 (test code See_Comment [Auto mated = 4833424895) message] The s ystem which generated this result transmitted reference range : 10*3/?L. The reference range was not used to interpret this result as normal/abnormal . GRAN MAT (NEUT) % 71.7 % (test code = 770-8) IMM GRAN % (test code 0.40 % = 0031355891) LYMPH % (test code = 15.5 % 736-9) MONO % (test code = 9.9 % 5905-5) EOS % (test code = 1.8 % 713-8) BASO % (test code = 0.7 % 706-2) GRAN MAT x10^3(ANC) 3.25 10*3/uL 1.99-6.95 (test code = 5317044769) IMM GRAN x10^3 (test 0.00-0.06 code = 1439524362) LYMPH x10^3 (test code 0.70 10*3/uL 1.09-3.23 L = 731-0) MONO x10^3 (test code 0.45 10*3/uL 0.36-1.02 = 742-7) EOS x10^3 (test code = 0.08 10*3/uL 0.06-0.53 711-2) BASO x10^3 (test code 0.03 10*3/uL 0.01-0.09 = 704-7) Lab Interpretation Abnormal (test code = 17536-6) [facility] CenterElectrophysiology [id number] 22:43:28 TITLE OF PROCEDURE:Dual-chamber pacemaker generator change [...] pacemaker is a Guidant model S606, serial #[id number], date ofinsertion July 10, 2011.2. The chronic atrial lead is a 4135, serial #[id number]. Measured P-wave 1.7,pacing threshold 1 volt at 0.4, current 1.9 mA, impedance 539 ohms.3. The RV lead is a model 4137, serial #[id number]. Measured R-wave, nointrinsic R waves, pacing threshold 1.1 volt at 0.4 milliseconds, current 2.0mA, impedance 566 ohms.4. The new pacemaker is a [employer] Accolade, model L311, serial#[id number]. CONCLUSIONS:Successful dual-chamber pacemaker change out. RECOMMENDATIONS:Return to AOD recovery and discharge home in several hours when dischargecriteria are met.ESTIMATED BLOOD LOSS:5 mLA Medtronic Tyrx pouch reference [id number], lot [id number] was utilized.[facility] Pre/Post [id number] 02:48:45 Test Item Value Reference Range Interpretation Comments Ventricular rate (test code = 253) Atrial rate (test code = 255) NE interval (test code = 266) QRSD interval (test code = 260) QT interval (test code = 264) QTC interval (test code = 265) QRS axis 1 (test code = 268) T wave axis (test code = 270) EKG impression (test AV dual-paced code = 273) rhythm-Abnormal ECG-In automated comparison with ECG of 11-JUL-2011 09:23,-No significant change was found- [facility] CenterCOVID-19 qualitative [id number] 20:48:51 Test Item Value Reference Range Interpretation Comments Interpretation (test Negative results do code = 3391562) not preclude 2019-nCoV infection and should not be used as the sole basis for treatment or other patient management decisions. Negative results must be combined with clinical observations, patient history, and epidemiological information. COVID-19 qualitative Not-Detected Not-Detected RT-PCR result (test code = 69903-5) COVID-19 qualitative See link below for C ase Number: RT-PCR (test code = PDF Lab Report [id number]) [facility]"
[2022-11-27 11:49] LABS: Absolute Lymphocytes (CBC) 0.4 K/uL (0.7-4.9); Hematocrit 30.8 % (39.6-49.0); Lymphocytes % 6.9 % (15.3-44.8); MCV 83.3 fL (80-100); MPV 10.7 fL (7.6-11.3); Platelets 204 thou/uL (152-406)
[2022-11-27] MEDS ORDERED: Ringers Lactate 1,000 ML IV ONE (12:03)
[2022-11-27 12:09] LABS: Albumin 2.9 g/dL (3.4-5.0); Bilirubin Total 0.6 mg/dL (0.2-1.0); Magnesium 2.4 mg/dL (1.6-2.4); Protein, Total 7.8 g/dL (6.4-8.2)
[2022-11-27 12:12] LABS: Troponin High Sensitivity 16652.5 pg/mL (<58.9)
[2022-11-27] MEDS ORDERED: FUROSEMIDE 20 MG/ 2ML VIAL ONE (12:56)
[2022-11-27] MEDS ORDERED: FUROSEMIDE 40 MG/4 ML VIAL ONE (12:56)
[2022-11-27] MEDS ORDERED: ASPIRIN 81 MG CHEWABLE TABLET ONE ×2 (12:56→13:46)
--- NOTE | 2022-11-27 13:03 | EDPHYS ---
Physician Documentation [facility] Name: Tong Norton Age: 87 yrs Sex: Male : 1935 Arrival Date: 11/27/2022 Time: 11:16 Bed 14 Private MD: ED Physician Ni Rubalcava HPI: 11/27 12:13 This 87 yrs old Male presents to ER via Unassigned with complaints of hypoxia. sd2 12:13 87-year-old male presents via EMS with chief complaint of low O2 saturations at his [facility] half-way. They report they were called for hypoxia as well as abnormal labs. He had hypernatremia as well as an elevated creatinine on the labs that were sent with him. They report that the patient started requiring oxygen due to low O2 saturations in the 70s 2 days ago. He had a chest x-ray that was performed that showed some possible pulmonary edema versus infection. They started him on an antibiotic at that time as well as Lasix. They report that the patient had worsening O2 saturations in the 70s on oxygen today and dropped to the 50s off oxygen. Upon EMSs arrival, they were unable to get a clear consistent O2 saturation on his fingers. However, the rest of his vital signs were normal aside from a temperature of 94.5 F. However, upon the patient's arrival to the ER, temperature was found to be normal as well as pulse ox of 100% on room air. The patient denies any chest pain, shortness of breath or any symptoms at this time.. Historical: - Allergies: 12:36 No Known Allergies; ld1 - PMHx: 12:36 Atrial fibrillation; Dementia; Gout; Hypercholesterolemia; Hypertensive disorder; ld1 insomnia; Pacemaker; - Immunization history:: Adult Immunizations up to date. - Social history:: Smoking status: Patient denies any tobacco usage or history of. Patient/guardian denies using alcohol. ROS: 12:13 Constitutional: Negative for fever, chills, and weight loss, Eyes: Negative for injury, sd2 pain, redness, and discharge, Cardiovascular: Negative for chest pain, palpitations, and edema, Respiratory: Negative for shortness of breath, cough, wheezing. Abdomen/GI: Negative for abdominal pain, nausea, vomiting, diarrhea. MS/Extremity: Negative for injury and deformity, Skin: Negative for injury, rash, and discoloration, Neuro: Negative for headache, numbness and tingling. Exam: 12:13 Constitutional: This is a well developed, well nourished patient who is awake, alert, sd2 and in no acute distress. Head/Face: Normocephalic, atraumatic. Eyes: EOMI, normal conjunctiva bilaterally Chest/axilla: Normal chest wall appearance and motion. Nontender with no deformity. Cardiovascular: Regular rate and rhythm with a normal S1 and S2. No gallops, murmurs, or rubs. 2+ distal pulses. Respiratory: Lungs have equal breath sounds bilaterally, clear to auscultation and percussion. No rales, rhonchi or wheezes noted. No increased work of breathing, no retractions or nasal flaring. Abdomen/GI: Soft, non-tender, with normal bowel sounds. No guarding or rebound. No evidence of tenderness throughout. Skin: Warm, dry with normal turgor. Normal color with no rashes, no lesions, and no evidence of cellulitis. MS/ Extremity: Pulses equal, no cyanosis. Neurovascular intact. Full, normal range of motion. 2+ pitting BLE edema. Psych: Awake, alert, with orientation to person, place, at baseline per EMS report. Behavior, mood, and affect are within normal limits. 13:31 ECG was reviewed by the Attending Physician. V-paced rhythm, rate 76, ST depression in sd2 lead V2, no STEMI or Sgarbossa criteria 13:31 ECG was reviewed by the Attending Physician. V-paced rhythm, rate 61, ST depression sd2 unchanged in lead V2, no significant change from prior EKGs, no STEMI or Sgarbossa criteria Vital Signs: 11:15 BP 78 / 58; Pulse 68; Resp 10; Temp 97.9(O); Pulse Ox 100% on 3 lpm NC; Weight 75.75 ld1 kg; Height 5 ft. 9 in. ; Pain 0/10; 11:17 BP 86 / 68; Pulse 70; Resp 16; Pulse Ox 100% on R/A; ld1 11:34 BP 85 / 68; Pulse 62; Resp 16; Pulse Ox 98% on R/A; ld1 12:00 BP 83 / 73; Pulse 70; Resp 16; Pulse Ox 99% on R/A; ld1 12:30 BP 103 / 77; Pulse 75; Resp 15; Pulse Ox 94% on R/A; ld1 13:00 BP 102 / 67; Pulse 59; Resp 16; Pulse Ox 98% ; cp4 13:30 BP 97 / 68; Pulse 59; Resp 16; Pulse Ox 98% ; cp4 14:00 BP 115 / 73; Pulse 72; Resp 16; Pulse Ox 100% ; cp4 14:30 BP 118 / 90; Pulse 73; Resp 18; Pulse Ox 98% ; cp4 11:15 Body Mass Index 24.66 (75.75 kg, 175.26 cm) ld1 11:15 Pain Scale: Adult ld1 MDM: 11:25 Patient medically screened. sd2 12:13 Differential Diagnosis differential diagnosis includes but is not limited to: ACS, sd2 DVT/PE, pneumothorax, dissection, musculoskeletal, anxiety, anemia, electrolyte abnormality, pneumonia, CHF, COPD among others. Data reviewed: vital signs, nurses notes, EMS record, lab test result(s), EKG, radiologic studies. Historians other than the Patient: EMS: provides initial report. Care significantly affected by the following chronic conditions: Dementia. 12:41 Management of patient was discussed with the following: Director Weights And Measures: Cardiology, Dr. simba Villegas, at bedside. No STEMI on EKG. Discussing case with family as far as management. Recommends, ASA, load with 600 mg Plavix then 75 mg daily thereafter and heparin gtt. . 13:00 Consideration of Admission/Observation Patient was admitted/placed on observation. sd2 Counseling: I had a detailed discussion with the patient and/or guardian regarding the historical points, exam findings, and any diagnostic results supporting the discharge/admit diagnosis, lab results, radiology results, the need for further work-up and treatment in the hospital. ED course: Will admit for further management. Dr. Villegas discussed plan with family, grandson, at bedside and son who is MPOA on the phone. . 11/27 11:28 Order name: CBC with Diff; Complete Time: 11:51 sd2 11/27 11:28 Order name: CMP; Complete Time: 12:13 sd2 11/27 11:28 Order name: Magnesium; Complete Time: 12:13 sd2 11/27 11:28 Order name: Troponin High Sensitivity; Complete Time: 12:13 sd2 11/27 11:28 Order name: BNP; Complete Time: 12:13 11/27 11:28 Order name: Lactate w/ 2H reflex if indic.; Complete Time: 12:12 11/27 11:28 Order name: Procalcitonin; Complete Time: 12:24 11/27 13:44 Order name: Urinalysis w/ reflexes EDMS 11/27 13:44 Order name: Basic Metabolic Panel EDMS 11/27 13:44 Order name: Basic Metabolic Panel EDMS 11/27 13:44 Order name: Basic Metabolic Panel EDMS 11/27 13:44 Order name: Basic Metabolic Panel EDMS 11/27 13:44 Order name: CBC with Automated Diff EDMS 11/27 13:44 Order name: CBC with Automated Diff EDMS 11/27 13:44 Order name: CBC with Automated Diff EDMS 11/27 13:44 Order name: CBC with Automated Diff EDMS 11/27 13:44 Order name: Comprehensive Metabolic Panel EDMS 11/27 13:44 Order name: Comprehensive Metabolic Panel EDMS 11/27 13:44 Order name: Comprehensive Metabolic Panel EDMS 11/27 13:44 Order name: Comprehensive Metabolic Panel EDMS 11/27 13:44 Order name: Magnesium EDMS 11/27 13:44 Order name: Magnesium EDMS 11/27 13:44 Order name: Magnesium EDMS 11/27 13:44 Order name: Magnesium EDMS 11/27 13:44 Order name: Phosphorus EDMS 11/27 13:44 Order name: Phosphorus EDMS 11/27 13:44 Order name: Phosphorus EDMS 11/27 13:44 Order name: Phosphorus EDMS 11/27 13:44 Order name: Troponin High Sensitivity EDMS 11/27 13:44 Order name: Troponin High Sensitivity EDMS 11/27 13:44 Order name: Troponin High Sensitivity EDMS 11/27 13:44 Order name: Troponin High Sensitivity EDMS 11/27 13:52 Order name: PT-INR ll1 11/27 13:52 Order name: Ptt, Activated ll1 11/27 14:53 Order name: Protime (+INR) EDMS 11/27 14:53 Order name: PTT, Activated Partial Thromb EDMS 11/27 11:28 Order name: XRAY Chest (1 view) sd2 11/27 14:05 Order name: RAD EDMS 11/27 13:44 Order name: CONS Physician Consult EDMS 11/27 11:28 Order name: EKG - Nurse/Tech; Complete Time: 11:55 sd2 11/27 12:18 Order name: EKG - Nurse/Tech; Complete Time: 12:27 sd2 11/27 12:42 Order name: E[place]; Complete Time: 13:04 ld1 11/27 14:17 Order name: Labs - recollect needed: recollect blue top please bc6 Administered Medications: 11:54 Drug: Lactated Ringers Solution IV 500 ml IV at bolus bolus Route: IV; Rate: bolus; cp4 Site: right antecubital; 12:41 Not Given (Physician Discretion): [id number] mg IVP once; give over 2 minutes sd2 13:06 Not Given (unable to swalloww): aspirinchewable tablet 324 mg PO once; 81 mg tablets x 4ld1 13:55 Drug: Clopidogrel PO 600 mg PO once Route: PO; ld1 13:55 Drug: Heparin ([place] Drip) 12 units/kg/hr - ([place] [address] units, D5W IV 500 ml) IV at ld1 calculated rate Per protocol; Max initial rate 1000 units/hr {Co-Signature: ph (Casi Kwan RN).} Route: IV; Rate: calculated rate; Site: right antecubital; Disposition Summary: 11/27/22 13:02 Hospitalization Ordered Notes: Hospitalization Status: Inpatient Admission sd2 Provider: Micah Kilgore sd2 Condition: Stable sd2 Problem: new sd2 Symptoms: are unchanged sd2 Bed/Room Type: Standard pr2 Location: Intensive Care Unit(11/27/22 15:11) 6 Room Assignment: 6-(11/27/22 15:11) [facility] Diagnosis - Subsequent non-ST elevation (NSTEMI) myocardial infarction sd2 - Bilateral lower extremity edema sd2 Forms: - Medication Reconciliation Form sd2 - SBAR form sd2 - Leadership Thank You Letter sd2 Critical care time excluding procedures: 13:37 Critical care time: Bedside Care: 40 minutes, Consultation: 15 minutes, Family sd2 Intervention: 10 minutes. Total time: 65 minutes Signatures: Dispatcher [employer] [facility] Nicole Mandel RN RN ld1 Ni Rubalcava MD MD sd2 Anh Kirk 6 Rose Duran 4 Casi Kwan RN ph Corrections: (The following items were deleted from the chart) 15: 13:02 Telemetry/MedSurg (Inpatient) pr2 6 15: 13:02
--- NOTE | 2022-11-27 13:03 | ER ---
Nurse's Notes [facility] Name: Tong Norton Age: 87 yrs Sex: Male : 1935 Arrival Date: 11/27/2022 Time: 11:16 Bed 14 Private MD: Diagnosis: Subsequent non-ST elevation (NSTEMI) myocardial infarction;Bilateral lower extremity edema Presentation: 11/27 11:15 Initial Sepsis Screen: Does the patient meet any 2 criteria? No. Patient's initial ld1 sepsis screen is negative. Does the patient have a suspected source of infection? No. Patient's initial sepsis screen is negative. Risk Assessment: Do you want to hurt yourself or someone else? Patient reports no desire to harm self or others. Onset of symptoms was November 27, 2022 at 12:36. 11:15 Acuity: DOMENICO 3 ld1 12:33 Chief complaint: EMS states: toned out to [place] for SOB. SpO2 80% on 3L NC upon ld1 arrival to ER. Coronavirus screen: At this time, the client does not indicate any symptoms associated with coronavirus-19. Ebola Screen: No symptoms or risks identified at this time. 12:33 Method Of Arrival: EMS: [facility] ld1 Triage Assessment: 12:36 General: Appears in no apparent distress. comfortable, Behavior is calm, cooperative, ld1 appropriate for age. Pain: Denies pain. EENT: No signs and/or symptoms were reported regarding the EENT system. Neuro: Level of Consciousness is awake, alert, confused, Oriented to person. Cardiovascular: Capillary refill < 3 seconds Patient's skin is warm and dry. Rhythm is sinus rhythm. Respiratory: Airway is patent Respiratory effort is even, unlabored. GI: Abdomen is round non-distended. : No signs and/or symptoms were reported regarding the genitourinary system. Derm: No signs and/or symptoms reported regarding the dermatologic system. Musculoskeletal: No signs and/or symptoms reported regarding the musculoskeletal system. Historical: - Allergies: 12:36 No Known Allergies; ld1 - PMHx: 12:36 Atrial fibrillation; Dementia; Gout; Hypercholesterolemia; Hypertensive disorder; ld1 insomnia; Pacemaker; - Immunization history:: Adult Immunizations up to date. - Social history:: Smoking status: Patient denies any tobacco usage or history of. Patient/guardian denies using alcohol. Screenin:38 [facility] ED Fall Risk Assessment (Adult) History of falling in the last 3 months, ld1 including since admission No falls in past 3 months (0 pts). Abuse screen: Denies threats or abuse. Denies injuries from another. Nutritional screening: No deficits noted. Tuberculosis screening: No symptoms or risk factors identified. Assessment: 12:38 Reassessment: See triage assessment. ld1 12:47 Reassessment: Detail Manager at bedside assessing patient. Jhoana ordered at bedside. ld1 Vital Signs: 11:15 BP 78 / 58; Pulse 68; Resp 10; Temp 97.9(O); Pulse Ox 100% on 3 lpm NC; Weight 75.75 ld1 kg; Height 5 ft. 9 in. ; Pain 0/10; 11:17 BP 86 / 68; Pulse 70; Resp 16; Pulse Ox 100% on R/A; ld1 11:34 BP 85 / 68; Pulse 62; Resp 16; Pulse Ox 98% on R/A; ld1 12:00 BP 83 / 73; Pulse 70; Resp 16; Pulse Ox 99% on R/A; ld1 12:30 BP 103 / 77; Pulse 75; Resp 15; Pulse Ox 94% on R/A; ld1 13:00 BP 102 / 67; Pulse 59; Resp 16; Pulse Ox 98% ; cp4 13:30 BP 97 / 68; Pulse 59; Resp 16; Pulse Ox 98% ; cp4 14:00 BP 115 / 73; Pulse 72; Resp 16; Pulse Ox 100% ; cp4 14:30 BP 118 / 90; Pulse 73; Resp 18; Pulse Ox 98% ; cp4 11:15 Body Mass Index 24.66 (75.75 kg, 175.26 cm) ld1 11:15 Pain Scale: Adult ld1 ED Course: 11:21 Patient arrived in ED. bc6 11:25 Ni Rubalcava MD is Attending Physician. sd2 11:42 Rose Duran is Primary Nurse. cp4 11:43 Procalcitonin Sent. cp4 11:43 Lactate w/ 2H reflex if indic. Sent. cp4 11:43 Troponin High Sensitivity Sent. cp4 11:43 Magnesium Sent. cp4 11:43 CMP Sent. cp4 11:43 CBC with Diff Sent. cp4 11:48 BNP Sent. cp4 12:36 Triage completed. ld1 12:36 Arm band placed on right wrist. ld1 12:38 No provider procedures requiring assistance completed. Inserted saline lock: 20 gauge ld1 in right antecubital area, using aseptic technique. Blood collected. 12:38 Patient has correct armband on for positive identification. Placed in gown. Bed in low ld1 position. Call light in reach. Side rails up X2. patient monitor on. Pulse ox on. NIBP on. Door closed. Noise minimized. 13:01 Micah Kilgore MD is Hospitalizing Provider. sd2 14:15 Ptt, Activated Sent. cp4 14:15 PT-INR Sent. cp4 14:52 Patient admitted, IV remains in place. cp4 18:06 Provided Education on:. cp4 Administered Medications: 11:54 Drug: Lactated Ringers Solution IV 500 ml IV at bolus bolus Route: IV; Rate: bolus; cp4 Site: right antecubital; 12:41 Not Given (Physician Discretion): [id number] mg IVP once; give over 2 minutes sd2 13:06 Not Given (unable to swalloww): aspirinchewable tablet 324 mg PO once; 81 mg tablets x 4ld1 13:55 Drug: Clopidogrel PO 600 mg PO once Route: PO; ld1 13:55 Drug: Heparin ([place] Drip) 12 units/kg/[place] - ([place] [address] units, D5W IV 500 ml) IV at ld1 calculated rate Per protocol; Max initial rate 1000 units/hr {Co-Signature: ph (Casi Kwan RN).} Route: IV; Rate: calculated rate; Site: right antecubital; Medication: 15:40 VIS not applicable for this client. cp4 Outcome: 13:02 Decision to Hospitalize by Provider. sd2 15:40 Admitted to ICU accompanied by nurse, accompanied by tech, via stretcher, on monitor, cp4 with chart, Report called to Flora 15:40 Condition: stable cp4 15:40 Discharge instructions given to patient, Instructed on the need for admit, Demonstrated understanding of instructions, 15:42 Patient left the ED. ll1 Signatures: [place] RN RN ll1 Nicole Mandel RN RN ld1 Ni Rubalcava MD MD sd2 Anh Kirk Christina cp4 Casi Kwan RN ph Corrections: (The following items were deleted from the chart) : 18:06 Admitted to ICU accompanied by nurse, accompanied by tech, via stretcher, on cp4 monitor, with chart, Report called to Bernie carreon 18: 18:06 Condition: stable cp4 cp4 18: 18:06 Discharge instructions given to patient, Instructed on the need for admit, cp4 Demonstrated understanding of instructions, cp4
[2022-11-27] MEDS ORDERED: ONDANSETRON 4 MG/2 ML VIAL IV PRN (13:38)
[2022-11-27] MEDS ORDERED: ACETAMINOPHEN 500 MG TAB PO PRN (13:38)
--- NOTE | 2022-11-27 13:44 | P.HP ---
Certification for Inpatient With expected LOS: <2 Midnights Patient will require the following post-hospital care: None Practitioner: I am a practitioner with admitting privileges, knowledge of patient current condition, hospital course, and medical plan of care. Services: Services provided to patient in accordance with Admission requirements found in Title 42 Section 412.3 of the Code of Federal Regulations Patient History Date of Service: 11/27/22 History of Present Illness: Back pain Tong Ramirez 87-year-old male with history of atrial fibrillation, dementia, gout, hyperlipidemia, hypertension, insomnia, pacemaker. Patient came from long term to the ER with complaints of hypoxia. Patient had oxygenation saturation in the long term. Also abnormal labs he had hypernatremia as well as elevated creatinine on the labs they sent the patient with. Patient's oxygen was 70s 2 days ago. He had a chest x-ray that was showing some possible pulmonary edema versus infection. Patient was started on antibiotic at that time as well as Lasix. Patient oxygenation got worse and today and his oxygen dropped to 50s off oxygen. In the emergency room. ER course blood pressure 78/58, pulse 68, respiration 10, temperature 97.9, 100% SPO2 on 3 L of nasal cannula. Back pain Tong Ramirez 87-year-old male with history of atrial fibrillation, dementia, gout, hyperlipidemia, hypertension, insomnia, pacemaker. Patient came from long term to the ER with complaints of hypoxia. Patient had oxygenation saturation in the long term. Also abnormal labs he had hypernatremia as well as elevated creatinine on the labs they sent the patient with. Patient's oxygen was 70s 2 days ago. He had a chest x-ray that was showing some possible pulmonary edema versus infection. Patient was started on antibiotic at that time as well as Lasix in the long term. Patient oxygenation got worse and today and his oxygen dropped to 50s off oxygen. In the emergency room the temperature was 94.5 pulse oximetry 100% on room air. Patient denies chest pain shortness of breath , fever chills or dizziness. Blood pressure 78/58, pulse 68, respiration 10, temperature 97.9, 100% SPO2 on 3 L of nasal cannula. Laboratory findings significant for hemoglobin 10.1, hematocrit 30.8 BUN 72 creatinine 2.8, GFR 29, glucose 109, AST 50, troponin 54116.5, BNP 34983, albumin 2.9. Chest x-ray showing mild CHF admitting the patient with a diagnosis of subsequent non-ST elevation myocardial infarction, bilateral lower extremity edema. Allergies No Known Allergies Allergy (Verified 01/13/18 10:44) Home medications list reviewed: Yes Home Medications: Cephalexin [Keflex*] 500 mg PO Q6HR #28 cap 02/19/18 Cholecalciferol (Vitamin D3) [Vitamin D3] 2,000 unit PO DAILY 02/19/18 Copper Gluconate [Copper] 2 mg PO DAILY 02/19/18 Cyanocobalamin (Vitamin B-12) [Vitamin B-12] 5,000 mcg PO DAILY 02/19/18 Gabapentin 100 mg PO DAILY 02/19/18 Gabapentin 200 mg PO BEDTIME 02/19/18 Pyridoxine HCl [Vitamin B-6] 25 mg PO DAILY 02/19/18 Rivaroxaban [Xarelto] 20 mg PO DAILY 02/19/18 Simvastatin 40 mg PO DAILY 02/19/18 Simvastatin [Zocor] 40 mg PO DAILY 02/19/18 Sotalol HCl [Betapace*] 40 mg PO BID 02/19/18 Tamsulosin HCl 0.4 mg PO DAILY 02/19/18 Tramadol HCl [Ultram] 50 mg PO Q6H PRN 02/19/18 Zinc Sulfate [Zinc Sulfate*] 220 mg PO DIRECTED 02/19/18 - Past Medical/Surgical History Diabetic: No -: gout -: hyperlipidemia -: HTN -: CAD -: A-fib on chronic anticoagulation -: Hypothyroidism -: pacemaker placement -: CABG -: TURP -: cataract sx Psychosocial/ Personal History: Lives at home with family - Social History Alcohol use: No CD- Drugs: No Review of Systems 10-point ROS is otherwise unremarkable General: Weakness Eyes: Unremarkable ENT: Unremarkable Respiratory: Other Cardiovascular: Unremarkable Gastrointestinal: Unremarkable Genitourinary: Incontinence Musculoskeletal: Atrophy Integumentary: Unremarkable Neurological: Weakness Physical Examination - Physical Exam General: In no apparent distress, Oriented x1 HEENT: Atraumatic, Normocephalic, PERRLA, Mucous membr. moist/pink Neck: 2+ carotid pulse no bruit Respiratory: Clear to auscultation bilaterally, Diminished ( at the bases) Cardiovascular: Normal pulses, Edema (Bilateral lower extremity 2+ edema), Irregular heart rate/rhythm (Chronic A-fib) Capillary refill: <2 Seconds Gastrointestinal: Normal bowel sounds, Soft and benign, Non-distended, No ascites, No tenderness, No masses, No rebound, No guarding Musculoskeletal: No clubbing, No swelling, No contractures, No erythema, No tenderness, No warmth Integumentary: No rashes, No breakdown, No significant lesion, No tenderness/swelling, No erythema, No warmth, No cyanosis Neurological: Normal speech, Normal reflexes 2+, Normal affect, Abnormal gait (Confined to bed) - Studies Laboratory Data (last 24 hrs) 11/27/22 11/27/22 11:41 11:41 WBC 6.30 Hgb 10.1 L Hct 30.8 L Plt Count 204 Sodium 141 Potassium 4.0 BUN 72 H Creatinine 2.18 H Glucose 109 H Magnesium 2.4 Total Bilirubin 0.6 AST 50 H ALT 47 Alkaline Phosphatase 60 Assessment and Plan - Plan Assessment and plan Assessment Hypoxia Subsequent non-ST elevation UT Hypokalemia Acute kidney injury Bilateral lower extremity edema Mild CHF Plan Hypoxia -Episodes of hypoxia in the long term Admitted to the hospital we will continue to monitor Patient has been oxygenating 100% on 3 L of oxygen by nasal At this time Subsequent non-ST elevation UT -Troponin high 00896.5, patient denied chest pain -Consulted territory sales consultant Dr. Lamb, patient was seen by Dr. Lamb -Trend troponin, electrolyte replacement as per hospital protocol -Discussed with the hospitalist Dr. Magui Obrien acute kidney injury -Acute, BUN 72, creatinine 2.18, GFR 29 -Continue to monitor, consult Dr. Oropeza, discussed about the patient's condition -Ordered Lasix 40 mg IV twice daily, renal ultrasound, urine analysis with protein and creatinine -Renal dosing of medication -Close monitoring of blood pressure, avoid NSAIDselectrolyte replacement as per hospital protocol -We will continue to monitor the patient closely bilateral lower extremity edema -Chronic worsening. We will continue diuretics at this time -Electrolyte management as per hospital protocol Mild CHF: -Acute mild CHF on the chest x-ray, patient denies shortness of breath, -Bilateral breath sounds good -Continue to monitor -Ordered echo cardiogram DVT prophylaxis heparin CODE STATUS full code Diet; continue Discharge Plan: Fdc Plan to discharge in: 72 Hours - Advance Directives Does patient have a Living Will: No Does patient have a Durable POA for Healthcare: No - Code Status/Comfort Care Code Status Assessed: Yes (Full code) Code Status: Full Code Physician Review: Patient Assessed, Agree with Above Assessment and Plan Critical Care: Yes Time Spent Managing Pts Care (In Minutes): 55 (Minute)
[2022-11-27] MEDS ORDERED: CLOPIDOGREL 75 MG TABLET ONE (13:46)
[2022-11-27] MEDS ORDERED: HEPARIN 5000 UNIT/ML 1 ML VIAL ONE (13:46)
[2022-11-27] MEDS ORDERED: HEPARIN/D5W 25,000 UNIT/500 ML BAG IV ONE (13:47)
--- NOTE | 2022-11-27 14:05 | RAD REPORT ---
EXAM DESCRIPTION: RAD - Chest Single View - 11/27/2022 1:57 pm CLINICAL HISTORY: abnormal CXR at facility Chest pain. COMPARISON: Chest Single View dated 07/11/2022; Chest Single View dated 11/22/2021; Chest Pa And Lat ( 2 Views) dated 01/26/2019; Chest Single View dated 02/18/2018 FINDINGS: Portable technique limits examination quality. Chronic elevation left hemidiaphragm is noted. Mild interstitial prominence seen suggesting mild inte rstitial pulmonary edema. The heart is moderately enlarged. No displaced fractures.Sternotomy wires p resent. Dual lead pacer device seen. IMPRESSION: Mild CHF.
[2022-11-27 14:53] LABS: Protime INR 1.49
[2022-11-27] MEDS ORDERED: HEPARIN 5000 UNIT/ML 1 ML VIAL SQ SCH (17:00)
[2022-11-27] MEDS: FUROSEMIDE 40 MG/4 ML VIAL IV SCH (17:00)
[2022-11-27 18:34] LABS: Specific Gravity 1.007 (1.005-1.030); Urine Bacteria None Seen /HPF (<20); Urine Bilirubin NEGATIVE (Negative); Urine Blood Negative (Negative); Urine Clarity Clear (Clear); Urine Color Colorless (Yellow); Urine Glucose NEGATIVE (Negative); Urine Protein NEGATIVE (Negative); Urine RBC <5 /HPF (None Seen); Urine Urobilinogen Normal (Normal); Urine pH 6.5 (5.0-7.0)
[2022-11-27 18:47] LABS: Thyroid Stimulating Hormone 1.94 uIU/mL (0.358-3.740); Uric Acid 11.8 mg/dL (3.5-7.2)
--- NOTE | 2022-11-27 19:11 | RAD REPORT ---
EXAM DESCRIPTION: US - Renal Ultrasound-Complete - 11/27/2022 6:48 pm CLINICAL HISTORY: ZACKERY Flank pain COMPARISON: No comparisons FINDINGS: Both kidneys are echogenic. The right kidney measures 9.9 x 4.5 x 4.1 cm. No hydronephrosis, focal mass or perinephric fluid. The left kidney measures 9.6 x 5.0 x 3.9 cm.. No hydronephrosis, focal mass or perinephric fluid. Sma ll benign-appearing left renal cyst. The urinary bladder is incompletely distended without gross abnormality seen. IMPRESSION: Significantly echogenic kidneys bilaterally compatible with underlying medical renal dis ease.
--- NOTE | 2022-11-27 19:19 | CON ---
Date of Consultation: 11/27/2022 Reason For Consultation: Elevated troponin. History Of Present Illness: 87-year-old male, history of atrial fibrillation, advanced dementia, [facility], dyslipidemia, hypertension, history of heart pacemaker. [facility] because of hypoxia and hypothermia. When he arrived to the emergency room, his blood pre ssure was low at 78/58, and he was saturating 100%. In terms of answering questions, he declined hav ing any pain, any chest pain, and no shortness of breath and no complaints at all, sitting comfortabl y without complaints. Past Medical History: As outlined above in HPI. Medications: Refer reconciliation sheet for detailed list. Allergies: NO KNOWN DRUG ALLERGIES. Family History: No premature coronary artery disease or cancer. Social History: Does not smoke or drink. Does not use any drugs. Review of Systems: All systems were reviewed and they were negative except as mentioned in HPI. Physical Examination: Vital Signs: Reviewed. Head and Neck: Pupils are equal, reactive to light. Intact eye movements. No JVD. No cervical lym phadenopathy. Neck: Supple. Thyroid is not enlarged. Lungs: Clear to auscultation bilaterally. No rhonchi, wheezing, or crackles. No accessory muscle u se. Heart: Regular rate and rhythm. No extra sounds. Abdomen: Soft, nontender. Bowel sounds positive. No organomegaly. No masses or hernia. No rigidi ty or rebound. Extremities: No edema clubbing, cyanosis. Intact pulses. Skin: No rash. Neurologic: Alert, awake, with confusion. He is severely demented. No focal deficits. Lymph nodes: No cervical or axillary lymphadenopathy. Investigations: BUN 72, creatinine 2.1. NT-proBNP is 18,044. Troponin is 16,652. Assessment And Recommendations: 1.Elevated troponin, but there is no chest pain. An EKG is paced rhythm, which is unchanged from pr ior. The patient has advanced dementia and he reports no chest pain whatsoever. I called his son chuck anne is the medical power of finance attorney. I had a long discussion given that he has advanced dementia with very poor quality of life. At this point, probably the best option is conservative medical manageme nt. He will communicate with the family and let me know afterwards what the decision is. If they de cide for everything to be done, then we will have coronary angiogram later on tomorrow. In the inter im, continue IV heparin, baby aspirin, and Plavix. 2.Congestive heart failure. This patient is hypotensive and I believe the low blood pressure has so mething to do with the elevated troponin. Could be demand ischemia. He needs gentle hydration. 3.Acute renal failure. Looking back in July, his creatinine was normal. I recommend gentle IV hydr ation and consult Nephrology before we proceed with any angiogram as he is having acute kidney injury . Case discussed with emergency room staff and hospitalist. /OLEG Voice ID: [id number] Report ID: [id number]
[2022-11-27] MEDS: SOTALOL HCL 80 MG TAB PO SCH (19:28)
[2022-11-27] MEDS: DONEPEZIL HCL 5 MG TAB PO SCH (19:29)
[2022-11-27] MEDS: MEMANTINE HCL 10 MG TABLET PO SCH (19:29)
[2022-11-27] MEDS: ATORVASTATIN 20 MG TAB PO SCH (19:29)
[2022-11-27] MEDS ORDERED: HEPARIN/D5W 25,000 UNIT/500 ML BAG IV SCH (20:00)
[2022-11-28] MEDS ORDERED: LORazepam 2 MG/ML VIAL IV ONE ×2 (02:02→14:16)
[2022-11-28 05:00] LABS: Absolute Lymphocytes (CBC) 0.7 K/uL (0.7-4.9); Hematocrit 27.4 % (39.6-49.0); Lymphocytes % 12.7 % (15.3-44.8); MCV 82.9 fL (80-100); MPV 10.6 fL (7.6-11.3); Platelets 155 thou/uL (152-406); RBC Red Blood Cell Count 3.31 M/uL (4.33-5.43)
[2022-11-28 05:25] LABS: Albumin 2.3 g/dL (3.4-5.0); Bilirubin Total 0.4 mg/dL (0.2-1.0); Magnesium 2.2 mg/dL (1.6-2.4); Phosphorus 3.2 mg/dL (2.5-4.9); Potassium 3.2 mEq/L (3.5-5.1); Protein, Total 5.9 g/dL (6.4-8.2)
[2022-11-28] MEDS ORDERED: POTASSIUM 25 MEQ EFFERV TAB PO ONE (05:46)
[2022-11-28] MEDS: LEVOTHYROXINE SOD 0.075 MG TAB PO SCH (06:08)
--- NOTE | 2022-11-28 06:51 | P.PN ---
Date of Service: 11/28/22 Subjective: confused, tired given ativan overnight no chest pain; BP low to low-normal - stable with lasix Breathing comfortably on room air, at rest afebrile ROS: 10 point ROS as noted above, otherwise negative Physical Exam: GEN: orientedx1, fatigued appearing, confused/dementia HEENT: Normal conjunctiva, sclera anicteric CV: Regular rate and rhythm (paced), 1+ BLE edema Pulm: Nonlabored respirations on room air, diminished at bases b/l ABD: Soft, nontender, nondistended Neuro: dementia, hard of hearing girard in place vitals reviewed Problem List: NSTEMI Acute on chronic CHF ZACKERY Hypokalemia a-fib, chronic on anticoagulation Severely advanced dementia Hyperlipidemia Hypertension Hypothyroidism NSTEMI Acute on chronic CHF CXR (11/27): mild CHF CXR (11/28): Mild increased interstitial and airspace disease. Chronically elevated left hemidiaphragm but small left effusion may also be present trend troponins, monitor on tele denies chest pain Cardiology consulted Dr. Villegas spoke to patient's son (BRADLEY); conservative medical management vs coronary angiogram. pending family response/decision contine heparin drip per cardiology echo ordered continue lasix IV BID as BP and renal function allow ZACKERY Hypokalemia renal u/s (11/27): Significantly echogenic kidneys bilaterally Nephrology consulted slight improvement overnight; received lasix yesterday continue lasix IV BID continue to monitor renal function A-fib, chronic on anticoagulation Severely advanced dementia Hyperlipidemia Hypertension Hypothyroidism confirm home medications, restart as appropriate restart psych/dementia medications Code: Full Dispo: Back to [facility] - [facility] Pending further work up , ~2-3 days
--- NOTE | 2022-11-28 07:40 | RAD REPORT ---
EXAM DESCRIPTION: RAD - Chest Single View - 11/28/2022 7:31 am CLINICAL HISTORY: f/u edema/effusions COMPARISON: Chest Single View dated 11/27/2022; Chest Single View dated 07/11/2022; Chest Single View dated 11/22/2021; Chest Pa And Lat (2 Views) dated 01/26/2019 FINDINGS: Lines: Pacemaker. Lungs: Slight increased bilateral interstitial and airspace disease. Pleural: Elevated left hemidiaphragm. Possible small left effusion. Cardiac: Cardiomegaly. Mediastinum: Within normal limits. Bones: No acute fractures. Sternotomy. Other: None IMPRESSION: Mild increased interstitial and airspace disease could reflect slight progression of sregio ma. Chronically elevated left hemidiaphragm but small left effusion may also be present.
[2022-11-28] MEDS: SOTALOL HCL 80 MG TAB PO SCH ×2 (08:22→19:58)
[2022-11-28] MEDS: MEMANTINE HCL 10 MG TABLET PO SCH ×2 (08:22→19:58)
[2022-11-28] MEDS: CYANOCOBALAMIN 5000 MCG PO SCH (08:22)
[2022-11-28] MEDS: FUROSEMIDE 40 MG/4 ML VIAL IV SCH ×2 (08:23→16:28)
[2022-11-28] MEDS: TAMSULOSIN 0.4 MG SR CAP PO SCH (08:23)
[2022-11-28] MEDS: VITAMIN D 1000 UNIT TAB PO SCH (08:23)
[2022-11-28] MEDS: GABAPENTIN 100 MG CAP PO SCH (08:23)
--- NOTE | 2022-11-28 13:54 | EKG ---
Test Date: 2022-11-27 Test Time: 12:24:12 Vegetable Thinner: ALEXX Tapia MEASUREMENT RESULTS: Intervals: Rate: 61 OR: QRSD: 192 QT: 524 QTc: 527 [place]: P: OR: QRS: -77 T: 93 INTERPRETIVE STATEMENTS: V- Paced. Electronically Signed On 11-28-22 13:51:22 CDT by Vega Villegas
--- NOTE | 2022-11-28 13:55 | EKG ---
Test Date: 2022-11-27 Test Time: 11:53:55 Asset Management Lead: ALEXX Tapia MEASUREMENT RESULTS: Intervals: Rate: 76 W[place]: QRSD: 166 QT: 478 QTc: 537 [place]: P: W[place]: QRS: -75 T: 100 INTERPRETIVE STATEMENTS: Atrial fibrillation Left axis deviation Nonspecific intraventricular block Lateral infarct, age undetermined Inferior infarct, age undetermined Abnormal ECG Compared to ECG 07/11/2022 09:59:26 Left-axis deviation now present Myocardial infarct finding now present Ventricular-paced complex(es) or rhythm no longer present Electronically Signed On 11-28-22 13:51:33 CDT by Vega Villegas
--- NOTE | 2022-11-28 13:59 | ECHO ---
HEIGHT: 5 ft 9 in WEIGHT: 162 lb 6.4 oz DATE OF STUDY: 11/28/[address]: Micah Kilgore MD 2-DIMENSIONAL: YES M.MODE: YES DOPPLER: YES COLOR FLOW: YES TDS: PORTABLE: YES DEFINITY: BUBBLE STUDY: DIAGNOSIS: NON ST ELEVATION MYOCARDIAL INFARCTION, FUNCTION/ VALVES CARDIAC HISTORY: CATHERIZATION: YES SURGERY: YES PROSTHETIC VALVE: NO PACEMAKER: YES MEASUREMENTS (cm) DIASTOLIC (NORMALS) SYSTOLIC (NORMALS) IVSd 1.0 (0.6-1.2) LA Diam 1.8 (1.9-4.0) LVEF 40% LVIDd 3.4 (3.5-5.7) LVIDs 2.9 (2.0-3.5) %FS 16% LVPWd 1.0 (0.6-1.2) Ao Diam 2.5 (2.0-3.7) 2 DIMENSIONAL ASSESSMENT: RIGHT ATRIUM: NORMAL LEFT ATRIUM: NORMAL RIGHT VENTRICLE: NORMAL LEFT VENTRICLE: DEPRESSED EJECTION FRACTION TRICUSPID VALVE: NORMAL MITRAL VALVE: MODERATE MITRAL REGURGITATION PULMONIC VALVE: NORMAL AORTIC VALVE: MILD AORTIC INSUFFICIENCY PERICARDIAL EFFUSION: NONE AORTIC ROOT: NORMAL LEFT VENTRICULAR WALL MOTION: MILD GLOBAL HYPOKINESIS DOPPLER/COLOR FLOW: SEE BELOW COMMENTS: 1. MODERATELY DEPRESSED EJECTION FRACTION 35-40% 2. MODERATE GLOBAL HYPOKINESIS 3. MODERATE MITRAL REGURGITATION TECHNOLOGIST: NAILA COOPER
[2022-11-28] MEDS ORDERED: POTASSIUM CL SA 10 MEQ TAB PO ONE (14:13)
[2022-11-28] MEDS ORDERED: ASPIRIN 81 MG CHEWABLE TABLET PO ONE (15:02)
--- NOTE | 2022-11-28 15:08 | P.CNS ---
Date of Consult: 11/28/22 Reason for Consult: ZACKERY Requesting Physician: Micah Kilgore Chief Complaint: SOB History of Present Illness: 87M [facility] resident w/ PMHx of Htn, HLD, chronic afib, dementia, gout, & s/p PPM who p/w hypoxia. He is hypoxic, hypothermic, and hypotensive on admission. BNP is significantly elevated. chest x-ray showed mild CHF. Troponin elevated and he was subsequently also diagnosed with an STEMI. He has bladder lower extremity edema. He is referred to nephrology for ZACKERY. Serum creatinine is 2.2 on admission, improved to 1.7 today. He is receiving IV Lasix for acute and chronic heart failure. He has delirium episodes today. He has poor by mouth intake today. Allergies No Known Allergies Allergy (Verified 01/13/18 10:44) Home Medications: Cholecalciferol (Vitamin D3) [Vitamin D3] 5,000 unit PO DAILY 02/19/18 Cyanocobalamin (Vitamin B-12) [Vitamin B-12] 5,000 mcg PO DAILY 02/19/18 Gabapentin 100 mg PO TID 02/19/18 Sotalol HCl [Betapace*] 40 mg PO BID 02/19/18 Tamsulosin HCl 0.4 mg PO DAILY 02/19/18 Amlodipine [Norvasc] 5 mg PO DAILY 11/27/22 Donepezil HCl 5 mg PO BEDTIME 11/27/22 Fenofibrate,Micronized [Fenofibrate] 134 mg PO DAILY 11/27/22 Furosemide 40 mg PO BID 11/27/22 Furosemide 40 mg PO DAILY 11/27/22 Levothyroxine [Synthroid] 75 mcg PO [id number] 11/27/22 Lisinopril [Zestril] 5 mg PO DAILY 11/27/22 Melatonin 3 mg PO BEDTIME 11/27/22 Memantine HCl 5 mg PO DAILY 11/27/22 Pantoprazole Sodium [Protonix] 40 mg PO DAILY 11/27/22 Polyethylene Glycol 3350 [Miralax] 17 gm PO DAILY PRN 11/27/22 Potassium Chloride 40 meq PO DAILY 11/27/22 Risperidone [Risperdal] 1 mg PO DAILY 11/27/22 Risperidone [Risperdal] 3 mg PO BEDTIME 11/27/22 - Past Medical/Surgical History Diabetic: No -: gout -: hyperlipidemia -: HTN -: CAD -: A-fib on chronic anticoagulation -: Hypothyroidism -: pacemaker placement -: CABG -: TURP -: cataract sx Psychosocial/ Personal History: Lives at home with family - Social History Smoking Status: Unknown if ever smoked Alcohol use: No CD- Drugs: No Place of Residence: [facility]irement Review of Systems is unable to be obtained (d/t AMS) Physical Examination Temp Pulse Resp BP Pulse Ox 97.5 F 69 15 98/69 98 11/28/22 10:00 11/28/22 10:00 11/28/22 10:00 11/28/22 10:00 11/28/22 10:00 General: Other (chronically ill-appearing) HEENT: Atraumatic, Normocephalic Neck: Supple Respiratory: Diminished, Other (symmetric chest expansion) Cardiovascular: No rubs, No murmurs Gastrointestinal: Soft and benign, No guarding Musculoskeletal: No clubbing, Other (diffuse muscle atrophy) Integumentary: No warmth Neurological: Dementia Urinary: Other (no bladder distention) External genitalia: Deferred Rectal: Deferred Conclusions/Impression: # ZACKERY 2/2 prerenal state + hypotension/CRS1 Serum creatinine is 2.2 on admission, improved to 1.7 today Baseline serum creatinine 0.7-0.8 as of July 2022 Encourage liberal po fluid intake. Start D5W IV fluid tomorrow AM if po intake still poor by then. Avoid Na-containing IV fluid. Cont IV lasix Hold off on feeding tube # Acute on chronic systolic HF TTE on 11/28/2022 showed reduced LVEF at 35-40%, moderate MR BP is low normal +Trop, BNP sig elevated Cont IV lasix Midodrine +/- inotrope if needed # NSTEMI On heparin gtt # Chronic afib Per other services # HypoK KCl repletion prn # Advanced dementia +Delirium episodes Supportive care
[2022-11-28] MEDS ORDERED: HALOPERIDOL LACT 5 MG/ML INJ IM SCH (15:38)
[2022-11-28] MEDS: ENOXAPARIN 80 MG/0.8 ML SQ SCH (16:27)
--- NOTE | 2022-11-28 18:26 | PN ---
Date of Progress Note: 11/28/2022 Subjective: Seen by bedside. Doing well. No chest pain. Review of Systems: No chest pain, shortness of breath, orthopnea, or cough. No nausea, vomiting, diarrhea. All other s ystems reviewed are negative. Physical Examination: Vital Signs: Reviewed. Head and Neck: Pupils are equal, reactive to light. Intact eye movements. No JVD. No cervical lym phadenopathy. Neck is supple. Thyroid is not enlarged. Lungs: Clear to auscultation bilaterally. No rhonchi, wheezing, or crackles. No accessory muscle u se. Heart: Regular rate and rhythm. No extra sounds. Abdomen: Soft, nontender. Bowel sounds positive. No organomegaly. No masses or hernia. No rigidi ty or rebound. Extremities: No clubbing or cyanosis. Trace edema. Neurologic: Alert, awake, oriented x3. No acute focal deficits appreciated. Investigations: BUN 59, creatinine 1.79, and troponin is down to 11,882. Hemoglobin is 9.6. Assessment/recommendation: 1.Non-ST elevation myocardial infarction with acute renal failure. Kidney function is improving and his troponin is coming down. On echo, he has mildly depressed EF. This patient needs coronary zacarias ogram, awaiting on the family to decide, given the fact that he is 87 years of age with advanced dayanna ntia. 2.Atrial fibrillation, on Betapace. Continue current management. 3.Dyslipidemia. Continue statin. 4.Acute renal failure. This is getting better. Continue current management and please add aspirin to the medications. SR/MODL Voice ID: [id number] Report ID: [id number]
[2022-11-28] MEDS: KCL 20 MEQ/100 mL IVPB 20 MEQ/100 ML BAG IV SCH ×2 (19:50→21:37)
[2022-11-28] MEDS ORDERED: NA CHLORIDE 0.9% 250 ML ONE (19:54)
[2022-11-28] MEDS: ATORVASTATIN 20 MG TAB PO SCH (19:58)
[2022-11-28] MEDS: RISPERIDONE 1 MG TABLET PO SCH (19:58)
[2022-11-28] MEDS: DONEPEZIL HCL 5 MG TAB PO SCH ×2 (19:59→20:49)
[2022-11-28] MEDS ORDERED: RISPERIDONE 3 MG PO SCH (21:00)
[2022-11-29 05:15] LABS: Absolute Lymphocytes (CBC) 0.6 K/uL (0.7-4.9); Hematocrit 33.6 % (39.6-49.0); Lymphocytes % 8.5 % (15.3-44.8); MCV 82.5 fL (80-100); MPV 10.4 fL (7.6-11.3); Platelets 166 thou/uL (152-406); RBC Red Blood Cell Count 4.07 M/uL (4.33-5.43)
[2022-11-29 05:33] LABS: Albumin 2.6 g/dL (3.4-5.0); Bilirubin Total 0.5 mg/dL (0.2-1.0); Magnesium 2.2 mg/dL (1.6-2.4); Phosphorus 3.1 mg/dL (2.5-4.9); Protein, Total 6.7 g/dL (6.4-8.2)
--- NOTE | 2022-11-29 06:45 | P.PN ---
Date of Service: 11/29/22 Subjective: confused, tired agitated yesterday pulling at lines/girard; given haldol/ativan restrains ordered yesterday urine is noted to be pink in color breathing comfortably on room air ROS: 10 point ROS as noted above, otherwise negative Physical Exam: GEN: orientedx1, fatigued appearing, confused/dementia HEENT: Normal conjunctiva, sclera anicteric CV: Regular rate and rhythm (paced), trace BLE edema Pulm: Nonlabored respirations on room air, diminished at bases b/l ABD: Soft, nontender, nondistended Neuro: dementia, hard of hearing girard in place - urine pink in color vitals reviewed Problem List: NSTEMI Acute on chronic CHF Traumatic Hematuria ZACKERY Hypokalemia a-fib, chronic on anticoagulation Severely advanced dementia Hyperlipidemia Hypertension Hypothyroidism NSTEMI Acute on chronic CHF CXR (11/27): mild CHF CXR (11/28): Mild increased interstitial and airspace disease. Chronically elevated left hemidiaphragm but small left effusion may also be present trend troponins, monitor on tele denies chest pain Cardiology consulted echo(11/28): 40% EF, moderate global hypokinesis, moderate MR Dr. Villegas spoke to patient's son (BRADLEY); conservative medical management vs coronary angiogram. pending family response/decision Heparin drip changed to lovenox 11/28 per Cardiology start aspirin 81 mg (11/29) continue lasix IV BID as BP and renal function allow edema improved, likely transition to PO tomorrow Traumatic Hematuria agitated and confused yesterday pulling at lines/girard blood tinged urine noted from girard 11/28 given haldol/ativan yesterday 11/28 restrained 11/29 - urine pink in color - improving Monitor H&H ZACKERY Hypokalemia renal u/s (11/27): Significantly echogenic kidneys bilaterally Nephrology consulted improving continue lasix IV BID continue to monitor renal function A-fib, chronic on anticoagulation Severely advanced dementia Hyperlipidemia Hypertension Hypothyroidism confirm home medications, restart as appropriate restarted psych/dementia medications 11/28 VTE: lovenox Code: Full Dispo: Back to half-way - [facility] Pending further work up, ~2-3 days
[2022-11-29] MEDS: LEVOTHYROXINE SOD 0.075 MG TAB PO SCH (07:08)
[2022-11-29] MEDS: SOTALOL HCL 80 MG TAB PO SCH ×2 (08:44→20:26)
[2022-11-29] MEDS: ENOXAPARIN 80 MG/0.8 ML SQ SCH ×2 (08:44→20:26)
[2022-11-29] MEDS: VITAMIN D 1000 UNIT TAB PO SCH (08:44)
[2022-11-29] MEDS: MEMANTINE HCL 10 MG TABLET PO SCH ×2 (08:45→20:25)
[2022-11-29] MEDS: TAMSULOSIN 0.4 MG SR CAP PO SCH (08:45)
[2022-11-29] MEDS: GABAPENTIN 100 MG CAP PO SCH (08:45)
[2022-11-29] MEDS: CYANOCOBALAMIN 5000 MCG PO SCH (09:00)
[2022-11-29] MEDS: FUROSEMIDE 40 MG/4 ML VIAL IV SCH ×2 (09:00→15:56)
[2022-11-29] MEDS ORDERED: RISPERIDONE 1 MG TABLET PO SCH (09:00)
[2022-11-29] MEDS ORDERED: ASPIRIN 81 MG CHEWABLE TABLET PO SCH (09:00)
--- NOTE | 2022-11-29 13:38 | PN ---
Date of Progress Note: 11/29/2022 Subjective: Seen by bedside. No chest pain. Review of Systems: No chest pain, shortness of breath, orthopnea, or cough. No nausea, vomiting, or diarrhea. All othe r systems were reviewed, they were negative. Objective: Vital Signs: Reviewed. Head and Neck: Pupils are equal, reactive to light. Intact eye movements. No JVD. No cervical lym phadenopathy. Neck is supple. Thyroid is not enlarged. Lungs: Clear to auscultation bilaterally. No rhonchi, wheezing, or crackles. No accessory muscle u se. Heart: Irregular. No extra sounds. Abdomen: Soft, nontender. Bowel sounds positive. No organomegaly. No masses or hernia. No rigidi ty or rebound. Extremities: Trace edema. No clubbing or cyanosis. Intact pulses. Skin: No rash. No nodule. Neurologic: Alert, awake, oriented x3. No acute focal deficits appreciated. Investigations: BUN 48, creatinine is 1.53. Assessment And Recommendations: 1.Uuc-MK-jpzkrubnl myocardial infarction. Continue Lovenox and aspirin. Plan for coronary angiogra m on Thursday. 2.Acute renal failure, improving. It is due to cardiorenal syndrome and elevated central venous pre ssure, responding well to diuresis. 3.Acute on chronic systolic congestive heart failure exacerbation, on IV Lasix, and BUN and creatinine improving. Continue current management. Monitor kidney function cl osely. SR/MODL Voice ID: [id number] Report ID: [id number]
--- NOTE | 2022-11-29 13:55 | P.PN ---
Subjective Date of Service: 11/29/22 Chief Complaint: SOB Subjective: Other (bedbound) Physical Examination - Vital Signs Temperature: 98 F Blood Pressure: 128/71 Pulse: 66 Respirations: 20 Pulse Ox (%): 97 - Physical Exam General: Other (chronically ill-appearing) HEENT: Atraumatic, Normocephalic Neck: Supple Respiratory: Other (symmetric chest expansion) Cardiovascular: No rubs, No murmurs Gastrointestinal: Soft and benign, No guarding Musculoskeletal: No clubbing Integumentary: No warmth Neurological: Dementia Urinary: Other (no bladder distention) External genitalia: Deferred Rectal: Deferred Assessment And Plan - Plan # ZACKERY 2/2 prerenal state + hypotension/CRS1 Serum creatinine is 2.2 on admission, improved to 1.5 today Baseline serum creatinine 0.7-0.8 as of July 2022 Encourage liberal po fluid intake. PO fluid intake poor. Give thiamine 500 mg IV x 1 then start D5W gtt at 40 cc/hr. Avoid Na-containing IV fluid Cont IV lasix. Plan to switch Lasix from IV to PO in 1-2 days. Hold off on feeding tube # Acute on chronic systolic HF TTE on 11/28/2022 showed reduced LVEF at 35-40%, moderate MR BP is low normal +Trop, BNP sig elevated Cont IV lasix Midodrine +/- inotrope if needed # NSTEMI Per Cardiology # Chronic afib Per other services # HypoK KCl repletion today # Advanced dementia +Delirium episodes Supportive care Physician Review: Patient Assessed, Agree with Above Assessment and Plan
[2022-11-29] MEDS ORDERED: D5W 1,000 ML IV SCH (15:00)
[2022-11-29] MEDS ORDERED: NA CHLORIDE 0.9% IV ONE (15:00)
[2022-11-29] MEDS ORDERED: THIAMINE HCL IV ONE (15:00)
[2022-11-29] MEDS: RISPERIDONE 1 MG TABLET PO SCH (20:25)
[2022-11-29] MEDS: ATORVASTATIN 20 MG TAB PO SCH (20:25)
[2022-11-29] MEDS: DONEPEZIL HCL 5 MG TAB PO SCH ×2 (20:26→20:43)
[2022-11-29] MEDS: ALBUMIN HUMAN 25% 50 ML IV SCH ×2 (23:27→23:51)
[2022-11-30] MEDS ORDERED: D5W 250 ML IV SCH (00:34)
[2022-11-30] MEDS ORDERED: MIDODRINE HCL 5 MG TABLET PO SCH ×2 (00:35→12:00)
[2022-11-30] MEDS ORDERED: MIDODRINE HCL 5 MG TABLET PO ONE (01:29)
[2022-11-30] MEDS ORDERED: NOREPINEPHRINE 4 MG in D5W 250 ML IV SCH (02:00)
[2022-11-30] MEDS: NOREPINEPHRINE 4 MG in D5W 250 ML IV SCH ×4 (02:00→06:49)
[2022-11-30] MEDS ORDERED: NOREPINEPHRINE BITARTRATE/D5W 4 MG/250 ML BAG IV ONE (02:12)
[2022-11-30 02:25] LABS: Absolute Lymphocytes (CBC) 0.5 K/uL (0.7-4.9); Hematocrit 31.8 % (39.6-49.0); Lymphocytes % 5.2 % (15.3-44.8); MCV 82.4 fL (80-100); MPV 10.5 fL (7.6-11.3); Platelets 209 thou/uL (152-406); RBC Red Blood Cell Count 3.86 M/uL (4.33-5.43)
[2022-11-30 02:43] LABS: Bilirubin Total 0.8 mg/dL (0.2-1.0); Magnesium 2.2 mg/dL (1.6-2.4); Potassium 3.8 mEq/L (3.5-5.1); Protein, Total 6.7 g/dL (6.4-8.2)
[2022-11-30] MEDS ORDERED: PIPER TAZO 3.375 GM in NA CHLORIDE 0.9% 100 ML IV SCH (04:30)
[2022-11-30 04:43] LABS: Troponin High Sensitivity 7433.6 pg/mL (<58.9)
--- NOTE | 2022-11-30 05:49 | P.PN ---
Date of Service: 11/30/22 Patient's blood pressure progressively dropped throughout the evening, attempted giving albumin, D5W boluses discussed further with nephrology, given midodrine without improvement. Blood pressure continued to drop, patient required vasopressor therapy with Levophed. Called and discussed case with patient's son who is his MPOA, he is okay with continuing vasopressor therapy at this time but states that his father would not want to be resuscitated if he did suffer cardiac arrest. Will update chart to reflect patient's wishes of DNR. Case discussed further with attending physician.
[2022-11-30 06:16] VITALS: BMI 21.7
[2022-11-30] MEDS: LEVOTHYROXINE SOD 0.075 MG TAB PO SCH (06:30)
[2022-11-30] MEDS ORDERED: KCL 20 MEQ/100 mL IVPB 20 MEQ/100 ML BAG IV SCH (07:00)
--- NOTE | 2022-11-30 07:34 | P.PN ---
Date of Service: 11/30/22 Subjective: ~1 am blood pressure started to drop ~50-60s systolic given midodrine without improvement; started on levophed overnight; PICC line placed overnight ACID RETORT OPERATOR Shyam spoke to patients son who said it was okay to give vasopressors but would like to change to DNR +tachycardic, tachypneic urine remains light pink tinged son updated over the phone 11/30 - discussed at length further plan of care given patient's condition; would like to pursue comfort measures ROS: 10 point ROS as noted above, otherwise negative Physical Exam: GEN: orientedx1, fatigued appearing, confused/dementia HEENT: Normal conjunctiva, sclera anicteric CV: Tachycardic, trace BLE edema Pulm: mod-severe labored respirations on 2L NC, diminished at bases b/l, tachypneic ABD: Soft, nontender, nondistended Neuro: dementia, hard of hearing girard in place - urine pink in color vitals reviewed Problem List: NSTEMI Acute on chronic CHF Traumatic Hematuria ZACKERY Hypokalemia a-fib, chronic on anticoagulation Severely advanced dementia Hyperlipidemia Hypertension Hypothyroidism Hypotension 11/30 - overnight ~1 am patients BP started to drop ~60-70s systolic spoke to nephrology who recommended midodrine; minimal-no relief given levophed overnight/this morning PICC line placed overnight son updated over the phone 11/30 - discussed at length further plan of care given patient's condition; would like to pursue comfort measures continue ativan, morphine PRN - keep patient comfortable; q1h NSTEMI Acute on chronic CHF CXR (11/27): mild CHF CXR (11/28): Mild increased interstitial and airspace disease. Chronically elevated left hemidiaphragm but small left effusion may also be present trend troponins, 16k -> 15k -> 12k -> 7.2k -> 7.4k Cardiology consulted echo(11/28): 40% EF, moderate global hypokinesis, moderate MR previously on herparin drip, lovenox, aspirin 81 mg, lasix; dc'd d/t comfort care Traumatic Hematuria agitated and confused pulling at lines/girard blood tinged urine noted from girard 11/28 given haldol/ativan 11/28 11/29 - urine light pink tinged in color - improving ZACKERY Hypokalemia renal u/s (11/27): Significantly echogenic kidneys bilaterally Nephrology consulted previously on IV fluids / lasix; now dc'd a-fib, chronic on anticoagulation Severely advanced dementia Hyperlipidemia Hypertension Hypothyroidism comfort measures Code: DNR Dispo: Comfort measures Son updated 11/30 - Discussed at length further plan of care given deteriorating condition; would like to pursue comfort measures at this time
[2022-11-30] MEDS ORDERED: LORazepam 2 MG/ML VIAL IV PRN (07:47)
[2022-11-30] MEDS ORDERED: MORPHINE 4 MG/ML SYR IV PRN (07:47)
[2022-11-30] MEDS ORDERED: NOREPINEPHRINE 16 MG in D5W 250 ML IV SCH (08:00)
[2022-11-30] MEDS ORDERED: Mupirocin NASAL 2 APPL/1 GM TUBE NAS SCH (09:00)
[2022-11-30 09:29] VITALS: O2SAT 100
[2022-11-30 09:51] VITALS: BP 64/23; TEMP 97.3
--- NOTE | 2022-11-30 12:33 | P.DS ---
Admission Date: 11/27/22 Discharge Date: 11/30/22 Reason for Admission: SOB Consultations: Cardiology - Dr. Villegas Nephrology - Dr. Fernandez Brief History of Present Illness: 87yo M, PMH: atrial fibrillation, dementia, gout, hyperlipidemia, hypertension, insomnia, pacemaker. Patient came from custodial to the ER with complaints of hypoxia. Patient had oxygenation saturation in the custodial. Also abnormal labs he had hypernatremia as well as elevated creatinine on the labs they sent the patient with. Patient's oxygen was 70s 2 days ago. He had a chest x-ray that was showing some possible pulmonary edema versus infection. Patient was started on antibiotic at that time as well as Lasix. Patient oxygenation got worse and today and his oxygen dropped to 50s off oxygen. In the emergency room. ER course blood pressure 78/58, pulse 68, respiration 10, temperature 97.9, 100% SPO2 on 3 L of nasal cannula. Back pain Tong Ramirez 87-year-old male with history of atrial fibrillation, dementia, gout, hyperlipidemia, hypertension, insomnia, pacemaker. Patient came from custodial to the ER with complaints of hypoxia. Patient had oxygenation saturation in the custodial. Also abnormal labs he had hypernatremia as well as elevated creatinine on the labs they sent the patient with. Patient's oxygen was 70s 2 days ago. He had a chest x-ray that was showing some possible pulmonary edema versus infection. Patient was started on antibiotic at that time as well as Lasix in the custodial. Patient oxygenation got worse and today and his oxygen dropped to 50s off oxygen. In the emergency room the temperature was 94.5 pulse oximetry 100% on room air. Patient denies chest pain shortness of breath , fever chills or dizziness. Blood pressure 78/58, pulse 68, respiration 10, temperature 97.9, 100% SPO2 on 3 L of nasal cannula. Laboratory findings significant for hemoglobin 10.1, hematocrit 30.8 BUN 72 creatinine 2.8, GFR 29, glucose 109, AST 50, troponin 40705.5, BNP 64510, albumin 2.9. Chest x-ray showing mild CHF admitting the patient with a diagnosis of subsequent non-ST elevation myocardial infarction, bilateral lower extremity edema. Hospital Course: Problem List: NSTEMI Hypotension Acute on chronic CHF Traumatic Hematuria ZACKERY Hypokalemia a-fib, chronic on anticoagulation Severely advanced dementia Hyperlipidemia Hypertension Hypothyroidism Physical Exam: Vital Signs/Physical Exam: Temp Pulse Resp BP Pulse Ox 97.3 F 66 21 H 64/23 L 97 11/30/22 08:00 11/30/22 08:00 11/30/22 08:00 11/30/22 08:00 11/30/22 08:00 Laboratory Data at Discharge: WBC 10.20 thou/uL (4.3-10.9) 11/30/22 02:13 Hgb 10.6 g/dL (13.6-17.9) L 11/30/22 02:13 Hct 31.8 % (39.6-49.0) L 11/30/22 02:13 Plt Count 209 thou/uL (152-406) 11/30/22 02:13 PT 16.4 SECONDS (9.5-12.5) H 11/27/22 13:55 INR 1.49 11/27/22 13:55 APTT 39.0 SECONDS (24.3-36.9) H 11/29/22 04:53 Sodium 138 mEq/L (136-145) D 11/30/22 02:13 Potassium 3.8 mEq/L (3.5-5.1) 11/30/22 02:13 BUN 51 mg/dL (7-18) H 11/30/22 02:13 Creatinine 2.40 mg/dL (0.70-1.30) H 11/30/22 02:13 Glucose 212 mg/dL (74-106) H 11/30/22 02:13 Uric Acid 11.8 mg/dL (3.5-7.2) H 11/27/22 18:08 Phosphorus 4.0 mg/dL (2.5-4.9) 11/30/22 02:13 Magnesium 2.2 mg/dL (1.6-2.4) 11/30/22 02:13 Total Bilirubin 0.8 mg/dL (0.2-1.0) 11/30/22 02:13 AST 26 U/L (15-37) 11/30/22 02:13 ALT 24 U/L (16-61) 11/30/22 02:13 Alkaline Phosphatase 50 U/L (45-117) 11/30/22 02:13 Home Medications: Cholecalciferol (Vitamin D3) [Vitamin D3] 5,000 unit PO DAILY 02/19/18 Cyanocobalamin (Vitamin B-12) [Vitamin B-12] 5,000 mcg PO DAILY 02/19/18 Gabapentin 100 mg PO TID 02/19/18 Sotalol HCl [Betapace*] 40 mg PO BID 02/19/18 Tamsulosin HCl 0.4 mg PO DAILY 02/19/18 Amlodipine [Norvasc] 5 mg PO DAILY 11/27/22 Donepezil HCl 5 mg PO BEDTIME 11/27/22 Fenofibrate,Micronized [Fenofibrate] 134 mg PO DAILY 11/27/22 Furosemide 40 mg PO BID 11/27/22 Furosemide 40 mg PO DAILY 11/27/22 Levothyroxine [Synthroid] 75 mcg PO [id number] 11/27/22 Lisinopril [Zestril] 5 mg PO DAILY 11/27/22 Melatonin 3 mg PO BEDTIME 11/27/22 Memantine HCl 5 mg PO DAILY 11/27/22 Pantoprazole Sodium [Protonix] 40 mg PO DAILY 11/27/22 Polyethylene Glycol 3350 [Miralax] 17 gm PO DAILY PRN 11/27/22 Potassium Chloride 40 meq PO DAILY 11/27/22 Risperidone [Risperdal] 1 mg PO DAILY 11/27/22 Risperidone [Risperdal] 3 mg PO BEDTIME 11/27/22 Followup: NONE,NONE [Primary Care Provider] - Time spent managing pt's care (in minutes): 45
[2022-11-30] MEDS ORDERED: THIAMINE 200 MG/2 ML INJ IVP ONE (14:25)
--- NOTE | 2022-12-01 11:25 | RAD REPORT ---
EXAM DESCRIPTION: X-ray single view chest. CLINICAL HISTORY: 87 years Male, S/P PICC insertion COMPARISON: 11/30/2022 at 2:15 AM TECHNIQUE: Single portable x-ray view of the chest performed on at 4:00 AM FINDINGS: The lungs are well-expanded. There is ongoing volume loss in the left inferior hemithorax and there is diffuse perihilar interstitial and alveolar opacification likely due to pulmonary edema and left pleural effusion. Atelectatic changes in the left lung base are not excluded. There is no ev idence of a pneumothorax. The cardiac silhouette is stable and is enlarged. There are remote postsurgical changes of the medias tinum. The mediastinal contours are normal. No acute osseous abnormality is identified. No acute soft tissue abnormalities are seen. Lines and tubes: There is a left subclavian bipolar pacemaker. The right upper extremity PICC line catheter tip terminates in the region of the superior vena cava. There are multiple overlying air sampling and monitoring leads. Free air: None IMPRESSION: 1. The tip of the right upper extremity PICC line catheter terminates in the region of the superior vena cava. 2. Ongoing volume loss in the left lung base and perihilar interstitial and alveolar opacification likely due to pulmonary edema and left pleural effusion. Multifocal pneumonia is not excluded. 3. Stable cardiomegaly and remote median sternotomy. 4. Stable left subclavian pacemaker. Electronically signed by: Marjan Rosa DO 11/30/2022 4:47 AM CDT Due to temporary technical issues with the PACS/Fluency reporting system, reports are being signed by the in house radiologists without review as a courtesy to insure prompt reporting. The interpreting radiologist is fully responsible for the content of the report.
--- NOTE | 2022-12-01 11:40 | RAD REPORT ---
EXAM DESCRIPTION: Chest Single View 11/30/2022 2:29 AM CDT CLINICAL HISTORY: 87 years, Male, hypotension COMPARISON: None. FINDINGS: 1 x-ray views of the chest (portable) was obtained. No prior films are available for junior rison. The lung volume is slightly decreased. External EKG leads within the [id number] limits diag nosis. There is a dual-lead pacemaker via left subclavian. Sternotomy wires and pericardiac clips cor respond to previous CABG. The heart is prominent. The thoracic aorta is tortuous with intimal cortica tion. Increased interstitial pulmonary markings correspond to interstitial pulmonary edema. Small ky ateral pleural effusions with compressive ectatic changes/or infiltrates. The rest of the soft tiss ue and bony structures demonstrate to be unremarkable. IMPRESSION: Increased interstitial pulmonary markings correspond to interstitial pulmonary edema. Small bilateral pleural effusions with compressive ectatic changes/or infiltrates. Status post CABG. Pacemaker in place. Electronically signed by: Virgilio Urbina MD 11/30/2022 2:31 AM CDT Due to temporary technical issues with the PACS/Fluency reporting system, reports are being signed by the in house radiologists without review as a courtesy to insure prompt reporting. The interpreting radiologist is fully responsible for the content of the report.
== END 2022-11-30 09:15 | disposition expired ==
LOC: ER 11:16 → ERHOLD 13:34 → 3RD-ICU 15:25
PROVIDERS: ADMIT Hospitalist; ATTEND Hospitalist
PROC: 02HV33Z Insertion of Infusion Device into Superior Vena Cava, Percutaneous Approach (ICD-10-PCS; principal; 2022-11-30)
DX: I21.4 Non-ST elevation (NSTEMI) myocardial infarction (principal); I50.23 Acute on chronic systolic (congestive) heart failure; N17.9 Acute kidney failure, unspecified; I48.20 Chronic atrial fibrillation, unspecified; F05 Delirium due to known physiological condition; E87.0 Hyperosmolality and hypernatremia; I11.0 Hypertensive heart disease with heart failure; E87.6 Hypokalemia; M10.9 Gout, unspecified; G47.00 Insomnia, unspecified; E78.00 Pure hypercholesterolemia, unspecified; F03.C0 Unspecified dementia, severe, without behavioral disturbance, psychotic disturbance, mood disturbance, and anxiety; R68.0 Hypothermia, not associated with low environmental temperature; R31.9 Hematuria, unspecified; Z66 Do not resuscitate; Z95.0 Presence of cardiac pacemaker; Z95.1 Presence of aortocoronary bypass graft; Z74.01 Bed confinement status; Z79.899 Other long term (current) drug therapy
CPT/HCPCS: 36415; 36569; 71045; 76770; 80053; 81001; 82570; 83605; 83735; 83880; 83970; 84100; 84132; 84145; 84443; 84484; 84550; 85025; 85610; 85730; 87040; 93005; 93306; 96374; 99285; J1630; J1644; J1940; J2543; J3411; J3480; J7050; J7060; J7120; P9047